=== PATIENT | male | born 1965 | race Caucasian/White ===

== ENCOUNTER 2025-06-01 14:31 | Inpatient (IN) | payer OTHER, SELFPAY ==
--- NOTE | ~2025-06-01 | FL_ITS ---
EXAMINATION: Modified Barium Swallow CLINICAL INFORMATION: Dysphagia COMPARISON: None TECHNIQUE: Modified barium swallow was performed under lateral fluoroscopy with patient in standing position. Barium mixed with solids and liquids of different consistencies was administered by the speech pathologist. Examination was recorded in the fluoroscopy suite. FINDINGS: Patient was given all consistencies. There was no laryngeal penetration or aspiration identified. FLUOROSCOPY TIME: 36 seconds Number of Spot Images: N/A DOSE AREA PRODUCT: 270.3 uGy-m2 (microgray-meter squared) FL/FL Modified Barium Swallow IMPRESSION: No evidence of laryngeal penetration or aspiration. Refer to the full speech therapy report to follow for further details. Electronically signed by: Gerry Tejeda MD 06/06/2025 03:25 PM EDT RP
--- NOTE | ~2025-06-01 | XR_ITS ---
EXAMINATION: XR CHEST CLINICAL INFORMATION: CHRONIC COUGH COMPARISON: None available. TECHNIQUE: Frontal view of the chest was obtained. FINDINGS: Pulmonary reticular pattern. No hyperinflation. No consolidation, pleural effusion or pneumothorax. Cardiomediastinal silhouette size is normal. Inadequate evaluation of the axial skeleton. XR/XR chest 1V IMPRESSION: Concerning chronic interstitial lung disease without overt acute airspace disease. Electronically signed by: Vik Mccauley MD 07/15/2025 02:08 PM EDT
[2025-06-01 15:02] VITALS: BP 120/80; PULSE 77; O2SAT 98
[2025-06-01 15:03] VITALS: BMI 20.5
[2025-06-01 15:22] VITALS: BP 113/70; PULSE 73; RESP 18; TEMP 36.9; O2SAT 96
--- NOTE | 2025-06-01 15:29 | PC.NURSE ---
Crisis changeover completed. Belongings placed in [facility] (ED).
--- NOTE | 2025-06-01 15:38 | ED.PSYCH ---
HPI - Psych General Chief Complaint: Psychiatric Symptoms Stated Complaint: AGITATION Time Seen by Provider: 06/01/25 15:30 Source: patient, EMS and other ([facility]) Mode of arrival: EMS Limitations: no limitations History of Present Illness ED Provider: Eugenia Callahan APRN HPI Narrative: 59-year-old male with a history of schizophrenia, seizure, COPD, DVT on Eliquis, dementia, bulimia, GT present here from [facility] after a verbal altercation with another resident. Patient reports that he was filing a complaint with the boiler operators supervisor and electrical engineering director in regards to dust he finds that were being used and the need for air conditioning at the facility. He reports over the last few days he has gotten into several different verbal altercation with another resident in regards to his concerns. Patient denies any SI or HI. No hallucinations. He is currently calm and cooperative. Nursing called and spoke to the nurse who was working with the patient today. They report the patient has had increasing manic episodes over the last few days and they tell us that the patient was sent in for a mental health evaluation. Related Data Home Medications ?Medication ?Instructions ?Recorded ?Confirmed acetaminophen 650 mg tablet 650 mg PO Q6H PRN Pain 06/01/25 06/01/25 apixaban 5 mg tablet (Eliquis) 5 mg feeding tube BID 06/01/25 06/01/25 bisacodyl 10 mg rectal suppository 10 mg [place] DAILY PRN Constipation 06/01/25 06/01/25 calcium carbonate 1,000 mg feeding tube Q8H PRN GERD 06/01/25 06/01/25 clotrimazole 1 % topical cream 1 appl topical TID 06/01/25 06/01/25 fluoxetine 10 mg capsule 10 mg PO DAILY 06/01/25 06/01/25 glucagon 1 mg/0.2 mL subcutaneous 1 mg subcut NEEDED PRN 06/01/25 06/01/25 auto-injector (Gvoke HypoPen Hypoglycemia 1-Pack) glycerin 2 drp ophthalmic (eye) Q4H PRN 06/01/25 06/01/25 dryness lacosamide 10 mg/mL oral solution 100 mg feeding tube BID 06/01/25 06/01/25 (Vimpat) lactose-reduced food with fiber 1 ea feeding tube BID 06/01/25 06/01/25 0.06 gram-1.5 kcal/mL oral liquid (Jevity 1.5 Alexis) lithium carbonate 150 mg capsule 150 mg feeding tube BID 06/01/25 06/01/25 magnesium hydroxide 400 mg/5 mL 30 ml feeding tube DAILY PRN 06/01/25 06/01/25 oral suspension (Milk of Magnesia) Constipation memantine 10 mg tablet 20 mg PO BEDTIME 06/01/25 06/01/25 midodrine 2.5 mg tablet 7.5 mg feeding tube TID 06/01/25 06/01/25 naloxone 0.4 mg/mL injection 0.4 mg subcut Q2M PRN opiate 06/01/25 06/01/25 solution overdose naloxone 4 mg/actuation nasal spray 4 mg intranasal Q2M PRN opiate 06/01/25 06/01/25 overdose pantoprazole 40 mg granules 40 mg G-tube DAILY 06/01/25 06/01/25 delayed-release for susp in packet polyethylene glycol 3350 17 17 g feeding tube DAILY PRN 06/01/25 06/01/25 gram/dose oral powder (Miralax) Constipation quetiapine 50 mg tablet 50 mg feeding tube BID 06/01/25 06/01/25 sennosides 8.8 mg/5 mL oral syrup 10 ml feeding tube DAILY PRN 06/01/25 06/01/25 (senna) Constipation sodium phosphates 19 gram-7 118 ml WV DAILY PRN Constipation 06/01/25 06/01/25 gram/118 mL enema (Fleet Enema) Allergies Allergy/AdvReac Type Severity Reaction Status Date / Time dog dander Allergy Unknown Verified 06/04/25 06:34 mite-Dermatophagoides Allergy Unknown Verified 06/04/25 06:32 farinae, abhilash (dust mite - [place]) Review of Systems Review of Systems: Yes all other systems are reviewed and are negative Constitutional: Constitutional: Reports no additional constitutional complaints, Denies body ache(s), Denies chills, Denies fever(s), Denies headache(s) and Denies weakness Eyes: Eyes: Reports no additional eye complaints and Denies change in vision ENT: Reports system reviewed and no additional complaints, except as documented, Denies dizziness, Denies headache(s), Denies nasal congestion, Denies nasal discharge and Denies neck pain Cardiovascular: Cardiovascular: Reports no additional cardiovascular complaints, Denies chest pain, Denies leg edema and Denies dyspnea Respiratory: Respiratory: Reports no additional respiratory complaints, Denies cough and Denies dyspnea Gastrointestinal: Gastrointestinal: Reports no additional gastrointestinal complaints, Denies abdominal pain, Denies diarrhea, Denies nausea and Denies vomiting Genitourinary: Genitourinary: Denies urinary incontinence Musculoskeletal: Musculoskeletal: Reports no additional musculoskeletal complaints, Denies back pain, Denies arthralgias, Denies joint swelling, Denies neck pain, Denies numbness and Denies tingling Integumentary/Breasts: Skin/Breast: Reports system reviewed and no additional complaints, except as docu and Denies rash Neurologic: Reports system reviewed and no additional complaints, except as documented, Denies Abnormal speech present, Denies dizziness, Denies headache(s), Denies numbness, Denies tingling and Denies weakness PMFSH Past Medical History Attestation statement: The following information was validated with the patient. Source: old records reviewed and nursing notes reviewed Medical History (Updated 06/04/25 @ 17:23 by Ed Adhikari MD) Gastrointestinal tube in situ Eating disorder with ongoing treatment Bulimia Schizoaffective disorder, bipolar type Social History Social History Household Members: Other Household Members Other:: Senior Living Housing: Senior Living Do you presently have visiting nurse or other home services: No Patient Tobacco Use Status: Refuse Tobacco use screen Smoked in Last 30 Days: No Use of substances other than those prescribed or required for medical reasons: No Currently Displaying Signs/Symptoms of Drug Intoxication Withdrawal: No Advance Directives: No Advance Directives Information Provided: No Do you have thoughts of harming others: None Do you have a plan to hurt others: No Plan Recently lost weight without trying: No How much weight loss: Not applicable Eating poorly because of decreased appetite: No Nutrition screen score: 0 Nutrition Risks: No Nutritional Risk Poor oral hygiene: No service: No Physical Exam Vital Signs: Vital Signs: Last Vital Signs Temp 97.4 F 06/06/25 08:00 Pulse 64 06/06/25 15:53 Resp 16 06/06/25 20:00 BP 102/62 06/06/25 15:53 Pulse Ox 96 06/06/25 08:00 O2 Del Method Room Air 06/06/25 08:00 BMI result Body Mass Index 20.5 Const: General: cooperative, healthy appearing, comfortable and no acute distress Orientation/consciousness: patient oriented x3 Limitations: no limitations HEENT: Head: Yes normal to inspection Ears: hearing grossly normal bilaterally General nose exam: Normal external nose present Face and sinus: Yes normal facial exam Mouth: Normal oral and palatal mucosa present Throat: Yes posterior oropharynx normal Eyes: General: appearance normal, both eyes and all related structures Pupils: Equal, round and reactive pupils present Neck: Neck: Yes normal visual inspection Chest: Chest palpation & inspection: normal inspection of the chest Resp: Effort & Inspection: normal respiratory effort Auscultation: clear to auscultation bilaterally Cardio: Rate: regular rate Rhythm: regular rhythm Peripheral pulses: Peripheral pulses 2+ throughout GI: Inspection: Yes normal to inspection Palpation (GI): Soft to palpation and nontender Auscultation: normal bowel sounds Back/Spine/Pelvis: Thoracic/Lumbar Spine: thoracic and lumbar spine normal to inspection Skin: General skin exam: no rashes or lesions noted Neuro: General: patient oriented x3, no focal motor deficits and normal sensation to monofilament Cranial nerves: Yes Equal, round and reactive pupils present Cognition (Neuro): normal cognition Speech: No Abnormal speech present Gait exam (Neuro): Normal gait present Motor exam (neuro): 5/5 motor strength present throughout Extrem: General: Yes normal to inspection Course Course Course Narrative: 1758-seen by care team. Requesting psych consultation for med review Reevaluation(s) Reevaluation #1: Time: 18:18 Date: 06/01/25 Provider: Eugenia Callahan NP Patient in physician observation for psychiatric evaluation.? Reevaluation #2: Time: 08:53 Date: 06/02/25 Provider: KANE Veloz Patient in physician observation for psychiatric evaluation.? No acute events reported overnight. Awaiting psychiatric consultation. Time: 12:38 Date: 06/02/25 Provider: KANE Veloz Patient in physician observation for psychiatric evaluation.? ? Patient is in bed search status. Will continue to monitor. Reevaluation #3: DR. Faust's progress note, 06/03/2025; 9;27; VSS, no events reported by nurse overnight. Continue physician observation, bed search is underway, care team input is appreciated. Time: 09:27 Consultations Consultation #1: Discontinue physician observation now, patient is admitted to . Time: 15:55 Medications Administered Generic Name Dose Route Start Last Admin Trade Name Freq PRN Reason Stop Dose Admin Apixaban 5 mg 06/05/25 21:00 06/06/25 20:32 Apixaban 5 Mg Tablet PO Not Given BID SERENITY Clotrimazole 1 appl 06/01/25 21:00 06/06/25 20:32 Clotrimazole 1 % Cream 15 Gm Tube TOPICAL Not Given TID [facility] Protocol Fluoxetine HCl 10 mg 06/02/25 09:00 06/06/25 08:17 Fluoxetine Hcl 10 Mg Capsule PO 10 mg DAILY SERENITY Administration Lacosamide 100 mg 06/05/25 21:00 06/06/25 20:32 Lacosamide Oral Solution 100 Mg/10 Ml Solution PO Not Given BID SERENITY [place] Carbonate 300 mg 06/05/25 21:00 06/06/25 20:32 [place] Carbonate 300 Mg Tablet PO Not Given BID SERENITY Memantine 20 mg 06/01/25 21:00 06/06/25 20:33 Memantine Hcl 10 Mg Tablet PO Not Given BEDTIME SERENITY Midodrine 7.5 mg 06/05/25 11:30 06/06/25 15:55 Midodrine Hcl 2.5 Mg Tablet PO 7.5 mg TIDAC SERENITY Administration Omeprazole 20 mg 06/06/25 06:30 06/07/25 06:41 Omeprazole/Na Bicarb Oral Susp 20 Mg/10 Ml Ud Cup PO Not Given DAILY@0630 [facility] Quetiapine Fumarate 50 mg 06/02/25 17:24 06/05/25 11:10 Quetiapine Fumarate 50 Mg Tablet PO 50 mg BID PRN Administration psychosis, agitation Quetiapine Fumarate 50 mg 06/05/25 21:00 06/06/25 20:33 Quetiapine Fumarate 50 Mg Tablet PO Not Given BID SERENITY Discontinued Medications Generic Name Dose Route Start Last Admin Trade Name Stefan PRN Reason Stop Dose Admin Apixaban 5 mg 06/01/25 21:00 06/06/25 07:31 Apixaban 5 Mg Tablet G-TUBE Not Given BID SERENITY Lacosamide 100 mg 06/01/25 21:00 06/06/25 07:31 Lacosamide Oral Solution 100 Mg/10 Ml Solution G-TUBE Not Given BID SERENITY [place] Carbonate 150 mg 06/01/25 21:00 06/02/25 08:24 [place] Carbonate 300 Mg Tablet G-TUBE 150 mg BID SERENITY Administration [place] Carbonate 300 mg 06/02/25 21:00 06/06/25 07:31 [place] Carbonate 300 Mg Tablet G-TUBE Not Given BID SERENITY Midodrine 7.5 mg 06/01/25 21:00 06/06/25 07:35 Midodrine Hcl 2.5 Mg Tablet G-TUBE Not Given TID SERENITY Midodrine 7.5 mg 06/04/25 07:30 06/06/25 07:31 Midodrine Hcl 2.5 Mg Tablet G-TUBE Not Given TIDAC SERENITY Omeprazole 20 mg 06/02/25 06:30 06/05/25 07:03 Omeprazole/Na Bicarb Oral Susp 20 Mg/10 Ml Ud Cup G-TUBE 20 mg DAILY@0630 [facility] Administration Quetiapine Fumarate 50 mg 06/01/25 18:12 06/01/25 21:12 Quetiapine Fumarate 50 Mg Tablet PO 06/01/25 18:13 Not Given ONCE ONE Quetiapine Fumarate 50 mg 06/01/25 21:00 06/06/25 07:31 Quetiapine Fumarate 50 Mg Tablet G-TUBE Not Given BID SERENITY Medical Decision Making Medical Decision Making MDM Narrative: 59-year-old male with a history of schizophrenia, seizure, COPD, DVT on Eliquis, dementia, bulimia, GT present here from [facility] after a verbal altercation with another resident. Patient reports that he was filing a complaint with the boiler operators supervisor and electrical engineering director in regards to dust he finds that were being used and the need for air conditioning at the facility. He reports over the last few days he has gotten into several different verbal altercation with another resident in regards to his concerns. Patient denies any SI or HI. No hallucinations. He is currently calm and cooperative. Nursing called and spoke to the nurse who was working with the patient today. They report the patient has had increasing manic episodes over the last few days and they tell us that the patient was sent in for a mental health evaluation. Will order labs including lithium level. Will order PATEL. Care team consult will be ordered. Patient placed on section 12 until seen by care team so that they may obtain more collateral information I called and spoke to the guardian at [phone] (Ayleen Flores) [phone]. Differential Diagnosis Differential Diagnoses: The differential diagnosis associated with the presentation includes dementia Admission/Observation Consideration of admission/observation: Escalation of care including admission/observation considered Consult Healthcare Provider Management of the patient was discussed with: Behavioral Health Provider see course of care Lab Data MDM Lab Attestation statement: I reviewed the patient's lab results. 06/01/25 15:55 06/04/25 07:25 Labs: Lab Results 06/01/25 06/01/25 06/01/25 Range/Units 15:54 15:55 16:47 WBC 9.7 (4.8-10.8) X10*3/uL RBC 4.19 L (4.60-5.80) X10*6/uL Hgb 12.8 L (14.0-18.0) g/dl Hct 37.9 L (42.0-52.0) % MCV 90.5 (80.0-98.0) fL MCH 30.5 (27.0-33.0) pg MCHC 33.8 (31.0-36.0) g/dl RDW 19.4 H (11.0-16.0) % Plt Count 452 H (160-400) X10*3/uL MPV 7.9 L (9.4-12.4) fL Immature Gran % (Auto) 0.2 (0.0-0.4) % Neut % (Auto) 67.3 (45-73) % Lymph % (Auto) 17.3 L (20-40) % [place] % (Auto) 13.4 H (2-11) % Eos % (Auto) 1.5 (0-4) % Baso % (Auto) 0.3 (0-2) % Lymph # (Auto) 1.7 (1.2-4.9) X10*3/uL [place] # (Auto) 1.3 H (0.1-1.2) X10*3/uL Eos # (Auto) 0.2 (0.0-0.4) X10*3/uL Baso # (Auto) 0.0 (0.0-0.2) X10*3/uL Abs Immat Gran (auto) 0.02 (0.00-0.03) X10*3/uL Absolute Neuts (auto) 6.5 (2.0-8.3) x10*3/uL Absolute Nucleated RBC 0.000 (0.0-0.012) X10*3/uL Nucleated RBC % (auto) 0.0 (0.0-0.2) /100WBC Sodium 139 (135-145) mmol/L Potassium 4.1 (3.3-5.1) mmol/L Chloride 106 (96-108) mmol/L Carbon Dioxide 23 (22-29) mmol/L Anion Gap 14 (12-20) BUN 27 H (9-16) mg/dL Creatinine 0.63 (0.5-1.4) mg/dL Estim Creat Clear Calc 119.0 Estimated GFR > 60 Random Glucose 95 (60-115) mg/dL Calcium 8.9 (8.4-10.2) mg/dL Total Bilirubin 0.2 (0.0-1.0) mg/dL Direct Bilirubin < 0.2 (0.0-0.5) mg/dL AST 22 (5-37) U/L ALT 24 (0-40) U/L Alkaline Phosphatase 96 (39-117) U/L Total Protein 7.5 (6.5-8.0) g/dL Albumin 3.9 (3.5-5.0) g/dL Hold Yellow Top See Note Urine Color Yellow Urine Appearance Clear Urine pH 8.0 (5.0-9.0) Ur Specific [place] 1.020 (1.005-1.025) Urine Protein 30 (1+) H (Neg-Trace) mg/dL Urine Glucose (UA) Negative (Negative) mg/dL Urine Ketones Negative (Negative) mg/dL Urine Blood Negative (Negative) Urine Nitrite Negative (Negative) Ur Leukocyte Esterase Negative (Negative) Urine RBC 0-2 (0-2) /HPF Urine WBC 0-5 (0-5) /HPF Ur Squamous Epith Cells 0-2 (0-2) /HPF Urine Bacteria None Seen (None Seen) Hyaline Casts 0-2 (0-2) /LPF Urine Opiates Screen Not Detected (Not Detect) Ur Buprenorphine Scrn Not Detected (Not Detect) ng/mL Ur Oxycodone Screen Not Detected (Not Detect) ng/mL Urine Methadone Screen Not Detected (Not Detect) ng/mL Urine Fentanyl Screen Not Detected (Not Detect) Ur Barbiturates Screen Not Detected (Not Detect) Ur Phencyclidine Scrn Not Detected (Not Detect) Ur Amphetamines Screen Not Detected (Not Detect) U Benzodiazepines Scrn Not Detected (Not Detect) [place] 0.11 L (0.60-1.20) mmol/L Urine Cocaine Screen Not Detected (Not Detect) U Marijuana (THC) Screen Not Detected (Not Detect) Independent Historian Clinical information obtained from an independent historian. History obtained from or confirmed by: EMS Discharge Plan Discharge Clinical Impression: Dementia Patient Disposition: Admitted As Inpatient Interventions: Admission Worksheet (ED) Last Done: 06/03/25 14:57 Discharge Date/Time: 06/03/25 14:59
--- NOTE | 2025-06-01 15:45 | PC.NURSE ---
Spoke with [facility] staff member Luz Elena ACEVES who reports that Grant has been having increasing manic episodes for days , controlling behavior, throwing belongings away, having multiple verbal altercations daily where he is threatening DON, staff, and other residents. Hx bulemia & eating/purging behaviors has resulted in the patient having a G-tube in place. Luz Elena ACEVES stated his behaviors have been escalating and I don't feel safe, so I called EMS to have him evaluated . MENDY Callahan aware. Plan for labs & CARE team evaluation. Call back # . Care ongoing by this RN.
[2025-06-01 15:59] LABS: MANUAL DIFF FLAG NO
[2025-06-01 16:08] LABS: Hematocrit 37.9 % (42.0-52.0); Hemoglobin 12.8 g/dl (14.0-18.0); Imm Gran Abs Auto 0.02 X10*3/uL (0.00-0.03); Imm Gran Pct Auto 0.2 % (0.0-0.4); Lymphocytes Absolute Auto 1.7 X10*3/uL (1.2-4.9); Mean Corpuscular HGB Conc 33.8 g/dl (31.0-36.0); Mean Corpuscular Hemoglobin 30.5 pg (27.0-33.0); Mean Corpuscular Volume 90.5 fL (80.0-98.0); NRBC Abs Auto 0.000 X10*3/uL (0.0-0.012); NRBC Pct Auto 0.0 /100WBC (0.0-0.2); Platelet Count 452 X10*3/uL (160-400); Red Blood Count 4.19 X10*6/uL (4.60-5.80); White Blood Count 9.7 X10*3/uL (4.8-10.8)
[2025-06-01 16:12] LABS: Lithium 0.11 mmol/L (0.60-1.20)
[2025-06-01 16:20] LABS: Alanine Aminotransferase 24 U/L (0-40); Albumin Level 3.9 g/dL (3.5-5.0); Alkaline Phosphatase 96 U/L (39-117); Anion Gap 14 (12-20); Aspartate Amino Transferase 22 U/L (5-37); Blood Urea Nitrogen 27 mg/dL (9-16); Calcium 8.9 mg/dL (8.4-10.2); Carbon Dioxide 23 mmol/L (22-29); Chloride 106 mmol/L (96-108); Creatinine Clr Calc Pharmacy 119.0; Estimated Glomerular Filt Rate > 60; Potassium 4.1 mmol/L (3.3-5.1); Sodium 139 mmol/L (135-145); Total Protein 7.5 g/dL (6.5-8.0)
[2025-06-01 16:57] LABS: Appearance Urine Clear; Glucose Urine UA Negative (Negative); PH 8.0 (5.0-9.0); Specific Gravity - Urine 1.020 (1.005-1.025); UMIC TRIGGER UACC YES
[2025-06-01 17:16] LABS: Cannabinoid Screen Urine Not Detected (Not Detect)
[2025-06-01 17:52] VITALS: BP 122/76; PULSE 76; RESP 18; TEMP 36.8; O2SAT 97
[2025-06-01 18:58] VITALS: BP 126/78; PULSE 80; RESP 20; TEMP 36.6; O2SAT 97
[2025-06-01] MEDS: Lacosamide Oral Solution 100 MG/10 ML SOLUTION G-TUBE (22:04)
[2025-06-01 22:05] VITALS: BP 104/65
[2025-06-01] MEDS: Clotrimazole 1 % Cream 15 GM TUBE 1 APPL TOPICAL (22:05)
[2025-06-01 22:07] VITALS: BP 104/65; PULSE 58; RESP 16; O2SAT 98
--- NOTE | 2025-06-01 22:26 | PHA.MEDREC ---
Pharmacy Consult ? Medication Reconciliation Pharmacy has reviewed the medication reconciliation done by nursing using med list from [facility].
--- NOTE | 2025-06-02 | ECG_ITS ---
Test Reason : R/O PROLONGED QT Blood Pressure : */* mmHG Vent. Rate : 78 BPM Atrial Rate : 78 BPM P-R Int : 162 ms QRS Dur : 90 ms QT Int : 372 ms P-R-T Axes : 77 42 61 degrees QTcB Int : 424 ms Normal sinus rhythm Normal ECG No previous ECGs available Referred By: Eugenia Callahan Electronically Signed By: MADY HOPSON MD
--- NOTE | 2025-06-02 06:01 | PC.NURSE ---
Pt remained calm cooperative throughout the night with intermittent sleep episodes noted. Pt able to make needs known in an appropriate manner. Ambulatory and independent with ADL's. Medicated as per MAR through g-tube that is patent flushing fine. Pt reports wanting to have tube removed. Pt encouraged to discuss this with provider. Monitoring is ongoing.
[2025-06-02] MEDS: Omeprazole/Na Bicarb Oral Susp 20 MG/10 ML UD Cup G-TUBE (06:55)
--- NOTE | 2025-06-02 07:40 | PC.NURSE ---
Assumed care of patient at 0645, patient appears to be in no apparent distress this am, calm and cooperative, offering no complaints to this RN. Pt did eat about 75% of his breakfast this am, was observed to keep food down, no self-induced vomiting afterwards. Pt does have G-tube in place for medication administration. G-tube flushed, patent at this time. Continue plan of care for psych consult follow up
[2025-06-02] MEDS: Lacosamide Oral Solution 100 MG/10 ML SOLUTION G-TUBE ×2 (08:25→22:05)
[2025-06-02] MEDS: Clotrimazole 1 % Cream 15 GM TUBE 1 APPL TOPICAL (08:25)
[2025-06-02 08:29] VITALS: BP 92/61; PULSE 71; RESP 14; TEMP 36.8; O2SAT 95
--- NOTE | 2025-06-02 09:06 | PC.NURSE ---
This RN administered am medications without issue. G-tube flushed with water, patent, all medications crushed and administered via g-tube with additional water and flushed again after. Pt tolerated well
--- NOTE | 2025-06-02 10:06 | PHA.MEDREC ---
Pharmacy Consult ? Medication Reconciliation Pharmacy has reviewed the medication reconciliation completed by nursing.
--- NOTE | 2025-06-02 12:33 | PM.PSYCN ---
History of Present Illness Date of Service: 06/02/2025 Chief Complaint: AGITATION Reason for Consult: Delusional Requesting physician: Eugenia Callahan Sources of Information: patient interviewed, chart reviewed and crisis/core team assessment reviewed HPI Narrative: 59 yo male, history of dementia, schizophrenia,bulimia, mood disorder, currently with GTube, hx of DVT taking Eliquis, COPD and seizure disorder. Recent admit to [facility] and placement with [facility]. Pt to ER from their facility post disagreement with team and peers regarding the quality of their air conditioning and cleaning of HVAC system. Pt became threatening, had verbal altercations with staff and peers. Met with pt today who affirms the above information, reports the air at [facility] is filth and unhealthy for me and for everyone else . Pt does not want to return to [facility] and requests transfer to a different SNF. He reports that he is told that GTube can be removed in eight weeks and he can go home after this. He reports plans after this surgery include work at [employer], marriage to his girlfriend who works at [employer] and to have children. 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 He also is concerned about his mother. He worries that as she is age 80, if she is in a rest home, if she is safe, and if she needs his help. Discussed intake as BUN was 27 on admit. Pt asks for double portions as he reports he is trying and wanting to eat more and gain weight. Review of [place] level and discussion of increase which he is in agreement with. Currently denies SI, HI, AH, VH. Asks that we hospitalize him at [facility] and keep him for eight weeks, until surgery. Discussed what goals would be if admitted-mood and medicine stabilization, then return to rehab to complete his treatment prior to surgery. He agrees with this plan and would like a brief admission. Agrees to increased in [place] and Quetiapine to begin treatment. Past Psychiatric History: Pt denies history, however, recent admit to [facility], hx of in pt admits OP: Has providers with [facility] Guardian: Ayleen Landaverde [phone] Medical Evaluation Reviewed: Yes Review of Systems Review of Systems Worry about loss of weight. Worry about reversal of tube in he reports ~8 weeks [facility] Medical History (Updated 06/02/25 @ 17:19 by Geetha Dawson APRN) Bulimia Schizoaffective disorder, bipolar type Family History: mother was anxious family history of alcoholism Social History: Born in [place], 3 brothers, one has High school graduate Mother has a restraining order currently active on pt Substance History: Denies and toxic screen negative Trauma History: Affirms Diagnostics Vital Signs (24Hr): Vital Signs - 24 hr 06/01/25 15:22 06/01/25 17:52 06/01/25 18:58 Temperature 98.5 F 98.2 F 98 F Pulse Rate 73 76 80 Respiratory Rate 18 18 20 Blood Pressure 113/70 122/76 126/78 Pulse Oximetry 96 97 97 Oxygen Delivery Method Room Air Room Air Room Air 06/01/25 22:05 06/01/25 22:07 06/02/25 08:29 Temperature 98.3 F Pulse Rate 58 71 Respiratory Rate 16 14 Blood Pressure 104/65 104/65 92/61 Pulse Oximetry 98 95 Oxygen Delivery Method Room Air Room Air BMI result Body Mass Index 20.5 Labs 06/01/25 15:55 06/01/25 15:55 Labs: Laboratory Results - last 48 hr 06/01/25 06/01/25 06/01/25 15:54 15:55 16:47 WBC 9.7 RBC 4.19 L Hgb 12.8 L Hct 37.9 L MCV 90.5 MCH 30.5 MCHC 33.8 RDW 19.4 H Plt Count 452 H MPV 7.9 L Immature Gran % (Auto) 0.2 Neut % (Auto) 67.3 Lymph % (Auto) 17.3 L Swain % (Auto) 13.4 H Eos % (Auto) 1.5 Baso % (Auto) 0.3 Lymph # (Auto) 1.7 Swain # (Auto) 1.3 H Eos # (Auto) 0.2 Baso # (Auto) 0.0 Abs Immat Gran (auto) 0.02 Absolute Neuts (auto) 6.5 Absolute Nucleated RBC 0.000 Nucleated RBC % (auto) 0.0 Sodium 139 Potassium 4.1 Chloride 106 Carbon Dioxide 23 Anion Gap 14 BUN 27 H Creatinine 0.63 Estim Creat Clear Calc 119.0 Estimated GFR > 60 Random Glucose 95 Calcium 8.9 Total Bilirubin 0.2 Direct Bilirubin < 0.2 AST 22 ALT 24 Alkaline Phosphatase 96 Total Protein 7.5 Albumin 3.9 Hold Yellow Top See Note Urine Color Yellow Urine Appearance Clear Urine pH 8.0 Ur Specific [employer] 1.020 Urine Protein 30 (1+) H Urine Glucose (UA) Negative Urine Ketones Negative Urine Blood Negative Urine Nitrite Negative Ur Leukocyte Esterase Negative Urine RBC 0-2 Urine WBC 0-5 Ur Squamous Epith Cells 0-2 Urine Bacteria None Seen Hyaline Casts 0-2 Urine Opiates Screen Not Detected Ur Buprenorphine Scrn Not Detected Ur Oxycodone Screen Not Detected Urine Methadone Screen Not Detected Urine Fentanyl Screen Not Detected Ur Barbiturates Screen Not Detected Ur Phencyclidine Scrn Not Detected Ur Amphetamines Screen Not Detected U Benzodiazepines Scrn Not Detected [place] 0.11 L Urine Cocaine Screen Not Detected U Marijuana (THC) Screen Not Detected Mental Status Exam Mental Status Exam Patient Appearance: Appropriate Patient Orientation: Person, Place and Situation Level of Consciousness: Alert Patient Behavior: Talkative and Good Eye Contact Mood Description: Euphoric, Happy, Cheerful, Labile and Expansive Affect Description: Labile Patient Cognition Impaired: No Ability to Follow Directions: Good Speech Pattern: Spontaneous Speech, Rambling, Excessive, Animated, Pressured and Excited Memory Description: Episodic Impaired Hallucinations: None (denies) Delusions: Grandiose and Present Perceptual Disturbances: Derealization Thought Process: Racing, Illogical and Distracted Thought Content: positive for Flight of Ideas, positive for Racing, positive for Tangential and positive for Suicidal Ideation (denies) Depressive Symptoms: Changes in Appetite and Increased Fatigue Judgement: Poor Medications Medications Current Medications Acetaminophen (Acetaminophen 325 Mg Tablet) 650 mg PO Q6H PRN PRN Reason: Pain Apixaban (Apixaban 5 Mg Tablet) 5 mg G-TUBE BID [facility] Last Admin: 06/02/25 08:25 Dose: 5 mg Bisacodyl (Bisacodyl 10 Mg Supp.Rect) 10 mg VA DAILY PRN PRN Reason: Constipation Calcium Carbonate (Calcium Carbonate 750 Mg Tab.Chew) 750 mg G-TUBE Q8H PRN PRN Reason: GERD Clotrimazole (Clotrimazole 1 % Cream 15 Gm Tube) 1 appl TOPICAL TID [facility]; Protocol Last Admin: 06/02/25 08:25 Dose: 1 appl Fluoxetine HCl (Fluoxetine Hcl 10 Mg Capsule) 10 mg PO DAILY [facility] Last Admin: 06/02/25 08:25 Dose: 10 mg Glucagon (Glucagon Hcl 1 Mg Vial) 1 mg IM ONCE PRN PRN Reason: HYPOGLYCEMIA Lacosamide (Lacosamide Oral Solution 100 Mg/10 Ml Solution) 100 mg G-TUBE BID [facility] Last Admin: 06/02/25 08:25 Dose: 100 mg [place] Carbonate ([place] Carbonate 300 Mg Tablet) 150 mg G-TUBE BID [facility] Last Admin: 06/02/25 08:24 Dose: 150 mg Magnesium Hydroxide (Milk Of Magnesia 30 Ml Oral.Susp) 30 ml G-TUBE DAILY PRN PRN Reason: Constipation Memantine (Memantine Hcl 10 Mg Tablet) 20 mg PO BEDTIME [facility] Last Admin: 06/01/25 22:04 Dose: 20 mg Midodrine (Midodrine Hcl 2.5 Mg Tablet) 7.5 mg G-TUBE TID [facility] Last Admin: 06/02/25 08:25 Dose: 7.5 mg Naloxone HCl (Naloxone Hcl 0.4 Mg/Ml Vial) 0.4 mg SUBCUT Q2M PRN PRN Reason: opiate overdose Naloxone HCl (Naloxone Hcl Nasal 4 Mg Mobile) 4 mg NOSTRILALT Q2M PRN PRN Reason: opiate overdose Omeprazole (Omeprazole/Na Bicarb Oral Susp 20 Mg/10 Ml Ud Cup) 20 mg G-TUBE DAILY@0630 [facility] Last Admin: 06/02/25 06:55 Dose: 20 mg Polyethylene Glycol (Polyethylene Glycol 3350 17 Gm Powd.Pack) 17 gm G-TUBE DAILY PRN PRN Reason: Constipation Quetiapine Fumarate (Quetiapine Fumarate 50 Mg Tablet) 50 mg G-TUBE BID [facility] Last Admin: 06/02/25 08:25 Dose: 50 mg Senna (Sennosides Oral Syrup 8.8 Mg/5 Ml) 17.6 mg G-TUBE DAILY PRN PRN Reason: Constipation Sodium Biphosphate/Sodium Phosphate (Sodium Phosphate,Swain-Dibasic 133 Ml Enema) 118 ml VA DAILY PRN PRN Reason: Constipation Allergies Allergies Allergy/AdvReac Type Severity Reaction Status Date / Time No Known Allergies Allergy Verified 06/01/25 15:27 Assessment & Plan Assessment & Plan (1) Schizoaffective disorder, bipolar type: Status: Acute Code(s): F25.0 - Schizoaffective disorder, bipolar type (2) Dementia: Status: Acute Code(s): F03.90 - Unspecified dementia, unspecified severity, without behavioral disturbance, psychotic disturbance, mood disturbance, and anxiety Plan 59 yo male, history of dementia, schizoaffective disorder, bipolar type, with seizure history, COPD hx, DVT hx and hx of bulimia. Currently with GTube he reports scheduled to be removed in 8 weeks. Pt exhibiting federica, aggression at [facility] prior to admission. It is reported that mother has an active restraining order on pt. Plan: Admit to stabilize Increase [place] to 300 mg bid. Current level 0.11 Add Seroquel 50 mg bid prn agitation, psychosis Total time managing care of this patient today ____ minutes.
--- NOTE | 2025-06-02 12:35 | PC.NURSE ---
Per request of Etienne, LOUVER M[employer]IS[employer] OPERATOR pt should receive a double portion of food for meals to increase food intake which will be complemented by an increase in fluid intake to account for an increase in lithium. This RN called kitchen who stated they can send double portions for meals
[2025-06-02 15:24] VITALS: BP 103/70; PULSE 80; RESP 15; O2SAT 96
[2025-06-02 15:38] VITALS: BP 103/70
--- NOTE | 2025-06-02 19:29 | PC.NURSE ---
assumed care for pt at this time, pt awake and alert watching tv in room. pt given turkey sandwich and orange juice per request. pt denies any pain or has no complaints at this time. plan of care ongoing
[2025-06-02 22:22] VITALS: BP 103/66; PULSE 83; RESP 17; TEMP 37.2; O2SAT 96
--- NOTE | 2025-06-03 07:05 | PC.NURSE ---
Assumed care of patient at 0645, patient appears to be in no apparent distress this am, sleeping, respirations even and unlabored. Continue plan of care for IPLOC
--- NOTE | 2025-06-03 07:51 | PC.NURSE ---
Awaiting 0630 medication from pharmacy, rafael texted at 0712
[2025-06-03 08:13] VITALS: BP 111/67; PULSE 67; RESP 16; TEMP 36.6; O2SAT 98
[2025-06-03] MEDS: Lacosamide Oral Solution 100 MG/10 ML SOLUTION G-TUBE ×2 (08:14→21:32)
--- NOTE | 2025-06-03 08:28 | PC.NURSE ---
Pt irritable this am, demanding he take certain medications by mouth and certain medications via G-tube. pt also demanding this RN to only use a certain amount of water to flush his g-tube. Pt also demanding that he receive three well done burgers for lunch and states if they aren't well done, I am sending them back
[2025-06-03 15:03] VITALS: BP 110/73; PULSE 86; RESP 16; TEMP 36.4; O2SAT 97
[2025-06-03 15:43] VITALS: BMI 21.0
--- NOTE | 2025-06-03 16:45 | PM.EVENT ---
Event Note Date of Service: 06/03/25 Event Note: pt evaluated able to sign cv with understanding Time Spent With Patient Time: Total time managing care of this patient today ____ minutes.
--- NOTE | 2025-06-03 17:44 | PC.ADMIT ---
Grant Yeung is a 59 year old Male that was admitted to S1 on 06/03/2025 at 1500 from the [facility] on a CV for tx of Schizophrenia. Utox negative. Pt has a medical hx of hypotension and bulimia. Per crisis assessment pt was admitted from [facility] for getting into a verbal altercation with another resident and was then threatened. He has reportedly become more verbally aggressive within the past several days. Crisis eval reports the pt has a legal guardian, Ayleen Landaverde, however the paperwork is as of January 21, 2025. Social work is aware of this and a copy of the updated guardianship paperwork and gan order are reportedly being faxed over. Per [facility] nurse, pt was admitted from [facility] d/t complaints of dustiness in his room, to which [facility] preventatively called 911 to prevent agitation. Upon arrival to pt displayed a full range affect. He presents with tangential speech and is difficult to disengage from. RN attempted to meet with pt several times to complete admission paperwork, however pt refused and kept asking RN to come back later. He has a G-tube placement that was flushed and patent and dressing was changed shortly after arrival to the unit. He receives some of his medications from the G-tube, but is requesting to take all of his medications orally now. He is also perseverating about having his G-tube removed. He stated ?[facility] doctors told me that once I hit 150 lbs I can get this thing taken out. I'm 150lbs now so that shouldn?t be an issue.? Pt is also perseverating about when he will be able to be discharged as ?I just want to go back to [facility] and get my own apartment.? Pt reported that his sleep and appetite have been good. Pt reports being 145lbs before admission, and on admission he was 150.4 lbs. Pt denies SI/HI/AH/VH and reports feeling safe on the unit. Skin change was unremarkable. Pt ambulates independently with a steady gait. Pt has no physical complaints at this time. Pt reports hx of seizures where he ?passes out for days.? Pt is on 5 minute safety checks per protocol.
[2025-06-03 20:00] VITALS: BP 112/63; PULSE 81; RESP 17; TEMP 36.9; O2SAT 95
[2025-06-03] MEDS: Clotrimazole 1 % Cream 15 GM TUBE 1 APPL TOPICAL (21:32)
[2025-06-04] MEDS: Omeprazole/Na Bicarb Oral Susp 20 MG/10 ML UD Cup G-TUBE (06:03)
[2025-06-04 07:46] LABS: Lithium 0.20 mmol/L (0.60-1.20)
[2025-06-04 08:00] VITALS: BP 104/65
[2025-06-04 08:01] LABS: Alanine Aminotransferase 16 U/L (0-40); Albumin Level 3.6 g/dL (3.5-5.0); Alkaline Phosphatase 89 U/L (39-117); Anion Gap 11 (12-20); Aspartate Amino Transferase 19 U/L (5-37); Blood Urea Nitrogen 24 mg/dL (9-16); Calcium 8.8 mg/dL (8.4-10.2); Carbon Dioxide 24 mmol/L (22-29); Chloride 108 mmol/L (96-108); Cholesterol 282 mg/dL (<200); Creatinine Clr Calc Pharmacy 114.4; Estimated Glomerular Filt Rate > 60; HDL Cholesterol 47 mg/dL (>40); Potassium 4.0 mmol/L (3.3-5.1); Sodium 139 mmol/L (135-145); Total Protein 7.0 g/dL (6.5-8.0); Triglycerides 141 mg/dL (<150)
[2025-06-04 08:17] LABS: Free T4 (Free Thyroxine) 0.83 ng/dL (0.71-1.85); Thyroid Stimulating Hormone 3.69 uIU/mL (0.32-4.0)
[2025-06-04 08:29] LABS: Hemoglobin A1C 96.0856 umol/L; Total Hemoglobin (HGBA1C) 3316.4019 umol/L
[2025-06-04 08:31] LABS: Folate 9.2 ng/mL (> or = 4.0); Vitamin B12 392 pg/mL (200-900)
--- NOTE | 2025-06-04 08:49 | HO.PSYADMNOT ---
HPI Date of Service: 06/04/25 Chief Complaint: psychosis federica Sources of Information: patient interviewed, chart reviewed and crisis/core team assessment reviewed Additional Sources of Information: Patient seen and fully evaluated 10:00 05/2025 records that are available were reviewed HPI Subjective Notes: Triplett Warning and Conditional Voluntary Guardianship: Yes Narrative: The patient is a 59-year-old male who was at [facility] over the past 6 months reportedly who appears to have a longstanding diagnosis of what most likely seems to be schizoaffective disorder bipolar type, history of eating disorder and had a G-tube placed that [facility] sometime over the past year in was placed at [facility] and has been getting supplements through the G-tube with reportedly a target weight of 150. The patient had been increasingly irritable agitated recently [facility] threatening quite intense and complaining about the air quality at [facility]. He did have an altercation with another client exact details not known. He also is somewhat grandiose and states that he has not needed to return to 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 Patient had been living with his mother up until fall she has a restraining order in relationships the patient. Patient has been on combination of lithium and Seroquel and does have a [employer] order. He is not totally clear to me exactly with the patient had been on at [facility]. Does carry a diagnosis of anorexia bulimia schizoaffective disorder with chronic grandiose and paranoid delusional thinking and history of multiple past psychiatric hospitalizations. There is a history of other inpatient psychiatric treatments patient is unable or unwilling to give a clear medication history. Patient reportedly has been on disability. There is a history of DVT he is taking Eliquis history of COPD questionable history of seizure disorder and history of anorexia bulimia. History of cognitive impairment reportedly. Patient was reportedly at [facility] on lithium 150 b.i.d. fluoxetine 10 mg daily Vimpat 100 mg feeding tube b.i.d. memantine 20 mg at bedtime midodrine 7.5 mg t.i.d. quetiapine 50 mg b.i.d. Eliquis 5 mg b.i.d. Past Psychiatric History: Pt denies history, however, recent admit to [facility], hx of in pt admits has malik order OP: Has providers with [facility] Guardian: Ayleen Roberson- Akhil [phone] Medical Evaluation Reviewed: Yes er note labs reviewed 10 am 06/04/25 [facility] Medical History (Updated 06/04/25 @ 17:23 by Ed Adhikari MD) Gastrointestinal tube in situ Eating disorder with ongoing treatment Bulimia Schizoaffective disorder, bipolar type Family History: mother was anxious family history of alcoholism Social History: Born in [place], 3 brothers, one has High school graduate Mother has a restraining order currently active on pt Substance History: Reportedly none recently patient use marijuana extensively when he was younger Trauma History: Affirms Diagnostics Vital Signs (24Hr): Vital Signs - 24 hr 06/03/25 15:03 06/03/25 20:00 Temperature 97.5 F 98.4 F Pulse Rate 86 81 Respiratory Rate 16 17 Blood Pressure 110/73 112/63 Pulse Oximetry 97 95 Oxygen Delivery Method Room Air Room Air BMI result Body Mass Index 21.0 Labs 06/01/25 15:55 06/04/25 07:25 Labs: Laboratory Results - last 48 hr 06/04/25 07:25 Sodium 139 Potassium 4.0 Chloride 108 Carbon Dioxide 24 Anion Gap 11 L BUN 24 H Creatinine 0.67 Estim Creat Clear Calc 114.4 Estimated GFR > 60 Random Glucose 95 Estimat Average Glucose 91 Hemoglobin A1c % 4.8 Calcium 8.8 Total Bilirubin 0.3 AST 19 ALT 16 Alkaline Phosphatase 89 Total Protein 7.0 Albumin 3.6 Triglycerides 141 Cholesterol 282 H LDL Cholesterol, Calc 207 H HDL Cholesterol 47 Vitamin B12 392 Folate 9.2 TSH 3.69 Free T4 0.83 Ethete 0.20 L Meds/Allergies Meds Home Medications ?Medication ?Instructions ?Recorded ?Confirmed ?Type acetaminophen 650 mg tablet 650 mg PO Q6H PRN Pain 06/01/25 06/01/25 History apixaban 5 mg tablet (Eliquis) 5 mg feeding tube BID 06/01/25 06/01/25 History bisacodyl 10 mg rectal suppository 10 mg MA DAILY PRN Constipation 06/01/25 06/01/25 History calcium carbonate 1,000 mg feeding tube Q8H PRN GERD 06/01/25 06/01/25 History clotrimazole 1 % topical cream 1 appl topical TID 06/01/25 06/01/25 History fluoxetine 10 mg capsule 10 mg PO DAILY 06/01/25 06/01/25 History glucagon 1 mg/0.2 mL subcutaneous 1 mg subcut NEEDED PRN 06/01/25 06/01/25 History auto-injector (Gvoke HypoPen Hypoglycemia 1-Pack) glycerin 2 drp ophthalmic (eye) Q4H PRN 06/01/25 06/01/25 History dryness lacosamide 10 mg/mL oral solution 100 mg feeding tube BID 06/01/25 06/01/25 History (Vimpat) lactose-reduced food with fiber 1 ea feeding tube BID 06/01/25 06/01/25 History 0.06 gram-1.5 kcal/mL oral liquid (Jevity 1.5 Alexis) lithium carbonate 150 mg capsule 150 mg feeding tube BID 06/01/25 06/01/25 History magnesium hydroxide 400 mg/5 mL 30 ml feeding tube DAILY PRN 06/01/25 06/01/25 History oral suspension (Milk of Magnesia) Constipation memantine 10 mg tablet 20 mg PO BEDTIME 06/01/25 06/01/25 History midodrine 2.5 mg tablet 7.5 mg feeding tube TID 06/01/25 06/01/25 History naloxone 0.4 mg/mL injection 0.4 mg subcut Q2M PRN opiate 06/01/25 06/01/25 History solution overdose naloxone 4 mg/actuation nasal spray 4 mg intranasal Q2M PRN opiate 06/01/25 06/01/25 History overdose pantoprazole 40 mg granules 40 mg G-tube DAILY 06/01/25 06/01/25 History delayed-release for susp in packet polyethylene glycol 3350 17 17 g feeding tube DAILY PRN 06/01/25 06/01/25 History gram/dose oral powder (Miralax) Constipation quetiapine 50 mg tablet 50 mg feeding tube BID 06/01/25 06/01/25 History sennosides 8.8 mg/5 mL oral syrup 10 ml feeding tube DAILY PRN 06/01/25 06/01/25 History (senna) Constipation sodium phosphates 19 gram-7 118 ml MA DAILY PRN Constipation 06/01/25 06/01/25 History gram/118 mL enema (Fleet Enema) Allergies Allergies Allergy/AdvReac Type Severity Reaction Status Date / Time dog dander Allergy Unknown Verified 06/04/25 06:34 mite-Dermatophagoides Allergy Unknown Verified 06/04/25 06:32 abhilash schuler (dust mite - [place]) Mental Status Exam Mental Status Exam Narrative: Patient is wearing hospital garb appropriately groomed he is without a shirt in repeatedly pointing to his G-tube stoma. He is oriented person place situation he understands that he is been admitted to a psychiatric unit and he did receive a Triplett warning. Patient is alert talkative with good eye contact. His mood is described as could but becomes more anxious and perseverative as he is repetitive regarding wanting the G-tube out in achieving his goal weight or almost that his goal weight. Patient's thought process perseverative poor historian difficulty unclear details regarding events in his life. He is somewhat pressured circumstantial repetitive at times. Becomes irritable agitated when unable to give if clear answer regarding his treatment plan without further knowledge. Has impaired memory. 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 Some paranoid concerns related to [facility]. Patient denies thoughts of self-harm focused on wanting the G-tube out and he can go work in [employer] and get patient grandiose with very limited insight poor judgment impulse control seems intact at this time Assessment & Plan Assessment & Plan (1) Schizoaffective disorder, bipolar type: Status: Acute Code(s): F25.0 - Schizoaffective disorder, bipolar type (2) Eating disorder with ongoing treatment: Status: Acute Code(s): F50.9 - Eating disorder, unspecified (3) Gastrointestinal tube in situ: Status: Acute Code(s): Z93.1 - Gastrostomy status Plan Patient admitted on a conditional voluntary again seen and evaluated 10:00. Patient appears to have schizoaffective disorder a marked eating disorder question delusional based leading to a G-tube but there is no clear history presently available regarding medication trials inpatient psychiatric history. He is on minimal doses of lithium and Seroquel and unclear why that is. Would benefit from medical history regarding G-tube what the treatment plan was regarding this and need medical and psychiatric records from [facility] and would also benefit records from [place]. Patient does have a guardian and Malik order will need to coordinate care check lithium level adjust to better therapeutic dose for irritability appears to be manic symptoms unclear why patient is not on antipsychotic dose of antipsychotic medication. Monitor response to treatment question discharge back to [facility]. Question dementia/cognitive impairment diagnosis check [place] review medical records Patient educated on: diagnosis and medication risk/benefits Informed Consent: further education needed Reason for continued inpatient stay Substantial Risk for: harm to others, inability to function, rapid decompensation and med/psych decompensation Statement Statement: I have reviewed the history and physical and performed a pertinent examination on my patient. No changes have occurred unless specified. If the History and Physical was not performed prior to admission, the Hospitalist's service will be consulted for completing the admission physical. This was reviewed and affirmed 10:00 05/2025 Time Spent With Patient Time: Total time managing care of this patient today ____ minutes.
[2025-06-04] MEDS: Lacosamide Oral Solution 100 MG/10 ML SOLUTION G-TUBE ×2 (08:58→20:26)
--- NOTE | 2025-06-04 13:26 | MHC.CLN ---
NUTRITION PATIENT WITH G TUBE THAT IS NOT CURRENTLY USED FOR NUTRITION. PER EMR, HX OF BULEMIA RESULTING IN GTUBE PLACEMENT. DIET=REGULAR. ENSURE TID PROVIDES 1050 KCALS, 60 G PROTEIN. MONITOR WEEKLY FOR PO INTAKE.
[2025-06-04 16:58] VITALS: BP 134/84
[2025-06-04 20:00] VITALS: BP 105/62; PULSE 83; RESP 16; TEMP 36.3; O2SAT 96
[2025-06-04] MEDS: Clotrimazole 1 % Cream 15 GM TUBE 1 APPL TOPICAL (20:25)
[2025-06-05] MEDS: Omeprazole/Na Bicarb Oral Susp 20 MG/10 ML UD Cup G-TUBE (07:03)
[2025-06-05 08:19] VITALS: BP 118/73; PULSE 84; RESP 15; TEMP 35.9; O2SAT 97
[2025-06-05 08:37] VITALS: BMI 21.1
[2025-06-05 08:45] VITALS: BP 125/82
--- NOTE | 2025-06-05 10:39 | PC.NURSE ---
Spoke with the supervisor paper coating at [facility], they reported that Grant's psych provider at their facility is Snow Stafford, who is on vacation at this time, will be back on Monday.
[2025-06-05] MEDS: Lacosamide Oral Solution 100 MG/10 ML SOLUTION PO ×2 (11:09→20:28)
[2025-06-05] MEDS: Clotrimazole 1 % Cream 15 GM TUBE 1 APPL TOPICAL ×2 (11:17→17:36)
[2025-06-05 11:36] VITALS: BP 132/77; PULSE 74
[2025-06-05 16:38] VITALS: BP 141/76; PULSE 78
[2025-06-05 20:00] VITALS: BP 110/75; PULSE 92; RESP 16; TEMP 36.9; O2SAT 96
--- NOTE | 2025-06-05 22:43 | P.PNPSI_ITS ---
Subjective Subjective Date of Service: 06/05/25 Reason For Visit: psychosis federica Subjective Notes: Conditional Voluntary Interim History: Patient has been eating and drinking and taking medication by mouth not through the G-tube. Patient mostly isolative on the unit has been more irritable and interaction Medication Compliance: Yes Mental Status Exam Mental Status Exam Narrative: Patient seen his room casually dressed wearing glasses. Patient somewhat intense focused on thoughts that he is going to be transferred back to [facility], yelling just do it now and then [facility]. Patient continues to be irritable agitated not verbally or physically threatening but yelling and not allowing this script writer initially speak. Patient was impulsive jumping to conclusions unable to give a clear history. Trying to explain to patient was trying to clarify his psychiatric diagnosis reason for current treatment at [facility] and history. Patient denied SI became quite grandiose talking about how he would be able to leave get an apartment that his family would help him, later becomes agitated talking about police in his town who had out for him and delusional belief regarding a calendar and that they were aggressive and had plotted against him because he would not publish this calendar and also related to being stalked to police officers in her stalking him. No active SI or HI very limited insight into his condition unable or unwilling to give a clear history. No evidence of abnormal movement on exam patient state stated he was able to eat and drink Diagnostics Vital Signs (24Hr): Vital Signs - 24 hr 06/05/25 08:19 06/05/25 08:45 06/05/25 11:36 Temperature 96.7 F L Pulse Rate 84 74 Respiratory Rate 15 Blood Pressure 118/73 125/82 132/77 Pulse Oximetry 97 Oxygen Delivery Method Room Air 06/05/25 16:38 06/05/25 20:00 Temperature 98.4 F Pulse Rate 78 92 Respiratory Rate 16 Blood Pressure 141/76 H 110/75 Pulse Oximetry 96 Oxygen Delivery Method Room Air BMI result Body Mass Index 21.1 Labs 06/01/25 15:55 06/04/25 07:25 Labs: Laboratory Results - last 48 hr 06/04/25 07:25 Sodium 139 Potassium 4.0 Chloride 108 Carbon Dioxide 24 Anion Gap 11 L BUN 24 H Creatinine 0.67 Estim Creat Clear Calc 114.4 Estimated GFR > 60 Random Glucose 95 Estimat Average Glucose 91 Hemoglobin A1c % 4.8 Calcium 8.8 Total Bilirubin 0.3 AST 19 ALT 16 Alkaline Phosphatase 89 Total Protein 7.0 Albumin 3.6 Triglycerides 141 Cholesterol 282 H LDL Cholesterol, Calc 207 H HDL Cholesterol 47 Vitamin B12 392 Folate 9.2 TSH 3.69 Free T4 0.83 [place] 0.20 L Medications Medications Current Medications Acetaminophen (Acetaminophen 325 Mg Tablet) 650 mg PO Q6H PRN PRN Reason: Pain Al Hydroxide/Mg Hydroxide (Magnesium Hydrox/Alum Hydrox 30 Ml Oral.Susp) 30 ml PO Q6H PRN PRN Reason: Heartburn/Nausea Apixaban (Apixaban 5 Mg Tablet) 5 mg PO BID [facility] Last Admin: 06/05/25 20:29 Dose: 5 mg Bisacodyl (Bisacodyl 10 Mg Supp.Rect) 10 mg [place] DAILY PRN PRN Reason: Constipation Calcium Carbonate (Calcium Carbonate 750 Mg Tab.Chew) 750 mg PO Q8H PRN PRN Reason: GERD Clotrimazole (Clotrimazole 1 % Cream 15 Gm Tube) 1 appl TOPICAL TID [facility]; Protocol Last Admin: 06/05/25 17:36 Dose: 1 appl Fluoxetine HCl (Fluoxetine Hcl 10 Mg Capsule) 10 mg PO DAILY [facility] Last Admin: 06/05/25 11:17 Dose: 10 mg Glucagon (Glucagon Hcl 1 Mg Vial) 1 mg IM ONCE PRN PRN Reason: HYPOGLYCEMIA Lacosamide (Lacosamide Oral Solution 100 Mg/10 Ml Solution) 100 mg PO BID [facility] Last Admin: 06/05/25 20:28 Dose: 100 mg [place] Carbonate ([place] Carbonate 300 Mg Tablet) 300 mg PO BID [facility] Last Admin: 06/05/25 20:29 Dose: 300 mg Magnesium Hydroxide (Milk Of Magnesia 30 Ml Oral.Susp) 30 ml PO DAILY PRN PRN Reason: Constipation Memantine (Memantine Hcl 10 Mg Tablet) 20 mg PO BEDTIME [facility] Last Admin: 06/05/25 20:29 Dose: 20 mg Midodrine (Midodrine Hcl 2.5 Mg Tablet) 7.5 mg PO TIDAC [facility] Last Admin: 06/05/25 16:39 Dose: Not Given Naloxone HCl (Naloxone Hcl 0.4 Mg/Ml Vial) 0.4 mg SUBCUT Q2M PRN PRN Reason: opiate overdose Naloxone HCl (Naloxone Hcl Nasal 4 Mg [place]) 4 mg NOSTRILALT Q2M PRN PRN Reason: opiate overdose Omeprazole (Omeprazole/Na Bicarb Oral Susp 20 Mg/10 Ml Ud Cup) 20 mg PO DAILY@0630 [facility] Polyethylene Glycol (Polyethylene Glycol 3350 17 Gm Powd.Pack) 17 gm PO DAILY PRN PRN Reason: Constipation Quetiapine Fumarate (Quetiapine Fumarate 50 Mg Tablet) 50 mg PO BID PRN PRN Reason: psychosis, agitation Last Admin: 06/05/25 11:10 Dose: 50 mg Quetiapine Fumarate (Quetiapine Fumarate 50 Mg Tablet) 50 mg PO BID [facility] Last Admin: 06/05/25 20:29 Dose: 50 mg Senna (Sennosides Oral Syrup 8.8 Mg/5 Ml) 17.6 mg PO DAILY PRN PRN Reason: Constipation Sodium Biphosphate/Sodium Phosphate (Sodium Phosphate,[place]-Dibasic 133 Ml Enema) 118 ml [place] DAILY PRN PRN Reason: Constipation Trazodone HCl (Trazodone Hcl 50 Mg Tablet) 50 mg PO BEDTIME MRX1 PRN PRN Reason: Insomnia Allergies Allergies Allergy/AdvReac Type Severity Reaction Status Date / Time dog dander Allergy Unknown Verified 06/04/25 06:34 mite-Dermatophagoides Allergy Unknown Verified 06/04/25 06:32 farinae, abhilash (dust mite - [place]) Assessment & Plan Assessment & Plan (1) Schizoaffective disorder, bipolar type: Status: Acute Code(s): F25.0 - Schizoaffective disorder, bipolar type (2) Eating disorder with ongoing treatment: Status: Acute Code(s): F50.9 - Eating disorder, unspecified (3) Gastrointestinal tube in situ: Status: Acute Code(s): Z93.1 - Gastrostomy status Plan Patient admitted on a conditional voluntary again seen and evaluated 10:00. Patient appears to have schizoaffective disorder a marked eating disorder question delusional based leading to a G-tube but there is no clear history presently available regarding medication trials inpatient psychiatric history. He is on minimal doses of lithium and Seroquel and unclear why that is. Would benefit from medical history regarding G-tube what the treatment plan was regarding this and need medical and psychiatric records from [facility] and would also benefit records from [place]. Patient does have a guardian and [facility] will need to coordinate care check lithium level adjust to better therapeutic dose for irritability appears to be manic symptoms unclear why patient is not on antipsychotic dose of antipsychotic medication. Monitor response to treatment question discharge back to [facility]. Question dementia/cognitive impairment diagnosis check [place] review medical records 06/05/2025 Patient more psychotically preoccupied difficulty processing information records reviewed. Patient carries multiple diagnoses including schizophrenia in have significant grandiose and paranoid delusional beliefs but unclear why he is only on very low-dose Seroquel and on clozapine previously. Has only been treated with low-dose lithium. Given patient's history of psychosis, psychotic/eating daughter disorder requiring G-tube placement unclear why patient has such minimum doses of psychiatric medication question past side effects presently no psychiatric provider to coordinate with. Patient is more irritable and agitated psychotically preoccupied tried to explain to him also that he does have a guardian and that issues such as this will need to be addressed with his guardian. Barium swallow ordered to try to clarify if there is any dysphagia elements no obvious side effects were why patient is not currently on adequate antipsychotic treatment. Question asked obstruction with clozapine but unable to clarify at this time patient unable to clarify this history. Patient does have significant difficulty with reflecting on issues and absorbing information but memory seems significantly impaired. Monitor response to patient swallowing is on medication monitor weight unclear history of noncompliance this should be clarified Patient educated on: diagnosis, medication risk/benefits and medical condition Informed Consent: further education needed Reason for continued inpatient stay Substantial Risk for: harm to others, inability to function, rapid decompensation and med/psych decompensation Time Spent With Patient Time: Total time managing care of this patient today ____ minutes.
[2025-06-06] MEDS: Omeprazole/Na Bicarb Oral Susp 20 MG/10 ML UD Cup PO (06:54)
[2025-06-06 08:00] VITALS: BP 134/82; PULSE 84; RESP 16; TEMP 36.3; O2SAT 96
[2025-06-06] MEDS: Lacosamide Oral Solution 100 MG/10 ML SOLUTION PO (08:16)
[2025-06-06 11:33] VITALS: BP 105/64; PULSE 77
[2025-06-06] MEDS: Clotrimazole 1 % Cream 15 GM TUBE 1 APPL TOPICAL (15:30)
[2025-06-06 15:53] VITALS: BP 102/62; PULSE 64
--- NOTE | 2025-06-06 17:26 | P.PNPSI_ITS ---
Subjective Subjective Date of Service: 06/06/25 Reason For Visit: psychosis federica Subjective Notes: Conditional Voluntary Interim History: Patient somewhat isolative to his room much of the time. Less labile has unrealistic expectations regarding his capacity however much detail is not known regarding his placement at [facility] . Patient has been eating and drinking and taking medication through his G-tube swallowing study was unremarkable. Patient not combative he states he has been working at trying to change his attitude. Does describe periods of hopelessness and despair over the past year Medication Compliance: Yes Mental Status Exam Mental Status Exam Narrative: Mental Status Exam Narrative: Appearance: Appropriately groomed Behavior: Cooperative psychomotor: Unremarkable Speech: Clear normal rate Thought proccess logical Thought content: Focused on how he can move forward some preoccupation with air contamination and stating [facility] they were too jealous of him. Stating he is trying to stay calm and hopeful Mood: Described as okay some anxiety Affect: Some lability SI:denies HI:denies VH/AH:none Delusions: Some paranoia and grandiosity not fully forthcoming Insight/judgment: Limited Memory/cog: Episodic memory impaired Diagnostics Vital Signs (24Hr): Vital Signs - 24 hr 06/05/25 20:00 06/06/25 08:00 06/06/25 11:33 Temperature 98.4 F 97.4 F Pulse Rate 92 84 77 Respiratory Rate 16 16 Blood Pressure 110/75 134/82 105/64 Pulse Oximetry 96 96 Oxygen Delivery Method Room Air Room Air 06/06/25 15:53 Temperature Pulse Rate 64 Respiratory Rate Blood Pressure 102/62 Pulse Oximetry Oxygen Delivery Method BMI result Body Mass Index 21.1 Labs 06/01/25 15:55 06/04/25 07:25 Imaging Radiology Impressions: ITS Impressions Modified Barium Swallow 06/06/25 14:30 IMPRESSION: No evidence of laryngeal penetration or aspiration. Refer to the full speech therapy report to follow for further details. Electronically signed by: Gerry Tejeda MD 06/06/2025 03:25 PM EDT Medications Medications Current Medications Acetaminophen (Acetaminophen 325 Mg Tablet) 650 mg PO Q6H PRN PRN Reason: Pain Al Hydroxide/Mg Hydroxide (Magnesium Hydrox/Alum Hydrox 30 Ml Oral.Susp) 30 ml PO Q6H PRN PRN Reason: Heartburn/Nausea Apixaban (Apixaban 5 Mg Tablet) 5 mg PO BID [facility] Last Admin: 06/06/25 08:16 Dose: 5 mg Bisacodyl (Bisacodyl 10 Mg Supp.Rect) 10 mg [place] DAILY PRN PRN Reason: Constipation Calcium Carbonate (Calcium Carbonate 750 Mg Tab.Chew) 750 mg PO Q8H PRN PRN Reason: GERD Clotrimazole (Clotrimazole 1 % Cream 15 Gm Tube) 1 appl TOPICAL TID [facility]; Protocol Last Admin: 06/06/25 15:30 Dose: 1 appl Fluoxetine HCl (Fluoxetine Hcl 10 Mg Capsule) 10 mg PO DAILY [facility] Last Admin: 06/06/25 08:17 Dose: 10 mg Glucagon (Glucagon Hcl 1 Mg Vial) 1 mg IM ONCE PRN PRN Reason: HYPOGLYCEMIA Lacosamide (Lacosamide Oral Solution 100 Mg/10 Ml Solution) 100 mg PO BID [facility] Last Admin: 06/06/25 08:16 Dose: 100 mg [place] Carbonate ([place] Carbonate 300 Mg Tablet) 300 mg PO BID [facility] Last Admin: 06/06/25 08:17 Dose: 300 mg Magnesium Hydroxide (Milk Of Magnesia 30 Ml Oral.Susp) 30 ml PO DAILY PRN PRN Reason: Constipation Memantine (Memantine Hcl 10 Mg Tablet) 20 mg PO BEDTIME [facility] Last Admin: 06/05/25 20:29 Dose: 20 mg Midodrine (Midodrine Hcl 2.5 Mg Tablet) 7.5 mg PO TIDAC [facility] Last Admin: 06/06/25 15:55 Dose: 7.5 mg Naloxone HCl (Naloxone Hcl 0.4 Mg/Ml Vial) 0.4 mg SUBCUT Q2M PRN PRN Reason: opiate overdose Naloxone HCl (Naloxone Hcl Nasal 4 Mg [place]) 4 mg NOSTRILALT Q2M PRN PRN Reason: opiate overdose Omeprazole (Omeprazole/Na Bicarb Oral Susp 20 Mg/10 Ml Ud Cup) 20 mg PO DAILY@0630 [facility] Last Admin: 06/06/25 06:54 Dose: 20 mg Polyethylene Glycol (Polyethylene Glycol 3350 17 Gm Powd.Pack) 17 gm PO DAILY PRN PRN Reason: Constipation Quetiapine Fumarate (Quetiapine Fumarate 50 Mg Tablet) 50 mg PO BID PRN PRN Reason: psychosis, agitation Last Admin: 06/05/25 11:10 Dose: 50 mg Quetiapine Fumarate (Quetiapine Fumarate 50 Mg Tablet) 50 mg PO BID [facility] Last Admin: 06/06/25 08:16 Dose: 50 mg Senna (Sennosides Oral Syrup 8.8 Mg/5 Ml) 17.6 mg PO DAILY PRN PRN Reason: Constipation Sodium Biphosphate/Sodium Phosphate (Sodium Phosphate,[place]-Dibasic 133 Ml Enema) 118 ml [place] DAILY PRN PRN Reason: Constipation Trazodone HCl (Trazodone Hcl 50 Mg Tablet) 50 mg PO BEDTIME MRX1 PRN PRN Reason: Insomnia Allergies Allergies Allergy/AdvReac Type Severity Reaction Status Date / Time dog dander Allergy Unknown Verified 06/04/25 06:34 mite-Dermatophagoides Allergy Unknown Verified 06/04/25 06:32 farabhilash lange (dust mite - [place]) Assessment & Plan Assessment & Plan (1) Schizoaffective disorder, bipolar type: Status: Acute Code(s): F25.0 - Schizoaffective disorder, bipolar type (2) Eating disorder with ongoing treatment: Status: Acute Code(s): F50.9 - Eating disorder, unspecified (3) Gastrointestinal tube in situ: Status: Acute Code(s): Z93.1 - Gastrostomy status Plan Patient admitted on a conditional voluntary again seen and evaluated 10:00. Patient appears to have schizoaffective disorder a marked eating disorder question delusional based leading to a G-tube but there is no clear history presently available regarding medication trials inpatient psychiatric history. He is on minimal doses of lithium and Seroquel and unclear why that is. Would benefit from medical history regarding G-tube what the treatment plan was regarding this and need medical and [facility] records [facility] and would also benefit records from [place]. Patient does have a guardian and [place] order will need to coordinate care check lithium level adjust to better therapeutic dose for irritability appears to be manic symptoms unclear why patient is not on antipsychotic dose of antipsychotic medication. Monitor response to treatment question discharge back to [facility]. Question dementia/cognitive impairment diagnosis check [place] review medical records 06/05/2025 Patient more psychotically preoccupied difficulty processing information records reviewed. Patient carries multiple diagnoses including schizophrenia in have significant grandiose and paranoid delusional beliefs but unclear why he is only on very low-dose Seroquel and on clozapine previously. Has only been treated with low-dose lithium. Given patient's history of psychosis, psychotic/eating daughter disorder requiring G-tube placement unclear why patient has such minimum doses of psychiatric medication question past side effects presently no psychiatric provider to coordinate with. Patient is more irritable and agitated psychotically preoccupied tried to explain to him also that he does have a guardian and that issues such as this will need to be addressed with his guardian. Barium swallow ordered to try to clarify if there is any dysphagia elements no obvious side effects were why patient is not currently on adequate antipsychotic treatment. Question asked obstruction with clozapine but unable to clarify at this time patient unable to clarify this history. Patient does have significant difficulty with reflecting on issues and absorbing information but memory seems significantly impaired. Monitor response to patient swallowing is on medication monitor weight unclear history of noncompliance this should be clarified 06/06/2025 Try and gather further data regarding patient's treatment history had been on Clozaril in the past unclear why discontinued Medical history not clear continue lower dose Seroquel and lithium at present Reason for continued inpatient stay Substantial Risk for: inability to function and rapid decompensation Time Spent With Patient Time: Total time managing care of this patient today ____ minutes.
--- NOTE | 2025-06-06 18:15 | MHC.SL.IMP ---
Date of Plan of Treatment: 06/06/25 Onset of Symptoms/Illness: 06/01/25 Date Treatment Started: 06/06/25 Admitting Diagnosis: (1) Schizoaffective disorder, bipolar type: Status: Acute Code(s): F25.0 - Schizoaffective disorder, bipolar type (2) Eating disorder with ongoing treatment: Status: Acute Code(s): F50.9 - Eating disorder, unspecified (3) Gastrointestinal tube in situ: Status: Acute Code(s): Z93.1 - Gastrostomy status Primary Speech & Language Diagnosis: R13.10 Dysphagia Reason for Today's Visit: 66101 Modified Barium Swallow Study Pre-evaluation Dietary Consistencies: Regular Pre-evaluation Liquid Consistency: Thin Pre-evaluation Medication Administration: Whole with Liquid Medical History: Modified Barium Swallow Study Fluoroscopic Evaluation of Swallowing Function CPT Code 78647 Evaluation Year: 2024 Reason for Study: Hx G-tube Referring Physician: Ed Adhikari MD Evaluating Clinician: Mckenna Peñaloza MA, CCC-WELDING TEACHER Study Number: 1 Patient Name: Grant Garcias Status: Inpatient Age: 59 Sex: Male Medical History Medical History (Updated 06/02/25 @ 17:19 by Geetha Dawson APRN) Bulimia Schizoaffective disorder, bipolar type Current (pre-evaluation) Intake/Diet: Route: PO Diet Grade: Regular Liquid Consistencies: Thin Pre-Study Functional Oral Intake Scale (FOIS): 7- Total oral intake with no restrictions (Has G-tube, but does not use it) Pain: None reported at time of study SUBJECTIVE: Patient is a 59-year-old male admitted to Inpatient Psychiatry from [facility] with behavioral disturbances/ irritability and agitation. Per MD, patient w/ history of psychosis, psychotic/eating disorder requiring G-tube placement. Barium swallow ordered to clarify if there is any dysphagia element. History also includes schizophrenia, seizure, COPD, DVT on Eliquis, dementia, and bulimia. Today patient himself reports he has had a PEG tube for the past 8 months, expressed he ?wishes someone had talked to [him] about it first.? The circumstances preceding the PEG placement were unclear per patient?s recounting of history, however, he says he thinks it was ?because he was having seizures,? but now he is able to eat, drink, and take his medications fine orally. He denies having any difficulty swallowing. Oral Motor Exam Facial Symmetry: Symmetrical Mouth Occlusion: Normal Oral-Facial Teeth Characteristics: Edentulous Oral-Facial Teeth Miscellaneous Observation: Patient denies having dentures. Oral-Facial Lip Pucker Description: Normal Oral-Facial Smile (Lips) Description: Normal Oral-Facial Puff Cheeks Description: Normal Tongue Size: Normal Tongue Excursion Description: Normal Tongue Range of Movement Description: Normal Tongue Speed of Movement Description: Normal Tongue Strength of Movement (against opposing pressure): Normal Tongue Movement Characteristics: Normal/Absent Food and Liquid Trials: Oral Impairment: Lip Closure: 0=No labial escape Oral Impairment: Tongue Control During Bolus Hold: 1=Escape to lateral buccal cavity/floor of mouth (FOM) Oral Impairment: Bolus Preparation/Mastication: 1=Slow prolonged chewing/mashing with complete re-collection Oral Impairment: Bolus Transport/Lingual Motion: 0=Brisk tongue motion Oral Impairment: Oral Residue: 1=Trace residue lining oral structures Oral Impairment:Initiation of Pharyngeal Swallow: 1=Bolus head in valleculae Pharyngeal Impairment: Soft Palate Elevation: 0=No bolus between soft palate (SP)/pharyngeal wall (PW) Pharyngeal Impairment: Laryngeal Elevation: 0=Complete superior movement of thyroid cartilage (see description) Pharyngeal Impairment: Anterior Hyoid Excursion: 0=Complete anterior movement Pharyngeal Impairment: Epiglottic Movement: 1=Partial inversion Pharyngeal Impairment: Laryngeal Vestibular Closure:: 0=Complete: no air/contrast in laryngeal vestibule Pharyngeal Impairment: Pharyngeal Stripping Wave: 0=Present: complete Pharyngeal Impairment: Pharyngeal Contraction: Did not test Pharyngeal Impairment: Pharyngoesophageal Segment Openin=Partial distention/partial duration: partial obstruction of flow Pharyngeal Impairment: Tongue Base (TB) Retraction: 1=Trace column of contrast/air between TB and posterior PW Pharyngeal Impairment: Pharyngeal Residue: 1=Trace residue within or on pharyngeal structures Pharyngeal Impairment: Esophageal Clearance Upright Position: Did not test Impressions and Recommendations OBJECTIVE: Time-out: performed at 14:45 Evaluation Start: 14:35; Stop: 14:40 Patient Positioning: Seated 70-90 degrees Viewing Planes: LATERAL ONLY Contrast: MBSImP? Standardized Protocol using commercially prepared, standardized Barium viscosities, including: Varibar? THIN LIQUID (40% w/v, <15 cps) , Varibar? PUDDING (40% w/v, <5699-4526 cps) , 1/2 Shortbread Cookie (1 x1 x.25 ) [facility] ID: [id number] [facility] Results: Lip closure for intraoral bolus containment resulted in no labial escape. Tongue control during bolus hold allowed bolus escape to the lateral buccal cavity/floor of mouth. Bolus preparation and mastication resulted in slow, prolonged chewing/mashing but with complete re-collection. Bolus transport/lingual motion was with brisk tongue motion. Oral residue was a trace, lining oral structures. Initiation of the pharyngeal swallow occurred when the bolus head was in the valleculae. Soft palate elevation resulted in no bolus between the soft palate and the pharyngeal wall. Laryngeal elevation demonstrated complete superior movement of the thyroid cartilage with complete approximation of the arytenoids to the epiglottic petiole. Anterior hyoid excursion demonstrated complete anterior movement. Epiglottic movement resulted in partial inversion. Laryngeal vestibular closure was complete, as indicated by no air or contrast within the laryngeal vestibule at the height of the swallow. Pharyngeal stripping wave was present and complete. Pharyngeal contraction could not be determined due to logistical reasons not related to physiologic impairment. Pharyngoesophageal segment opening demonstrated partial distension/partial duration, with partial obstruction of bolus flow. Tongue base retraction allowed a trace column of contrast or air between the retracted tongue base and the posterior pharyngeal wall. Pharyngeal residue was a trace within or on pharyngeal structures. Esophageal clearance in the upright position could not be assessed due to logistical reasons not related to physiologic impairment. Oral Impairment Score: 3 Pharyngeal Impairment Score: 2 (absence of score, component 13) Esophageal Impairment Score: --- (absence of score, component 17) Laryngeal Penetration and Aspiration: Neither penetration nor aspiration was observed in today's study with Cookie, Pudding-thick, Thin. ASSESSMENT: This exam was performed by the radiologist and the speech pathologist. Patient was seated upright at 90 degrees in a wheelchair. He was able to feed himself without difficulty and trialed the following consistencies: Thin liquid (via individual cup sips and sequential cup sips) Puree (mixture applesauce w/ pudding thick barium) Regular (Maria E Doone cookie coated w/ pudding thick barium) Adequate lip closure with no anterior loss of bolus. There was escape of trace bolus to the floor of mouth but no posterior spillage from the oral cavity. Mastication was mildly prolonged likely due to edentulous status, with piece meal deglutition pattern. Timely and brisk posterior lingual motion. Trace residue on the tongue and palate cleared with subsequent swallows. Pharyngeal swallow trigger initiated as the bolus head reached the valleculae. No evidence of nasopharyngeal reflux. Complete laryngeal elevation with partial epiglottic inversion and complete laryngeal vestibular closure. No evidence of aspiration or penetration. There was trace residue in the valleculae that cleared with subsequent swallows. Liquid Intake Recommendation: Thin Liquid Intake Strategies: Unrestricted Dietary Recommendations: Regular Medication Administration: Whole with Liquid Please contact the pharmacy regarding appropriate crushable or liquid drug formulations that are available whenever modified delivery is recommended. Compensatory Strategies Recommended: Sitting Upright (90 deg), Small Bites and Sips, Alternate Liquids/Solids, Rate of Ingestion Change Recommendation for Speech Therapy: NA:Typical Evaluation Text Comment: Intake Recommendations: Route: PO Diet Grade: Regular Liquid Consistencies: Thin Post-Study Functional Oral Intake Scale (FOIS): 6- Total oral intake with no special preparation, but must avoid specific foods or liquid items Mildly prolonged mastication d/t edentulous status, swallow is otherwise deemed WFL. Timely AP transport and good oral clearance. Adequate airway protection with no evidence of aspiration on this exam. Trace vallecular retention cleared on subsequent swallows. Therapy Recommendations: Diet modification and speech therapy are not warranted at this time. Recommend REGULAR texture solids and THIN liquids, pills WHOLE with LIQUID. Patient is advised to avoid foods which are difficult to bite into or to chew d/t patient?s lack of dentition. Patient to chew food well and alternate with sips of liquid for clearance. Further speech therapy is not warranted at this time, as patient?s swallow in the oral and pharyngeal phases is deemed functional. Note history of eating disorders and psychiatric conditions. Patient may benefit with consultation w/ Dietary and Surgical team to determine whether continuation of G-tube for nutrition/hydration is necessary at this point or if it can be potentially removed. Clinician - Supplemental, Miscellaneous Communication: It is important to note MBSS objective studies are snapshots in time and Patient function might vary with factors such as time of day or concomitant medical conditions. For this reason, the final treatment plan for this patient should rest with their medical care team. Additional recommendations should be considered with the totality of the Patient in mind. Thank for the opportunity to participate in the care of this patient. If you have any questions about the content of this report, please contact the [facility] at [facility]. Education: Education regarding findings from today's study and plans for therapy were provided to Patient only through Verbal Instruction. Understanding was expressed by the Patient only. [employer] Supervisor Clinician/Clinical Fellow: No Supervisory Statement: N/A Speech Language Pathologist: Mckenna Peñaloza M.A., CCC-WELDING TEACHER
[2025-06-06 20:00] VITALS: RESP 16
[2025-06-07 08:00] VITALS: BP 116/72; PULSE 80; RESP 16; O2SAT 97
--- NOTE | 2025-06-07 10:34 | P.PNPSI_ITS ---
Subjective Subjective Date of Service: 06/07/25 Reason For Visit: psychosis federica Subjective Notes: Conditional Voluntary Interim History: Pt seen, discussed with team. Pt recalls our meeting from 06.02 and expresses anger with being told he will return to [facility]. You are passing the mixon- you need to get it in gear and find me a good place to live I won't cooperate, I will make trouble if you send me back. Continues with delusional content similiar to our 06/02 meeting-believes [facility] put pressure on him to sell calendars of wildlife. When he said no he reports three women were killed and he was accused of using [facility] as a [employer]. Team reports no IM option on Sharif has been given- ordered Haldol 10 mg bid IM if pt refuses Seroquel. Also increased Seroquel to 75 mg bid as pt is still significantly delusional. Refusing most of meds, I am just taking the court ordered ones. I am not going to [facility] Medication Compliance: Intermittent Side effects from medications: No Attending Groups: Intermittent Review of Systems Acute medical concerns: No Review of Systems Review of Systems Denies Mental Status Exam Mental Status Exam Patient Appearance: Appropriate Patient Orientation: Person, Place, Time and Situation Level of Consciousness: Alert Patient Behavior: Talkative Mood Description: Labile and Angry Affect Description: Labile Patient Cognition Impaired: Yes Ability to Follow Directions: Good Speech Pattern: Spontaneous Speech Memory Description: Remote Impaired Hallucinations: None Delusions: Paranoid Ideation and Present Thought Process: Rumination Thought Content: positive for Circumstantial and positive for Perseveration Depressive Symptoms: Increased Irritability Abnormal Motor Activity Signs and Symptoms: Agitation Judgement: Poor Diagnostics Vital Signs (24Hr): Vital Signs - 24 hr 06/06/25 11:33 06/06/25 15:53 06/06/25 20:00 Pulse Rate 77 64 Respiratory Rate 16 Blood Pressure 105/64 102/62 Pulse Oximetry Oxygen Delivery Method 06/07/25 08:00 Pulse Rate 80 Respiratory Rate 16 Blood Pressure 116/72 Pulse Oximetry 97 Oxygen Delivery Method Room Air BMI result Body Mass Index 21.1 Labs 06/01/25 15:55 06/04/25 07:25 Imaging Radiology Impressions: ITS Impressions Modified Barium Swallow 06/06/25 14:30 IMPRESSION: No evidence of laryngeal penetration or aspiration. Refer to the full speech therapy report to follow for further details. Electronically signed by: Gerry Tejeda MD 06/06/2025 03:25 PM EDT RP Medications Medications Current Medications Acetaminophen (Acetaminophen 325 Mg Tablet) 650 mg PO Q6H PRN PRN Reason: Pain Al Hydroxide/Mg Hydroxide (Magnesium Hydrox/Alum Hydrox 30 Ml Oral.Susp) 30 ml PO Q6H PRN PRN Reason: Heartburn/Nausea Apixaban (Apixaban 5 Mg Tablet) 5 mg PO BID [facility] Last Admin: 06/07/25 10:08 Dose: Not Given Bisacodyl (Bisacodyl 10 Mg Supp.Rect) 10 mg NH DAILY PRN PRN Reason: Constipation Calcium Carbonate (Calcium Carbonate 750 Mg Tab.Chew) 750 mg PO Q8H PRN PRN Reason: GERD Clotrimazole (Clotrimazole 1 % Cream 15 Gm Tube) 1 appl TOPICAL TID [facility]; Protocol Last Admin: 06/07/25 10:08 Dose: Not Given Fluoxetine HCl (Fluoxetine Hcl 10 Mg Capsule) 10 mg PO DAILY [facility] Last Admin: 06/07/25 09:43 Dose: Not Given Glucagon (Glucagon Hcl 1 Mg Vial) 1 mg IM ONCE PRN PRN Reason: HYPOGLYCEMIA Haloperidol Lactate (Haloperidol Lactate 5 Mg/Ml Vial) 10 mg IM BID PRN PRN Reason: if pt refuses Seroquel, per Kole Lacosamide (Lacosamide Oral Solution 100 Mg/10 Ml Solution) 100 mg PO BID [facility] Last Admin: 06/07/25 10:09 Dose: Not Given [place] Carbonate ([place] Carbonate 300 Mg Tablet) 300 mg PO BID [facility] Last Admin: 06/07/25 10:09 Dose: Not Given Magnesium Hydroxide (Milk Of Magnesia 30 Ml Oral.Susp) 30 ml PO DAILY PRN PRN Reason: Constipation Memantine (Memantine Hcl 10 Mg Tablet) 20 mg PO BEDTIME [facility] Last Admin: 06/06/25 20:33 Dose: Not Given Midodrine (Midodrine Hcl 2.5 Mg Tablet) 7.5 mg PO TIDAC [facility] Last Admin: 06/07/25 10:07 Dose: Not Given Naloxone HCl (Naloxone Hcl 0.4 Mg/Ml Vial) 0.4 mg SUBCUT Q2M PRN PRN Reason: opiate overdose Naloxone HCl (Naloxone Hcl Nasal 4 Mg [place]) 4 mg NOSTRILALT Q2M PRN PRN Reason: opiate overdose Omeprazole (Omeprazole/Na Bicarb Oral Susp 20 Mg/10 Ml Ud Cup) 20 mg PO DAILY@0630 [facility] Last Admin: 06/07/25 06:41 Dose: Not Given Polyethylene Glycol (Polyethylene Glycol 3350 17 Gm Powd.Pack) 17 gm PO DAILY PRN PRN Reason: Constipation Quetiapine Fumarate (Quetiapine Fumarate 50 Mg Tablet) 50 mg PO BID PRN PRN Reason: psychosis, agitation Last Admin: 06/05/25 11:10 Dose: 50 mg Quetiapine Fumarate (Quetiapine Fumarate 25 Mg Tablet) 75 mg PO BID [facility] Senna (Sennosides Oral Syrup 8.8 Mg/5 Ml) 17.6 mg PO DAILY PRN PRN Reason: Constipation Sodium Biphosphate/Sodium Phosphate (Sodium Phosphate,[place]-Dibasic 133 Ml Enema) 118 ml NH DAILY PRN PRN Reason: Constipation Trazodone HCl (Trazodone Hcl 50 Mg Tablet) 50 mg PO BEDTIME MRX1 PRN PRN Reason: Insomnia Allergies Allergies Allergy/AdvReac Type Severity Reaction Status Date / Time dog dander Allergy Unknown Verified 06/04/25 06:34 mite-Dermatophagoides Allergy Unknown Verified 06/04/25 06:32 farinae, abhilash (dust mite - [place]) Assessment & Plan Assessment & Plan (1) Schizoaffective disorder, bipolar type: Status: Acute Code(s): F25.0 - Schizoaffective disorder, bipolar type (2) Eating disorder with ongoing treatment: Status: Acute Code(s): F50.9 - Eating disorder, unspecified (3) Gastrointestinal tube in situ: Status: Acute Code(s): Z93.1 - Gastrostomy status Plan Patient admitted on a conditional voluntary again seen and evaluated 10:00. Patient appears to have schizoaffective disorder a marked eating disorder question delusional based leading to a G-tube but there is no clear history presently available regarding medication trials inpatient psychiatric history. He is on minimal doses of lithium and Seroquel and unclear why that is. Would benefit from medical history regarding G-tube what the treatment plan was regarding this and need medical and psychiatric records from [facility] and would also benefit records from [facility]. Patient does have a guardian and [facility] will need to coordinate care check lithium level adjust to better therapeutic dose for irritability appears to be manic symptoms unclear why patient is not on antipsychotic dose of antipsychotic medication. Monitor response to treatment question discharge back to [facility]. Question dementia/cognitive impairment diagnosis check [facility] review medical records 06/05/2025 Patient more psychotically preoccupied difficulty processing information records reviewed. Patient carries multiple diagnoses including schizophrenia in have significant grandiose and paranoid delusional beliefs but unclear why he is only on very low-dose Seroquel and on clozapine previously. Has only been treated with low-dose lithium. Given patient's history of psychosis, psychotic/eating daughter disorder requiring G-tube placement unclear why patient has such minimum doses of psychiatric medication question past side effects presently no psychiatric provider to coordinate with. Patient is more irritable and agitated psychotically preoccupied tried to explain to him also that he does have a guardian and that issues such as this will need to be addressed with his guardian. Barium swallow ordered to try to clarify if there is any dysphagia elements no obvious side effects were why patient is not currently on adequate antipsychotic treatment. Question asked obstruction with clozapine but unable to clarify at this time patient unable to clarify this history. Patient does have significant difficulty with reflecting on issues and absorbing information but memory seems significantly impaired. Monitor response to patient swallowing is on medication monitor weight unclear history of noncompliance this should be clarified 06/06/2025 Try and gather further data regarding patient's treatment history had been on Clozaril in the past unclear why discontinued Medical history not clear continue lower dose Seroquel and lithium at present 06/07 Team needing back up dosing Seroquel refusal. Haldol 2.5 mg IM bid prn per [facility] parameters if pt refuses Seroquel Increase Seroquel to 75 mg bid Monitor for dysphagia Reason for continued inpatient stay Substantial Risk for: med/psych decompensation Time Spent With Patient Time: Total time managing care of this patient today ____ minutes.
[2025-06-07 12:18] VITALS: BP 130/80
[2025-06-07 20:00] VITALS: BP 113/77; PULSE 89; RESP 16; TEMP 36.3; O2SAT 97
[2025-06-08 08:00] VITALS: BP 122/64; PULSE 64; RESP 16; O2SAT 97
--- NOTE | 2025-06-08 13:21 | P.PNPSI_ITS ---
Subjective Subjective Date of Service: 06/08/25 Reason For Visit: psychosis federica Interim History: Pt seen, discussed with team. He asks for advocacy today to not return to [facility]- it is dirty and [place] and effects my health TDN filed. Wanting to go to court and remain at [facility] for 6 months. Refusing meds except for Sharif Order meds Team reports ?purging meds after meals. Will increase supervised time after meals to one hour. Confrontive to team, tw, primary providers about doing what he wants. Medication Compliance: Intermittent Side effects from medications: No Attending Groups: Intermittent Review of Systems Acute medical concerns: No Review of Systems Review of Systems Bulimia Mental Status Exam Mental Status Exam Patient Appearance: Appropriate Patient Orientation: Person, Place, Time and Situation Level of Consciousness: Alert Patient Behavior: Talkative Mood Description: Labile and Angry Affect Description: Labile Patient Cognition Impaired: Yes Ability to Follow Directions: Good Speech Pattern: Spontaneous Speech Memory Description: Remote Impaired Hallucinations: None Delusions: Paranoid Ideation and Present Thought Process: Rumination Thought Content: positive for Circumstantial and positive for Perseveration Depressive Symptoms: Increased Irritability Abnormal Motor Activity Signs and Symptoms: Agitation Judgement: Poor Diagnostics Vital Signs (24Hr): Vital Signs - 24 hr 06/07/25 20:00 06/08/25 08:00 Temperature 97.3 F Pulse Rate 89 64 Respiratory Rate 16 16 Blood Pressure 113/77 122/64 Pulse Oximetry 97 97 Oxygen Delivery Method Room Air Room Air BMI result Body Mass Index 21.1 Labs 06/01/25 15:55 06/04/25 07:25 Imaging Radiology Impressions: ITS Impressions Modified Barium Swallow 06/06/25 14:30 IMPRESSION: No evidence of laryngeal penetration or aspiration. Refer to the full speech therapy report to follow for further details. Electronically signed by: Gerry Tejeda MD 06/06/2025 03:25 PM EDT RP Medications Medications Current Medications Acetaminophen (Acetaminophen 325 Mg Tablet) 650 mg PO Q6H PRN PRN Reason: Pain Al Hydroxide/Mg Hydroxide (Magnesium Hydrox/Alum Hydrox 30 Ml Oral.Susp) 30 ml PO Q6H PRN PRN Reason: Heartburn/Nausea Apixaban (Apixaban 5 Mg Tablet) 5 mg PO BID [facility] Last Admin: 06/08/25 08:46 Dose: Not Given Bisacodyl (Bisacodyl 10 Mg Supp.Rect) 10 mg [place] DAILY PRN PRN Reason: Constipation Calcium Carbonate (Calcium Carbonate 750 Mg Tab.Chew) 750 mg PO Q8H PRN PRN Reason: GERD Clotrimazole (Clotrimazole 1 % Cream 15 Gm Tube) 1 appl TOPICAL TID [facility]; Protocol Last Admin: 06/08/25 08:47 Dose: Not Given Fluoxetine HCl (Fluoxetine Hcl 10 Mg Capsule) 10 mg PO DAILY [facility] Last Admin: 06/08/25 08:47 Dose: Not Given Glucagon (Glucagon Hcl 1 Mg Vial) 1 mg IM ONCE PRN PRN Reason: HYPOGLYCEMIA Haloperidol Lactate (Haloperidol Lactate 5 Mg/Ml Vial) 2.5 mg IM BID PRN PRN Reason: if pt refuses Seroquel, per Sharif Lacosamide (Lacosamide Oral Solution 100 Mg/10 Ml Solution) 100 mg PO BID [facility] Last Admin: 06/08/25 08:47 Dose: Not Given [place] Carbonate ([place] Carbonate 300 Mg Tablet) 300 mg PO BID [facility] Last Admin: 06/08/25 08:46 Dose: Not Given Magnesium Hydroxide (Milk Of Magnesia 30 Ml Oral.Susp) 30 ml PO DAILY PRN PRN Reason: Constipation Memantine (Memantine Hcl 10 Mg Tablet) 20 mg PO BEDTIME [facility] Last Admin: 06/07/25 20:40 Dose: Not Given Midodrine (Midodrine Hcl 2.5 Mg Tablet) 7.5 mg PO TIDAC [facility] Last Admin: 06/08/25 12:28 Dose: Not Given Naloxone HCl (Naloxone Hcl 0.4 Mg/Ml Vial) 0.4 mg SUBCUT Q2M PRN PRN Reason: opiate overdose Naloxone HCl (Naloxone Hcl Nasal 4 Mg [place]) 4 mg NOSTRILALT Q2M PRN PRN Reason: opiate overdose Omeprazole (Omeprazole/Na Bicarb Oral Susp 20 Mg/10 Ml Ud Cup) 20 mg PO DAILY@0630 [facility] Last Admin: 06/08/25 06:20 Dose: Not Given Polyethylene Glycol (Polyethylene Glycol 3350 17 Gm Powd.Pack) 17 gm PO DAILY PRN PRN Reason: Constipation Quetiapine Fumarate (Quetiapine Fumarate 50 Mg Tablet) 50 mg PO BID PRN PRN Reason: psychosis, agitation Last Admin: 06/05/25 11:10 Dose: 50 mg Quetiapine Fumarate (Quetiapine Fumarate 25 Mg Tablet) 75 mg PO BID [facility]EN[facility] Last Admin: 06/08/25 08:43 Dose: 75 mg Senna (Sennosides Oral Syrup 8.8 Mg/5 Ml) 17.6 mg PO DAILY PRN PRN Reason: Constipation Sodium Biphosphate/Sodium Phosphate (Sodium Phosphate,[place]-Dibasic 133 Ml Enema) 118 ml NH DAILY PRN PRN Reason: Constipation Trazodone HCl (Trazodone Hcl 50 Mg Tablet) 50 mg PO BEDTIME MRX1 PRN PRN Reason: Insomnia Allergies Allergies Allergy/AdvReac Type Severity Reaction Status Date / Time dog dander Allergy Unknown Verified 06/04/25 06:34 mite-Dermatophagoides Allergy Unknown Verified 06/04/25 06:32 abhilash schuler (dust mite - [place]) Assessment & Plan Assessment & Plan (1) Schizoaffective disorder, bipolar type: Status: Acute Code(s): F25.0 - Schizoaffective disorder, bipolar type (2) Eating disorder with ongoing treatment: Status: Acute Code(s): F50.9 - Eating disorder, unspecified (3) Gastrointestinal tube in situ: Status: Acute Code(s): Z93.1 - Gastrostomy status Plan Patient admitted on a conditional voluntary again seen and evaluated 10:00. Patient appears to have schizoaffective disorder a marked eating disorder question delusional based leading to a G-tube but there is no clear history presently available regarding medication trials inpatient psychiatric history. He is on minimal doses of lithium and Seroquel and unclear why that is. Would benefit from medical history regarding G-tube what the treatment plan was regarding this and [facility] and would also benefit records from [place]. Patient does have a guardian and [place] order will need to coordinate care check lithium level adjust to better therapeutic dose for irritability appears to be manic symptoms unclear why patient is not on antipsychotic dose of antipsychotic medication. Monitor response to treatment question discharge back to [facility]. Question dementia/cognitive impairment diagnosis check [place] review medical records 06/05/2025 Patient more psychotically preoccupied difficulty processing information records reviewed. Patient carries multiple diagnoses including schizophrenia in have significant grandiose and paranoid delusional beliefs but unclear why he is only on very low-dose Seroquel and on clozapine previously. Has only been treated with low-dose lithium. Given patient's history of psychosis, psychotic/eating daughter disorder requiring G-tube placement unclear why patient has such minimum doses of psychiatric medication question past side effects presently no psychiatric provider to coordinate with. Patient is more irritable and agitated psychotically preoccupied tried to explain to him also that he does have a guardian and that issues such as this will need to be addressed with his guardian. Barium swallow ordered to try to clarify if there is any dysphagia elements no obvious side effects were why patient is not currently on adequate antipsychotic treatment. Question asked obstruction with clozapine but unable to clarify at this time patient unable to clarify this history. Patient does have significant difficulty with reflecting on issues and absorbing information but memory seems significantly impaired. Monitor response to patient swallowing is on medication monitor weight unclear history of noncompliance this should be clarified 06/06/2025 Try and gather further data regarding patient's treatment history had been on Clozaril in the past unclear why discontinued Medical history not clear continue lower dose Seroquel and lithium at present 06/07 Team needing back up dosing Seroquel refusal. Haldol 2.5 mg IM bid prn per Sharif parameters if pt refuses Seroquel Increase Seroquel to 75 mg bid Monitor for dysphagia 06/08 Continue tx Reason for continued inpatient stay Substantial Risk for: rapid decompensation and med/psych decompensation Time Spent With Patient Time: Total time managing care of this patient today ____ minutes.
[2025-06-08 20:00] VITALS: BP 108/62; PULSE 79; RESP 16; TEMP 36.9; O2SAT 96
[2025-06-09 07:44] VITALS: BP 124/70; PULSE 86; RESP 16; TEMP 35.9; O2SAT 95
[2025-06-09 11:21] VITALS: BP 103/57; PULSE 70
--- NOTE | 2025-06-09 14:23 | HO.PSYCHPN ---
Subjective Subjective Date of Service: 06/09/25 Reason For Visit: psychosis federica Subjective Notes: Conditional Voluntary and 3 Day Guardianship: Yes Interim History: The patient history is clear. Long history of psychosis irrational grandiose beliefs difficulty processing information. The patient Has been taking Seroquel now at 75 b.i.d. there is a history of severe neutropenia with clozapine. Patient did retract 3 day notice Medication Compliance: Intermittent Mental Status Exam Mental Status Exam Patient Appearance: Appropriate Patient Orientation: Person, Place, Time and Situation Level of Consciousness: Alert Patient Behavior: Appropriate and Talkative Mood Description: Labile and Angry Affect Description: Labile Patient Cognition Impaired: Yes Ability to Follow Directions: Good Speech Pattern: Spontaneous Speech Memory Description: Remote Impaired Hallucinations: None Delusions: Paranoid Ideation and Present Thought Process: Rumination Thought Content: positive for Circumstantial and positive for Perseveration Depressive Symptoms: Increased Irritability Abnormal Motor Activity Signs and Symptoms: Agitation Judgement: Poor Diagnostics Vital Signs (24Hr): Vital Signs - 24 hr 06/08/25 20:00 06/09/25 07:44 06/09/25 11:21 Temperature 98.5 F 96.6 F L Pulse Rate 79 86 70 Respiratory Rate 16 16 Blood Pressure 108/62 124/70 103/57 L Pulse Oximetry 96 95 Oxygen Delivery Method Room Air Room Air BMI result Body Mass Index 21.1 Labs 06/01/25 15:55 06/04/25 07:25 Imaging Radiology Impressions: ITS Impressions Modified Barium Swallow 06/06/25 14:30 IMPRESSION: No evidence of laryngeal penetration or aspiration. Refer to the full speech therapy report to follow for further details. Electronically signed by: Gerry Tejeda MD 06/06/2025 03:25 PM EDT RP Medications Medications Current Medications Acetaminophen (Acetaminophen 325 Mg Tablet) 650 mg PO Q6H PRN PRN Reason: Pain Al Hydroxide/Mg Hydroxide (Magnesium Hydrox/Alum Hydrox 30 Ml Oral.Susp) 30 ml PO Q6H PRN PRN Reason: Heartburn/Nausea Apixaban (Apixaban 5 Mg Tablet) 5 mg PO BID [facility] Last Admin: 06/09/25 10:03 Dose: Not Given Bisacodyl (Bisacodyl 10 Mg Supp.Rect) 10 mg [place] DAILY PRN PRN Reason: Constipation Calcium Carbonate (Calcium Carbonate 750 Mg Tab.Chew) 750 mg PO Q8H PRN PRN Reason: GERD Clotrimazole (Clotrimazole 1 % Cream 15 Gm Tube) 1 appl TOPICAL [facility]ID [facility]; Protocol Last Admin: 06/09/25 10:06 Dose: Not Given Fluoxetine HCl (Fluoxetine Hcl 10 Mg Capsule) 10 mg PO DAILY [facility] Last Admin: 06/09/25 10:06 Dose: Not Given Glucagon (Glucagon Hcl 1 Mg Vial) 1 mg IM ONCE PRN PRN Reason: HYPOGLYCEMIA Haloperidol Lactate (Haloperidol Lactate 5 Mg/Ml Vial) 2.5 mg IM BID PRN PRN Reason: if pt refuses Seroquel, per Sharif Lacosamide (Lacosamide Oral Solution 100 Mg/10 Ml Solution) 100 mg PO BID [facility] Last Admin: 06/09/25 10:07 Dose: Not Given [place] Carbonate ([place] Carbonate 300 Mg Tablet) 300 mg PO BID [facility] Last Admin: 06/09/25 10:07 Dose: Not Given Magnesium Hydroxide (Milk Of Magnesia 30 Ml Oral.Susp) 30 ml PO DAILY PRN PRN Reason: Constipation Memantine (Memantine Hcl 10 Mg Tablet) 20 mg PO BEDTIME [facility] Last Admin: 06/08/25 19:57 Dose: Not Given Midodrine (Midodrine Hcl 2.5 Mg Tablet) 7.5 mg PO TIDAC [facility] Last Admin: 06/09/25 11:24 Dose: 7.5 mg Naloxone HCl (Naloxone Hcl 0.4 Mg/Ml Vial) 0.4 mg SUBCUT Q2M PRN PRN Reason: opiate overdose Naloxone HCl (Naloxone Hcl Nasal 4 Mg [place]) 4 mg NOSTRILALT Q2M PRN PRN Reason: opiate overdose Omeprazole (Omeprazole/Na Bicarb Oral Susp 20 Mg/10 Ml Ud Cup) 20 mg PO DAILY@0630 [facility] Last Admin: 06/09/25 05:41 Dose: Not Given Polyethylene Glycol (Polyethylene Glycol 3350 17 Gm Powd.Pack) 17 gm PO DAILY PRN PRN Reason: Constipation Quetiapine Fumarate (Quetiapine Fumarate 50 Mg Tablet) 50 mg PO BID PRN PRN Reason: psychosis, agitation Last Admin: 06/05/25 11:10 Dose: 50 mg Quetiapine Fumarate (Quetiapine Fumarate 25 Mg Tablet) 75 mg PO BID [facility] Last Admin: 06/09/25 10:03 Dose: 75 mg Senna (Sennosides Oral Syrup 8.8 Mg/5 Ml) 17.6 mg PO DAILY PRN PRN Reason: Constipation Sodium Biphosphate/Sodium Phosphate (Sodium Phosphate,[place]-Dibasic 133 Ml Enema) 118 ml [place] DAILY PRN PRN Reason: Constipation Trazodone HCl (Trazodone Hcl 50 Mg Tablet) 50 mg PO BEDTIME MRX1 PRN PRN Reason: Insomnia Allergies Allergies Allergy/AdvReac Type Severity Reaction Status Date / Time dog dander Allergy Unknown Verified 06/04/25 06:34 mite-Dermatophagoides Allergy Unknown Verified 06/04/25 06:32 farinae, abhilash (dust mite - [place]) Assessment & Plan Assessment & Plan (1) Schizoaffective disorder, bipolar type: Status: Acute Code(s): F25.0 - Schizoaffective disorder, bipolar type (2) Eating disorder with ongoing treatment: Status: Acute Code(s): F50.9 - Eating disorder, unspecified (3) Gastrointestinal tube in situ: Status: Acute Code(s): Z93.1 - Gastrostomy status Plan Patient admitted on a conditional voluntary again seen and evaluated 10:00. Patient appears to have schizoaffective disorder a marked eating disorder question delusional based leading to a G-tube but there is no clear history presently available regarding medication trials inpatient psychiatric history. He is on minimal doses of lithium and Seroquel and unclear why that is. Would benefit from medical history regarding G-tube what the treatment plan was regarding this and need [facility] and would also benefit records from [place]. Patient does have a guardian and [facility] will need to coordinate care check lithium level adjust to better therapeutic dose for irritability appears to be manic symptoms unclear why patient is not on antipsychotic dose of antipsychotic medication. Monitor response to treatment question discharge back to [facility]. Question dementia/cognitive impairment diagnosis check [place] review medical records 06/05/2025 Patient more psychotically preoccupied difficulty processing information records reviewed. Patient carries multiple diagnoses including schizophrenia in have significant grandiose and paranoid delusional beliefs but unclear why he is only on very low-dose Seroquel and on clozapine previously. Has only been treated with low-dose lithium. Given patient's history of psychosis, psychotic/eating daughter disorder requiring G-tube placement unclear why patient has such minimum doses of psychiatric medication question past side effects presently no psychiatric provider to coordinate with. Patient is more irritable and agitated psychotically preoccupied tried to explain to him also that he does have a guardian and that issues such as this will need to be addressed with his guardian. Barium swallow ordered to try to clarify if there is any dysphagia elements no obvious side effects were why patient is not currently on adequate antipsychotic treatment. Question asked obstruction with clozapine but unable to clarify at this time patient unable to clarify this history. Patient does have significant difficulty with reflecting on issues and absorbing information but memory seems significantly impaired. Monitor response to patient swallowing is on medication monitor weight unclear history of noncompliance this should be clarified 06/06/2025 Try and gather further data regarding patient's treatment history had been on Clozaril in the past unclear why discontinued Medical history not clear continue lower dose Seroquel and lithium at present 06/07 Team needing back up dosing Seroquel refusal. Haldol 2.5 mg IM bid prn per [facility] parameters if pt refuses Seroquel Increase Seroquel to 75 mg bid Monitor for dysphagia 06/08 Continue tx 06/09/2025 Trying to clarify history the past year for this patient. Call placed to nurse practitioner at [facility]. Patient was quite psychotic irritable agitated Patient educated on: medication risk/benefits and medical condition Reason for continued inpatient stay Substantial Risk for: harm to self and rapid decompensation Time Spent With Patient Time: Total time managing care of this patient today ____ minutes.
[2025-06-09] MEDS: Clotrimazole 1 % Cream 15 GM TUBE 1 APPL TOPICAL (15:08)
[2025-06-09 16:11] VITALS: BP 113/66; PULSE 75
[2025-06-09 20:00] VITALS: BP 108/64; PULSE 74; RESP 16; TEMP 36.8; O2SAT 95
[2025-06-09] MEDS: Lacosamide Oral Solution 100 MG/10 ML SOLUTION PO (20:20)
[2025-06-10] MEDS: Omeprazole/Na Bicarb Oral Susp 20 MG/10 ML UD Cup PO (06:47)
[2025-06-10 07:31] LABS: MANUAL DIFF FLAG NO
[2025-06-10 07:35] LABS: Hematocrit 38.2 % (42.0-52.0); Hemoglobin 12.8 g/dl (14.0-18.0); Imm Gran Abs Auto 0.03 X10*3/uL (0.00-0.03); Imm Gran Pct Auto 0.4 % (0.0-0.4); Lymphocytes Absolute Auto 2.1 X10*3/uL (1.2-4.9); Mean Corpuscular HGB Conc 33.5 g/dl (31.0-36.0); Mean Corpuscular Hemoglobin 30.3 pg (27.0-33.0); Mean Corpuscular Volume 90.5 fL (80.0-98.0); NRBC Abs Auto 0.000 X10*3/uL (0.0-0.012); NRBC Pct Auto 0.0 /100WBC (0.0-0.2); Platelet Count 330 X10*3/uL (160-400); Red Blood Count 4.22 X10*6/uL (4.60-5.80); White Blood Count 7.4 X10*3/uL (4.8-10.8)
[2025-06-10 07:44] LABS: Lithium < 0.10 mmol/L (0.60-1.20)
[2025-06-10 07:55] VITALS: BP 103/71; PULSE 79; RESP 18; TEMP 36.8; O2SAT 95
[2025-06-10] MEDS: Lacosamide Oral Solution 100 MG/10 ML SOLUTION PO ×2 (08:22→20:40)
[2025-06-10] MEDS: Clotrimazole 1 % Cream 15 GM TUBE 1 APPL TOPICAL ×2 (08:23→15:04)
[2025-06-10 11:50] VITALS: BP 110/70
--- NOTE | 2025-06-10 12:33 | P.PNPSI_ITS ---
Subjective Subjective Date of Service: 06/10/25 Reason For Visit: psychosis federica Subjective Notes: Conditional Voluntary Interim History: Patient seen psychiatric follow-up. Patient generally remains isolative but has been taking all of his medication. Talking more positively about his ability to gain weight and keep food down. Has not been overly aggressive denies any vomiting or nausea or swallowing difficulties Medication Compliance: Intermittent Mental Status Exam Mental Status Exam Narrative: Patient appropriately groomed wearing glasses remains somewhat isolative sits alone when in milieu often in his room expansive and manner feels almost giddy regarding his weight gain and feeling better about how he is feeling and looking somewhat grandiose at times improved insight he did retract his 3 day and states he has started taking his medication not just those on his Sharif order denies SI or HI. He is focused on unrealistic goals regarding his future no gross hallucinations no delusion elicited during this conversation Diagnostics Vital Signs (24Hr): Vital Signs - 24 hr 06/09/25 16:11 06/09/25 20:00 06/10/25 07:55 Temperature 98.2 F 98.2 F Pulse Rate 75 74 79 Respiratory Rate 16 18 Blood Pressure 113/66 108/64 103/71 Pulse Oximetry 95 95 Oxygen Delivery Method Room Air Room Air 06/10/25 11:50 Temperature Pulse Rate Respiratory Rate Blood Pressure 110/70 Pulse Oximetry Oxygen Delivery Method BMI result Body Mass Index 21.1 Labs 06/10/25 07:27 06/04/25 07:25 Labs: Laboratory Results - last 48 hr 06/10/25 07:27 WBC 7.4 RBC 4.22 L Hgb 12.8 L Hct 38.2 L MCV 90.5 MCH 30.3 MCHC 33.5 RDW 17.8 H Plt Count 330 D MPV 7.8 L Immature Gran % (Auto) 0.4 Neut % (Auto) 52.9 Lymph % (Auto) 27.9 [place] % (Auto) 14.7 H Eos % (Auto) 3.4 Baso % (Auto) 0.7 Lymph # (Auto) 2.1 [place] # (Auto) 1.1 Eos # (Auto) 0.3 Baso # (Auto) 0.1 Abs Immat Gran (auto) 0.03 Absolute Neuts (auto) 3.9 Absolute Nucleated RBC 0.000 Nucleated RBC % (auto) 0.0 [place] < 0.10 L Imaging Radiology Impressions: ITS Impressions Modified Barium Swallow 06/06/25 14:30 IMPRESSION: No evidence of laryngeal penetration or aspiration. Refer to the full speech therapy report to follow for further details. Electronically signed by: Gerry Tejeda MD 06/06/2025 03:25 PM EDT RP Medications Medications Current Medications Acetaminophen (Acetaminophen 325 Mg Tablet) 650 mg PO Q6H PRN PRN Reason: Pain Al Hydroxide/Mg Hydroxide (Magnesium Hydrox/Alum Hydrox 30 Ml Oral.Susp) 30 ml PO Q6H PRN PRN Reason: Heartburn/Nausea Apixaban (Apixaban 5 Mg Tablet) 5 mg PO BID [facility] Last Admin: 06/10/25 08:23 Dose: 5 mg Bisacodyl (Bisacodyl 10 Mg Supp.Rect) 10 mg [place] DAILY PRN PRN Reason: Constipation Calcium Carbonate (Calcium Carbonate 750 Mg Tab.Chew) 750 mg PO Q8H PRN PRN Reason: GERD Clotrimazole (Clotrimazole 1 % Cream 15 Gm Tube) 1 appl TOPICAL TID [facility]; Protocol Last Admin: 06/10/25 08:23 Dose: 1 appl Fluoxetine HCl (Fluoxetine Hcl 10 Mg Capsule) 10 mg PO DAILY [facility] Last Admin: 06/10/25 08:23 Dose: 10 mg Glucagon (Glucagon Hcl 1 Mg Vial) 1 mg IM ONCE PRN PRN Reason: HYPOGLYCEMIA Haloperidol Lactate (Haloperidol Lactate 5 Mg/Ml Vial) 2.5 mg IM BID PRN PRN Reason: if pt refuses Seroquel, ilda Sharif Lacosamide (Lacosamide Oral Solution 100 Mg/10 Ml Solution) 100 mg PO BID [facility] Last Admin: 06/10/25 08:22 Dose: 100 mg [place] Carbonate ([place] Carbonate 300 Mg Tablet) 300 mg PO BID [facility] Last Admin: 06/10/25 08:22 Dose: 300 mg Magnesium Hydroxide (Milk Of Magnesia 30 Ml Oral.Susp) 30 ml PO DAILY PRN PRN Reason: Constipation Memantine (Memantine Hcl 10 Mg Tablet) 20 mg PO BEDTIME [facility] Last Admin: 06/09/25 20:21 Dose: 20 mg Midodrine (Midodrine Hcl 2.5 Mg Tablet) 7.5 mg PO TIDAC [facility] Last Admin: 06/10/25 11:50 Dose: 7.5 mg Naloxone HCl (Naloxone Hcl 0.4 Mg/Ml Vial) 0.4 mg SUBCUT Q2M PRN PRN Reason: opiate overdose Naloxone HCl (Naloxone Hcl Nasal 4 Mg [place]) 4 mg NOSTRILALT Q2M PRN PRN Reason: opiate overdose Omeprazole (Omeprazole/Na Bicarb Oral Susp 20 Mg/10 Ml Ud Cup) 20 mg PO DAILY@0630 [facility] Last Admin: 06/10/25 06:47 Dose: 20 mg Polyethylene Glycol (Polyethylene Glycol 3350 17 Gm Powd.Pack) 17 gm PO DAILY PRN PRN Reason: Constipation Quetiapine Fumarate (Quetiapine Fumarate 50 Mg Tablet) 50 mg PO BID PRN PRN Reason: psychosis, agitation Last Admin: 06/05/25 11:10 Dose: 50 mg Quetiapine Fumarate (Quetiapine Fumarate 25 Mg Tablet) 75 mg PO BID [facility] Last Admin: 06/10/25 08:23 Dose: 75 mg Senna (Sennosides Oral Syrup 8.8 Mg/5 Ml) 17.6 mg PO DAILY PRN PRN Reason: Constipation Sodium Biphosphate/Sodium Phosphate (Sodium Phosphate,[place]-Dibasic 133 Ml Enema) 118 ml MD DAILY PRN PRN Reason: Constipation Trazodone HCl (Trazodone Hcl 50 Mg Tablet) 50 mg PO BEDTIME MRX1 PRN PRN Reason: Insomnia Allergies Allergies Allergy/AdvReac Type Severity Reaction Status Date / Time dog dander Allergy Unknown Verified 06/04/25 06:34 mite-Dermatophagoides Allergy Unknown Verified 06/04/25 06:32 farinae, abhilash (dust mite - [place]) Assessment & Plan Assessment & Plan (1) Schizoaffective disorder, bipolar type: Status: Acute Code(s): F25.0 - Schizoaffective disorder, bipolar type (2) Eating disorder with ongoing treatment: Status: Acute Code(s): F50.9 - Eating disorder, unspecified (3) Gastrointestinal tube in situ: Status: Acute Code(s): Z93.1 - Gastrostomy status Plan Patient admitted on a conditional voluntary again seen and evaluated 10:00. Patient appears to have schizoaffective disorder a marked eating disorder question delusional based leading to a G-tube but there is no clear history presently available regarding medication trials inpatient psychiatric history. He is on minimal doses of lithium and Seroquel and unclear why that is. Would benefit from medical history regarding G-tube what the treatment plan was regarding this and need medical [facility] and would also benefit records from [place]. Patient does have a guardian and Sharif order will need to coordinate care check lithium level adjust to better therapeutic dose for irritability appears to be manic symptoms unclear why patient is not on antipsychotic dose of antipsychotic medication. Monitor response to treatment question discharge back to [facility]. Question dementia/cognitive impairment diagnosis check [place] review medical records 06/05/2025 Patient more psychotically preoccupied difficulty processing information records reviewed. Patient carries multiple diagnoses including schizophrenia in have significant grandiose and paranoid delusional beliefs but unclear why he is only on very low-dose Seroquel and on clozapine previously. Has only been treated with low-dose lithium. Given patient's history of psychosis, psychotic/eating daughter disorder requiring G-tube placement unclear why patient has such minimum doses of psychiatric medication question past side effects presently no psychiatric provider to coordinate with. Patient is more irritable and agitated psychotically preoccupied tried to explain to him also that he does have a guardian and that issues such as this will need to be addressed with his guardian. Barium swallow ordered to try to clarify if there is any dysphagia elements no obvious side effects were why patient is not currently on adequate antipsychotic treatment. Question asked obstruction with clozapine but unable to clarify at this time patient unable to clarify this history. Patient does have significant difficulty with reflecting on issues and absorbing information but memory seems significantly impaired. Monitor response to patient swallowing is on medication monitor weight unclear history of noncompliance this should be clarified 06/06/2025 Try and gather further data regarding patient's treatment history had been on Clozaril in the past unclear why discontinued Medical history not clear continue lower dose Seroquel and lithium at present 06/07 Team needing back up dosing Seroquel refusal. Haldol 2.5 mg IM bid prn per Sharif parameters if pt refuses Seroquel Increase Seroquel to 75 mg bid Monitor for dysphagia 06/08 Continue tx 06/09/2025 Trying to clarify history the past year for this patient. Call placed to nurse practitioner at [facility]. Patient was quite psychotic irritable agitated 06/10/2025 Continue plan of care patient is still not able to elaborate history but no current adverse effects from current regimen noted. He is aware that he will most likely return to [facility] encourage compliance with lithium try to obtain therapeutic level Reason for continued inpatient stay Substantial Risk for: harm to others, inability to function, rapid decompensation and med/psych decompensation Time Spent With Patient Time: Total time managing care of this patient today ____ minutes.
[2025-06-10 16:03] VITALS: BP 115/54
[2025-06-10 20:00] VITALS: BP 110/72; PULSE 70; RESP 16; TEMP 36.6; O2SAT 96
[2025-06-11] MEDS: Omeprazole/Na Bicarb Oral Susp 20 MG/10 ML UD Cup PO (06:42)
[2025-06-11 07:55] VITALS: BP 112/68; PULSE 72; RESP 18; TEMP 36.6; O2SAT 95
[2025-06-11] MEDS: Lacosamide Oral Solution 100 MG/10 ML SOLUTION PO ×2 (08:10→19:56)
[2025-06-11] MEDS: Clotrimazole 1 % Cream 15 GM TUBE 1 APPL TOPICAL (08:14)
[2025-06-11 11:10] VITALS: BP 104/61
--- NOTE | 2025-06-11 15:09 | HO.PSYEVENT2 ---
Event Note Date of Service: 06/11/25 Time Spent With Patient Time: Total time managing care of this patient today ____ minutes.
--- NOTE | 2025-06-11 15:49 | HO.PSYCHPN ---
Subjective Subjective Date of Service: 06/11/25 Reason For Visit: psychosis federica Subjective Notes: Conditional Voluntary Guardianship: Yes Interim History: Pt has been superficially cooperative was able to hear need to monitor him for 1 hr sec to binge purging behavior spends most of his time in his room Pt has purge episodes had med refusals of lithium discussed with pt re malik and guardianship Medication Compliance: Intermittent Mental Status Exam Mental Status Exam Narrative: Pt more irritable agiatted reactive unrealistic thoughts re weight need to get g tube taken out educated not a current issue mood anxious irritable later becomes apologetic no magana overvalued ideas bizarre thoughts no si hi mood labile Diagnostics Vital Signs (24Hr): Vital Signs - 24 hr 06/10/25 16:03 06/10/25 20:00 06/11/25 07:55 Temperature 98 F 97.9 F Pulse Rate 70 72 Respiratory Rate 16 18 Blood Pressure 115/54 L 110/72 112/68 Pulse Oximetry 96 95 Oxygen Delivery Method Room Air Room Air 06/11/25 11:10 Temperature Pulse Rate Respiratory Rate Blood Pressure 104/61 Pulse Oximetry Oxygen Delivery Method BMI result Body Mass Index 21.1 Labs 06/10/25 07:27 06/12/25 13:28 Labs: Laboratory Results - last 48 hr 06/10/25 07:27 WBC 7.4 RBC 4.22 L Hgb 12.8 L Hct 38.2 L MCV 90.5 MCH 30.3 MCHC 33.5 RDW 17.8 H Plt Count 330 D MPV 7.8 L Immature Gran % (Auto) 0.4 Neut % (Auto) 52.9 Lymph % (Auto) 27.9 [place] % (Auto) 14.7 H Eos % (Auto) 3.4 Baso % (Auto) 0.7 Lymph # (Auto) 2.1 [place] # (Auto) 1.1 Eos # (Auto) 0.3 Baso # (Auto) 0.1 Abs Immat Gran (auto) 0.03 Absolute Neuts (auto) 3.9 Absolute Nucleated RBC 0.000 Nucleated RBC % (auto) 0.0 [place] < 0.10 L Imaging Radiology Impressions: ITS Impressions Modified Barium Swallow 06/06/25 14:30 IMPRESSION: No evidence of laryngeal penetration or aspiration. Refer to the full speech therapy report to follow for further details. Electronically signed by: Gerry Tejeda MD 06/06/2025 03:25 PM EDT Medications Medications Current Medications Acetaminophen (Acetaminophen 325 Mg Tablet) 650 mg PO Q6H PRN PRN Reason: Pain Al Hydroxide/Mg Hydroxide (Magnesium Hydrox/Alum Hydrox 30 Ml Oral.Susp) 30 ml PO Q6H PRN PRN Reason: Heartburn/Nausea Apixaban (Apixaban 5 Mg Tablet) 5 mg PO BID [facility] Last Admin: 06/11/25 08:09 Dose: 5 mg Bisacodyl (Bisacodyl 10 Mg Supp.Rect) 10 mg [place] DAILY PRN PRN Reason: Constipation Calcium Carbonate (Calcium Carbonate 750 Mg Tab.Chew) 750 mg PO Q8H PRN PRN Reason: GERD Clotrimazole (Clotrimazole 1 % Cream 15 Gm Tube) 1 appl TOPICAL TID [facility]; Protocol Last Admin: 06/11/25 14:12 Dose: Not Given Fluoxetine HCl (Fluoxetine Hcl 10 Mg Capsule) 10 mg PO DAILY [facility] Last Admin: 06/11/25 08:09 Dose: 10 mg Glucagon (Glucagon Hcl 1 Mg Vial) 1 mg IM ONCE PRN PRN Reason: HYPOGLYCEMIA Haloperidol Lactate (Haloperidol Lactate 5 Mg/Ml Vial) 2.5 mg IM BID PRN PRN Reason: if pt refuses Seroquel, per Malik Lacosamide (Lacosamide Oral Solution 100 Mg/10 Ml Solution) 100 mg PO BID [facility] Last Admin: 06/11/25 08:10 Dose: 100 mg [place] Carbonate ([place] Carbonate 300 Mg Tablet) 300 mg PO BID [facility] Last Admin: 06/11/25 08:09 Dose: 300 mg Magnesium Hydroxide (Milk Of Magnesia 30 Ml Oral.Susp) 30 ml PO DAILY PRN PRN Reason: Constipation Memantine (Memantine Hcl 10 Mg Tablet) 20 mg PO BEDTIME [facility] Last Admin: 06/10/25 20:41 Dose: 20 mg Midodrine (Midodrine Hcl 2.5 Mg Tablet) 7.5 mg PO TIDAC [facility] Last Admin: 06/11/25 11:10 Dose: 7.5 mg Naloxone HCl (Naloxone Hcl Nasal 4 Mg [place]) 4 mg NOSTRILALT Q2M PRN PRN Reason: opiate overdose Omeprazole (Omeprazole/Na Bicarb Oral Susp 20 Mg/10 Ml Ud Cup) 20 mg PO DAILY@0630 [facility] Last Admin: 06/11/25 06:42 Dose: 20 mg Polyethylene Glycol (Polyethylene Glycol 3350 17 Gm Powd.Pack) 17 gm PO DAILY PRN PRN Reason: Constipation Quetiapine Fumarate (Quetiapine Fumarate 50 Mg Tablet) 50 mg PO BID PRN PRN Reason: psychosis, agitation Last Admin: 06/05/25 11:10 Dose: 50 mg Quetiapine Fumarate (Quetiapine Fumarate 25 Mg Tablet) 75 mg PO BID [facility] Last Admin: 06/11/25 08:09 Dose: 75 mg Senna (Sennosides Oral Syrup 8.8 Mg/5 Ml) 17.6 mg PO DAILY PRN PRN Reason: Constipation Sodium Biphosphate/Sodium Phosphate (Sodium Phosphate,[place]-Dibasic 133 Ml Enema) 118 ml [place] DAILY PRN PRN Reason: Constipation Trazodone HCl (Trazodone Hcl 50 Mg Tablet) 50 mg PO BEDTIME MRX1 PRN PRN Reason: Insomnia Allergies Allergies Allergy/AdvReac Type Severity Reaction Status Date / Time dog dander Allergy Unknown Verified 06/04/25 06:34 mite-Dermatophagoides Allergy Unknown Verified 06/04/25 06:32 farinae, abhilash (dust mite - [place]) Assessment & Plan Assessment & Plan (1) Schizoaffective disorder, bipolar type: Status: Acute Code(s): F25.0 - Schizoaffective disorder, bipolar type (2) Eating disorder with ongoing treatment: Status: Acute Code(s): F50.9 - Eating disorder, unspecified (3) Gastrointestinal tube in situ: Status: Acute Code(s): Z93.1 - Gastrostomy status Plan Patient admitted on a conditional voluntary again seen and evaluated 10:00. Patient appears to have schizoaffective disorder a marked eating disorder question delusional based leading to a G-tube but there is no clear history presently available regarding medication trials inpatient psychiatric history. He is on minimal doses of lithium and Seroquel and unclear why that is. Would benefit from medical history regarding G-tube what the treatment plan was regarding this and need medical and [facility] records [facility] and would also benefit records from [place]. Patient does have a guardian and [facility] will need to coordinate care check lithium level adjust to better therapeutic dose for irritability appears to be manic symptoms unclear why patient is not on antipsychotic dose of antipsychotic medication. Monitor response to treatment question discharge back to [facility]. Question dementia/cognitive impairment diagnosis check [place] review medical records 06/05/2025 Patient more psychotically preoccupied difficulty processing information records reviewed. Patient carries multiple diagnoses including schizophrenia in have significant grandiose and paranoid delusional beliefs but unclear why he is only on very low-dose Seroquel and on clozapine previously. Has only been treated with low-dose lithium. Given patient's history of psychosis, psychotic/eating daughter disorder requiring G-tube placement unclear why patient has such minimum doses of psychiatric medication question past side effects presently no psychiatric provider to coordinate with. Patient is more irritable and agitated psychotically preoccupied tried to explain to him also that he does have a guardian and that issues such as this will need to be addressed with his guardian. Barium swallow ordered to try to clarify if there is any dysphagia elements no obvious side effects were why patient is not currently on adequate antipsychotic treatment. Question asked obstruction with clozapine but unable to clarify at this time patient unable to clarify this history. Patient does have significant difficulty with reflecting on issues and absorbing information but memory seems significantly impaired. Monitor response to patient swallowing is on medication monitor weight unclear history of noncompliance this should be clarified 06/06/2025 Try and gather further data regarding patient's treatment history had been on Clozaril in the past unclear why discontinued Medical history not clear continue lower dose Seroquel and lithium at present 06/07 Team needing back up dosing Seroquel refusal. Haldol 2.5 mg IM bid prn per Sharif parameters if pt refuses Seroquel Increase Seroquel to 75 mg bid Monitor for dysphagia 06/08 Continue tx 06/09/2025 Trying to clarify history the past year for this patient. Call placed to nurse practitioner at [facility]. Patient was quite psychotic irritable agitated 06/10/2025 Continue plan of care patient is still not able to elaborate history but no current adverse effects from current regimen noted. He is aware that he will most likely return to [facility] encourage compliance with lithium try to obtain therapeutic level 06/11/2025 encourage med compliance get med records from [facility] picture Reason for continued inpatient stay Substantial Risk for: harm to others, rapid decompensation and med/psych decompensation Time Spent With Patient Time: Total time managing care of this patient today ____ minutes.
[2025-06-11 16:17] VITALS: BP 110/68
[2025-06-11 19:53] VITALS: BP 116/68; PULSE 80; RESP 18; TEMP 36.7; O2SAT 96
[2025-06-12] MEDS: Omeprazole/Na Bicarb Oral Susp 20 MG/10 ML UD Cup PO (06:33)
[2025-06-12 07:00] VITALS: BMI 22.2
[2025-06-12 08:00] VITALS: BP 113/71; PULSE 76; RESP 16; TEMP 36.9; O2SAT 97
[2025-06-12] MEDS: Lacosamide Oral Solution 100 MG/10 ML SOLUTION PO ×2 (08:40→20:37)
[2025-06-12 08:41] VITALS: BP 113/71
--- NOTE | 2025-06-12 11:38 | P.PNPSI_ITS ---
Subjective Subjective Date of Service: 06/12/25 Reason For Visit: psychosis federica Subjective Notes: Conditional Voluntary Interim History: Patient reports he has not been purging. He has been anxious irritable Asking about not returning to [facility]. Gets upset when talking about Concern about returning has been increasing his anxiety. Fixated at not returning to where he came from. Paranoid ideation. Intermittently refusing non Sharif medication Denies SI. Mental Status Exam Mental Status Exam Narrative: Patient Appearance: Appropriate Patient Orientation: Person, Place, Time and Situation Level of Consciousness: Alert Patient Behavior: Appropriate and Talkative Mood Description: Labile and Angry Affect Description: Labile Patient Cognition Impaired: Yes Ability to Follow Directions: Good Speech Pattern: Spontaneous Speech Memory Description: Remote Impaired Judgement: Fair Judgement and Insight: limited understanding of his condtion periods of poor cooperation. states he is trying to improve his attitude cooperativity poor insight impulse control generally intact Diagnostics Vital Signs (24Hr): Vital Signs - 24 hr 06/11/25 16:17 06/11/25 19:53 06/12/25 08:00 Temperature 98.1 F 98.4 F Pulse Rate 80 76 Respiratory Rate 18 16 Blood Pressure 110/68 116/68 113/71 Pulse Oximetry 96 97 Oxygen Delivery Method Room Air Room Air 06/12/25 08:41 Temperature Pulse Rate Respiratory Rate Blood Pressure 113/71 Pulse Oximetry Oxygen Delivery Method BMI result Body Mass Index 21.1 Labs 06/10/25 07:27 06/12/25 13:28 Imaging Radiology Impressions: ITS Impressions Modified Barium Swallow 06/06/25 14:30 IMPRESSION: No evidence of laryngeal penetration or aspiration. Refer to the full speech therapy report to follow for further details. Electronically signed by: Gerry Tejeda MD 06/06/2025 03:25 PM EDT Medications Medications Current Medications Acetaminophen (Acetaminophen 325 Mg Tablet) 650 mg PO Q6H PRN PRN Reason: Pain Al Hydroxide/Mg Hydroxide (Magnesium Hydrox/Alum Hydrox 30 Ml Oral.Susp) 30 ml PO Q6H PRN PRN Reason: Heartburn/Nausea Apixaban (Apixaban 5 Mg Tablet) 5 mg PO BID [facility] Last Admin: 06/12/25 08:41 Dose: 5 mg Bisacodyl (Bisacodyl 10 Mg Supp.Rect) 10 mg CA DAILY PRN PRN Reason: Constipation Calcium Carbonate (Calcium Carbonate 750 Mg Tab.Chew) 750 mg PO Q8H PRN PRN Reason: GERD Clotrimazole (Clotrimazole 1 % Cream 15 Gm Tube) 1 appl TOPICAL TID [facility]; Protocol Last Admin: 06/11/25 20:11 Dose: Not Given Fluoxetine HCl (Fluoxetine Hcl 10 Mg Capsule) 10 mg PO DAILY [facility] Last Admin: 06/12/25 08:40 Dose: 10 mg Glucagon (Glucagon Hcl 1 Mg Vial) 1 mg IM ONCE PRN PRN Reason: HYPOGLYCEMIA Haloperidol Lactate (Haloperidol Lactate 5 Mg/Ml Vial) 2.5 mg IM BID PRN PRN Reason: if pt refuses Seroquel, per Sharif Lacosamide (Lacosamide Oral Solution 100 Mg/10 Ml Solution) 100 mg PO BID [facility] Last Admin: 06/12/25 08:40 Dose: 100 mg [place] Carbonate ([place] Carbonate 300 Mg Tablet) 300 mg PO BID [facility] Last Admin: 06/12/25 08:40 Dose: 300 mg Magnesium Hydroxide (Milk Of Magnesia 30 Ml Oral.Susp) 30 ml PO DAILY PRN PRN Reason: Constipation Memantine (Memantine Hcl 10 Mg Tablet) 20 mg PO BEDTIME [facility] Last Admin: 06/11/25 19:55 Dose: 20 mg Midodrine (Midodrine Hcl 2.5 Mg Tablet) 7.5 mg PO TIDAC [facility] Last Admin: 06/12/25 08:41 Dose: 7.5 mg Naloxone HCl (Naloxone Hcl Nasal 4 Mg [place]) 4 mg NOSTRILALT Q2M PRN PRN Reason: opiate overdose Omeprazole (Omeprazole/Na Bicarb Oral Susp 20 Mg/10 Ml Ud Cup) 20 mg PO DAILY@0630 [facility] Last Admin: 06/12/25 06:33 Dose: 20 mg Polyethylene Glycol (Polyethylene Glycol 3350 17 Gm Powd.Pack) 17 gm PO DAILY PRN PRN Reason: Constipation Quetiapine Fumarate (Quetiapine Fumarate 50 Mg Tablet) 50 mg PO BID PRN PRN Reason: psychosis, agitation Last Admin: 06/05/25 11:10 Dose: 50 mg Quetiapine Fumarate (Quetiapine Fumarate 25 Mg Tablet) 75 mg PO BID [facility] Last Admin: 06/12/25 08:41 Dose: 75 mg Senna (Sennosides Oral Syrup 8.8 Mg/5 Ml) 17.6 mg PO DAILY PRN PRN Reason: Constipation Sodium Biphosphate/Sodium Phosphate (Sodium Phosphate,[place]-Dibasic 133 Ml Enema) 118 ml CA DAILY PRN PRN Reason: Constipation Trazodone HCl (Trazodone Hcl 50 Mg Tablet) 50 mg PO BEDTIME MRX1 PRN PRN Reason: Insomnia Last Admin: 06/11/25 19:55 Dose: 50 mg Allergies Allergies Allergy/AdvReac Type Severity Reaction Status Date / Time dog dander Allergy Unknown Verified 06/04/25 06:34 mite-Dermatophagoides Allergy Unknown Verified 06/04/25 06:32 farinae, abhilash (dust mite - [place]) Assessment & Plan Assessment & Plan (1) Schizoaffective disorder, bipolar type: Status: Acute Code(s): F25.0 - Schizoaffective disorder, bipolar type (2) Eating disorder with ongoing treatment: Status: Acute Code(s): F50.9 - Eating disorder, unspecified (3) Gastrointestinal tube in situ: Status: Acute Code(s): Z93.1 - Gastrostomy status Plan Patient admitted on a conditional voluntary again seen and evaluated 10:00. Patient appears to have schizoaffective disorder a marked eating disorder question delusional based leading to a G-tube but there is no clear history presently available regarding medication trials inpatient psychiatric history. He is on minimal doses of lithium and Seroquel and unclear why that is. Would benefit from medical history regarding G-tube what the treatment plan was regarding this and need [facility] and would also benefit records from [place]. Patient does have a guardian and [facility] will need to coordinate care check lithium level adjust to better therapeutic dose for irritability appears to be manic symptoms unclear why patient is not on antipsychotic dose of antipsychotic medication. Monitor response to treatment question discharge back to [facility]. Question dementia/cognitive impairment diagnosis check [place] review medical records 06/05/2025 Patient more psychotically preoccupied difficulty processing information records reviewed. Patient carries multiple diagnoses including schizophrenia in have significant grandiose and paranoid delusional beliefs but unclear why he is only on very low-dose Seroquel and on clozapine previously. Has only been treated with low-dose lithium. Given patient's history of psychosis, psychotic/eating daughter disorder requiring G-tube placement unclear why patient has such minimum doses of psychiatric medication question past side effects presently no psychiatric provider to coordinate with. Patient is more irritable and agitated psychotically preoccupied tried to explain to him also that he does have a guardian and that issues such as this will need to be addressed with his guardian. Barium swallow ordered to try to clarify if there is any dysphagia elements no obvious side effects were why patient is not currently on adequate antipsychotic treatment. Question asked obstruction with clozapine but unable to clarify at this time patient unable to clarify this history. Patient does have significant difficulty with reflecting on issues and absorbing information but memory seems significantly impaired. Monitor response to patient swallowing is on medication monitor weight unclear history of noncompliance this should be clarified 06/06/2025 Try and gather further data regarding patient's treatment history had been on Clozaril in the past unclear why discontinued Medical history not clear continue lower dose Seroquel and lithium at present 06/07 Team needing back up dosing Seroquel refusal. Haldol 2.5 mg IM bid prn per Sharif parameters if pt refuses Seroquel Increase Seroquel to 75 mg bid Monitor for dysphagia 06/08 Continue tx 06/09/2025 Trying to clarify history the past year for this patient. Call placed to nurse practitioner at [facility]. Patient was quite psychotic irritable agitated 06/10/2025 Continue plan of care patient is still not able to elaborate history but no current adverse effects from current regimen noted. He is aware that he will most likely return to [facility] encourage compliance with lithium try to obtain therapeutic level 06/12/2025 Encourage compliance with lithium and Seroquel. Patient had been on clozapine and past was only on 25 mg Seroquel at [facility] unclear why he was not more robust only treated increase Seroquel as tolerated try and do mouth checks check for purging Patient educated on: diagnosis and medication risk/benefits Informed Consent: further education needed Reason for continued inpatient stay Substantial Risk for: harm to others, inability to function and rapid decompensation Time Spent With Patient Time: Total time managing care of this patient today ____ minutes.
[2025-06-12 11:43] VITALS: BP 117/70
[2025-06-12 14:02] LABS: Anion Gap 12 (12-20); Blood Urea Nitrogen 22 mg/dL (9-16); Calcium 8.8 mg/dL (8.4-10.2); Carbon Dioxide 25 mmol/L (22-29); Chloride 104 mmol/L (96-108); Creatinine Clr Calc Pharmacy 93.0; Estimated Glomerular Filt Rate > 60; Potassium 3.9 mmol/L (3.3-5.1); Sodium 137 mmol/L (135-145)
[2025-06-12 16:58] VITALS: BP 139/80
[2025-06-12 20:27] VITALS: BP 119/81; PULSE 89; RESP 18; TEMP 36.1; O2SAT 97
[2025-06-13] MEDS: Omeprazole/Na Bicarb Oral Susp 20 MG/10 ML UD Cup PO (05:57)
[2025-06-13 08:00] VITALS: BP 109/70; PULSE 82; RESP 16; TEMP 36.4; O2SAT 97
[2025-06-13] MEDS: Lacosamide Oral Solution 100 MG/10 ML SOLUTION PO ×2 (09:17→21:17)
[2025-06-13] MEDS: Clotrimazole 1 % Cream 15 GM TUBE 1 APPL TOPICAL ×2 (09:17→21:18)
[2025-06-13 11:36] VITALS: BP 116/67; PULSE 84
--- NOTE | 2025-06-13 11:42 | P.PNPSI_ITS ---
Subjective Subjective Date of Service: 06/13/25 Reason For Visit: psychosis federica Subjective Notes: Conditional Voluntary Guardianship: Yes Interim History: Pt has been cooperative with 1 hr observation post meals, and his hx from [facility] has been obtained and reviewed with pt. Has been cooperative with taking medication. Hx of clozaril neutropemia reviewed with the pt Medication Compliance: Intermittent Mental Status Exam Mental Status Exam Narrative: Patient Appearance: Appropriate Patient Orientation: Person, Place, Time and Situation Level of Consciousness: Alert Patient Behavior: Appropriate and Talkative Mood Description: Labile and Angry Affect Description: Labile Patient Cognition Impaired: Yes Ability to Follow Directions: Good Speech Pattern: Spontaneous Speech Memory Description: Remote Impaired Judgement: Fair Judgement and Insight: limited understanding of his condtion periods of poor cooperation. states he is trying to improve his attitude cooperativity poor insight impulse control generally intact Diagnostics Vital Signs (24Hr): Vital Signs - 24 hr 06/12/25 11:43 06/12/25 16:58 06/12/25 20:27 Temperature 96.9 F Pulse Rate 89 Respiratory Rate 18 Blood Pressure 117/70 139/80 119/81 Pulse Oximetry 97 Oxygen Delivery Method Room Air 06/13/25 08:00 06/13/25 11:36 Temperature 97.5 F Pulse Rate 82 84 Respiratory Rate 16 Blood Pressure 109/70 116/67 Pulse Oximetry 97 Oxygen Delivery Method Room Air BMI result Body Mass Index 22.2 Labs 06/10/25 07:27 06/12/25 13:28 Labs: Laboratory Results - last 48 hr 06/12/25 13:28 Sodium 137 Potassium 3.9 Chloride 104 Carbon Dioxide 25 Anion Gap 12 BUN 22 H Creatinine 0.83 Estim Creat Clear Calc 93.0 Estimated GFR > 60 Random Glucose 120 H Calcium 8.8 Imaging Radiology Impressions: ITS Impressions Modified Barium Swallow 06/06/25 14:30 IMPRESSION: No evidence of laryngeal penetration or aspiration. Refer to the full speech therapy report to follow for further details. Electronically signed by: Gerry Tejeda MD 06/06/2025 03:25 PM EDT Medications Medications Current Medications Acetaminophen (Acetaminophen 325 Mg Tablet) 650 mg PO Q6H PRN PRN Reason: Pain Al Hydroxide/Mg Hydroxide (Magnesium Hydrox/Alum Hydrox 30 Ml Oral.Susp) 30 ml PO Q6H PRN PRN Reason: Heartburn/Nausea Apixaban (Apixaban 5 Mg Tablet) 5 mg PO BID [facility] Last Admin: 06/13/25 09:18 Dose: 5 mg Bisacodyl (Bisacodyl 10 Mg Supp.Rect) 10 mg [place] DAILY PRN PRN Reason: Constipation Calcium Carbonate (Calcium Carbonate 750 Mg Tab.Chew) 750 mg PO Q8H PRN PRN Reason: GERD Clotrimazole (Clotrimazole 1 % Cream 15 Gm Tube) 1 appl TOPICAL TID [facility]; Protocol Last Admin: 06/13/25 09:17 Dose: 1 appl Fluoxetine HCl (Fluoxetine Hcl 10 Mg Capsule) 10 mg PO DAILY [facility] Last Admin: 06/13/25 09:18 Dose: 10 mg Glucagon (Glucagon Hcl 1 Mg Vial) 1 mg IM ONCE PRN PRN Reason: HYPOGLYCEMIA Haloperidol Lactate (Haloperidol Lactate 5 Mg/Ml Vial) 2.5 mg IM BID PRN PRN Reason: if pt refuses Seroquel, per [place] Lacosamide (Lacosamide Oral Solution 100 Mg/10 Ml Solution) 100 mg PO BID [facility] Last Admin: 06/13/25 09:17 Dose: 100 mg [place] Carbonate ([place] Carbonate 300 Mg Tablet) 300 mg PO BID [facility] Last Admin: 06/13/25 09:19 Dose: 300 mg Magnesium Hydroxide (Milk Of Magnesia 30 Ml Oral.Susp) 30 ml PO DAILY PRN PRN Reason: Constipation Memantine (Memantine Hcl 10 Mg Tablet) 20 mg PO BEDTIME [facility] Last Admin: 06/12/25 20:35 Dose: 20 mg Midodrine (Midodrine Hcl 2.5 Mg Tablet) 7.5 mg PO TIDAC [facility] Last Admin: 06/13/25 11:37 Dose: 7.5 mg Naloxone HCl (Naloxone Hcl Nasal 4 Mg [place]) 4 mg NOSTRILALT Q2M PRN PRN Reason: opiate overdose Omeprazole (Omeprazole/Na Bicarb Oral Susp 20 Mg/10 Ml Ud Cup) 20 mg PO DAILY@0630 [facility] Last Admin: 06/13/25 05:57 Dose: 20 mg Polyethylene Glycol (Polyethylene Glycol 3350 17 Gm Powd.Pack) 17 gm PO DAILY PRN PRN Reason: Constipation Quetiapine Fumarate (Quetiapine Fumarate 50 Mg Tablet) 50 mg PO BID PRN PRN Reason: psychosis, agitation Last Admin: 06/05/25 11:10 Dose: 50 mg Quetiapine Fumarate (Quetiapine Fumarate 25 Mg Tablet) 75 mg PO BID [facility] Last Admin: 06/13/25 09:18 Dose: 75 mg Senna (Sennosides Oral Syrup 8.8 Mg/5 Ml) 17.6 mg PO DAILY PRN PRN Reason: Constipation Sodium Biphosphate/Sodium Phosphate (Sodium Phosphate,[place]-Dibasic 133 Ml Enema) 118 ml [place] DAILY PRN PRN Reason: Constipation Trazodone HCl (Trazodone Hcl 50 Mg Tablet) 50 mg PO BEDTIME MRX1 PRN PRN Reason: Insomnia Last Admin: 06/11/25 19:55 Dose: 50 mg Allergies Allergies Allergy/AdvReac Type Severity Reaction Status Date / Time dog dander Allergy Unknown Verified 06/04/25 06:34 mite-Dermatophagoides Allergy Unknown Verified 06/04/25 06:32 abhilash schuler (dust mite - [place]) Assessment & Plan Assessment & Plan (1) Schizoaffective disorder, bipolar type: Status: Acute Code(s): F25.0 - Schizoaffective disorder, bipolar type (2) Eating disorder with ongoing treatment: Status: Acute Code(s): F50.9 - Eating disorder, unspecified (3) Gastrointestinal tube in situ: Status: Acute Code(s): Z93.1 - Gastrostomy status Plan Patient admitted on a conditional voluntary again seen and evaluated 10:00. Patient appears to have schizoaffective disorder a marked eating disorder question delusional based leading to a G-tube but there is no clear history presently available regarding medication trials inpatient psychiatric history. He is on minimal doses of lithium and Seroquel and unclear why that is. Would benefit from medical history regarding G-tube what the treatment plan was regarding this and need medical and psychiatric records [facility] and would also benefit records from [place]. Patient does have a guardian and [facility] will need to coordinate care check lithium level adjust to better therapeutic dose for irritability appears to be manic symptoms unclear why patient is not on antipsychotic dose of antipsychotic medication. Monitor response to treatment question discharge back to [facility]. Question dementia/cognitive impairment diagnosis check [place] review medical records 06/05/2025 Patient more psychotically preoccupied difficulty processing information records reviewed. Patient carries multiple diagnoses including schizophrenia in have significant grandiose and paranoid delusional beliefs but unclear why he is only on very low-dose Seroquel and on clozapine previously. Has only been treated with low-dose lithium. Given patient's history of psychosis, psychotic/eating daughter disorder requiring G-tube placement unclear why patient has such minimum doses of psychiatric medication question past side effects presently no psychiatric provider to coordinate with. Patient is more irritable and agitated psychotically preoccupied tried to explain to him also that he does have a guardian and that issues such as this will need to be addressed with his guardian. Barium swallow ordered to try to clarify if there is any dysphagia elements no obvious side effects were why patient is not currently on adequate antipsychotic treatment. Question asked obstruction with clozapine but unable to clarify at this time patient unable to clarify this history. Patient does have significant difficulty with reflecting on issues and absorbing information but memory seems significantly impaired. Monitor response to patient swallowing is on medication monitor weight unclear history of noncompliance this should be clarified 06/06/2025 Try and gather further data regarding patient's treatment history had been on Clozaril in the past unclear why discontinued Medical history not clear continue lower dose Seroquel and lithium at present 06/07 Team needing back up dosing Seroquel refusal. Haldol 2.5 mg IM bid prn per Sharif parameters if pt refuses Seroquel Increase Seroquel to 75 mg bid Monitor for dysphagia 06/08 Continue tx 06/09/2025 Trying to clarify history the past year for this patient. Call placed to nurse practitioner at [facility]. Patient was quite psychotic irritable agitated 06/10/2025 Continue plan of care patient is still not able to elaborate history but no current adverse effects from current regimen noted. He is aware that he will most likely return to [facility] encourage compliance with lithium try to obtain therapeutic level 06/11/2025 encourage med compliance get med records from [facility] complex picture 06/13/2025 has been gonzáles cooperative with medication ck lith level on low dose seroquel hx of neutropenia and sepsis with clozapine on low dose seroquel Reason for continued inpatient stay Substantial Risk for: inability to function, rapid decompensation and med/psych decompensation Time Spent With Patient Time: Total time managing care of this patient today ____ minutes.
--- NOTE | 2025-06-13 15:07 | MHC.CLN ---
CONSULT CONSULT FOR FOOD/FLUID RECOMMENDATIONS. PATIENT WITH G TUBE THAT IS NOT CURRENTLY USED FOR NUTRITION. FREE WATER FLUSHES 60 ML Q 8 HOURS. HX OF BULEMIA RESULTING IN GTUBE PLACEMENT. DIET=REGULAR. ENSURE TID PROVIDES 1050 KCALS, 60 G PROTEIN. PO INTAKE USUALLY 100%. CONTINUE CURRENT DIET AND SUPPLEMENT. MONITOR WEEKLY FOR PO INTAKE.
[2025-06-13 16:34] VITALS: BP 111/65; PULSE 79
[2025-06-13 20:00] VITALS: BP 124/64; PULSE 83; RESP 18; TEMP 36.1; O2SAT 95
[2025-06-14] MEDS: Omeprazole/Na Bicarb Oral Susp 20 MG/10 ML UD Cup PO (06:14)
[2025-06-14 09:06] VITALS: BP 114/59; PULSE 72; RESP 18; TEMP 37; O2SAT 97
[2025-06-14] MEDS: Lacosamide Oral Solution 100 MG/10 ML SOLUTION PO ×2 (09:11→21:11)
[2025-06-14] MEDS: Clotrimazole 1 % Cream 15 GM TUBE 1 APPL TOPICAL ×2 (09:14→14:48)
--- NOTE | 2025-06-14 09:14 | HO.PSYCHPN ---
Subjective Subjective Date of Service: 06/14/25 Reason For Visit: psychosis federica Interim History: Patient reports he has not been purging. Asking for extra food which was discussed with RN and because of risks of purging and vomiting decided to limit patient's request. Denies SI. Review of Systems Review of Systems Bulimia Yes all other systems are reviewed and are negative Constitutional: Reports no additional constitutional complaints, Denies body ache(s), Denies chills, Denies fever(s), Denies headache(s) and Denies weakness Eyes: Reports no additional eye complaints and Denies change in vision Reports system reviewed and no additional complaints, except as documented, Denies dizziness, Denies headache(s), Denies nasal congestion, Denies nasal discharge and Denies neck pain Cardiovascular: Reports no additional cardiovascular complaints, Denies chest pain, Denies leg edema and Denies dyspnea Respiratory: Reports no additional respiratory complaints, Denies cough and Denies dyspnea Gastrointestinal: Reports no additional gastrointestinal complaints, Denies abdominal pain, Denies diarrhea, Denies nausea and Denies vomiting Genitourinary: Denies urinary incontinence Musculoskeletal: Reports no additional musculoskeletal complaints, Denies back pain, Denies arthralgias, Denies joint swelling, Denies neck pain, Denies numbness and Denies tingling Skin/Breast: Reports system reviewed and no additional complaints, except as docu and Denies rash Reports system reviewed and no additional complaints, except as documented, Denies Abnormal speech present, Denies dizziness, Denies headache(s), Denies numbness, Denies tingling and Denies weakness Mental Status Exam Mental Status Exam Narrative: Pt more irritable agiatted reactive unrealistic thoughts re weight need to get g tube taken out educated not a current issue mood anxious irritable later becomes apologetic no magana overvalued ideas bizarre thoughts no si hi mood labile Patient Appearance: Appropriate Patient Orientation: Person, Place, Time and Situation Level of Consciousness: Alert Patient Behavior: Appropriate and Talkative Mood Description: Labile and Angry Affect Description: Labile Patient Cognition Impaired: Yes Ability to Follow Directions: Good Speech Pattern: Spontaneous Speech Memory Description: Remote Impaired Diagnostics Vital Signs (24Hr): Vital Signs - 24 hr 06/13/25 11:36 06/13/25 16:34 06/13/25 20:00 Temperature 97 F Pulse Rate 84 79 83 Respiratory Rate 18 Blood Pressure 116/67 111/65 124/64 Pulse Oximetry 95 Oxygen Delivery Method 06/14/25 09:06 Temperature 98.6 F Pulse Rate 72 Respiratory Rate 18 Blood Pressure 114/59 L Pulse Oximetry 97 Oxygen Delivery Method Room Air BMI result Body Mass Index 22.2 Labs 06/10/25 07:27 06/12/25 13:28 Labs: Laboratory Results - last 48 hr 06/12/25 13:28 Sodium 137 Potassium 3.9 Chloride 104 Carbon Dioxide 25 Anion Gap 12 BUN 22 H Creatinine 0.83 Estim Creat Clear Calc 93.0 Estimated GFR > 60 Random Glucose 120 H Calcium 8.8 Imaging Radiology Impressions: ITS Impressions Modified Barium Swallow 06/06/25 14:30 IMPRESSION: No evidence of laryngeal penetration or aspiration. Refer to the full speech therapy report to follow for further details. Electronically signed by: Gerry Tejeda MD 06/06/2025 03:25 PM EDT RP Medications Medications Current Medications Acetaminophen (Acetaminophen 325 Mg Tablet) 650 mg PO Q6H PRN PRN Reason: Pain Al Hydroxide/Mg Hydroxide (Magnesium Hydrox/Alum Hydrox 30 Ml Oral.Susp) 30 ml PO Q6H PRN PRN Reason: Heartburn/Nausea Apixaban (Apixaban 5 Mg Tablet) 5 mg PO BID [facility] Last Admin: 06/13/25 21:18 Dose: 5 mg Bisacodyl (Bisacodyl 10 Mg Supp.Rect) 10 mg [place] DAILY PRN PRN Reason: Constipation Calcium Carbonate (Calcium Carbonate 750 Mg Tab.Chew) 750 mg PO Q8H PRN PRN Reason: GERD Clotrimazole (Clotrimazole 1 % Cream 15 Gm Tube) 1 appl TOPICAL TID [facility]; Protocol Last Admin: 06/13/25 21:18 Dose: 1 appl Fluoxetine HCl (Fluoxetine Hcl 10 Mg Capsule) 10 mg PO DAILY [facility] Last Admin: 06/13/25 09:18 Dose: 10 mg Glucagon (Glucagon Hcl 1 Mg Vial) 1 mg IM ONCE PRN PRN Reason: HYPOGLYCEMIA Haloperidol Lactate (Haloperidol Lactate 5 Mg/Ml Vial) 2.5 mg IM BID PRN PRN Reason: if pt refuses Seroquel, ilda Sharif Lacosamide (Lacosamide Oral Solution 100 Mg/10 Ml Solution) 100 mg PO BID [facility] Last Admin: 06/13/25 21:17 Dose: 100 mg [place] Carbonate ([place] Carbonate 300 Mg Tablet) 300 mg PO BID [facility] Last Admin: 06/13/25 21:18 Dose: 300 mg Magnesium Hydroxide (Milk Of Magnesia 30 Ml Oral.Susp) 30 ml PO DAILY PRN PRN Reason: Constipation Memantine (Memantine Hcl 10 Mg Tablet) 20 mg PO BEDTIME [facility] Last Admin: 06/13/25 21:18 Dose: 20 mg Midodrine (Midodrine Hcl 2.5 Mg Tablet) 7.5 mg PO TIDAC [facility] Last Admin: 06/13/25 16:36 Dose: 7.5 mg Naloxone HCl (Naloxone Hcl Nasal 4 Mg [place]) 4 mg NOSTRILALT Q2M PRN PRN Reason: opiate overdose Omeprazole (Omeprazole/Na Bicarb Oral Susp 20 Mg/10 Ml Ud Cup) 20 mg PO DAILY@0630 [facility] Last Admin: 06/14/25 06:14 Dose: 20 mg Polyethylene Glycol (Polyethylene Glycol 3350 17 Gm Powd.Pack) 17 gm PO DAILY PRN PRN Reason: Constipation Quetiapine Fumarate (Quetiapine Fumarate 50 Mg Tablet) 50 mg PO BID PRN PRN Reason: psychosis, agitation Last Admin: 06/05/25 11:10 Dose: 50 mg Quetiapine Fumarate (Quetiapine Fumarate 25 Mg Tablet) 75 mg PO BID [facility] Last Admin: 06/13/25 21:18 Dose: 75 mg Senna (Sennosides Oral Syrup 8.8 Mg/5 Ml) 17.6 mg PO DAILY PRN PRN Reason: Constipation Sodium Biphosphate/Sodium Phosphate (Sodium Phosphate,[place]-Dibasic 133 Ml Enema) 118 ml [place] DAILY PRN PRN Reason: Constipation Trazodone HCl (Trazodone Hcl 50 Mg Tablet) 50 mg PO BEDTIME MRX1 PRN PRN Reason: Insomnia Last Admin: 06/11/25 19:55 Dose: 50 mg Allergies Allergies Allergy/AdvReac Type Severity Reaction Status Date / Time dog dander Allergy Unknown Verified 06/04/25 06:34 mite-Dermatophagoides Allergy Unknown Verified 06/04/25 06:32 farinae, abhilash (dust mite - [place]) Assessment & Plan Assessment & Plan (1) Schizoaffective disorder, bipolar type: Status: Acute Code(s): F25.0 - Schizoaffective disorder, bipolar type (2) Eating disorder with ongoing treatment: Status: Acute Code(s): F50.9 - Eating disorder, unspecified (3) Gastrointestinal tube in situ: Status: Acute Code(s): Z93.1 - Gastrostomy status Plan Patient admitted on a conditional voluntary again seen and evaluated 10:00. Patient appears to have schizoaffective disorder a marked eating disorder question delusional based leading to a G-tube but there is no clear history presently available regarding medication trials inpatient psychiatric history. He is on minimal doses of lithium and Seroquel and unclear why that is. Would benefit from medical history regarding G-tube what the treatment plan was regarding this and need [facility] and would also benefit records from [place]. Patient does have a guardian and [facility] will need to coordinate care check lithium level adjust to better therapeutic dose for irritability appears to be manic symptoms unclear why patient is not on antipsychotic dose of antipsychotic medication. Monitor response to treatment question discharge back to [facility]. Question dementia/cognitive impairment diagnosis check [place] review medical records 06/05/2025 Patient more psychotically preoccupied difficulty processing information records reviewed. Patient carries multiple diagnoses including schizophrenia in have significant grandiose and paranoid delusional beliefs but unclear why he is only on very low-dose Seroquel and on clozapine previously. Has only been treated with low-dose lithium. Given patient's history of psychosis, psychotic/eating daughter disorder requiring G-tube placement unclear why patient has such minimum doses of psychiatric medication question past side effects presently no psychiatric provider to coordinate with. Patient is more irritable and agitated psychotically preoccupied tried to explain to him also that he does have a guardian and that issues such as this will need to be addressed with his guardian. Barium swallow ordered to try to clarify if there is any dysphagia elements no obvious side effects were why patient is not currently on adequate antipsychotic treatment. Question asked obstruction with clozapine but unable to clarify at this time patient unable to clarify this history. Patient does have significant difficulty with reflecting on issues and absorbing information but memory seems significantly impaired. Monitor response to patient swallowing is on medication monitor weight unclear history of noncompliance this should be clarified 06/06/2025 Try and gather further data regarding patient's treatment history had been on Clozaril in the past unclear why discontinued Medical history not clear continue lower dose Seroquel and lithium at present 06/07 Team needing back up dosing Seroquel refusal. Haldol 2.5 mg IM bid prn per [facility] parameters if pt refuses Seroquel Increase Seroquel to 75 mg bid Monitor for dysphagia 06/08 Continue tx 06/09/2025 Trying to clarify history the past year for this patient. Call placed to nurse practitioner at [facility]. Patient was quite psychotic irritable agitated 06/10/2025 Continue plan of care patient is still not able to elaborate history but no current adverse effects from current regimen noted. He is aware that he will most likely return to [facility] encourage compliance with lithium try to obtain therapeutic level 06/11/2025 encourage med compliance get med records from [facility] picture 06/14: continue current management and treatment plan. Reason for continued inpatient stay Substantial Risk for: inability to function, rapid decompensation and med/psych decompensation Time Spent With Patient Time: Total time managing care of this patient today ____ minutes.
[2025-06-14 11:10] VITALS: BP 121/58; PULSE 75
[2025-06-14 16:15] VITALS: BP 109/68
[2025-06-14 20:00] VITALS: BP 128/75; PULSE 78; TEMP 36.2; O2SAT 96
[2025-06-15] MEDS: Omeprazole/Na Bicarb Oral Susp 20 MG/10 ML UD Cup PO (06:42)
[2025-06-15 07:38] VITALS: BP 118/63; PULSE 85; RESP 16; TEMP 36.8; O2SAT 96
--- NOTE | 2025-06-15 08:47 | P.PNPSI_ITS ---
Subjective Subjective Date of Service: 06/15/25 Reason For Visit: psychosis federica Interim History: Patient reports he has not been purging. He is anxious. Asking about not returning to [facility]. Concern about returning has been increasing his anxiety. Fixated at not returning to where he came from. Believes his mom was being harassed by neighbors. Paranoid ideation. Denies SI. Review of Systems Review of Systems Bulimia Yes all other systems are reviewed and are negative Constitutional: Reports no additional constitutional complaints, Denies body ache(s), Denies chills, Denies fever(s), Denies headache(s) and Denies weakness Eyes: Reports no additional eye complaints and Denies change in vision Reports system reviewed and no additional complaints, except as documented, Denies dizziness, Denies headache(s), Denies nasal congestion, Denies nasal discharge and Denies neck pain Cardiovascular: Reports no additional cardiovascular complaints, Denies chest pain, Denies leg edema and Denies dyspnea Respiratory: Reports no additional respiratory complaints, Denies cough and Denies dyspnea Gastrointestinal: Reports no additional gastrointestinal complaints, Denies abdominal pain, Denies diarrhea, Denies nausea and Denies vomiting Genitourinary: Denies urinary incontinence Musculoskeletal: Reports no additional musculoskeletal complaints, Denies back pain, Denies arthralgias, Denies joint swelling, Denies neck pain, Denies numbness and Denies tingling Skin/Breast: Reports system reviewed and no additional complaints, except as docu and Denies rash Reports system reviewed and no additional complaints, except as documented, Denies Abnormal speech present, Denies dizziness, Denies headache(s), Denies numbness, Denies tingling and Denies weakness Mental Status Exam Mental Status Exam Narrative: Pt more irritable agiatted reactive unrealistic thoughts re weight need to get g tube taken out educated not a current issue mood anxious irritable later becomes apologetic no magana overvalued ideas bizarre thoughts no si hi mood labile Patient Appearance: Appropriate Patient Orientation: Person, Place, Time and Situation Level of Consciousness: Alert Patient Behavior: Appropriate and Talkative Mood Description: Labile and Angry Affect Description: Labile Patient Cognition Impaired: Yes Ability to Follow Directions: Good Speech Pattern: Spontaneous Speech Memory Description: Remote Impaired Diagnostics Vital Signs (24Hr): Vital Signs - 24 hr 06/14/25 09:06 06/14/25 11:10 06/14/25 16:15 Temperature 98.6 F Pulse Rate 72 75 Respiratory Rate 18 Blood Pressure 114/59 L 121/58 L 109/68 Pulse Oximetry 97 Oxygen Delivery Method Room Air 06/14/25 20:00 06/15/25 07:38 Temperature 97.2 F 98.2 F Pulse Rate 78 85 Respiratory Rate 16 Blood Pressure 128/75 118/63 Pulse Oximetry 96 96 Oxygen Delivery Method Room Air Room Air BMI result Body Mass Index 22.2 Labs 06/10/25 07:27 06/12/25 13:28 Imaging Radiology Impressions: ITS Impressions Modified Barium Swallow 06/06/25 14:30 IMPRESSION: No evidence of laryngeal penetration or aspiration. Refer to the full speech therapy report to follow for further details. Electronically signed by: Gerry Tejeda MD 06/06/2025 03:25 PM EDT RP Medications Medications Current Medications Acetaminophen (Acetaminophen 325 Mg Tablet) 650 mg PO Q6H PRN PRN Reason: Pain Al Hydroxide/Mg Hydroxide (Magnesium Hydrox/Alum Hydrox 30 Ml Oral.Susp) 30 ml PO Q6H PRN PRN Reason: Heartburn/Nausea Apixaban (Apixaban 5 Mg Tablet) 5 mg PO BID [facility] Last Admin: 06/14/25 21:12 Dose: 5 mg Bisacodyl (Bisacodyl 10 Mg Supp.Rect) 10 mg [place] DAILY PRN PRN Reason: Constipation Calcium Carbonate (Calcium Carbonate 750 Mg Tab.Chew) 750 mg PO Q8H PRN PRN Reason: GERD Clotrimazole (Clotrimazole 1 % Cream 15 Gm Tube) 1 appl TOPICAL TID [facility]; Protocol Last Admin: 06/14/25 21:18 Dose: Not Given Fluoxetine HCl (Fluoxetine Hcl 10 Mg Capsule) 10 mg PO DAILY [facility] Last Admin: 06/14/25 09:12 Dose: 10 mg Glucagon (Glucagon Hcl 1 Mg Vial) 1 mg IM ONCE PRN PRN Reason: HYPOGLYCEMIA Haloperidol Lactate (Haloperidol Lactate 5 Mg/Ml Vial) 2.5 mg IM BID PRN PRN Reason: if pt refuses Seroquel, ilda Sharif Lacosamide (Lacosamide Oral Solution 100 Mg/10 Ml Solution) 100 mg PO BID [facility] Last Admin: 06/14/25 21:11 Dose: 100 mg [place] Carbonate ([place] Carbonate 300 Mg Tablet) 300 mg PO BID [facility] Last Admin: 06/14/25 21:12 Dose: 300 mg Magnesium Hydroxide (Milk Of Magnesia 30 Ml Oral.Susp) 30 ml PO DAILY PRN PRN Reason: Constipation Memantine (Memantine Hcl 10 Mg Tablet) 20 mg PO BEDTIME [facility] Last Admin: 06/14/25 21:11 Dose: 20 mg Midodrine (Midodrine Hcl 2.5 Mg Tablet) 7.5 mg PO TIDAC [facility] Last Admin: 06/15/25 07:45 Dose: 7.5 mg Naloxone HCl (Naloxone Hcl Nasal 4 Mg [place]) 4 mg NOSTRILALT Q2M PRN PRN Reason: opiate overdose Omeprazole (Omeprazole/Na Bicarb Oral Susp 20 Mg/10 Ml Ud Cup) 20 mg PO DAILY@0630 [facility] Last Admin: 06/15/25 06:42 Dose: 20 mg Polyethylene Glycol (Polyethylene Glycol 3350 17 Gm Powd.Pack) 17 gm PO DAILY PRN PRN Reason: Constipation Quetiapine Fumarate (Quetiapine Fumarate 50 Mg Tablet) 50 mg PO BID PRN PRN Reason: psychosis, agitation Last Admin: 06/05/25 11:10 Dose: 50 mg Quetiapine Fumarate (Quetiapine Fumarate 25 Mg Tablet) 75 mg PO BID [facility] Last Admin: 06/14/25 21:12 Dose: 75 mg Senna (Sennosides Oral Syrup 8.8 Mg/5 Ml) 17.6 mg PO DAILY PRN PRN Reason: Constipation Sodium Biphosphate/Sodium Phosphate (Sodium Phosphate,[place]-Dibasic 133 Ml Enema) 118 ml [place] DAILY PRN PRN Reason: Constipation Trazodone HCl (Trazodone Hcl 50 Mg Tablet) 50 mg PO BEDTIME MRX1 PRN PRN Reason: Insomnia Last Admin: 06/11/25 19:55 Dose: 50 mg Allergies Allergies Allergy/AdvReac Type Severity Reaction Status Date / Time dog dander Allergy Unknown Verified 06/04/25 06:34 mite-Dermatophagoides Allergy Unknown Verified 06/04/25 06:32 farabhilash lange (dust mite - [place]) Assessment & Plan Assessment & Plan (1) Schizoaffective disorder, bipolar type: Status: Acute Code(s): F25.0 - Schizoaffective disorder, bipolar type (2) Eating disorder with ongoing treatment: Status: Acute Code(s): F50.9 - Eating disorder, unspecified (3) Gastrointestinal tube in situ: Status: Acute Code(s): Z93.1 - Gastrostomy status Plan Patient admitted on a conditional voluntary again seen and evaluated 10:00. Patient appears to have schizoaffective disorder a marked eating disorder question delusional based leading to a G-tube but there is no clear history presently available regarding medication trials inpatient psychiatric history. He is on minimal doses of lithium and Seroquel and unclear why that is. Would benefit from medical history regarding G-tube what the treatment plan was regarding this and need medical [facility] and would also benefit records from [place]. Patient does have a guardian and [facility] will need to coordinate care check lithium level adjust to better therapeutic dose for irritability appears to be manic symptoms unclear why patient is not on antipsychotic dose of antipsychotic medication. Monitor response to treatment question discharge back to [facility]. Question dementia/cognitive impairment diagnosis check [place] review medical records 06/05/2025 Patient more psychotically preoccupied difficulty processing information records reviewed. Patient carries multiple diagnoses including schizophrenia in have significant grandiose and paranoid delusional beliefs but unclear why he is only on very low-dose Seroquel and on clozapine previously. Has only been treated with low-dose lithium. Given patient's history of psychosis, psychotic/eating daughter disorder requiring G-tube placement unclear why patient has such minimum doses of psychiatric medication question past side effects presently no psychiatric provider to coordinate with. Patient is more irritable and agitated psychotically preoccupied tried to explain to him also that he does have a guardian and that issues such as this will need to be addressed with his guardian. Barium swallow ordered to try to clarify if there is any dysphagia elements no obvious side effects were why patient is not currently on adequate antipsychotic treatment. Question asked obstruction with clozapine but unable to clarify at this time patient unable to clarify this history. Patient does have significant difficulty with reflecting on issues and absorbing information but memory seems significantly impaired. Monitor response to patient swallowing is on medication monitor weight unclear history of noncompliance this should be clarified 06/06/2025 Try and gather further data regarding patient's treatment history had been on Clozaril in the past unclear why discontinued Medical history not clear continue lower dose Seroquel and lithium at present 06/07 Team needing back up dosing Seroquel refusal. Haldol 2.5 mg IM bid prn per [facility] parameters if pt refuses Seroquel Increase Seroquel to 75 mg bid Monitor for dysphagia 06/08 Continue tx 06/09/2025 Trying to clarify history the past year for this patient. Call placed to nurse practitioner at [facility]. Patient was quite psychotic irritable agitated 06/10/2025 Continue plan of care patient is still not able to elaborate history but no current adverse effects from current regimen noted. He is aware that he will most likely return to [facility] encourage compliance with lithium try to obtain therapeutic level 06/11/2025 encourage med compliance get med records from [facility] picture 06/14: continue current management and treatment plan. 06/15: continue current management and treatment plan. Reason for continued inpatient stay Substantial Risk for: harm to self, rapid decompensation and med/psych decompensation Time Spent With Patient Time: Total time managing care of this patient today ____ minutes.
[2025-06-15] MEDS: Lacosamide Oral Solution 100 MG/10 ML SOLUTION PO ×2 (09:04→20:27)
[2025-06-15] MEDS: Clotrimazole 1 % Cream 15 GM TUBE 1 APPL TOPICAL (09:06)
[2025-06-15 11:11] VITALS: BP 105/64; PULSE 82
[2025-06-15 16:16] VITALS: BP 107/69; PULSE 81
[2025-06-15 20:00] VITALS: BP 106/65; PULSE 75; RESP 18; TEMP 36.7; O2SAT 96
[2025-06-16] MEDS: Omeprazole/Na Bicarb Oral Susp 20 MG/10 ML UD Cup PO (06:05)
[2025-06-16 08:00] VITALS: BP 123/70; PULSE 94; RESP 16; TEMP 36.3; O2SAT 97
[2025-06-16 08:19] VITALS: BP 123/70
[2025-06-16] MEDS: Lacosamide Oral Solution 100 MG/10 ML SOLUTION PO ×2 (08:19→19:57)
[2025-06-16 11:50] VITALS: BP 107/63
[2025-06-16] MEDS: Clotrimazole 1 % Cream 15 GM TUBE 1 APPL TOPICAL ×2 (11:55→17:19)
--- NOTE | 2025-06-16 12:09 | P.PNPSI_ITS ---
Subjective Subjective Date of Service: 06/16/25 Reason For Visit: psychosis federica Interim History: Patient says he wants a room change with another patient because he is normal and his roommate snores and he passed gas. and I can't have a fan there. He is adherent to medications. He slept well. Says his mood is good. Denies SI/HI/AVH. Review of Systems Review of Systems Bulimia Yes all other systems are reviewed and are negative Constitutional: Reports no additional constitutional complaints, Denies body ache(s), Denies chills, Denies fever(s), Denies headache(s) and Denies weakness Eyes: Reports no additional eye complaints and Denies change in vision Reports system reviewed and no additional complaints, except as documented, Denies dizziness, Denies headache(s), Denies nasal congestion, Denies nasal discharge and Denies neck pain Cardiovascular: Reports no additional cardiovascular complaints, Denies chest pain, Denies leg edema and Denies dyspnea Respiratory: Reports no additional respiratory complaints, Denies cough and Denies dyspnea Gastrointestinal: Reports no additional gastrointestinal complaints, Denies abdominal pain, Denies diarrhea, Denies nausea and Denies vomiting Genitourinary: Denies urinary incontinence Musculoskeletal: Reports no additional musculoskeletal complaints, Denies back pain, Denies arthralgias, Denies joint swelling, Denies neck pain, Denies numbness and Denies tingling Skin/Breast: Reports system reviewed and no additional complaints, except as docu and Denies rash Reports system reviewed and no additional complaints, except as documented, Denies Abnormal speech present, Denies dizziness, Denies headache(s), Denies numbness, Denies tingling and Denies weakness Mental Status Exam Mental Status Exam Narrative: Patient Appearance: Appropriate Patient Orientation: Person, Place, Time and Situation Level of Consciousness: Alert Patient Behavior: Appropriate and Talkative Mood Description: Labile and Angry Affect Description: Labile Patient Cognition Impaired: Yes Ability to Follow Directions: Good Speech Pattern: Spontaneous Speech Memory Description: Remote Impaired Diagnostics Vital Signs (24Hr): Vital Signs - 24 hr 06/15/25 16:16 06/15/25 20:00 06/16/25 08:19 Temperature 98.1 F Pulse Rate 81 75 Respiratory Rate 18 Blood Pressure 107/69 106/65 123/70 Pulse Oximetry 96 Oxygen Delivery Method Room Air 06/16/25 11:50 Temperature Pulse Rate Respiratory Rate Blood Pressure 107/63 Pulse Oximetry Oxygen Delivery Method BMI result Body Mass Index 22.2 Labs 06/10/25 07:27 06/12/25 13:28 Imaging Radiology Impressions: ITS Impressions Modified Barium Swallow 06/06/25 14:30 IMPRESSION: No evidence of laryngeal penetration or aspiration. Refer to the full speech therapy report to follow for further details. Electronically signed by: Gerry Tejeda MD 06/06/2025 03:25 PM EDT RP Medications Medications Current Medications Acetaminophen (Acetaminophen 325 Mg Tablet) 650 mg PO Q6H PRN PRN Reason: Pain Al Hydroxide/Mg Hydroxide (Magnesium Hydrox/Alum Hydrox 30 Ml Oral.Susp) 30 ml PO Q6H PRN PRN Reason: Heartburn/Nausea Apixaban (Apixaban 5 Mg Tablet) 5 mg PO BID [facility] Last Admin: 06/16/25 08:20 Dose: 5 mg Bisacodyl (Bisacodyl 10 Mg Supp.Rect) 10 mg [place] DAILY PRN PRN Reason: Constipation Calcium Carbonate (Calcium Carbonate 750 Mg Tab.Chew) 750 mg PO Q8H PRN PRN Reason: GERD Clotrimazole (Clotrimazole 1 % Cream 15 Gm Tube) 1 appl TOPICAL TID [facility]; Protocol Last Admin: 06/16/25 11:55 Dose: 1 appl Fluoxetine HCl (Fluoxetine Hcl 10 Mg Capsule) 10 mg PO DAILY [facility] Last Admin: 06/16/25 08:20 Dose: 10 mg Glucagon (Glucagon Hcl 1 Mg Vial) 1 mg IM ONCE PRN PRN Reason: HYPOGLYCEMIA Haloperidol Lactate (Haloperidol Lactate 5 Mg/Ml Vial) 2.5 mg IM BID PRN PRN Reason: if pt refuses Seroquel, ilda Sharif Lacosamide (Lacosamide Oral Solution 100 Mg/10 Ml Solution) 100 mg PO BID [facility] Last Admin: 06/16/25 08:19 Dose: 100 mg [place] Carbonate ([place] Carbonate 300 Mg Tablet) 300 mg PO BID [facility] Last Admin: 06/16/25 08:19 Dose: 300 mg Magnesium Hydroxide (Milk Of Magnesia 30 Ml Oral.Susp) 30 ml PO DAILY PRN PRN Reason: Constipation Memantine (Memantine Hcl 10 Mg Tablet) 20 mg PO BEDTIME [facility] Last Admin: 06/15/25 20:26 Dose: 20 mg Midodrine (Midodrine Hcl 2.5 Mg Tablet) 7.5 mg PO TIDAC [facility] Last Admin: 06/16/25 11:50 Dose: 7.5 mg Naloxone HCl (Naloxone Hcl Nasal 4 Mg [place]) 4 mg NOSTRILALT Q2M PRN PRN Reason: opiate overdose Omeprazole (Omeprazole/Na Bicarb Oral Susp 20 Mg/10 Ml Ud Cup) 20 mg PO DAILY@0630 [facility] Last Admin: 06/16/25 06:05 Dose: 20 mg Polyethylene Glycol (Polyethylene Glycol 3350 17 Gm Powd.Pack) 17 gm PO DAILY PRN PRN Reason: Constipation Quetiapine Fumarate (Quetiapine Fumarate 50 Mg Tablet) 50 mg PO BID PRN PRN Reason: psychosis, agitation Last Admin: 06/05/25 11:10 Dose: 50 mg Quetiapine Fumarate (Quetiapine Fumarate 25 Mg Tablet) 75 mg PO BID [facility] Last Admin: 06/16/25 08:20 Dose: 75 mg Senna (Sennosides Oral Syrup 8.8 Mg/5 Ml) 17.6 mg PO DAILY PRN PRN Reason: Constipation Sodium Biphosphate/Sodium Phosphate (Sodium Phosphate,[place]-Dibasic 133 Ml Enema) 118 ml [place] DAILY PRN PRN Reason: Constipation Trazodone HCl (Trazodone Hcl 50 Mg Tablet) 50 mg PO BEDTIME MRX1 PRN PRN Reason: Insomnia Last Admin: 06/15/25 20:27 Dose: 50 mg Allergies Allergies Allergy/AdvReac Type Severity Reaction Status Date / Time dog dander Allergy Unknown Verified 06/04/25 06:34 mite-Dermatophagoides Allergy Unknown Verified 06/04/25 06:32 farinae, abhilash (dust mite - [place]) Assessment & Plan Assessment & Plan (1) Schizoaffective disorder, bipolar type: Status: Acute Code(s): F25.0 - Schizoaffective disorder, bipolar type (2) Eating disorder with ongoing treatment: Status: Acute Code(s): F50.9 - Eating disorder, unspecified (3) Gastrointestinal tube in situ: Status: Acute Code(s): Z93.1 - Gastrostomy status Plan Patient admitted on a conditional voluntary again seen and evaluated 10:00. Patient appears to have schizoaffective disorder a marked eating disorder question delusional based leading to a G-tube but there is no clear history presently available regarding medication trials inpatient psychiatric history. He is on minimal doses of lithium and Seroquel and unclear why that is. Would benefit from medical history regarding G-tube what the treatment plan was regarding this and need medical and psychiatric records from [facility] and would also benefit records from [place]. Patient does have a guardian and [place] order will need to coordinate care check lithium level adjust to better therapeutic dose for irritability appears to be manic symptoms unclear why patient is not on antipsychotic dose of antipsychotic medication. Monitor response to treatment question discharge back to [facility]. Question dementia/cognitive impairment diagnosis check [place] review medical records 06/05/2025 Patient more psychotically preoccupied difficulty processing information records reviewed. Patient carries multiple diagnoses including schizophrenia in have significant grandiose and paranoid delusional beliefs but unclear why he is only on very low-dose Seroquel and on clozapine previously. Has only been treated with low-dose lithium. Given patient's history of psychosis, psychotic/eating daughter disorder requiring G-tube placement unclear why patient has such minimum doses of psychiatric medication question past side effects presently no psychiatric provider to coordinate with. Patient is more irritable and agitated psychotically preoccupied tried to explain to him also that he does have a guardian and that issues such as this will need to be addressed with his guardian. Barium swallow ordered to try to clarify if there is any dysphagia elements no obvious side effects were why patient is not currently on adequate antipsychotic treatment. Question asked obstruction with clozapine but unable to clarify at this time patient unable to clarify this history. Patient does have significant difficulty with reflecting on issues and absorbing information but memory seems significantly impaired. Monitor response to patient swallowing is on medication monitor weight unclear history of noncompliance this should be clarified 06/06/2025 Try and gather further data regarding patient's treatment history had been on Clozaril in the past unclear why discontinued Medical history not clear continue lower dose Seroquel and lithium at present 06/07 Team needing back up dosing Seroquel refusal. Haldol 2.5 mg IM bid prn per Sharif parameters if pt refuses Seroquel Increase Seroquel to 75 mg bid Monitor for dysphagia 06/08 Continue tx 06/09/2025 Trying to clarify history the past year for this patient. Call placed to nurse practitioner at [facility] [place]. Patient was quite psychotic irritable agitated 06/10/2025 Continue plan of care patient is still not able to elaborate history but no current adverse effects from current regimen noted. He is aware that he will most likely return to [facility] encourage compliance with lithium try to obtain therapeutic level 06/11/2025 encourage med compliance get med records from [facility] picture 06/13/2025 has been nivia cooperative with medication ck lith level on low dose seroquel hx of neutropenia and sepsis with clozapine on low dose seroquel 06/16: Continue current management and treatment plan. Reason for continued inpatient stay Substantial Risk for: harm to self, inability to function, rapid decompensation and med/psych decompensation Time Spent With Patient Time: Total time managing care of this patient today ____ minutes.
[2025-06-16 16:02] VITALS: BP 105/67
[2025-06-16 19:55] VITALS: BP 105/60; PULSE 76; RESP 17; TEMP 37; O2SAT 95
[2025-06-17] MEDS: Omeprazole/Na Bicarb Oral Susp 20 MG/10 ML UD Cup PO (05:36)
[2025-06-17 07:44] VITALS: BP 110/72; PULSE 71; RESP 16; TEMP 36.4; O2SAT 97
[2025-06-17] MEDS: Lacosamide Oral Solution 100 MG/10 ML SOLUTION PO ×2 (09:55→20:15)
[2025-06-17 11:21] VITALS: BP 105/58; PULSE 67
[2025-06-17] MEDS: Clotrimazole 1 % Cream 15 GM TUBE 1 APPL TOPICAL (15:35)
--- NOTE | 2025-06-17 15:46 | HO.PSYCHPN ---
Subjective Subjective Date of Service: 06/17/25 Reason For Visit: psychosis federica Interim History: resting in bed, awake. energetic, pleasant. asking about lyft home [place] discharge, redirected to speak with SW. no other complaints or requests. Mental Status Exam Mental Status Exam Narrative: Patient Appearance: Appropriate Patient Orientation: Person, Place, Time and Situation Level of Consciousness: Alert Patient Behavior: Appropriate and Talkative Mood Description: Labile and Angry Affect Description: Labile Patient Cognition Impaired: Yes Ability to Follow Directions: Good Speech Pattern: Spontaneous Speech Memory Description: Remote Impaired Diagnostics Vital Signs (24Hr): Vital Signs - 24 hr 06/16/25 16:02 06/16/25 19:55 06/17/25 07:44 Temperature 98.6 F 97.5 F Pulse Rate 76 71 Respiratory Rate 17 16 Blood Pressure 105/67 105/60 110/72 Pulse Oximetry 95 97 Oxygen Delivery Method Room Air Room Air 06/17/25 11:21 Temperature Pulse Rate 67 Respiratory Rate Blood Pressure 105/58 L Pulse Oximetry Oxygen Delivery Method BMI result Body Mass Index 22.2 Labs 06/10/25 07:27 06/12/25 13:28 Imaging Radiology Impressions: ITS Impressions Modified Barium Swallow 06/06/25 14:30 IMPRESSION: No evidence of laryngeal penetration or aspiration. Refer to the full speech therapy report to follow for further details. Electronically signed by: Gerry Tejeda MD 06/06/2025 03:25 PM EDT RP Medications Medications Current Medications Acetaminophen (Acetaminophen 325 Mg Tablet) 650 mg PO Q6H PRN PRN Reason: Pain Al Hydroxide/Mg Hydroxide (Magnesium Hydrox/Alum Hydrox 30 Ml Oral.Susp) 30 ml PO Q6H PRN PRN Reason: Heartburn/Nausea Apixaban (Apixaban 5 Mg Tablet) 5 mg PO BID [facility] Last Admin: 06/17/25 09:56 Dose: 5 mg Bisacodyl (Bisacodyl 10 Mg Supp.Rect) 10 mg [place] DAILY PRN PRN Reason: Constipation Calcium Carbonate (Calcium Carbonate 750 Mg Tab.Chew) 750 mg PO Q8H PRN PRN Reason: GERD Clotrimazole (Clotrimazole 1 % Cream 15 Gm Tube) 1 appl TOPICAL TID [facility]; Protocol Last Admin: 06/17/25 15:35 Dose: 1 appl Fluoxetine HCl (Fluoxetine Hcl 10 Mg Capsule) 10 mg PO DAILY [facility] Last Admin: 06/17/25 09:55 Dose: 10 mg Glucagon (Glucagon Hcl 1 Mg Vial) 1 mg IM ONCE PRN PRN Reason: HYPOGLYCEMIA Haloperidol Lactate (Haloperidol Lactate 5 Mg/Ml Vial) 2.5 mg IM BID PRN PRN Reason: if pt refuses Seroquel, per Sharif Lacosamide (Lacosamide Oral Solution 100 Mg/10 Ml Solution) 100 mg PO BID [facility] Last Admin: 06/17/25 09:55 Dose: 100 mg [place] Carbonate ([place] Carbonate 300 Mg Tablet) 300 mg PO BID [facility] Last Admin: 06/17/25 09:56 Dose: 300 mg Magnesium Hydroxide (Milk Of Magnesia 30 Ml Oral.Susp) 30 ml PO DAILY PRN PRN Reason: Constipation Memantine (Memantine Hcl 10 Mg Tablet) 20 mg PO BEDTIME [facility] Last Admin: 06/16/25 19:57 Dose: 20 mg Midodrine (Midodrine Hcl 2.5 Mg Tablet) 7.5 mg PO TIDAC [facility] Last Admin: 06/17/25 11:24 Dose: 7.5 mg Naloxone HCl (Naloxone Hcl Nasal 4 Mg [place]) 4 mg NOSTRILALT Q2M PRN PRN Reason: opiate overdose Omeprazole (Omeprazole/Na Bicarb Oral Susp 20 Mg/10 Ml Ud Cup) 20 mg PO DAILY@0630 [facility] Last Admin: 06/17/25 05:36 Dose: 20 mg Polyethylene Glycol (Polyethylene Glycol 3350 17 Gm Powd.Pack) 17 gm PO DAILY PRN PRN Reason: Constipation Quetiapine Fumarate (Quetiapine Fumarate 50 Mg Tablet) 50 mg PO BID PRN PRN Reason: psychosis, agitation Last Admin: 06/05/25 11:10 Dose: 50 mg Quetiapine Fumarate (Quetiapine Fumarate 25 Mg Tablet) 75 mg PO BID [facility] Last Admin: 06/17/25 09:56 Dose: 75 mg Senna (Sennosides Oral Syrup 8.8 Mg/5 Ml) 17.6 mg PO DAILY PRN PRN Reason: Constipation Sodium Biphosphate/Sodium Phosphate (Sodium Phosphate,[place]-Dibasic 133 Ml Enema) 118 ml [place] DAILY PRN PRN Reason: Constipation Trazodone HCl (Trazodone Hcl 50 Mg Tablet) 50 mg PO BEDTIME MRX1 PRN PRN Reason: Insomnia Last Admin: 06/15/25 20:27 Dose: 50 mg Allergies Allergies Allergy/AdvReac Type Severity Reaction Status Date / Time dog dander Allergy Unknown Verified 06/04/25 06:34 mite-Dermatophagoides Allergy Unknown Verified 06/04/25 06:32 abhilash schuler (dust mite - [place]) Assessment & Plan Assessment & Plan (1) Schizoaffective disorder, bipolar type: Status: Acute Code(s): F25.0 - Schizoaffective disorder, bipolar type (2) Eating disorder with ongoing treatment: Status: Acute Code(s): F50.9 - Eating disorder, unspecified (3) Gastrointestinal tube in situ: Status: Acute Code(s): Z93.1 - Gastrostomy status Plan Patient admitted on a conditional voluntary again seen and evaluated 10:00. Patient appears to have schizoaffective disorder a marked eating disorder question delusional based leading to a G-tube but there is no clear history presently available regarding medication trials inpatient psychiatric history. He is on minimal doses of lithium and Seroquel and unclear why that is. Would benefit from medical history regarding G-tube what the treatment plan was regarding this and need medical and psychiatric records from [facility] and would also benefit records from [place]. Patient does have a guardian and [place] order will need to coordinate care check lithium level adjust to better therapeutic dose for irritability appears to be manic symptoms unclear why patient is not on antipsychotic dose of antipsychotic medication. Monitor response to treatment question discharge back to [facility]. Question dementia/cognitive impairment diagnosis check [place] review medical records 06/05/2025 Patient more psychotically preoccupied difficulty processing information records reviewed. Patient carries multiple diagnoses including schizophrenia in have significant grandiose and paranoid delusional beliefs but unclear why he is only on very low-dose Seroquel and on clozapine previously. Has only been treated with low-dose lithium. Given patient's history of psychosis, psychotic/eating daughter disorder requiring G-tube placement unclear why patient has such minimum doses of psychiatric medication question past side effects presently no psychiatric provider to coordinate with. Patient is more irritable and agitated psychotically preoccupied tried to explain to him also that he does have a guardian and that issues such as this will need to be addressed with his guardian. Barium swallow ordered to try to clarify if there is any dysphagia elements no obvious side effects were why patient is not currently on adequate antipsychotic treatment. Question asked obstruction with clozapine but unable to clarify at this time patient unable to clarify this history. Patient does have significant difficulty with reflecting on issues and absorbing information but memory seems significantly impaired. Monitor response to patient swallowing is on medication monitor weight unclear history of noncompliance this should be clarified 06/06/2025 Try and gather further data regarding patient's treatment history had been on Clozaril in the past unclear why discontinued Medical history not clear continue lower dose Seroquel and lithium at present 06/07 Team needing back up dosing Seroquel refusal. Haldol 2.5 mg IM bid prn per Sharif parameters if pt refuses Seroquel Increase Seroquel to 75 mg bid Monitor for dysphagia 06/08 Continue tx 06/09/2025 Trying to clarify history the past year for this patient. Call placed to nurse practitioner at [facility]. Patient was quite psychotic irritable agitated 06/10/2025 Continue plan of care patient is still not able to elaborate history but no current adverse effects from current regimen noted. He is aware that he will most likely return to [facility] encourage compliance with lithium try to obtain therapeutic level 06/11/2025 encourage med compliance get med records from [facility] picture 06/13/2025 has been gonzá[place] cooperative with medication ck lith level on low dose seroquel hx of neutropenia and sepsis with clozapine on low dose seroquel 06/16: Continue current management and treatment plan. 06/17: lithium level undetectable 06/10. Hx unclear. continue current mgmt pending return of attending MD. Reason for continued inpatient stay Substantial Risk for: inability to function Time Spent With Patient Time: Total time managing care of this patient today ____ minutes.
[2025-06-17 16:33] VITALS: BP 106/73; PULSE 81
[2025-06-17 20:00] VITALS: BP 145/88; PULSE 92; RESP 16; TEMP 36.4; O2SAT 97
[2025-06-18] MEDS: Omeprazole/Na Bicarb Oral Susp 20 MG/10 ML UD Cup PO (05:59)
[2025-06-18 07:41] VITALS: BP 118/80; PULSE 89; RESP 16; TEMP 36.5; O2SAT 96
[2025-06-18] MEDS: Lacosamide Oral Solution 100 MG/10 ML SOLUTION PO (09:00)
--- NOTE | 2025-06-18 10:54 | MHC.CLN ---
F/U CONTINUES WITH USUALLY EXCELLENT PO INTAKE. CONTINUE CURRENT DIET REGULAR WITH ENSURE TID. SUPPLEMENT DUE TO PRIOR HX POOR PO. HAS G-TUBE WITH ORDER FOR FLUSH ONLY.
--- NOTE | 2025-06-18 20:33 | P.PNPSI_ITS ---
Subjective Subjective Date of Service: 06/18/25 Reason For Visit: psychosis federica Subjective Notes: Conditional Voluntary Guardianship: Yes Interim History: Patient not cooperative with treatment refusing vital sign has been placed witnessed for 1 hour or 45 minutes to an hour after meals try to coordinate medication with meals. Patient with periods of irritability anger over the thought of going back to [facility] at other times stating he is fine and will be discharged shortly. Patient remains mostly isolative Medication Compliance: Intermittent Mental Status Exam Mental Status Exam Narrative: Patient Appearance: Unkempt Patient Orientation: Person, Place and Time Level of Consciousness: Alert Patient Behavior: Talkative and Suspicious Mood Description: Labile and Angry Affect Description: Labile Patient Cognition Impaired: Yes Ability to Follow Directions: Good Speech Pattern: Spontaneous Speech Memory Description: Remote Impaired Diagnostics Vital Signs (24Hr): Vital Signs - 24 hr 06/18/25 07:41 Temperature 97.7 F Pulse Rate 89 Respiratory Rate 16 Blood Pressure 118/80 Pulse Oximetry 96 Oxygen Delivery Method Room Air BMI result Body Mass Index 22.2 Labs 06/10/25 07:27 06/12/25 13:28 Imaging Radiology Impressions: ITS Impressions Modified Barium Swallow 06/06/25 14:30 IMPRESSION: No evidence of laryngeal penetration or aspiration. Refer to the full speech therapy report to follow for further details. Electronically signed by: Gerry Tejeda MD 06/06/2025 03:25 PM EDT RP Medications Medications Current Medications Acetaminophen (Acetaminophen 325 Mg Tablet) 650 mg PO Q6H PRN PRN Reason: Pain Al Hydroxide/Mg Hydroxide (Magnesium Hydrox/Alum Hydrox 30 Ml Oral.Susp) 30 ml PO Q6H PRN PRN Reason: Heartburn/Nausea Apixaban (Apixaban 5 Mg Tablet) 5 mg PO BID [facility] Last Admin: 06/18/25 20:17 Dose: Not Given Bisacodyl (Bisacodyl 10 Mg Supp.Rect) 10 mg [place] DAILY PRN PRN Reason: Constipation Calcium Carbonate (Calcium Carbonate 750 Mg Tab.Chew) 750 mg PO Q8H PRN PRN Reason: GERD Clotrimazole (Clotrimazole 1 % Cream 15 Gm Tube) 1 appl TOPICAL TID [facility]; Protocol Last Admin: 06/18/25 20:17 Dose: Not Given Fluoxetine HCl (Fluoxetine Hcl 10 Mg Capsule) 10 mg PO DAILY [facility] Last Admin: 06/18/25 09:01 Dose: 10 mg Glucagon (Glucagon Hcl 1 Mg Vial) 1 mg IM ONCE PRN PRN Reason: HYPOGLYCEMIA Haloperidol Lactate (Haloperidol Lactate 5 Mg/Ml Vial) 2.5 mg IM BID PRN PRN Reason: if pt refuses Seroquel, per Sharif Lacosamide (Lacosamide Oral Solution 100 Mg/10 Ml Solution) 100 mg PO BID [facility] Last Admin: 06/18/25 20:17 Dose: Not Given [place] Carbonate ([place] Carbonate 300 Mg Tablet) 300 mg PO BID [facility] Last Admin: 06/18/25 20:17 Dose: Not Given Magnesium Hydroxide (Milk Of Magnesia 30 Ml Oral.Susp) 30 ml PO DAILY PRN PRN Reason: Constipation Memantine (Memantine Hcl 10 Mg Tablet) 20 mg PO BEDTIME [facility] Last Admin: 06/18/25 20:17 Dose: Not Given Midodrine (Midodrine Hcl 2.5 Mg Tablet) 7.5 mg PO TIDAC [facility] Last Admin: 06/18/25 16:24 Dose: Not Given Naloxone HCl (Naloxone Hcl Nasal 4 Mg [place]) 4 mg NOSTRILALT Q2M PRN PRN Reason: opiate overdose Omeprazole (Omeprazole/Na Bicarb Oral Susp 20 Mg/10 Ml Ud Cup) 20 mg PO DAILY@0630 [facility] Last Admin: 06/18/25 05:59 Dose: 20 mg Polyethylene Glycol (Polyethylene Glycol 3350 17 Gm Powd.Pack) 17 gm PO DAILY PRN PRN Reason: Constipation Quetiapine Fumarate (Quetiapine Fumarate 50 Mg Tablet) 50 mg PO BID PRN PRN Reason: psychosis, agitation Last Admin: 06/05/25 11:10 Dose: 50 mg Quetiapine Fumarate (Quetiapine Fumarate 100 Mg Tablet) 100 mg PO BID [facility] Last Admin: 06/18/25 20:00 Dose: 100 mg Senna (Sennosides Oral Syrup 8.8 Mg/5 Ml) 17.6 mg PO DAILY PRN PRN Reason: Constipation Sodium Biphosphate/Sodium Phosphate (Sodium Phosphate,[place]-Dibasic 133 Ml Enema) 118 ml [place] DAILY PRN PRN Reason: Constipation Trazodone HCl (Trazodone Hcl 50 Mg Tablet) 50 mg PO BEDTIME MRX1 PRN PRN Reason: Insomnia Last Admin: 06/17/25 20:15 Dose: 50 mg Allergies Allergies Allergy/AdvReac Type Severity Reaction Status Date / Time dog dander Allergy Unknown Verified 06/04/25 06:34 mite-Dermatophagoides Allergy Unknown Verified 06/04/25 06:32 abhilash schuler (dust mite - [place]) Assessment & Plan Assessment & Plan (1) Schizoaffective disorder, bipolar type: Status: Acute Code(s): F25.0 - Schizoaffective disorder, bipolar type (2) Eating disorder with ongoing treatment: Status: Acute Code(s): F50.9 - Eating disorder, unspecified (3) Gastrointestinal tube in situ: Status: Acute Code(s): Z93.1 - Gastrostomy status Plan Patient admitted on a conditional voluntary again seen and evaluated 10:00. Patient appears to have schizoaffective disorder a marked eating disorder question delusional based leading to a G-tube but there is no clear history presently available regarding medication trials inpatient psychiatric history. He is on minimal doses of lithium and Seroquel and unclear why that is. Would benefit from medical history regarding G-tube what the treatment plan was regarding this and need medical and psychiatric records from [facility] and would also benefit records from [place]. Patient does have a guardian and [place] order will need to coordinate care check lithium level adjust to better therapeutic dose for irritability appears to be manic symptoms unclear why patient is not on antipsychotic dose of antipsychotic medication. Monitor response to treatment question discharge back to [facility]. Question dementia/cognitive impairment diagnosis check [place] review medical records 06/05/2025 Patient more psychotically preoccupied difficulty processing information records reviewed. Patient carries multiple diagnoses including schizophrenia in have significant grandiose and paranoid delusional beliefs but unclear why he is only on very low-dose Seroquel and on clozapine previously. Has only been treated with low-dose lithium. Given patient's history of psychosis, psychotic/eating daughter disorder requiring G-tube placement unclear why patient has such minimum doses of psychiatric medication question past side effects presently no psychiatric provider to coordinate with. Patient is more irritable and agitated psychotically preoccupied tried to explain to him also that he does have a guardian and that issues such as this will need to be addressed with his guardian. Barium swallow ordered to try to clarify if there is any dysphagia elements no obvious side effects were why patient is not currently on adequate antipsychotic treatment. Question asked obstruction with clozapine but unable to clarify at this time patient unable to clarify this history. Patient does have significant difficulty with reflecting on issues and absorbing information but memory seems significantly impaired. Monitor response to patient swallowing is on medication monitor weight unclear history of noncompliance this should be clarified 06/06/2025 Try and gather further data regarding patient's treatment history had been on Clozaril in the past unclear why discontinued Medical history not clear continue lower dose Seroquel and lithium at present 06/07 Team needing back up dosing Seroquel refusal. Haldol 2.5 mg IM bid prn per Sharif parameters if pt refuses Seroquel Increase Seroquel to 75 mg bid Monitor for dysphagia 06/08 Continue tx 06/09/2025 Trying to clarify history the past year for this patient. Call placed to nurse practitioner at [facility]. Patient was quite psychotic irritable agitated 06/10/2025 Continue plan of care patient is still not able to elaborate history but no current adverse effects from current regimen noted. He is aware that he will most likely return to [facility] encourage compliance with lithium try to obtain therapeutic level 06/11/2025 encourage med compliance get med records from [facility] picture 06/13/2025 has been gonzáles cooperative with medication ck lith level on low dose seroquel hx of neutropenia and sepsis with clozapine on low dose seroquel 06/16: Continue current management and treatment plan. 06/17: lithium level undetectable 06/10. Hx unclear. continue current mgmt pending return of attending MD. 06/18/2025 Patient with marked lack of insight has been taking medication through his mouth but has been more irritable labile marked lack of insight talking about needing to weigh 210 lb difficulty cooperating with basic care patient marked lack of insight Refusing intermittent care check lithium level increase Seroquel as tolerated Stop fluoxetine may be causing irritability and aggression Informed Consent: does not understand Reason for continued inpatient stay Substantial Risk for: inability to function, rapid decompensation and med/psych decompensation Time Spent With Patient Time: Total time managing care of this patient today ____ minutes.
[2025-06-19 10:01] VITALS: BMI 23.0
--- NOTE | 2025-06-19 15:42 | HO.PSYCHPN ---
Subjective Subjective Date of Service: 06/19/25 Reason For Visit: psychosis federica Subjective Notes: Conditional Voluntary Interim History: Patient seen psychiatric follow-up case reviewed treatment team and also discussed with guardian. Patient has been adamant about not wanting to go back to [facility]. Has refused vital signs intermittently and non Sharif medication. He continues he would and drink adequately. He was threatening the other day stating he needs to harm someone he will has not made statements like that today. Has been refusing midodrine lithium Eliquis Medication Compliance: No Side effects from medications: No Mental Status Exam Mental Status Exam Narrative: Patient Appearance: Unkempt Patient Orientation: Person, Place and Time Level of Consciousness: Alert Patient Behavior: Talkative, Suspicious and Belligerent Mood Description: Labile and Angry Affect Description: Labile Patient Cognition Impaired: Yes Ability to Follow Directions: Good Speech Pattern: Spontaneous Speech Memory Description: Remote Impaired Judgement and Insight: Patient thinking guardian's not really his guardian dressage judge not really Sharif order some psychotic process related to the dressage judge patient seems more irritable angry delusional preoccupied can not explain why he is refusing multiple medical medications Diagnostics Vital Signs (24Hr): BMI result Body Mass Index 23.0 Labs 06/10/25 07:27 06/12/25 13:28 Imaging Radiology Impressions: ITS Impressions Modified Barium Swallow 06/06/25 14:30 IMPRESSION: No evidence of laryngeal penetration or aspiration. Refer to the full speech therapy report to follow for further details. Electronically signed by: Gerry Tejeda MD 06/06/2025 03:25 PM EDT RP Medications Medications Current Medications Acetaminophen (Acetaminophen 325 Mg Tablet) 650 mg PO Q6H PRN PRN Reason: Pain Al Hydroxide/Mg Hydroxide (Magnesium Hydrox/Alum Hydrox 30 Ml Oral.Susp) 30 ml PO Q6H PRN PRN Reason: Heartburn/Nausea Apixaban (Apixaban 5 Mg Tablet) 5 mg PO BID [facility] Last Admin: 06/19/25 08:34 Dose: Not Given Bisacodyl (Bisacodyl 10 Mg Supp.Rect) 10 mg [place] DAILY PRN PRN Reason: Constipation Calcium Carbonate (Calcium Carbonate 750 Mg Tab.Chew) 750 mg PO Q8H PRN PRN Reason: GERD Clotrimazole (Clotrimazole 1 % Cream 15 Gm Tube) 1 appl TOPICAL TID [facility]; Protocol Last Admin: 06/19/25 14:46 Dose: Not Given Glucagon (Glucagon Hcl 1 Mg Vial) 1 mg IM ONCE PRN PRN Reason: HYPOGLYCEMIA Haloperidol Lactate (Haloperidol Lactate 5 Mg/Ml Vial) 2.5 mg IM BID PRN PRN Reason: if pt refuses Seroquel, per Sharif Lacosamide (Lacosamide Oral Solution 100 Mg/10 Ml Solution) 100 mg PO BID [facility] Last Admin: 06/19/25 08:34 Dose: Not Given [place] Carbonate ([place] Carbonate 300 Mg Tablet) 300 mg PO BID [facility] Last Admin: 06/19/25 08:34 Dose: Not Given Magnesium Hydroxide (Milk Of Magnesia 30 Ml Oral.Susp) 30 ml PO DAILY PRN PRN Reason: Constipation Memantine (Memantine Hcl 10 Mg Tablet) 20 mg PO BEDTIME [facility] Last Admin: 06/18/25 20:17 Dose: Not Given Midodrine (Midodrine Hcl 2.5 Mg Tablet) 7.5 mg PO TIDAC [facility] Last Admin: 06/19/25 11:21 Dose: Not Given Naloxone HCl (Naloxone Hcl Nasal 4 Mg [place]) 4 mg NOSTRILALT Q2M PRN PRN Reason: opiate overdose Omeprazole (Omeprazole/Na Bicarb Oral Susp 20 Mg/10 Ml Ud Cup) 20 mg PO DAILY@0630 [facility] Last Admin: 06/19/25 06:44 Dose: Not Given Polyethylene Glycol (Polyethylene Glycol 3350 17 Gm Powd.Pack) 17 gm PO DAILY PRN PRN Reason: Constipation Quetiapine Fumarate (Quetiapine Fumarate 50 Mg Tablet) 50 mg PO BID PRN PRN Reason: psychosis, agitation Last Admin: 06/05/25 11:10 Dose: 50 mg Quetiapine Fumarate (Quetiapine Fumarate 100 Mg Tablet) 100 mg PO BID [facility] Last Admin: 06/19/25 09:56 Dose: 100 mg Senna (Sennosides Oral Syrup 8.8 Mg/5 Ml) 17.6 mg PO DAILY PRN PRN Reason: Constipation Sodium Biphosphate/Sodium Phosphate (Sodium Phosphate,[place]-Dibasic 133 Ml Enema) 118 ml [place] DAILY PRN PRN Reason: Constipation Trazodone HCl (Trazodone Hcl 50 Mg Tablet) 50 mg PO BEDTIME MRX1 PRN PRN Reason: Insomnia Last Admin: 06/17/25 20:15 Dose: 50 mg Allergies Allergies Allergy/AdvReac Type Severity Reaction Status Date / Time dog dander Allergy Unknown Verified 06/04/25 06:34 mite-Dermatophagoides Allergy Unknown Verified 06/04/25 06:32 abhilash schuler (dust mite - [place]) Assessment & Plan Assessment & Plan (1) Schizoaffective disorder, bipolar type: Status: Acute Code(s): F25.0 - Schizoaffective disorder, bipolar type (2) Eating disorder with ongoing treatment: Status: Acute Code(s): F50.9 - Eating disorder, unspecified (3) Gastrointestinal tube in situ: Status: Acute Code(s): Z93.1 - Gastrostomy status Plan Patient admitted on a conditional voluntary again seen and evaluated 10:00. Patient appears to have schizoaffective disorder a marked eating disorder question delusional based leading to a G-tube but there is no clear history presently available regarding medication trials inpatient psychiatric history. He is on minimal doses of lithium and Seroquel and unclear why that is. Would benefit from medical history regarding G-tube what the treatment plan was regarding this and need medical and psychiatric records from [facility] and would also benefit records from [place]. Patient does have a guardian and Sharif order will need to coordinate care check lithium level adjust to better therapeutic dose for irritability appears to be manic symptoms unclear why patient is not on antipsychotic dose of antipsychotic medication. Monitor response to treatment question discharge back to [facility]. Question dementia/cognitive impairment diagnosis check [place] review medical records 06/05/2025 Patient more psychotically preoccupied difficulty processing information records reviewed. Patient carries multiple diagnoses including schizophrenia in have significant grandiose and paranoid delusional beliefs but unclear why he is only on very low-dose Seroquel and on clozapine previously. Has only been treated with low-dose lithium. Given patient's history of psychosis, psychotic/eating daughter disorder requiring G-tube placement unclear why patient has such minimum doses of psychiatric medication question past side effects presently no psychiatric provider to coordinate with. Patient is more irritable and agitated psychotically preoccupied tried to explain to him also that he does have a guardian and that issues such as this will need to be addressed with his guardian. Barium swallow ordered to try to clarify if there is any dysphagia elements no obvious side effects were why patient is not currently on adequate antipsychotic treatment. Question asked obstruction with clozapine but unable to clarify at this time patient unable to clarify this history. Patient does have significant difficulty with reflecting on issues and absorbing information but memory seems significantly impaired. Monitor response to patient swallowing is on medication monitor weight unclear history of noncompliance this should be clarified 06/06/2025 Try and gather further data regarding patient's treatment history had been on Clozaril in the past unclear why discontinued Medical history not clear continue lower dose Seroquel and lithium at present 06/07 Team needing back up dosing Seroquel refusal. Haldol 2.5 mg IM bid prn per Sharif parameters if pt refuses Seroquel Increase Seroquel to 75 mg bid Monitor for dysphagia 06/08 Continue tx 06/09/2025 Trying to clarify history the past year for this patient. Call placed to nurse practitioner at [facility]. Patient was quite psychotic irritable agitated 06/10/2025 Continue plan of care patient is still not able to elaborate history but no current adverse effects from current regimen noted. He is aware that he will most likely return to [facility] encourage compliance with lithium try to obtain therapeutic level 06/11/2025 encourage med compliance get med records from [facility] picture 06/13/2025 has been gonzáles cooperative with medication ck lith level on low dose seroquel hx of neutropenia and sepsis with clozapine on low dose seroquel 06/16: Continue current management and treatment plan. 06/17: lithium level undetectable 06/10. Hx unclear. continue current mgmt pending return of attending MD. 06/18/2025 Patient with marked lack of insight has been taking medication through his mouth but has been more irritable labile marked lack of insight talking about needing to weigh 210 lb difficulty cooperating with basic care patient marked lack of insight Refusing intermittent care check lithium level increase Seroquel as tolerated Stop fluoxetine may be causing irritability and aggression 06/19/2025 Check CBC monitor white count in response to increase Seroquel. Monitor response to increase Seroquel encourage therapeutic acceptance of medication such as Eliquis lithium. Patient submitted and retracted 3 day notice. May need to file for civil commitment and treatment plan. Coordinate with [facility] Patient educated on: diagnosis and medication risk/benefits Informed Consent: does not understand Reason for continued inpatient stay Substantial Risk for: harm to others and med/psych decompensation Time Spent With Patient Time: Total time managing care of this patient today ____ minutes.
[2025-06-20 08:00] VITALS: RESP 16
[2025-06-20] MEDS: Clotrimazole 1 % Cream 15 GM TUBE 1 APPL TOPICAL (09:52)
[2025-06-20] MEDS: Omeprazole/Na Bicarb Oral Susp 20 MG/10 ML UD Cup PO (09:53)
[2025-06-20] MEDS: Lacosamide Oral Solution 100 MG/10 ML SOLUTION PO ×2 (09:53→20:53)
--- NOTE | 2025-06-20 17:16 | HO.PSYCHPN ---
Subjective Subjective Date of Service: 06/20/25 Reason For Visit: psychosis federica Subjective Notes: Conditional Voluntary Healthcare Proxy: No Guardianship: Yes Interim History: Pt has been less labile and aggressive agreeable to taking medication including non gan medication pt cooperative at times has been reactive to housekeeping vaguely threatening has contamination fears Mental Status Exam Mental Status Exam Narrative: Patient Appearance: Unkempt Patient Orientation: Person, Place and Time Level of Consciousness: Alert Patient Behavior: Talkative and Suspicious Mood Description: Angry and Apprehensive Affect Description: Labile Patient Cognition Impaired: Yes Ability to Follow Directions: Good Speech Pattern: Spontaneous Speech Memory Description: Remote Impaired Judgement and Insight: Pt more insighful re taking medication including for dvt and sz disorder at other times paranoid agitated was not assualtive or threatening when seen Diagnostics Vital Signs (24Hr): Vital Signs - 24 hr 06/20/25 08:00 Respiratory Rate 16 BMI result Body Mass Index 23.0 Labs 06/10/25 07:27 06/12/25 13:28 Imaging Radiology Impressions: ITS Impressions Modified Barium Swallow 06/06/25 14:30 IMPRESSION: No evidence of laryngeal penetration or aspiration. Refer to the full speech therapy report to follow for further details. Electronically signed by: Gerry Tejeda MD 06/06/2025 03:25 PM EDT RP Medications Medications Current Medications Acetaminophen (Acetaminophen 325 Mg Tablet) 650 mg PO Q6H PRN PRN Reason: Pain Al Hydroxide/Mg Hydroxide (Magnesium Hydrox/Alum Hydrox 30 Ml Oral.Susp) 30 ml PO Q6H PRN PRN Reason: Heartburn/Nausea Apixaban (Apixaban 5 Mg Tablet) 5 mg PO BID [facility] Last Admin: 06/20/25 09:53 Dose: 5 mg Bisacodyl (Bisacodyl 10 Mg Supp.Rect) 10 mg [place] DAILY PRN PRN Reason: Constipation Calcium Carbonate (Calcium Carbonate 750 Mg Tab.Chew) 750 mg PO Q8H PRN PRN Reason: GERD Clotrimazole (Clotrimazole 1 % Cream 15 Gm Tube) 1 appl TOPICAL TID [facility]; Protocol Last Admin: 06/20/25 14:40 Dose: Not Given Glucagon (Glucagon Hcl 1 Mg Vial) 1 mg IM ONCE PRN PRN Reason: HYPOGLYCEMIA Haloperidol Lactate (Haloperidol Lactate 5 Mg/Ml Vial) 2.5 mg IM BID PRN PRN Reason: if pt refuses Seroquel, ilda Gan Lacosamide (Lacosamide Oral Solution 100 Mg/10 Ml Solution) 100 mg PO BID [facility] Last Admin: 06/20/25 09:53 Dose: 100 mg [place] Carbonate ([place] Carbonate 300 Mg Tablet) 300 mg PO BID [facility] Last Admin: 06/20/25 09:53 Dose: 300 mg Magnesium Hydroxide (Milk Of Magnesia 30 Ml Oral.Susp) 30 ml PO DAILY PRN PRN Reason: Constipation Memantine (Memantine Hcl 10 Mg Tablet) 20 mg PO BEDTIME [facility] Last Admin: 06/19/25 21:31 Dose: Not Given Midodrine (Midodrine Hcl 2.5 Mg Tablet) 7.5 mg PO TIDAC [facility] Last Admin: 06/20/25 16:05 Dose: Not Given Naloxone HCl (Naloxone Hcl Nasal 4 Mg [place]) 4 mg NOSTRILALT Q2M PRN PRN Reason: opiate overdose Omeprazole (Omeprazole/Na Bicarb Oral Susp 20 Mg/10 Ml Ud Cup) 20 mg PO DAILY@0630 [facility] Last Admin: 06/20/25 09:53 Dose: 20 mg Polyethylene Glycol (Polyethylene Glycol 3350 17 Gm Powd.Pack) 17 gm PO DAILY PRN PRN Reason: Constipation Quetiapine Fumarate (Quetiapine Fumarate 50 Mg Tablet) 50 mg PO BID PRN PRN Reason: psychosis, agitation Last Admin: 06/05/25 11:10 Dose: 50 mg Quetiapine Fumarate (Quetiapine Fumarate 100 Mg Tablet) 100 mg PO BID [facility] Last Admin: 06/20/25 09:53 Dose: 100 mg Senna (Sennosides Oral Syrup 8.8 Mg/5 Ml) 17.6 mg PO DAILY PRN PRN Reason: Constipation Sodium Biphosphate/Sodium Phosphate (Sodium Phosphate,[place]-Dibasic 133 Ml Enema) 118 ml TN DAILY PRN PRN Reason: Constipation Trazodone HCl (Trazodone Hcl 50 Mg Tablet) 50 mg PO BEDTIME MRX1 PRN PRN Reason: Insomnia Last Admin: 06/17/25 20:15 Dose: 50 mg Allergies Allergies Allergy/AdvReac Type Severity Reaction Status Date / Time dog dander Allergy Unknown Verified 06/04/25 06:34 mite-Dermatophagoides Allergy Unknown Verified 06/04/25 06:32 farinae, abhilash (dust mite - [place]) Assessment & Plan Assessment & Plan (1) Schizoaffective disorder, bipolar type: Status: Acute Code(s): F25.0 - Schizoaffective disorder, bipolar type (2) Eating disorder with ongoing treatment: Status: Acute Code(s): F50.9 - Eating disorder, unspecified (3) Gastrointestinal tube in situ: Status: Acute Code(s): Z93.1 - Gastrostomy status Plan Patient admitted on a conditional voluntary again seen and evaluated 10:00. Patient appears to have schizoaffective disorder a marked eating disorder question delusional based leading to a G-tube but there is no clear history presently available regarding medication trials inpatient psychiatric history. He is on minimal doses of lithium and Seroquel and unclear why that is. Would benefit from medical history regarding G-tube what the treatment plan was regarding this and need medical [facility] and would also benefit records from [place]. Patient does have a guardian and [place] order will need to coordinate care check lithium level adjust to better therapeutic dose for irritability appears to be manic symptoms unclear why patient is not on antipsychotic dose of antipsychotic medication. Monitor response to treatment question discharge back to [facility]. Question dementia/cognitive impairment diagnosis check [place] review medical records 06/05/2025 Patient more psychotically preoccupied difficulty processing information records reviewed. Patient carries multiple diagnoses including schizophrenia in have significant grandiose and paranoid delusional beliefs but unclear why he is only on very low-dose Seroquel and on clozapine previously. Has only been treated with low-dose lithium. Given patient's history of psychosis, psychotic/eating daughter disorder requiring G-tube placement unclear why patient has such minimum doses of psychiatric medication question past side effects presently no psychiatric provider to coordinate with. Patient is more irritable and agitated psychotically preoccupied tried to explain to him also that he does have a guardian and that issues such as this will need to be addressed with his guardian. Barium swallow ordered to try to clarify if there is any dysphagia elements no obvious side effects were why patient is not currently on adequate antipsychotic treatment. Question asked obstruction with clozapine but unable to clarify at this time patient unable to clarify this history. Patient does have significant difficulty with reflecting on issues and absorbing information but memory seems significantly impaired. Monitor response to patient swallowing is on medication monitor weight unclear history of noncompliance this should be clarified 06/06/2025 Try and gather further data regarding patient's treatment history had been on Clozaril in the past unclear why discontinued Medical history not clear continue lower dose Seroquel and lithium at present 06/07 Team needing back up dosing Seroquel refusal. Haldol 2.5 mg IM bid prn per Gan parameters if pt refuses Seroquel Increase Seroquel to 75 mg bid Monitor for dysphagia 06/08 Continue tx 06/09/2025 Trying to clarify history the past year for this patient. Call placed to nurse practitioner at [facility]. Patient was quite psychotic irritable agitated 06/10/2025 Continue plan of care patient is still not able to elaborate history but no current adverse effects from current regimen noted. He is aware that he will most likely return to [facility] encourage compliance with lithium try to obtain therapeutic level 06/12/2025 Encourage compliance with lithium and Seroquel. Patient had been on clozapine and past was only on 25 mg Seroquel at [facility] unclear why he was not more robust only treated increase Seroquel as tolerated try and do mouth checks check for purging 06/20/25 Pt aware of transfer back to [facility] has been eating not purging taking seroquel Patient educated on: diagnosis and medication risk/benefits Informed Consent: does not understand Reason for continued inpatient stay Substantial Risk for: harm to others and med/psych decompensation Time Spent With Patient Time: Total time managing care of this patient today ____ minutes.
[2025-06-20 20:00] VITALS: BP 117/62; PULSE 87; RESP 18; TEMP 36.7; O2SAT 97
[2025-06-21] MEDS: Omeprazole/Na Bicarb Oral Susp 20 MG/10 ML UD Cup PO (05:35)
[2025-06-21 07:33] LABS: MANUAL DIFF FLAG NO
[2025-06-21 07:40] LABS: Hematocrit 38.6 % (42.0-52.0); Hemoglobin 12.9 g/dl (14.0-18.0); Imm Gran Abs Auto 0.03 X10*3/uL (0.00-0.03); Imm Gran Pct Auto 0.4 % (0.0-0.4); Lymphocytes Absolute Auto 2.0 X10*3/uL (1.2-4.9); Mean Corpuscular HGB Conc 33.4 g/dl (31.0-36.0); Mean Corpuscular Hemoglobin 31.0 pg (27.0-33.0); Mean Corpuscular Volume 92.8 fL (80.0-98.0); NRBC Abs Auto 0.000 X10*3/uL (0.0-0.012); NRBC Pct Auto 0.0 /100WBC (0.0-0.2); Platelet Count 409 X10*3/uL (160-400); Red Blood Count 4.16 X10*6/uL (4.60-5.80); White Blood Count 7.8 X10*3/uL (4.8-10.8)
[2025-06-21 07:52] LABS: Alanine Aminotransferase 19 U/L (0-40); Albumin Level 3.6 g/dL (3.5-5.0); Alkaline Phosphatase 85 U/L (39-117); Anion Gap 11 (12-20); Aspartate Amino Transferase 21 U/L (5-37); Blood Urea Nitrogen 24 mg/dL (9-16); Calcium 8.9 mg/dL (8.4-10.2); Carbon Dioxide 25 mmol/L (22-29); Chloride 107 mmol/L (96-108); Creatinine Clr Calc Pharmacy 125.5; Estimated Glomerular Filt Rate > 60; Potassium 4.0 mmol/L (3.3-5.1); Sodium 139 mmol/L (135-145); Total Protein 6.8 g/dL (6.5-8.0)
[2025-06-21 07:59] VITALS: BP 124/76
[2025-06-21] MEDS: Lacosamide Oral Solution 100 MG/10 ML SOLUTION PO ×2 (07:59→20:34)
[2025-06-21 08:00] VITALS: BP 124/76; PULSE 96; RESP 16; TEMP 36.4; O2SAT 97
[2025-06-21 08:07] LABS: Lithium 0.20 mmol/L (0.60-1.20)
[2025-06-21 11:32] VITALS: BP 126/79
[2025-06-21 16:48] VITALS: BP 127/76
--- NOTE | 2025-06-21 17:43 | P.PNPSI_ITS ---
Subjective Subjective Date of Service: 06/21/25 Reason For Visit: psychosis federica Interim History: Met with patient; discussed with team; reviewed chart Patient says his mood is getting better... Denies any SI Patient says that he has a hard time resisting the urge to purge. He says that after he eats a meal he feels full. But he says he does not like that he does this and wants to stop purging more than Dr. Adhikari wants him to stop. He says he is working on it. Discussed lithium level which has not moved much and patient agrees to make dose long-acting and at bedtime to avoid accidentally purging medications Mental Status Exam Mental Status Exam Narrative: Pt is alert and oriented; behavior is cooperative, friendly and calm; patient is not in distress; dressed in casual attire, unkempt, tape on his glasses; but adequate hygiene; mood is described as getting and affect congruent; eye contact appropriate; Speech is normal rate, volume and prosody and not pressured; no psychomotor agitation/retardation present; thought process is organized and goal directed; Thought content is on tx; otherwise pertinent to relevant topics and without any delusional content, paranoid ideations or grandiosity; denies any SI/HI. Denies AVH and there is no evidence of perceptual disturbance. Patients insight and judgment impaired. Diagnostics Vital Signs (24Hr): Vital Signs - 24 hr 06/20/25 20:00 06/21/25 07:59 06/21/25 08:00 Temperature 98.0 F 97.5 F Pulse Rate 87 96 Respiratory Rate 18 16 Blood Pressure 117/62 124/76 124/76 Pulse Oximetry 97 97 Oxygen Delivery Method Room Air Room Air 06/21/25 11:32 06/21/25 16:48 Temperature Pulse Rate Respiratory Rate Blood Pressure 126/79 127/76 Pulse Oximetry Oxygen Delivery Method BMI result Body Mass Index 23.0 Labs 06/21/25 07:22 06/21/25 07:22 Labs: Laboratory Results - last 48 hr 06/21/25 07:22 WBC 7.8 RBC 4.16 L Hgb 12.9 L Hct 38.6 L MCV 92.8 MCH 31.0 MCHC 33.4 RDW 17.0 H Plt Count 409 H MPV 8.2 L Immature Gran % (Auto) 0.4 Neut % (Auto) 54.2 Lymph % (Auto) 25.3 [place] % (Auto) 15.2 H Eos % (Auto) 4.1 H Baso % (Auto) 0.8 Lymph # (Auto) 2.0 [place] # (Auto) 1.2 Eos # (Auto) 0.3 Baso # (Auto) 0.1 Abs Immat Gran (auto) 0.03 Absolute Neuts (auto) 4.2 Absolute Nucleated RBC 0.000 Nucleated RBC % (auto) 0.0 Sodium 139 Potassium 4.0 Chloride 107 Carbon Dioxide 25 Anion Gap 11 L BUN 24 H Creatinine 0.67 Estim Creat Clear Calc 125.5 Estimated GFR > 60 Fasting Glucose 97 Calcium 8.9 Total Bilirubin 0.2 AST 21 ALT 19 Alkaline Phosphatase 85 Total Protein 6.8 Albumin 3.6 [place] 0.20 L Imaging Radiology Impressions: ITS Impressions Modified Barium Swallow 06/06/25 14:30 IMPRESSION: No evidence of laryngeal penetration or aspiration. Refer to the full speech therapy report to follow for further details. Electronically signed by: Gerry Tejeda MD 06/06/2025 03:25 PM EDT RP Medications Medications Current Medications Acetaminophen (Acetaminophen 325 Mg Tablet) 650 mg PO Q6H PRN PRN Reason: Pain Al Hydroxide/Mg Hydroxide (Magnesium Hydrox/Alum Hydrox 30 Ml Oral.Susp) 30 ml PO Q6H PRN PRN Reason: Heartburn/Nausea Apixaban (Apixaban 5 Mg Tablet) 5 mg PO BID [facility] Last Admin: 06/21/25 07:59 Dose: 5 mg Bisacodyl (Bisacodyl 10 Mg Supp.Rect) 10 mg [place] DAILY PRN PRN Reason: Constipation Calcium Carbonate (Calcium Carbonate 750 Mg Tab.Chew) 750 mg PO Q8H PRN PRN Reason: GERD Clotrimazole (Clotrimazole 1 % Cream 15 Gm Tube) 1 appl TOPICAL TID [facility]; Protocol Last Admin: 06/21/25 08:01 Dose: Not Given Glucagon (Glucagon Hcl 1 Mg Vial) 1 mg IM ONCE PRN PRN Reason: HYPOGLYCEMIA Haloperidol Lactate (Haloperidol Lactate 5 Mg/Ml Vial) 2.5 mg IM BID PRN PRN Reason: if pt refuses Seroquel, ilda Sharif Lacosamide (Lacosamide Oral Solution 100 Mg/10 Ml Solution) 100 mg PO BID [facility] Last Admin: 06/21/25 07:59 Dose: 100 mg [place] Carbonate ([place] Carbonate 300 Mg Tablet) 300 mg PO BID [facility] Last Admin: 06/21/25 07:59 Dose: 300 mg Magnesium Hydroxide (Milk Of Magnesia 30 Ml Oral.Susp) 30 ml PO DAILY PRN PRN Reason: Constipation Memantine (Memantine Hcl 10 Mg Tablet) 20 mg PO BEDTIME [facility] Last Admin: 06/20/25 20:53 Dose: 20 mg Midodrine (Midodrine Hcl 2.5 Mg Tablet) 7.5 mg PO TIDAC [facility] Last Admin: 06/21/25 16:51 Dose: 7.5 mg Naloxone HCl (Naloxone Hcl Nasal 4 Mg [place]) 4 mg NOSTRILALT Q2M PRN PRN Reason: opiate overdose Omeprazole (Omeprazole/Na Bicarb Oral Susp 20 Mg/10 Ml Ud Cup) 20 mg PO DAILY@0630 [facility] Last Admin: 06/21/25 05:35 Dose: 20 mg Polyethylene Glycol (Polyethylene Glycol 3350 17 Gm Powd.Pack) 17 gm PO DAILY PRN PRN Reason: Constipation Quetiapine Fumarate (Quetiapine Fumarate 50 Mg Tablet) 50 mg PO BID PRN PRN Reason: psychosis, agitation Last Admin: 06/05/25 11:10 Dose: 50 mg Quetiapine Fumarate (Quetiapine Fumarate 100 Mg Tablet) 100 mg PO BID [facility] Last Admin: 06/21/25 07:59 Dose: 100 mg Senna (Sennosides Oral Syrup 8.8 Mg/5 Ml) 17.6 mg PO DAILY PRN PRN Reason: Constipation Sodium Biphosphate/Sodium Phosphate (Sodium Phosphate,[place]-Dibasic 133 Ml Enema) 118 ml [place] DAILY PRN PRN Reason: Constipation Trazodone HCl (Trazodone Hcl 50 Mg Tablet) 50 mg PO BEDTIME MRX1 PRN PRN Reason: Insomnia Last Admin: 06/17/25 20:15 Dose: 50 mg Allergies Allergies Allergy/AdvReac Type Severity Reaction Status Date / Time dog dander Allergy Unknown Verified 06/04/25 06:34 mite-Dermatophagoides Allergy Unknown Verified 06/04/25 06:32 farinae, abhilash (dust mite - [place]) Assessment & Plan Assessment & Plan (1) Schizoaffective disorder, bipolar type: Status: Acute Code(s): F25.0 - Schizoaffective disorder, bipolar type (2) Eating disorder with ongoing treatment: Status: Acute Code(s): F50.9 - Eating disorder, unspecified (3) Gastrointestinal tube in situ: Status: Acute Code(s): Z93.1 - Gastrostomy status Plan Patient admitted on a conditional voluntary again seen and evaluated 10:00. Patient appears to have schizoaffective disorder a marked eating disorder question delusional based leading to a G-tube but there is no clear history presently available regarding medication trials inpatient psychiatric history. He is on minimal doses of lithium and Seroquel and unclear why that is. Would benefit from medical history regarding G-tube what the treatment plan was regarding this and need medical and psychiatric records from [facility] and would also benefit records from [place]. Patient does have a guardian and [place] order will need to coordinate care check lithium level adjust to better therapeutic dose for irritability appears to be manic symptoms unclear why patient is not on antipsychotic dose of antipsychotic medication. Monitor response to treatment question discharge back to [facility]. Question dementia/cognitive impairment diagnosis check [place] review medical records 06/05/2025 Patient more psychotically preoccupied difficulty processing information records reviewed. Patient carries multiple diagnoses including schizophrenia in have significant grandiose and paranoid delusional beliefs but unclear why he is only on very low-dose Seroquel and on clozapine previously. Has only been treated with low-dose lithium. Given patient's history of psychosis, psychotic/eating daughter disorder requiring G-tube placement unclear why patient has such minimum doses of psychiatric medication question past side effects presently no psychiatric provider to coordinate with. Patient is more irritable and agitated psychotically preoccupied tried to explain to him also that he does have a guardian and that issues such as this will need to be addressed with his guardian. Barium swallow ordered to try to clarify if there is any dysphagia elements no obvious side effects were why patient is not currently on adequate antipsychotic treatment. Question asked obstruction with clozapine but unable to clarify at this time patient unable to clarify this history. Patient does have significant difficulty with reflecting on issues and absorbing information but memory seems significantly impaired. Monitor response to patient swallowing is on medication monitor weight unclear history of noncompliance this should be clarified 06/06/2025 Try and gather further data regarding patient's treatment history had been on Clozaril in the past unclear why discontinued Medical history not clear continue lower dose Seroquel and lithium at present 06/07 Team needing back up dosing Seroquel refusal. Haldol 2.5 mg IM bid prn per Sharif parameters if pt refuses Seroquel Increase Seroquel to 75 mg bid Monitor for dysphagia 06/08 Continue tx 06/09/2025 Trying to clarify history the past year for this patient. Call placed to nurse practitioner at [facility]. Patient was quite psychotic irritable agitated 06/10/2025 Continue plan of care patient is still not able to elaborate history but no current adverse effects from current regimen noted. He is aware that he will most likely return to [facility] encourage compliance with lithium try to obtain therapeutic level 06/12/2025 Encourage compliance with lithium and Seroquel. Patient had been on clozapine and past was only on 25 mg Seroquel at [facility] unclear why he was not more robust only treated increase Seroquel as tolerated try and do mouth checks check for purging 06/20/25 Pt aware of transfer back to [facility] has been eating not purging taking seroquel 06/21 Patient says his mood is getting better... Denies any SI Patient says that he has a hard time resisting the urge to purge and that he has been doing so. He says that after he eats a meal he feels full. But he says he does not like that he does this and wants to stop purging more than Dr. Adhikari wants him to stop. He says he is working on it. Discussed lithium level which has not moved much and patient agrees to make dose long-acting and at bedtime to avoid accidentally purging medications [place] level subtherapeutic, however patient says he is feeling better so will leave at current dose but change to long-acting and at bedtime Patient educated on: diagnosis, medication risk/benefits and therapeutic strategies Informed Consent: understands Reason for continued inpatient stay Substantial Risk for: rapid decompensation Time Spent With Patient Time: Total time managing care of this patient today ____ minutes.
[2025-06-21 20:00] VITALS: BP 144/70; PULSE 88; RESP 18; TEMP 36.4; O2SAT 96
[2025-06-22] MEDS: Omeprazole/Na Bicarb Oral Susp 20 MG/10 ML UD Cup PO (06:51)
[2025-06-22 08:00] VITALS: BP 95/71; PULSE 82; RESP 16; TEMP 36.5; O2SAT 95
[2025-06-22] MEDS: Lacosamide Oral Solution 100 MG/10 ML SOLUTION PO (08:19)
[2025-06-22 11:51] VITALS: BP 119/66
--- NOTE | 2025-06-22 17:14 | P.PNPSI_ITS ---
Subjective Subjective Date of Service: 06/22/25 Reason For Visit: psychosis federica Interim History: Met with patient; discussed with team Patient very irritable today and would not discuss much with check writer salesperson other than to say I told you and you would not listen... Now you'll will see what happens.. Patient would not explain what that means despite check writer salesperson having no idea to what he was referring. Patient refusing medication and when check writer salesperson went to discuss it he said he would not take lithium; patient said he did not want to talk to this check writer salesperson any further Mental Status Exam Mental Status Exam Narrative: Pt is alert and oriented; behavior is irritable, guarded and not cooperative; patient is not in distress; dressed in casual attire, unkempt, tape on his glasses; mood is described as irritable and affect congruent; eye contact appropriate; Speech is a little loud; some psychomotor agitation present; thought process is organized and goal directed; Thought content is on angry feelings; no overt delusional ideation expressed; no expression of SI/HI. Denies AVH and there is no evidence of perceptual disturbance. Patients insight and judgment impaired. Diagnostics Vital Signs (24Hr): Vital Signs - 24 hr 06/21/25 20:00 06/22/25 08:00 06/22/25 11:51 Temperature 97.5 F 97.7 F Pulse Rate 88 82 Respiratory Rate 18 16 Blood Pressure 144/70 H 95/71 119/66 Pulse Oximetry 96 95 Oxygen Delivery Method Room Air Room Air BMI result Body Mass Index 23.0 Labs 06/21/25 07:22 06/21/25 07:22 Labs: Laboratory Results - last 48 hr 06/21/25 07:22 WBC 7.8 RBC 4.16 L Hgb 12.9 L Hct 38.6 L MCV 92.8 MCH 31.0 MCHC 33.4 RDW 17.0 H Plt Count 409 H MPV 8.2 L Immature Gran % (Auto) 0.4 Neut % (Auto) 54.2 Lymph % (Auto) 25.3 [place] % (Auto) 15.2 H Eos % (Auto) 4.1 H Baso % (Auto) 0.8 Lymph # (Auto) 2.0 [place] # (Auto) 1.2 Eos # (Auto) 0.3 Baso # (Auto) 0.1 Abs Immat Gran (auto) 0.03 Absolute Neuts (auto) 4.2 Absolute Nucleated RBC 0.000 Nucleated RBC % (auto) 0.0 Sodium 139 Potassium 4.0 Chloride 107 Carbon Dioxide 25 Anion Gap 11 L BUN 24 H Creatinine 0.67 Estim Creat Clear Calc 125.5 Estimated GFR > 60 Fasting Glucose 97 Calcium 8.9 Total Bilirubin 0.2 AST 21 ALT 19 Alkaline Phosphatase 85 Total Protein 6.8 Albumin 3.6 [place] 0.20 L Imaging Radiology Impressions: ITS Impressions Modified Barium Swallow 06/06/25 14:30 IMPRESSION: No evidence of laryngeal penetration or aspiration. Refer to the full speech therapy report to follow for further details. Electronically signed by: Gerry Tejeda MD 06/06/2025 03:25 PM EDT RP Medications Medications Current Medications Acetaminophen (Acetaminophen 325 Mg Tablet) 650 mg PO Q6H PRN PRN Reason: Pain Al Hydroxide/Mg Hydroxide (Magnesium Hydrox/Alum Hydrox 30 Ml Oral.Susp) 30 ml PO Q6H PRN PRN Reason: Heartburn/Nausea Apixaban (Apixaban 5 Mg Tablet) 5 mg PO BID [facility] Last Admin: 06/22/25 08:19 Dose: 5 mg Bisacodyl (Bisacodyl 10 Mg Supp.Rect) 10 mg NM DAILY PRN PRN Reason: Constipation Calcium Carbonate (Calcium Carbonate 750 Mg Tab.Chew) 750 mg PO Q8H PRN PRN Reason: GERD Clotrimazole (Clotrimazole 1 % Cream 15 Gm Tube) 1 appl TOPICAL TID [facility]; Protocol Last Admin: 06/22/25 15:04 Dose: Not Given Glucagon (Glucagon Hcl 1 Mg Vial) 1 mg IM ONCE PRN PRN Reason: HYPOGLYCEMIA Haloperidol Lactate (Haloperidol Lactate 5 Mg/Ml Vial) 2.5 mg IM BID PRN PRN Reason: if pt refuses Seroquel, per [place]ole Lacosamide (Lacosamide Oral Solution 100 Mg/10 Ml Solution) 100 mg PO BID [facility] Last Admin: 06/22/25 08:19 Dose: 100 mg [place] Carbonate ([place] Carbonate Er 300 Mg Tablet.Er) 600 mg PO BEDTIME [facility] Magnesium Hydroxide (Milk Of Magnesia 30 Ml Oral.Susp) 30 ml PO DAILY PRN PRN Reason: Constipation Memantine (Memantine Hcl 10 Mg Tablet) 20 mg PO BEDTIME [facility] Last Admin: 06/21/25 20:34 Dose: 20 mg Midodrine (Midodrine Hcl 2.5 Mg Tablet) 7.5 mg PO TIDAC [facility] Last Admin: 06/22/25 16:42 Dose: Not Given Naloxone HCl (Naloxone Hcl Nasal 4 Mg [place]) 4 mg NOSTRILALT Q2M PRN PRN Reason: opiate overdose Omeprazole (Omeprazole/Na Bicarb Oral Susp 20 Mg/10 Ml Ud Cup) 20 mg PO DAILY@0630 [facility] Last Admin: 06/22/25 06:51 Dose: 20 mg Polyethylene Glycol (Polyethylene Glycol 3350 17 Gm Powd.Pack) 17 gm PO DAILY PRN PRN Reason: Constipation Quetiapine Fumarate (Quetiapine Fumarate 50 Mg Tablet) 50 mg PO BID PRN PRN Reason: psychosis, agitation Last Admin: 06/05/25 11:10 Dose: 50 mg Quetiapine Fumarate (Quetiapine Fumarate 100 Mg Tablet) 100 mg PO BID [facility] Last Admin: 06/22/25 08:19 Dose: 100 mg Senna (Sennosides Oral Syrup 8.8 Mg/5 Ml) 17.6 mg PO DAILY PRN PRN Reason: Constipation Sodium Biphosphate/Sodium Phosphate (Sodium Phosphate,[place]-Dibasic 133 Ml Enema) 118 ml NM DAILY PRN PRN Reason: Constipation Trazodone HCl (Trazodone Hcl 50 Mg Tablet) 50 mg PO BEDTIME MRX1 PRN PRN Reason: Insomnia Last Admin: 06/21/25 20:34 Dose: 50 mg Allergies Allergies Allergy/AdvReac Type Severity Reaction Status Date / Time dog dander Allergy Unknown Verified 06/04/25 06:34 mite-Dermatophagoides Allergy Unknown Verified 06/04/25 06:32 abhilash schuler (dust mite - [place]) Assessment & Plan Assessment & Plan (1) Schizoaffective disorder, bipolar type: Status: Acute Code(s): F25.0 - Schizoaffective disorder, bipolar type (2) Eating disorder with ongoing treatment: Status: Acute Code(s): F50.9 - Eating disorder, unspecified (3) Gastrointestinal tube in situ: Status: Acute Code(s): Z93.1 - Gastrostomy status Plan Patient admitted on a conditional voluntary again seen and evaluated 10:00. Patient appears to have schizoaffective disorder a marked eating disorder question delusional based leading to a G-tube but there is no clear history presently available regarding medication trials inpatient psychiatric history. He is on minimal doses of lithium and Seroquel and unclear why that is. Would benefit from medical history regarding G-tube what the treatment plan was regarding this and need medical and psychiatric records from [facility] and would also benefit records from [place]. Patient does have a guardian and Sharif order will need to coordinate care check lithium level adjust to better therapeutic dose for irritability appears to be manic symptoms unclear why patient is not on antipsychotic dose of antipsychotic medication. Monitor response to treatment question discharge back to [facility]. Question dementia/cognitive impairment diagnosis check [place] review medical records 06/05/2025 Patient more psychotically preoccupied difficulty processing information records reviewed. Patient carries multiple diagnoses including schizophrenia in have significant grandiose and paranoid delusional beliefs but unclear why he is only on very low-dose Seroquel and on clozapine previously. Has only been treated with low-dose lithium. Given patient's history of psychosis, psychotic/eating daughter disorder requiring G-tube placement unclear why patient has such minimum doses of psychiatric medication question past side effects presently no psychiatric provider to coordinate with. Patient is more irritable and agitated psychotically preoccupied tried to explain to him also that he does have a guardian and that issues such as this will need to be addressed with his guardian. Barium swallow ordered to try to clarify if there is any dysphagia elements no obvious side effects were why patient is not currently on adequate antipsychotic treatment. Question asked obstruction with clozapine but unable to clarify at this time patient unable to clarify this history. Patient does have significant difficulty with reflecting on issues and absorbing information but memory seems significantly impaired. Monitor response to patient swallowing is on medication monitor weight unclear history of noncompliance this should be clarified 06/06/2025 Try and gather further data regarding patient's treatment history had been on Clozaril in the past unclear why discontinued Medical history not clear continue lower dose Seroquel and lithium at present 06/07 Team needing back up dosing Seroquel refusal. Haldol 2.5 mg IM bid prn per Sharif parameters if pt refuses Seroquel Increase Seroquel to 75 mg bid Monitor for dysphagia 06/08 Continue tx 06/09/2025 Trying to clarify history the past year for this patient. Call placed to nurse practitioner at [facility]. Patient was quite psychotic irritable agitated 06/10/2025 Continue plan of care patient is still not able to elaborate history but no current adverse effects from current regimen noted. He is aware that he will most likely return to [facility] encourage compliance with lithium try to obtain therapeutic level 06/12/2025 Encourage compliance with lithium and Seroquel. Patient had been on clozapine and past was only on 25 mg Seroquel at [facility] unclear why he was not more robust only treated increase Seroquel as tolerated try and do mouth checks check for purging 06/20/25 Pt aware of transfer back to [facility] has been eating not purging taking seroquel 06/21 Patient says his mood is getting better... Denies any SI Patient says that he has a hard time resisting the urge to purge and that he has been doing so. He says that after he eats a meal he feels full. But he says he does not like that he does this and wants to stop purging more than Dr. Adhikari wants him to stop. He says he is working on it. Discussed lithium level which has not moved much and patient agrees to make dose long-acting and at bedtime to avoid accidentally purging medications 06/22 Patient very irritable today and would not discuss much with check writer salesperson other than to say I told you and you would not listen... Now you'll will see what happens.. Patient would not explain what that means despite check writer salesperson having no idea to what he was referring. Patient refusing medication and when check writer salesperson went to discuss it he said he would not take lithium; patient said he did not want to talk to this check writer salesperson any further [place] level subtherapeutic, however patient says he is feeling better so will leave at current dose but change to long-acting and at bedtime Patient educated on: diagnosis and medication risk/benefits Informed Consent: understands, does not understand and further education needed Reason for continued inpatient stay Substantial Risk for: rapid decompensation Time Spent With Patient Time: Total time managing care of this patient today ____ minutes.
[2025-06-22 20:00] VITALS: RESP 16
[2025-06-23 08:00] VITALS: RESP 16
--- NOTE | 2025-06-23 10:04 | P.PNPSI_ITS ---
Subjective Subjective Date of Service: 06/16/25 Reason For Visit: psychosis federica Subjective Notes: Conditional Voluntary Interim History: Patient initially in the morning refusing medications accepts Seroquel. Later states remorseful seem to understand reason for other medications and stated he would be cooperative. Has had periods of paranoia and verbal aggression Medication Compliance: Intermittent Mental Status Exam Mental Status Exam Narrative: Pt is alert and oriented; behavior is irritable, guarded and not cooperative; patient is not in distress; dressed in casual attire, unkempt, tape on his glasses; mood is described as improved somewhat remorseful; no overt delusional ideation expressed; no expression of SI/HI. Denies AVH and there is no evidence of perceptual disturbance. Patients insight and judgment impaired. Diagnostics Vital Signs (24Hr): Vital Signs - 24 hr 06/22/25 11:51 06/22/25 20:00 Respiratory Rate 16 Blood Pressure 119/66 BMI result Body Mass Index 23.0 Labs 06/21/25 07:22 06/21/25 07:22 Imaging Radiology Impressions: ITS Impressions Modified Barium Swallow 06/06/25 14:30 IMPRESSION: No evidence of laryngeal penetration or aspiration. Refer to the full speech therapy report to follow for further details. Electronically signed by: Gerry Tejeda MD 06/06/2025 03:25 PM EDT Medications Medications Current Medications Acetaminophen (Acetaminophen 325 Mg Tablet) 650 mg PO Q6H PRN PRN Reason: Pain Al Hydroxide/Mg Hydroxide (Magnesium Hydrox/Alum Hydrox 30 Ml Oral.Susp) 30 ml PO Q6H PRN PRN Reason: Heartburn/Nausea Apixaban (Apixaban 5 Mg Tablet) 5 mg PO BID [facility] Last Admin: 06/22/25 20:39 Dose: Not Given Bisacodyl (Bisacodyl 10 Mg Supp.Rect) 10 mg NE DAILY PRN PRN Reason: Constipation Calcium Carbonate (Calcium Carbonate 750 Mg Tab.Chew) 750 mg PO Q8H PRN PRN Reason: GERD Clotrimazole (Clotrimazole 1 % Cream 15 Gm Tube) 1 appl TOPICAL TID [facility]; Protocol Last Admin: 06/22/25 20:39 Dose: Not Given Glucagon (Glucagon Hcl 1 Mg Vial) 1 mg IM ONCE PRN PRN Reason: HYPOGLYCEMIA Haloperidol Lactate (Haloperidol Lactate 5 Mg/Ml Vial) 5 mg IM BID PRN PRN Reason: if pt refuses Serokathylilda Lacosamide (Lacosamide Oral Solution 100 Mg/10 Ml Solution) 100 mg PO BID [facility] Last Admin: 06/22/25 20:39 Dose: Not Given [place] Carbonate ([place] Carbonate Er 300 Mg Tablet.Er) 600 mg PO BEDTIME [facility] Last Admin: 06/22/25 20:39 Dose: Not Given Magnesium Hydroxide (Milk Of Magnesia 30 Ml Oral.Susp) 30 ml PO DAILY PRN PRN Reason: Constipation Memantine (Memantine Hcl 10 Mg Tablet) 20 mg PO BEDTIME [facility] Last Admin: 06/22/25 20:39 Dose: Not Given Midodrine (Midodrine Hcl 2.5 Mg Tablet) 7.5 mg PO TIDAC [facility] Last Admin: 06/22/25 16:42 Dose: Not Given Naloxone HCl (Naloxone Hcl Nasal 4 Mg [place]) 4 mg NOSTRILALT Q2M PRN PRN Reason: opiate overdose Omeprazole (Omeprazole/Na Bicarb Oral Susp 20 Mg/10 Ml Ud Cup) 20 mg PO DAILY@0630 [facility] Last Admin: 06/23/25 06:15 Dose: Not Given Polyethylene Glycol (Polyethylene Glycol 3350 17 Gm Powd.Pack) 17 gm PO DAILY PRN PRN Reason: Constipation Quetiapine Fumarate (Quetiapine Fumarate 50 Mg Tablet) 50 mg PO BID PRN PRN Reason: psychosis, agitation Last Admin: 06/05/25 11:10 Dose: 50 mg Quetiapine Fumarate (Quetiapine Fumarate 50 Mg Tablet) 150 mg PO BID [facility] Senna (Sennosides Oral Syrup 8.8 Mg/5 Ml) 17.6 mg PO DAILY PRN PRN Reason: Constipation Sodium Biphosphate/Sodium Phosphate (Sodium Phosphate,[place]-Dibasic 133 Ml Enema) 118 ml NE DAILY PRN PRN Reason: Constipation Trazodone HCl (Trazodone Hcl 50 Mg Tablet) 50 mg PO BEDTIME MRX1 PRN PRN Reason: Insomnia Last Admin: 06/21/25 20:34 Dose: 50 mg Allergies Allergies Allergy/AdvReac Type Severity Reaction Status Date / Time dog dander Allergy Unknown Verified 06/04/25 06:34 mite-Dermatophagoides Allergy Unknown Verified 06/04/25 06:32 farinae, abhilash (dust mite - [place]) Assessment & Plan Assessment & Plan (1) Schizoaffective disorder, bipolar type: Status: Acute Code(s): F25.0 - Schizoaffective disorder, bipolar type (2) Eating disorder with ongoing treatment: Status: Acute Code(s): F50.9 - Eating disorder, unspecified (3) Gastrointestinal tube in situ: Status: Acute Code(s): Z93.1 - Gastrostomy status Plan Patient admitted on a conditional voluntary again seen and evaluated 10:00. Patient appears to have schizoaffective disorder a marked eating disorder question delusional based leading to a G-tube but there is no clear history presently available regarding medication trials inpatient psychiatric history. He is on minimal doses of lithium and Seroquel and unclear why that is. Would benefit from medical history regarding G-tube what the treatment plan was regarding this and need medical and psychiatric records from [facility] and would also benefit records from [place]. Patient does have a guardian and Sharif order will need to coordinate care check lithium level adjust to better therapeutic dose for irritability appears to be manic symptoms unclear why patient is not on antipsychotic dose of antipsychotic medication. Monitor response to treatment question discharge back to [facility]. Question dementia/cognitive impairment diagnosis check [place] review medical records 06/05/2025 Patient more psychotically preoccupied difficulty processing information records reviewed. Patient carries multiple diagnoses including schizophrenia in have significant grandiose and paranoid delusional beliefs but unclear why he is only on very low-dose Seroquel and on clozapine previously. Has only been treated with low-dose lithium. Given patient's history of psychosis, psychotic/eating daughter disorder requiring G-tube placement unclear why patient has such minimum doses of psychiatric medication question past side effects presently no psychiatric provider to coordinate with. Patient is more irritable and agitated psychotically preoccupied tried to explain to him also that he does have a guardian and that issues such as this will need to be addressed with his guardian. Barium swallow ordered to try to clarify if there is any dysphagia elements no obvious side effects were why patient is not currently on adequate antipsychotic treatment. Question asked obstruction with clozapine but unable to clarify at this time patient unable to clarify this history. Patient does have significant difficulty with reflecting on issues and absorbing information but memory seems significantly impaired. Monitor response to patient swallowing is on medication monitor weight unclear history of noncompliance this should be clarified 06/06/2025 Try and gather further data regarding patient's treatment history had been on Clozaril in the past unclear why discontinued Medical history not clear continue lower dose Seroquel and lithium at present 06/07 Team needing back up dosing Seroquel refusal. Haldol 2.5 mg IM bid prn per Sharif parameters if pt refuses Seroquel Increase Seroquel to 75 mg bid Monitor for dysphagia 06/08 Continue tx 06/09/2025 Trying to clarify history the past year for this patient. Call placed to nurse practitioner at [facility]. Patient was quite psychotic irritable agitated 06/10/2025 Continue plan of care patient is still not able to elaborate history but no current adverse effects from current regimen noted. He is aware that he will most likely return to [facility] encourage compliance with lithium try to obtain therapeutic level 06/12/2025 Encourage compliance with lithium and Seroquel. Patient had been on clozapine and past was only on [address] [facility] unclear why he was not more robust only treated increase Seroquel as tolerated try and do mouth checks check for purging 06/20/25 Pt aware of transfer back to [facility] has been eating not purging taking seroquel 06/21 Patient says his mood is getting better... Denies any SI Patient says that he has a hard time resisting the urge to purge and that he has been doing so. He says that after he eats a meal he feels full. But he says he does not like that he does this and wants to stop purging more than Dr. Adhikari wants him to stop. He says he is working on it. Discussed lithium level which has not moved much and patient agrees to make dose long-acting and at bedtime to avoid accidentally purging medications 06/22 Patient very irritable today and would not discuss much with staff writer other than to say I told you and you would not listen... Now you'll will see what happens.. Patient would not explain what that means despite staff writer having no idea to what he was referring. Patient refusing medication and when staff writer went to discuss it he said he would not take lithium; patient said he did not want to talk to this staff writer any further [place] level subtherapeutic, however patient says he is feeling better so will leave at current dose but change to long-acting and at bedtime 06/23/2025 Continue plan of care if patient accepts treatment including for his medical conditions which were explained to him will maintain current treatment plan if patient continues to be come more paranoid verbally aggressive consider filing for civil commitment and perhaps amendment of Sharif if needed. Increase Seroquel as tolerated follow blood pressure and ANC Reason for continued inpatient stay Substantial Risk for: harm to others, rapid decompensation and med/psych decompensation Time Spent With Patient Time: Total time managing care of this patient today ____ minutes.
--- NOTE | 2025-06-23 10:27 | PC.NURSE ---
Patient refusing vital signs. Took only AM Seroquel, refused other meds. Dr Dove notified in person.
[2025-06-23] MEDS: Clotrimazole 1 % Cream 15 GM TUBE 1 APPL TOPICAL (13:48)
[2025-06-23 17:23] VITALS: BP 125/73
[2025-06-23 20:00] VITALS: BP 124/72; PULSE 84; RESP 16; TEMP 36.4; O2SAT 94
[2025-06-23] MEDS: Lacosamide Oral Solution 100 MG/10 ML SOLUTION PO (21:02)
[2025-06-24] MEDS: Omeprazole/Na Bicarb Oral Susp 20 MG/10 ML UD Cup PO (06:35)
[2025-06-24 08:00] VITALS: BP 112/72; PULSE 91; RESP 16; TEMP 36.3; O2SAT 96
[2025-06-24] MEDS: Lacosamide Oral Solution 100 MG/10 ML SOLUTION PO ×2 (09:22→21:06)
[2025-06-24] MEDS: Clotrimazole 1 % Cream 15 GM TUBE 1 APPL TOPICAL (09:39)
[2025-06-24 12:20] VITALS: BP 118/67
[2025-06-24 17:06] VITALS: BP 118/71
[2025-06-24 20:00] VITALS: BP 124/89; PULSE 94; RESP 16; TEMP 36.3; O2SAT 98
--- NOTE | 2025-06-24 22:15 | HO.PSYCHPN ---
Subjective Subjective Date of Service: 06/24/25 Reason For Visit: psychosis federica Subjective Notes: Conditional Voluntary Interim History: Patient seen chart reviewed case reviewed in treatment planning. Patient with periods of paranoia and irritability but less labile has been taking medication Medication Compliance: Intermittent Mental Status Exam Mental Status Exam Narrative: Pt is alert and oriented; behavior is irritable, guarded and not cooperative; patient is not in distress; dressed in casual attire, unkempt, tape on his glasses; mood is described as improved somewhat remorseful; no overt delusional ideation expressed; no expression of SI/HI. Denies AVH and there is no evidence of perceptual disturbance. Patients insight and judgment impaired somewhat improved Diagnostics Vital Signs (24Hr): Vital Signs - 24 hr 06/24/25 08:00 06/24/25 12:20 06/24/25 17:06 Temperature 97.4 F Pulse Rate 91 Respiratory Rate 16 Blood Pressure 112/72 118/67 118/71 Pulse Oximetry 96 Oxygen Delivery Method Room Air BMI result Body Mass Index 23.0 Labs 06/21/25 07:22 06/21/25 07:22 Imaging Radiology Impressions: ITS Impressions Modified Barium Swallow 06/06/25 14:30 IMPRESSION: No evidence of laryngeal penetration or aspiration. Refer to the full speech therapy report to follow for further details. Electronically signed by: Gerry Tejeda MD 06/06/2025 03:25 PM EDT Medications Medications Current Medications Acetaminophen (Acetaminophen 325 Mg Tablet) 650 mg PO Q6H PRN PRN Reason: Pain Al Hydroxide/Mg Hydroxide (Magnesium Hydrox/Alum Hydrox 30 Ml Oral.Susp) 30 ml PO Q6H PRN PRN Reason: Heartburn/Nausea Apixaban (Apixaban 5 Mg Tablet) 5 mg PO BID [facility] Last Admin: 06/24/25 21:06 Dose: 5 mg Bisacodyl (Bisacodyl 10 Mg Supp.Rect) 10 mg [place] DAILY PRN PRN Reason: Constipation Calcium Carbonate (Calcium Carbonate 750 Mg Tab.Chew) 750 mg PO Q8H PRN PRN Reason: GERD Clotrimazole (Clotrimazole 1 % Cream 15 Gm Tube) 1 appl TOPICAL TID [facility]; Protocol Last Admin: 06/24/25 21:10 Dose: Not Given Glucagon (Glucagon Hcl 1 Mg Vial) 1 mg IM ONCE PRN PRN Reason: HYPOGLYCEMIA Haloperidol Lactate (Haloperidol Lactate 5 Mg/Ml Vial) 5 mg IM BID PRN PRN Reason: if pt refuses Serokathylilda Lacosamide (Lacosamide Oral Solution 100 Mg/10 Ml Solution) 100 mg PO BID [facility] Last Admin: 06/24/25 21:06 Dose: 100 mg [place] Carbonate ([place] Carbonate Er 300 Mg Tablet.Er) 600 mg PO BEDTIME [facility] Last Admin: 06/24/25 21:06 Dose: 600 mg Magnesium Hydroxide (Milk Of Magnesia 30 Ml Oral.Susp) 30 ml PO DAILY PRN PRN Reason: Constipation Memantine (Memantine Hcl 10 Mg Tablet) 20 mg PO BEDTIME [facility] Last Admin: 06/24/25 21:06 Dose: 20 mg Midodrine (Midodrine Hcl 2.5 Mg Tablet) 7.5 mg PO TIDAC [facility] Last Admin: 06/24/25 17:52 Dose: 7.5 mg Naloxone HCl (Naloxone Hcl Nasal 4 Mg [place]) 4 mg NOSTRILALT Q2M PRN PRN Reason: opiate overdose Omeprazole (Omeprazole/Na Bicarb Oral Susp 20 Mg/10 Ml Ud Cup) 20 mg PO DAILY@0630 [facility] Last Admin: 06/24/25 06:35 Dose: 20 mg Polyethylene Glycol (Polyethylene Glycol 3350 17 Gm Powd.Pack) 17 gm PO DAILY PRN PRN Reason: Constipation Quetiapine Fumarate (Quetiapine Fumarate 50 Mg Tablet) 50 mg PO BID PRN PRN Reason: psychosis, agitation Last Admin: 06/05/25 11:10 Dose: 50 mg Quetiapine Fumarate (Quetiapine Fumarate 50 Mg Tablet) 150 mg PO BID [facility] Last Admin: 06/24/25 21:06 Dose: 150 mg Senna (Sennosides Oral Syrup 8.8 Mg/5 Ml) 17.6 mg PO DAILY PRN PRN Reason: Constipation Sodium Biphosphate/Sodium Phosphate (Sodium Phosphate,[place]-Dibasic 133 Ml Enema) 118 ml [place] DAILY PRN PRN Reason: Constipation Trazodone HCl (Trazodone Hcl 50 Mg Tablet) 50 mg PO BEDTIME MRX1 PRN PRN Reason: Insomnia Last Admin: 06/21/25 20:34 Dose: 50 mg Allergies Allergies Allergy/AdvReac Type Severity Reaction Status Date / Time dog dander Allergy Unknown Verified 06/04/25 06:34 mite-Dermatophagoides Allergy Unknown Verified 06/04/25 06:32 farabhilash lange (dust mite - [place]) Assessment & Plan Assessment & Plan (1) Schizoaffective disorder, bipolar type: Status: Acute Code(s): F25.0 - Schizoaffective disorder, bipolar type (2) Eating disorder with ongoing treatment: Status: Acute Code(s): F50.9 - Eating disorder, unspecified (3) Gastrointestinal tube in situ: Status: Acute Code(s): Z93.1 - Gastrostomy status Plan Patient admitted on a conditional voluntary again seen and evaluated 10:00. Patient appears to have schizoaffective disorder a marked eating disorder question delusional based leading to a G-tube but there is no clear history presently available regarding medication trials inpatient psychiatric history. He is on minimal doses of lithium and Seroquel and unclear why that is. Would benefit from medical history regarding G-tube what the treatment plan was regarding this and need medical and [facility] and would also benefit records from [place]. Patient does have a guardian and Sharif order will need to coordinate care check lithium level adjust to better therapeutic dose for irritability appears to be manic symptoms unclear why patient is not on antipsychotic dose of antipsychotic medication. Monitor response to treatment question discharge back to [facility]. Question dementia/cognitive impairment diagnosis check [place] review medical records 06/05/2025 Patient more psychotically preoccupied difficulty processing information records reviewed. Patient carries multiple diagnoses including schizophrenia in have significant grandiose and paranoid delusional beliefs but unclear why he is only on very low-dose Seroquel and on clozapine previously. Has only been treated with low-dose lithium. Given patient's history of psychosis, psychotic/eating daughter disorder requiring G-tube placement unclear why patient has such minimum doses of psychiatric medication question past side effects presently no psychiatric provider to coordinate with. Patient is more irritable and agitated psychotically preoccupied tried to explain to him also that he does have a guardian and that issues such as this will need to be addressed with his guardian. Barium swallow ordered to try to clarify if there is any dysphagia elements no obvious side effects were why patient is not currently on adequate antipsychotic treatment. Question asked obstruction with clozapine but unable to clarify at this time patient unable to clarify this history. Patient does have significant difficulty with reflecting on issues and absorbing information but memory seems significantly impaired. Monitor response to patient swallowing is on medication monitor weight unclear history of noncompliance this should be clarified 06/06/2025 Try and gather further data regarding patient's treatment history had been on Clozaril in the past unclear why discontinued Medical history not clear continue lower dose Seroquel and lithium at present 06/07 Team needing back up dosing Seroquel refusal. Haldol 2.5 mg IM bid prn per Sharif parameters if pt refuses Seroquel Increase Seroquel to 75 mg bid Monitor for dysphagia 06/08 Continue tx 06/09/2025 Trying to clarify history the past year for this patient. Call placed to nurse practitioner at [facility]. Patient was quite psychotic irritable agitated 06/10/2025 Continue plan of care patient is still not able to elaborate history but no current adverse effects from current regimen noted. He is aware that he will most likely return to [facility] encourage compliance with lithium try to obtain therapeutic level 06/12/2025 Encourage compliance with lithium and Seroquel. Patient had been on clozapine and past was only on 25 mg Seroquel at [facility] unclear why he was not more robust only treated increase Seroquel as tolerated try and do mouth checks check for purging 06/20/25 Pt aware of transfer back to [facility] has been eating not purging taking seroquel 06/21 Patient says his mood is getting better... Denies any SI Patient says that he has a hard time resisting the urge to purge and that he has been doing so. He says that after he eats a meal he feels full. But he says he does not like that he does this and wants to stop purging more than Dr. Adhikari wants him to stop. He says he is working on it. Discussed lithium level which has not moved much and patient agrees to make dose long-acting and at bedtime to avoid accidentally purging medications 06/22 Patient very irritable today and would not discuss much with song writer other than to say I told you and you would not listen... Now you'll will see what happens.. Patient would not explain what that means despite song writer having no idea to what he was referring. Patient refusing medication and when song writer went to discuss it he said he would not take lithium; patient said he did not want to talk to this song writer any further [place] level subtherapeutic, however patient says he is feeling better so will leave at current dose but change to long-acting and at bedtime 06/23/2025 Continue plan of care if patient accepts treatment including for his medical conditions which were explained to him will maintain current treatment plan if patient continues to be come more paranoid verbally aggressive consider filing for civil commitment and perhaps amendment of Sharif if needed. Increase Seroquel as tolerated follow blood pressure and ANC 06/24/25 cont lithium seroquel monitor vs Patient educated on: diagnosis and medication risk/benefits Informed Consent: further education needed Reason for continued inpatient stay Substantial Risk for: inability to function, rapid decompensation and med/psych decompensation Time Spent With Patient Time: Total time managing care of this patient today _30___ minutes.
[2025-06-25] MEDS: Omeprazole/Na Bicarb Oral Susp 20 MG/10 ML UD Cup PO (05:31)
[2025-06-25 08:00] VITALS: BP 120/58; PULSE 101; RESP 16; TEMP 36.4; O2SAT 98
[2025-06-25] MEDS: Lacosamide Oral Solution 100 MG/10 ML SOLUTION PO ×2 (09:37→21:33)
[2025-06-25 11:33] VITALS: BP 120/58
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
[2025-06-25 16:41] VITALS: BP 106/53
[2025-06-25] MEDS: Clotrimazole 1 % Cream 15 GM TUBE 1 APPL TOPICAL (16:42)
--- NOTE | 2025-06-25 23:04 | P.PNPSI_ITS ---
Subjective Subjective Date of Service: 06/25/25 Reason For Visit: psychosis federica Subjective Notes: Conditional Voluntary Guardianship: Yes Interim History: pt irriable worried re contamination focused on cleaning persons denies purging has been taking medications Mental Status Exam Mental Status Exam Narrative: Pt is alert and oriented; behavior is cooperative when seen ; dressed in casual attire, unkempt, tape on his glasses; mood is described as improved somewhat remorseful; concerns re contamination no expression of SI/HI. Denies AVH and there is no evidence of perceptual disturbance. Patients insight and judgment verbally aggressive at times Diagnostics Vital Signs (24Hr): Vital Signs - 24 hr 06/25/25 08:00 06/25/25 11:33 06/25/25 16:41 Temperature 97.5 F Pulse Rate 101 H Respiratory Rate 16 Blood Pressure 120/58 L 120/58 L 106/53 L Pulse Oximetry 98 Oxygen Delivery Method Room Air BMI result Body Mass Index 23.0 Labs 06/21/25 07:22 06/21/25 07:22 Imaging Radiology Impressions: ITS Impressions Modified Barium Swallow 06/06/25 14:30 IMPRESSION: No evidence of laryngeal penetration or aspiration. Refer to the full speech therapy report to follow for further details. Electronically signed by: Gerry Tejeda MD 06/06/2025 03:25 PM EDT RP Medications Medications Current Medications Acetaminophen (Acetaminophen 325 Mg Tablet) 650 mg PO Q6H PRN PRN Reason: Pain Al Hydroxide/Mg Hydroxide (Magnesium Hydrox/Alum Hydrox 30 Ml Oral.Susp) 30 ml PO Q6H PRN PRN Reason: Heartburn/Nausea Apixaban (Apixaban 5 Mg Tablet) 5 mg PO BID [facility] Last Admin: 06/25/25 21:33 Dose: 5 mg Bisacodyl (Bisacodyl 10 Mg Supp.Rect) 10 mg [place] DAILY PRN PRN Reason: Constipation Calcium Carbonate (Calcium Carbonate 750 Mg Tab.Chew) 750 mg PO Q8H PRN PRN Reason: GERD Clotrimazole (Clotrimazole 1 % Cream 15 Gm Tube) 1 appl TOPICAL TID [facility]; Protocol Last Admin: 06/25/25 21:34 Dose: Not Given Glucagon (Glucagon Hcl 1 Mg Vial) 1 mg IM ONCE PRN PRN Reason: HYPOGLYCEMIA Haloperidol Lactate (Haloperidol Lactate 5 Mg/Ml Vial) 5 mg IM BID PRN PRN Reason: if pt refuses Serokathylilda Lacosamide (Lacosamide Oral Solution 100 Mg/10 Ml Solution) 100 mg PO BID [facility] Last Admin: 06/25/25 21:33 Dose: 100 mg [place] Carbonate ([place] Carbonate Er 300 Mg Tablet.Er) 600 mg PO BEDTIME [facility] Last Admin: 06/25/25 21:34 Dose: 600 mg Magnesium Hydroxide (Milk Of Magnesia 30 Ml Oral.Susp) 30 ml PO DAILY PRN PRN Reason: Constipation Memantine (Memantine Hcl 10 Mg Tablet) 20 mg PO BEDTIME [facility] Last Admin: 06/25/25 21:33 Dose: 20 mg Midodrine (Midodrine Hcl 2.5 Mg Tablet) 7.5 mg PO TIDAC [facility] Last Admin: 06/25/25 16:41 Dose: 7.5 mg Naloxone HCl (Naloxone Hcl Nasal 4 Mg [place]) 4 mg NOSTRILALT Q2M PRN PRN Reason: opiate overdose Omeprazole (Omeprazole/Na Bicarb Oral Susp 20 Mg/10 Ml Ud Cup) 20 mg PO DAILY@0630 [facility] Last Admin: 06/25/25 05:31 Dose: 20 mg Polyethylene Glycol (Polyethylene Glycol 3350 17 Gm Powd.Pack) 17 gm PO DAILY PRN PRN Reason: Constipation Quetiapine Fumarate (Quetiapine Fumarate 50 Mg Tablet) 50 mg PO BID PRN PRN Reason: psychosis, agitation Last Admin: 06/05/25 11:10 Dose: 50 mg Quetiapine Fumarate (Quetiapine Fumarate 50 Mg Tablet) 150 mg PO BID [facility] Last Admin: 06/25/25 21:34 Dose: 150 mg Senna (Sennosides Oral Syrup 8.8 Mg/5 Ml) 17.6 mg PO DAILY PRN PRN Reason: Constipation Sodium Biphosphate/Sodium Phosphate (Sodium Phosphate,[place]-Dibasic 133 Ml Enema) 118 ml [place] DAILY PRN PRN Reason: Constipation Trazodone HCl (Trazodone Hcl 50 Mg Tablet) 50 mg PO BEDTIME MRX1 PRN PRN Reason: Insomnia Last Admin: 06/25/25 21:33 Dose: 50 mg Allergies Allergies Allergy/AdvReac Type Severity Reaction Status Date / Time dog dander Allergy Unknown Verified 06/04/25 06:34 mite-Dermatophagoides Allergy Unknown Verified 06/04/25 06:32 abhilash schuler (dust mite - [place]) Assessment & Plan Assessment & Plan (1) Schizoaffective disorder, bipolar type: Status: Acute Code(s): F25.0 - Schizoaffective disorder, bipolar type (2) Eating disorder with ongoing treatment: Status: Acute Code(s): F50.9 - Eating disorder, unspecified (3) Gastrointestinal tube in situ: Status: Acute Code(s): Z93.1 - Gastrostomy status Plan Patient admitted on a conditional voluntary again seen and evaluated 10:00. Patient appears to have schizoaffective disorder a marked eating disorder question delusional based leading to a G-tube but there is no clear history presently available regarding medication trials inpatient psychiatric history. He is on minimal doses of lithium and Seroquel and unclear why that is. Would benefit from medical history regarding G-tube what the treatment plan was regarding this and need medical [facility] and would also benefit records from [place]. Patient does have a guardian and Sharif order will need to coordinate care check lithium level adjust to better therapeutic dose for irritability appears to be manic symptoms unclear why patient is not on antipsychotic dose of antipsychotic medication. Monitor response to treatment question discharge back to [facility]. Question dementia/cognitive impairment diagnosis check [place] review medical records 06/05/2025 Patient more psychotically preoccupied difficulty processing information records reviewed. Patient carries multiple diagnoses including schizophrenia in have significant grandiose and paranoid delusional beliefs but unclear why he is only on very low-dose Seroquel and on clozapine previously. Has only been treated with low-dose lithium. Given patient's history of psychosis, psychotic/eating daughter disorder requiring G-tube placement unclear why patient has such minimum doses of psychiatric medication question past side effects presently no psychiatric provider to coordinate with. Patient is more irritable and agitated psychotically preoccupied tried to explain to him also that he does have a guardian and that issues such as this will need to be addressed with his guardian. Barium swallow ordered to try to clarify if there is any dysphagia elements no obvious side effects were why patient is not currently on adequate antipsychotic treatment. Question asked obstruction with clozapine but unable to clarify at this time patient unable to clarify this history. Patient does have significant difficulty with reflecting on issues and absorbing information but memory seems significantly impaired. Monitor response to patient swallowing is on medication monitor weight unclear history of noncompliance this should be clarified 06/06/2025 Try and gather further data regarding patient's treatment history had been on Clozaril in the past unclear why discontinued Medical history not clear continue lower dose Seroquel and lithium at present 06/07 Team needing back up dosing Seroquel refusal. Haldol 2.5 mg IM bid prn per Sharif parameters if pt refuses Seroquel Increase Seroquel to 75 mg bid Monitor for dysphagia 06/08 Continue tx 06/09/2025 Trying to clarify history the past year for this patient. Call placed to nurse practitioner at [facility]. Patient was quite psychotic irritable agitated 06/10/2025 Continue plan of care patient is still not able to elaborate history but no current adverse effects from current regimen noted. He is aware that he will most likely return to [facility] encourage compliance with lithium try to obtain therapeutic level 06/12/2025 Encourage compliance with lithium and Seroquel. Patient had been on clozapine and past was only on 25 mg Seroquel at [facility] unclear why he was not more robust only treated increase Seroquel as tolerated try and do mouth checks check for purging 06/20/25 Pt aware of transfer back to [facility] has been eating not purging taking seroquel 06/21 Patient says his mood is getting better... Denies any SI Patient says that he has a hard time resisting the urge to purge and that he has been doing so. He says that after he eats a meal he feels full. But he says he does not like that he does this and wants to stop purging more than Dr. Adhikari wants him to stop. He says he is working on it. Discussed lithium level which has not moved much and patient agrees to make dose long-acting and at bedtime to avoid accidentally purging medications 06/22 Patient very irritable today and would not discuss much with brief writer other than to say I told you and you would not listen... Now you'll will see what happens.. Patient would not explain what that means despite brief writer having no idea to what he was referring. Patient refusing medication and when brief writer went to discuss it he said he would not take lithium; patient said he did not want to talk to this brief writer any further [place] level subtherapeutic, however patient says he is feeling better so will leave at current dose but change to long-acting and at bedtime 06/23/2025 Continue plan of care if patient accepts treatment including for his medical conditions which were explained to him will maintain current treatment plan if patient continues to be come more paranoid verbally aggressive consider filing for civil commitment and perhaps amendment of Sharif if needed. Increase Seroquel as tolerated follow blood pressure and ANC 06/24/25 cont lithium seroquel monitor 06/25/25 inc seroquel as tolerated prozac held ? in irritability Patient educated on: medication risk/benefits Reason for continued inpatient stay Substantial Risk for: harm to others, rapid decompensation and med/psych decompensation Time Spent With Patient Time: Total time managing care of this patient today ____ minutes.
[2025-06-26] MEDS: Omeprazole/Na Bicarb Oral Susp 20 MG/10 ML UD Cup PO (06:38)
[2025-06-26 08:00] VITALS: BP 122/73; PULSE 88; RESP 16; TEMP 36.2; O2SAT 95
[2025-06-26 08:21] VITALS: BMI 23.3
[2025-06-26 08:36] VITALS: BP 122/73
[2025-06-26] MEDS: Lacosamide Oral Solution 100 MG/10 ML SOLUTION PO ×2 (08:37→20:48)
[2025-06-26] MEDS: Clotrimazole 1 % Cream 15 GM TUBE 1 APPL TOPICAL (08:38)
[2025-06-26 11:49] VITALS: BP 107/67
[2025-06-26 16:42] VITALS: BP 123/76
[2025-06-26 20:00] VITALS: BP 98/57; PULSE 76; RESP 16; TEMP 36.4; O2SAT 94
--- NOTE | 2025-06-26 22:42 | P.PNPSI_ITS ---
Subjective Subjective Date of Service: 06/26/25 Reason For Visit: psychosis federica Subjective Notes: Conditional Voluntary Guardianship: Yes Interim History: pt seen in psych f/u case reviewed in tx planning pt isolative often in room denies purging remains focused on contamination at times can be irritable in the milieu Medication Compliance: Yes Attending Groups: No Review of Systems Medical Review of Systems: unchanged Mental Status Exam Mental Status Exam Narrative: Pt is alert and oriented; behavior is cooperative when seen in the [place] observed irritable reactive at times ; dressed in casual attire, unkempt, tape on his glasses; mood anxious concerns re contamination concerns what is [facility] long-term tx plan no expression of SI/HI. Denies AVH and there is no evidence of perceptual disturbance. Patients insight and judgment verbally aggressive at times past delusional sx present but less intense regarding Diagnostics Vital Signs (24Hr): Vital Signs - 24 hr 06/26/25 08:00 06/26/25 08:36 06/26/25 11:49 Temperature 97.2 F Pulse Rate 88 Respiratory Rate 16 Blood Pressure 122/73 122/73 107/67 Pulse Oximetry 95 Oxygen Delivery Method Room Air 06/26/25 16:42 Temperature Pulse Rate Respiratory Rate Blood Pressure 123/76 Pulse Oximetry Oxygen Delivery Method BMI result Body Mass Index 23.3 Labs 06/21/25 07:22 06/21/25 07:22 Imaging Radiology Impressions: ITS Impressions Modified Barium Swallow 06/06/25 14:30 IMPRESSION: No evidence of laryngeal penetration or aspiration. Refer to the full speech therapy report to follow for further details. Electronically signed by: Gerry Tejeda MD 06/06/2025 03:25 PM EDT RP Medications Medications Current Medications Acetaminophen (Acetaminophen 325 Mg Tablet) 650 mg PO Q6H PRN PRN Reason: Pain Al Hydroxide/Mg Hydroxide (Magnesium Hydrox/Alum Hydrox 30 Ml Oral.Susp) 30 ml PO Q6H PRN PRN Reason: Heartburn/Nausea Apixaban (Apixaban 5 Mg Tablet) 5 mg PO BID [facility] Last Admin: 06/26/25 20:50 Dose: 5 mg Bisacodyl (Bisacodyl 10 Mg Supp.Rect) 10 mg [place] DAILY PRN PRN Reason: Constipation Calcium Carbonate (Calcium Carbonate 750 Mg Tab.Chew) 750 mg PO Q8H PRN PRN Reason: GERD Clotrimazole (Clotrimazole 1 % Cream 15 Gm Tube) 1 appl TOPICAL TID [facility]; Protocol Last Admin: 06/26/25 15:08 Dose: Not Given Glucagon (Glucagon Hcl 1 Mg Vial) 1 mg IM ONCE PRN PRN Reason: HYPOGLYCEMIA Haloperidol Lactate (Haloperidol Lactate 5 Mg/Ml Vial) 5 mg IM BID PRN PRN Reason: if pt refuses Seroquel, per Sharif Lacosamide (Lacosamide Oral Solution 100 Mg/10 Ml Solution) 100 mg PO BID [facility] Last Admin: 06/26/25 20:48 Dose: 100 mg [place] Carbonate ([place] Carbonate Er 300 Mg Tablet.Er) 600 mg PO BEDTIME [facility] Last Admin: 06/26/25 20:48 Dose: 600 mg Magnesium Hydroxide (Milk Of Magnesia 30 Ml Oral.Susp) 30 ml PO DAILY PRN PRN Reason: Constipation Memantine (Memantine Hcl 10 Mg Tablet) 20 mg PO BEDTIME [facility] Last Admin: 06/26/25 20:48 Dose: 20 mg Midodrine (Midodrine Hcl 2.5 Mg Tablet) 7.5 mg PO TIDAC [facility] Last Admin: 06/26/25 16:42 Dose: 7.5 mg Naloxone HCl (Naloxone Hcl Nasal 4 Mg [place]) 4 mg NOSTRILALT Q2M PRN PRN Reason: opiate overdose Omeprazole (Omeprazole/Na Bicarb Oral Susp 20 Mg/10 Ml Ud Cup) 20 mg PO DAILY@0630 [facility] Last Admin: 06/26/25 06:38 Dose: 20 mg Polyethylene Glycol (Polyethylene Glycol 3350 17 Gm Powd.Pack) 17 gm PO DAILY PRN PRN Reason: Constipation Quetiapine Fumarate (Quetiapine Fumarate 50 Mg Tablet) 50 mg PO BID PRN PRN Reason: psychosis, agitation Last Admin: 06/26/25 15:07 Dose: 50 mg Quetiapine Fumarate (Quetiapine Fumarate 50 Mg Tablet) 150 mg PO BID [facility] Last Admin: 06/26/25 20:49 Dose: 150 mg Senna (Sennosides Oral Syrup 8.8 Mg/5 Ml) 17.6 mg PO DAILY PRN PRN Reason: Constipation Sodium Biphosphate/Sodium Phosphate (Sodium Phosphate,[place]-Dibasic 133 Ml Enema) 118 ml [place] DAILY PRN PRN Reason: Constipation Trazodone HCl (Trazodone Hcl 50 Mg Tablet) 50 mg PO BEDTIME MRX1 PRN PRN Reason: Insomnia Last Admin: 06/25/25 21:33 Dose: 50 mg Allergies Allergies Allergy/AdvReac Type Severity Reaction Status Date / Time dog dander Allergy Unknown Verified 06/04/25 06:34 mite-Dermatophagoides Allergy Unknown Verified 06/04/25 06:32 farinae, abhilash (dust mite - [place]) Assessment & Plan Assessment & Plan (1) Schizoaffective disorder, bipolar type: Status: Acute Code(s): F25.0 - Schizoaffective disorder, bipolar type (2) Eating disorder with ongoing treatment: Status: Acute Code(s): F50.9 - Eating disorder, unspecified (3) Gastrointestinal tube in situ: Status: Acute Code(s): Z93.1 - Gastrostomy status Plan Patient admitted on a conditional voluntary again seen and evaluated 10:00. Patient appears to have schizoaffective disorder a marked eating disorder question delusional based leading to a G-tube but there is no clear history presently available regarding medication trials inpatient psychiatric history. He is on minimal doses of lithium and Seroquel and unclear why that is. Would benefit from medical history regarding G-tube what the treatment plan was regarding this and need medical [facility] and would also benefit records from [place]. Patient does have a guardian and [place] order will need to coordinate care check lithium level adjust to better therapeutic dose for irritability appears to be manic symptoms unclear why patient is not on antipsychotic dose of antipsychotic medication. Monitor response to treatment question discharge back to [facility]. Question dementia/cognitive impairment diagnosis check [place] review medical records 06/05/2025 Patient more psychotically preoccupied difficulty processing information records reviewed. Patient carries multiple diagnoses including schizophrenia in have significant grandiose and paranoid delusional beliefs but unclear why he is only on very low-dose Seroquel and on clozapine previously. Has only been treated with low-dose lithium. Given patient's history of psychosis, psychotic/eating daughter disorder requiring G-tube placement unclear why patient has such minimum doses of psychiatric medication question past side effects presently no psychiatric provider to coordinate with. Patient is more irritable and agitated psychotically preoccupied tried to explain to him also that he does have a guardian and that issues such as this will need to be addressed with his guardian. Barium swallow ordered to try to clarify if there is any dysphagia elements no obvious side effects were why patient is not currently on adequate antipsychotic treatment. Question asked obstruction with clozapine but unable to clarify at this time patient unable to clarify this history. Patient does have significant difficulty with reflecting on issues and absorbing information but memory seems significantly impaired. Monitor response to patient swallowing is on medication monitor weight unclear history of noncompliance this should be clarified 06/06/2025 Try and gather further data regarding patient's treatment history had been on Clozaril in the past unclear why discontinued Medical history not clear continue lower dose Seroquel and lithium at present 06/07 Team needing back up dosing Seroquel refusal. Haldol 2.5 mg IM bid prn per Sharif parameters if pt refuses Seroquel Increase Seroquel to 75 mg bid Monitor for dysphagia 06/08 Continue tx 06/09/2025 Trying to clarify history the past year for this patient. Call placed to nurse practitioner at [facility] [place]. Patient was quite psychotic irritable agitated 06/10/2025 Continue plan of care patient is still not able to elaborate history but no current adverse effects from current regimen noted. He is aware that he will most likely return to [facility] encourage compliance with lithium try to obtain therapeutic level 06/12/2025 Encourage compliance with lithium and Seroquel. Patient had been on clozapine and past was only on [address] [facility] unclear why he was not more robust only treated increase Seroquel as tolerated try and do mouth checks check for purging 06/20/25 Pt aware of transfer back to [facility] has been eating not purging taking seroquel 06/21 Patient says his mood is getting better... Denies any SI Patient says that he has a hard time resisting the urge to purge and that he has been doing so. He says that after he eats a meal he feels full. But he says he does not like that he does this and wants to stop purging more than Dr. Adhikari wants him to stop. He says he is working on it. Discussed lithium level which has not moved much and patient agrees to make dose long-acting and at bedtime to avoid accidentally purging medications 06/22 Patient very irritable today and would not discuss much with technical publications writer other than to say I told you and you would not listen... Now you'll will see what happens.. Patient would not explain what that means despite technical publications writer having no idea to what he was referring. Patient refusing medication and when technical publications writer went to discuss it he said he would not take lithium; patient said he did not want to talk to this technical publications writer any further [place] level subtherapeutic, however patient says he is feeling better so will leave at current dose but change to long-acting and at bedtime 06/23/2025 Continue plan of care if patient accepts treatment including for his medical conditions which were explained to him will maintain current treatment plan if patient continues to be come more paranoid verbally aggressive consider filing for civil commitment and perhaps amendment of Sharif if needed. Increase Seroquel as tolerated follow blood pressure and ANC 06/24/25 cont lithium seroquel monitor 06/25/25 inc seroquel as tolerated prozac held ? in irritability 06/26/25 inc seroquel restart fluox for ocd type sx Informed Consent: does not understand and further education needed Reason for continued inpatient stay Substantial Risk for: inability to function, rapid decompensation and med/psych decompensation Time Spent With Patient Time: Total time managing care of this patient today _30___ minutes.
--- NOTE | 2025-06-27 06:30 | PC.NURSE ---
Pt declined G tube assessment and flush with water both at 21:00 and at 6:00. Pt stated You are obsessed with my G tube and you're not doing your job right I will let the national account director know . Pt offered scheduled omeprazole, however pt declined stating I'm not taking anything now I'm sleeping. ?
[2025-06-27 08:00] VITALS: BP 106/69; PULSE 78; RESP 16; TEMP 36.4; O2SAT 96
[2025-06-27 08:26] VITALS: BP 106/69
[2025-06-27] MEDS: Lacosamide Oral Solution 100 MG/10 ML SOLUTION PO ×2 (08:26→20:55)
[2025-06-27] MEDS: Clotrimazole 1 % Cream 15 GM TUBE 1 APPL TOPICAL (08:27)
--- NOTE | 2025-06-27 08:49 | P.PNPSI_ITS ---
Subjective Subjective Date of Service: 06/27/25 Reason For Visit: psychosis federica Subjective Notes: Conditional Voluntary Guardianship: Yes Interim History: Patient seen psychiatric follow-up. Case reviewed with staff in treatment planning chart reviewed patient seen. Patient has been obsessively focused on cleaning cleaning his body became enraged and verbally aggressive when screaming for extra toilet paper. Patient did eventually calm down he has also been preoccupied with going back to [facility] and being uncertain with long-term plan is. Patient continues to be independent eating has not required G-tube Seroquel has been progressively increase Medication Compliance: Intermittent Mental Status Exam Mental Status Exam Narrative: Patient is alert and oriented has angry facial expression talking about how unfair it was feeling that people were preventing him from grooming himself some intermittent irrational preoccupations fears of contamination and then rage in verbal assault. Patient anxious irritable content focused on not wanting to go back to [facility] concerned about his long-term discharge plan insight markedly limited judgment fair impulse control somewhat tenuous at times but not physically aggressive Diagnostics Vital Signs (24Hr): Vital Signs - 24 hr 06/26/25 11:49 06/26/25 16:42 06/26/25 20:00 Temperature 97.6 F Pulse Rate 76 Respiratory Rate 16 Blood Pressure 107/67 123/76 98/57 L Pulse Oximetry 94 Oxygen Delivery Method Room Air 06/27/25 08:26 Temperature Pulse Rate Respiratory Rate Blood Pressure 106/69 Pulse Oximetry Oxygen Delivery Method BMI result Body Mass Index 23.3 Labs 06/21/25 07:22 06/21/25 07:22 Imaging Radiology Impressions: ITS Impressions Modified Barium Swallow 06/06/25 14:30 IMPRESSION: No evidence of laryngeal penetration or aspiration. Refer to the full speech therapy report to follow for further details. Electronically signed by: Gerry Tejeda MD 06/06/2025 03:25 PM EDT RP Medications Medications Current Medications Acetaminophen (Acetaminophen 325 Mg Tablet) 650 mg PO Q6H PRN PRN Reason: Pain Al Hydroxide/Mg Hydroxide (Magnesium Hydrox/Alum Hydrox 30 Ml Oral.Susp) 30 ml PO Q6H PRN PRN Reason: Heartburn/Nausea Apixaban (Apixaban 5 Mg Tablet) 5 mg PO BID [facility] Last Admin: 06/27/25 08:27 Dose: 5 mg Bisacodyl (Bisacodyl 10 Mg Supp.Rect) 10 mg UT DAILY PRN PRN Reason: Constipation Calcium Carbonate (Calcium Carbonate 750 Mg Tab.Chew) 750 mg PO Q8H PRN PRN Reason: GERD Clotrimazole (Clotrimazole 1 % Cream 15 Gm Tube) 1 appl TOPICAL TID [facility]; Protocol Last Admin: 06/27/25 08:27 Dose: 1 appl Glucagon (Glucagon Hcl 1 Mg Vial) 1 mg IM ONCE PRN PRN Reason: HYPOGLYCEMIA Haloperidol Lactate (Haloperidol Lactate 5 Mg/Ml Vial) 5 mg IM BID PRN PRN Reason: if pt refuses Seroquel, per Sharif Lacosamide (Lacosamide Oral Solution 100 Mg/10 Ml Solution) 100 mg PO BID [facility] Last Admin: 06/27/25 08:26 Dose: 100 mg [place] Carbonate ([place] Carbonate Er 300 Mg Tablet.Er) 600 mg PO BEDTIME [facility] Last Admin: 06/26/25 20:48 Dose: 600 mg Magnesium Hydroxide (Milk Of Magnesia 30 Ml Oral.Susp) 30 ml PO DAILY PRN PRN Reason: Constipation Memantine (Memantine Hcl 10 Mg Tablet) 20 mg PO BEDTIME [facility] Last Admin: 06/26/25 20:48 Dose: 20 mg Midodrine (Midodrine Hcl 2.5 Mg Tablet) 7.5 mg PO TIDAC [facility] Last Admin: 06/27/25 08:26 Dose: 7.5 mg Naloxone HCl (Naloxone Hcl Nasal 4 Mg [place]) 4 mg NOSTRILALT Q2M PRN PRN Reason: opiate overdose Omeprazole (Omeprazole/Na Bicarb Oral Susp 20 Mg/10 Ml Ud Cup) 20 mg PO DAILY@0630 [facility] Last Admin: 06/27/25 06:42 Dose: Not Given Polyethylene Glycol (Polyethylene Glycol 3350 17 Gm Powd.Pack) 17 gm PO DAILY PRN PRN Reason: Constipation Quetiapine Fumarate (Quetiapine Fumarate 50 Mg Tablet) 50 mg PO BID PRN PRN Reason: psychosis, agitation Last Admin: 06/26/25 15:07 Dose: 50 mg Quetiapine Fumarate (Quetiapine Fumarate 200 Mg Tablet) 200 mg PO BID [facility] Senna (Sennosides Oral Syrup 8.8 Mg/5 Ml) 17.6 mg PO DAILY PRN PRN Reason: Constipation Sodium Biphosphate/Sodium Phosphate (Sodium Phosphate,[place]-Dibasic 133 Ml Enema) 118 ml UT DAILY PRN PRN Reason: Constipation Trazodone HCl (Trazodone Hcl 50 Mg Tablet) 50 mg PO BEDTIME MRX1 PRN PRN Reason: Insomnia Last Admin: 06/25/25 21:33 Dose: 50 mg Allergies Allergies Allergy/AdvReac Type Severity Reaction Status Date / Time dog dander Allergy Unknown Verified 06/04/25 06:34 mite-Dermatophagoides Allergy Unknown Verified 06/04/25 06:32 farabhilash lange (dust mite - [place]) Assessment & Plan Assessment & Plan (1) Schizoaffective disorder, bipolar type: Status: Acute Code(s): F25.0 - Schizoaffective disorder, bipolar type (2) Eating disorder with ongoing treatment: Status: Acute Code(s): F50.9 - Eating disorder, unspecified (3) Gastrointestinal tube in situ: Status: Acute Code(s): Z93.1 - Gastrostomy status Plan Patient admitted on a conditional voluntary again seen and evaluated 10:00. Patient appears to have schizoaffective disorder a marked eating disorder question delusional based leading to a G-tube but there is no clear history presently available regarding medication trials inpatient psychiatric history. He is on minimal doses of lithium and Seroquel and unclear why that is. Would benefit from medical history regarding G-tube what the treatment plan was regarding this and [facility] and would also benefit records from [place]. Patient does have a guardian and [place] order will need to coordinate care check lithium level adjust to better therapeutic dose for irritability appears to be manic symptoms unclear why patient is not on antipsychotic dose of antipsychotic medication. Monitor response to treatment question discharge back to [facility]. Question dementia/cognitive impairment diagnosis check [place] review medical records 06/05/2025 Patient more psychotically preoccupied difficulty processing information records reviewed. Patient carries multiple diagnoses including schizophrenia in have significant grandiose and paranoid delusional beliefs but unclear why he is only on very low-dose Seroquel and on clozapine previously. Has only been treated with low-dose lithium. Given patient's history of psychosis, psychotic/eating daughter disorder requiring G-tube placement unclear why patient has such minimum doses of psychiatric medication question past side effects presently no psychiatric provider to coordinate with. Patient is more irritable and agitated psychotically preoccupied tried to explain to him also that he does have a guardian and that issues such as this will need to be addressed with his guardian. Barium swallow ordered to try to clarify if there is any dysphagia elements no obvious side effects were why patient is not currently on adequate antipsychotic treatment. Question asked obstruction with clozapine but unable to clarify at this time patient unable to clarify this history. Patient does have significant difficulty with reflecting on issues and absorbing information but memory seems significantly impaired. Monitor response to patient swallowing is on medication monitor weight unclear history of noncompliance this should be clarified 06/06/2025 Try and gather further data regarding patient's treatment history had been on Clozaril in the past unclear why discontinued Medical history not clear continue lower dose Seroquel and lithium at present 06/07 Team needing back up dosing Seroquel refusal. Haldol 2.5 mg IM bid prn per Sharif parameters if pt refuses Seroquel Increase Seroquel to 75 mg bid Monitor for dysphagia 06/08 Continue tx 06/09/2025 Trying to clarify history the past year for this patient. Call placed to nurse practitioner at [facility]. Patient was quite psychotic irritable agitated 06/10/2025 Continue plan of care patient is still not able to elaborate history but no current adverse effects from current regimen noted. He is aware that he will most likely return to [facility] encourage compliance with lithium try to obtain therapeutic level 06/12/2025 Encourage compliance with lithium and Seroquel. Patient had been on clozapine and past was only on 25 mg Seroquel at [facility] unclear why he was not more robust only treated increase Seroquel as tolerated try and do mouth checks check for purging 06/20/25 Pt aware of transfer back to [facility] has been eating not purging taking seroquel 06/21 Patient says his mood is getting better... Denies any SI Patient says that he has a hard time resisting the urge to purge and that he has been doing so. He says that after he eats a meal he feels full. But he says he does not like that he does this and wants to stop purging more than Dr. Adhikari wants him to stop. He says he is working on it. Discussed lithium level which has not moved much and patient agrees to make dose long-acting and at bedtime to avoid accidentally purging medications 06/22 Patient very irritable today and would not discuss much with telegraphic typewriter operator chief other than to say I told you and you would not listen... Now you'll will see what happens.. Patient would not explain what that means despite telegraphic typewriter operator chief having no idea to what he was referring. Patient refusing medication and when telegraphic typewriter operator chief went to discuss it he said he would not take lithium; patient said he did not want to talk to this telegraphic typewriter operator chief any further [place] level subtherapeutic, however patient says he is feeling better so will leave at current dose but change to long-acting and at bedtime 06/23/2025 Continue plan of care if patient accepts treatment including for his medical conditions which were explained to him will maintain current treatment plan if patient continues to be come more paranoid verbally aggressive consider filing for civil commitment and perhaps amendment of Sharif if needed. Increase Seroquel as tolerated follow blood pressure and ANC 06/24/25 cont lithium seroquel monitor 06/25/25 inc seroquel as tolerated prozac held ? in irritability 06/26/25 inc seroquel restart fluox for ocd type sx 06/27/2025 Check lithium level in the morning patient reportedly has been taking lithium now for few days increase Seroquel as patient seems more vulnerable on going back to [facility] sometime next week denies thoughts of harm to self or others Reason for continued inpatient stay Substantial Risk for: rapid decompensation and med/psych decompensation Time Spent With Patient Time: Total time managing care of this patient today ____ minutes.
[2025-06-27 11:35] VITALS: BP 127/73
[2025-06-27 16:21] VITALS: BP 119/74
[2025-06-28 08:37] VITALS: BP 135/79; PULSE 96; RESP 18; TEMP 35.8; O2SAT 97
--- NOTE | 2025-06-28 22:59 | P.PNPSI_ITS ---
Subjective Subjective Date of Service: 06/28/25 Reason For Visit: psychosis federica Subjective Notes: Sharif Order Interim History: Patient continues to present psychotic. He was angry about medications and became obstinate with staff, was given medications as per Tunde's order due to med refusal. He was irritable, angry, labile on writers approach. He was fixated on the idea of discharge, talking about [facility], but unable to articulate clearly his goal other than arguing about discharge and the idea that no one was listening to him. Medication Compliance: Intermittent Side effects from medications: No Attending Groups: No Review of Systems Acute medical concerns: No Medical Review of Systems: unchanged Mental Status Exam Mental Status Exam Narrative: Patient Appearance: casual attire, unkempt Patient Orientation: Person, Place and Time Level of Consciousness: Alert Patient Behavior: Talkative, Suspicious and Belligerent Mood Description: fine Affect Description: Labile, angry Patient Cognition Impaired: Yes Ability to Follow Directions: Good Speech Pattern: Spontaneous Speech Memory Description: Remote Impaired Judgement and Insight: significantly impaired Diagnostics Vital Signs (24Hr): Vital Signs - 24 hr 06/28/25 08:37 Temperature 96.5 F L Pulse Rate 96 Respiratory Rate 18 Blood Pressure 135/79 Pulse Oximetry 97 Oxygen Delivery Method Room Air BMI result Body Mass Index 23.3 Labs 06/21/25 07:22 06/21/25 07:22 Imaging Radiology Impressions: ITS Impressions Modified Barium Swallow 06/06/25 14:30 IMPRESSION: No evidence of laryngeal penetration or aspiration. Refer to the full speech therapy report to follow for further details. Electronically signed by: Gerry Tejeda MD 06/06/2025 03:25 PM EDT Medications Medications Current Medications Acetaminophen (Acetaminophen 325 Mg Tablet) 650 mg PO Q6H PRN PRN Reason: Pain Al Hydroxide/Mg Hydroxide (Magnesium Hydrox/Alum Hydrox 30 Ml Oral.Susp) 30 ml PO Q6H PRN PRN Reason: Heartburn/Nausea Apixaban (Apixaban 5 Mg Tablet) 5 mg PO BID [facility] Last Admin: 06/28/25 20:39 Dose: Not Given Bisacodyl (Bisacodyl 10 Mg Supp.Rect) 10 mg ME DAILY PRN PRN Reason: Constipation Calcium Carbonate (Calcium Carbonate 750 Mg Tab.Chew) 750 mg PO Q8H PRN PRN Reason: GERD Clotrimazole (Clotrimazole 1 % Cream 15 Gm Tube) 1 appl TOPICAL TID [facility]; Protocol Last Admin: 06/28/25 20:40 Dose: Not Given Glucagon (Glucagon Hcl 1 Mg Vial) 1 mg IM ONCE PRN PRN Reason: HYPOGLYCEMIA Haloperidol Lactate (Haloperidol Lactate 5 Mg/Ml Vial) 5 mg IM BID PRN PRN Reason: if pt refuses Seroquel, per [place] Last Admin: 06/28/25 09:48 Dose: 5 mg Lacosamide (Lacosamide Oral Solution 100 Mg/10 Ml Solution) 100 mg PO BID [facility] Last Admin: 06/28/25 20:39 Dose: Not Given [place] Carbonate ([place] Carbonate Er 300 Mg Tablet.Er) 600 mg PO BEDTIME [facility] Last Admin: 06/28/25 20:40 Dose: Not Given Magnesium Hydroxide (Milk Of Magnesia 30 Ml Oral.Susp) 30 ml PO DAILY PRN PRN Reason: Constipation Memantine (Memantine Hcl 10 Mg Tablet) 20 mg PO BEDTIME [facility] Last Admin: 06/28/25 20:41 Dose: Not Given Midodrine (Midodrine Hcl 2.5 Mg Tablet) 7.5 mg PO TIDAC [facility] Last Admin: 06/28/25 16:17 Dose: Not Given Naloxone HCl (Naloxone Hcl Nasal 4 Mg [place]) 4 mg NOSTRILALT Q2M PRN PRN Reason: opiate overdose Omeprazole (Omeprazole/Na Bicarb Oral Susp 20 Mg/10 Ml Ud Cup) 20 mg PO DAILY@0630 [facility] Last Admin: 06/28/25 06:53 Dose: Not Given Polyethylene Glycol (Polyethylene Glycol 3350 17 Gm Powd.Pack) 17 gm PO DAILY PRN PRN Reason: Constipation Quetiapine Fumarate (Quetiapine Fumarate 50 Mg Tablet) 50 mg PO BID PRN PRN Reason: psychosis, agitation Last Admin: 06/27/25 14:03 Dose: 50 mg Quetiapine Fumarate (Quetiapine Fumarate 200 Mg Tablet) 200 mg PO BID [facility] Last Admin: 06/28/25 20:36 Dose: 200 mg Senna (Sennosides Oral Syrup 8.8 Mg/5 Ml) 17.6 mg PO DAILY PRN PRN Reason: Constipation Sodium Biphosphate/Sodium Phosphate (Sodium Phosphate,[place]-Dibasic 133 Ml Enema) 118 ml ME DAILY PRN PRN Reason: Constipation Trazodone HCl (Trazodone Hcl 50 Mg Tablet) 50 mg PO BEDTIME MRX1 PRN PRN Reason: Insomnia Last Admin: 06/25/25 21:33 Dose: 50 mg Allergies Allergies Allergy/AdvReac Type Severity Reaction Status Date / Time dog dander Allergy Unknown Verified 06/04/25 06:34 mite-Dermatophagoides Allergy Unknown Verified 06/04/25 06:32 farinae, abhilash (dust mite - [place]) Assessment & Plan Assessment & Plan (1) Schizoaffective disorder, bipolar type: Status: Acute Code(s): F25.0 - Schizoaffective disorder, bipolar type (2) Eating disorder with ongoing treatment: Status: Acute Code(s): F50.9 - Eating disorder, unspecified (3) Gastrointestinal tube in situ: Status: Acute Code(s): Z93.1 - Gastrostomy status Plan Patient admitted on a conditional voluntary again seen and evaluated 10:00. Patient appears to have schizoaffective disorder a marked eating disorder question delusional based leading to a G-tube but there is no clear history presently available regarding medication trials inpatient psychiatric history. He is on minimal doses of lithium and Seroquel and unclear why that is. Would benefit from medical history regarding G-tube what the treatment plan was regarding this and need medical [facility] and would also benefit records from [place]. Patient does have a guardian and [place] order will need to coordinate care check lithium level adjust to better therapeutic dose for irritability appears to be manic symptoms unclear why patient is not on antipsychotic dose of antipsychotic medication. Monitor response to treatment question discharge back to [facility]. Question dementia/cognitive impairment diagnosis check [place] review medical records 06/05/2025 Patient more psychotically preoccupied difficulty processing information records reviewed. Patient carries multiple diagnoses including schizophrenia in have significant grandiose and paranoid delusional beliefs but unclear why he is only on very low-dose Seroquel and on clozapine previously. Has only been treated with low-dose lithium. Given patient's history of psychosis, psychotic/eating daughter disorder requiring G-tube placement unclear why patient has such minimum doses of psychiatric medication question past side effects presently no psychiatric provider to coordinate with. Patient is more irritable and agitated psychotically preoccupied tried to explain to him also that he does have a guardian and that issues such as this will need to be addressed with his guardian. Barium swallow ordered to try to clarify if there is any dysphagia elements no obvious side effects were why patient is not currently on adequate antipsychotic treatment. Question asked obstruction with clozapine but unable to clarify at this time patient unable to clarify this history. Patient does have significant difficulty with reflecting on issues and absorbing information but memory seems significantly impaired. Monitor response to patient swallowing is on medication monitor weight unclear history of noncompliance this should be clarified 06/06/2025 Try and gather further data regarding patient's treatment history had been on Clozaril in the past unclear why discontinued Medical history not clear continue lower dose Seroquel and lithium at present 06/07 Team needing back up dosing Seroquel refusal. Haldol 2.5 mg IM bid prn per Sharif parameters if pt refuses Seroquel Increase Seroquel to 75 mg bid Monitor for dysphagia 06/08 Continue tx 06/09/2025 Trying to clarify history the past year for this patient. Call placed to nurse practitioner at [facility]. Patient was quite psychotic irritable agitated 06/10/2025 Continue plan of care patient is still not able to elaborate history but no current adverse effects from current regimen noted. He is aware that he will most likely return to [facility] encourage compliance with lithium try to obtain therapeutic level 06/12/2025 Encourage compliance with lithium and Seroquel. Patient had been on clozapine and past was only on 25 mg Seroquel at [facility] unclear why he was not more robust only treated increase Seroquel as tolerated try and do mouth checks check for purging 06/20/25 Pt aware of transfer back to [facility] has been eating not purging taking seroquel 06/21 Patient says his mood is getting better... Denies any SI Patient says that he has a hard time resisting the urge to purge and that he has been doing so. He says that after he eats a meal he feels full. But he says he does not like that he does this and wants to stop purging more than Dr. Adhikari wants him to stop. He says he is working on it. Discussed lithium level which has not moved much and patient agrees to make dose long-acting and at bedtime to avoid accidentally purging medications 06/22 Patient very irritable today and would not discuss much with freelance writer other than to say I told you and you would not listen... Now you'll will see what happens.. Patient would not explain what that means despite freelance writer having no idea to what he was referring. Patient refusing medication and when freelance writer went to discuss it he said he would not take lithium; patient said he did not want to talk to this freelance writer any further [place] level subtherapeutic, however patient says he is feeling better so will leave at current dose but change to long-acting and at bedtime 06/23/2025 Continue plan of care if patient accepts treatment including for his medical conditions which were explained to him will maintain current treatment plan if patient continues to be come more paranoid verbally aggressive consider filing for civil commitment and perhaps amendment of Sharif if needed. Increase Seroquel as tolerated follow blood pressure and ANC 06/24/25 cont lithium seroquel monitor 06/25/25 inc seroquel as tolerated prozac held ? in irritability 06/26/25 inc seroquel restart fluox for ocd type sx 06/27/2025 Check lithium level in the morning patient reportedly has been taking lithium now for few days increase Seroquel as patient seems more vulnerable on going back to [facility] sometime next week denies thoughts of harm to self or others 06/28: no change today Patient educated on: diagnosis and medication risk/benefits Informed Consent: further education needed Reason for continued inpatient stay Substantial Risk for: inability to function and rapid decompensation Time Spent With Patient Time: Total time managing care of this patient today __15__ minutes.
--- NOTE | 2025-06-29 11:56 | P.PNPSI_ITS ---
Subjective Subjective Date of Service: 06/29/25 Reason For Visit: psychosis federica Subjective Notes: Conditional Voluntary Guardianship: No Medical Problems Affecting Mental Status: No Interim History: Patient approached hand sign writer in the sensory room. He continues to present confused, a suspicious of the intent of others, with tendencies towards interpersonal conflict. Given volatility by patient and roommate, hand sign writer discussed with nursing staff prospect of a room switch for patient or patient's roommate.? Will continue to monitor this. Medication Compliance: No Side effects from medications: No Attending Groups: No Review of Systems Acute medical concerns: No Medical Review of Systems: unchanged Review of Systems Review of Systems Yes all other systems are reviewed and are negative Mental Status Exam Mental Status Exam Narrative: Patient Appearance: Well Groomed, adequate hygiene Patient Behavior: belligerent Ability to Follow Directions: impaired Level of Consciousness: Awake, alert Patient Orientation: grossly to encounter Memory: grossly intact to recent events Psychomotor: mild agitation Speech: loud Mood: ?not good!? Affect: irritable Thought Process: Goal Oriented Thought Content: denies SI/HI; focused on hospitalization complaints Hallucinations: Denies; does not appear preoccupied Delusions: paranoid Insight: impaired Judgment: impaired Impulsivity: low Diagnostics Vital Signs (24Hr): BMI result Body Mass Index 23.3 Labs 06/21/25 07:22 06/21/25 07:22 Imaging Radiology Impressions: ITS Impressions Modified Barium Swallow 06/06/25 14:30 IMPRESSION: No evidence of laryngeal penetration or aspiration. Refer to the full speech therapy report to follow for further details. Electronically signed by: Gerry Tejeda MD 06/06/2025 03:25 PM EDT Medications Medications Current Medications Acetaminophen (Acetaminophen 325 Mg Tablet) 650 mg PO Q6H PRN PRN Reason: Pain Al Hydroxide/Mg Hydroxide (Magnesium Hydrox/Alum Hydrox 30 Ml Oral.Susp) 30 ml PO Q6H PRN PRN Reason: Heartburn/Nausea Apixaban (Apixaban 5 Mg Tablet) 5 mg PO BID [facility] Last Admin: 06/29/25 08:50 Dose: Not Given Bisacodyl (Bisacodyl 10 Mg Supp.Rect) 10 mg [place] DAILY PRN PRN Reason: Constipation Calcium Carbonate (Calcium Carbonate 750 Mg Tab.Chew) 750 mg PO Q8H PRN PRN Reason: GERD Clotrimazole (Clotrimazole 1 % Cream 15 Gm Tube) 1 appl TOPICAL TID [facility]; Protocol Last Admin: 06/29/25 08:50 Dose: Not Given Glucagon (Glucagon Hcl 1 Mg Vial) 1 mg IM ONCE PRN PRN Reason: HYPOGLYCEMIA Haloperidol Lactate (Haloperidol Lactate 5 Mg/Ml Vial) 5 mg IM BID PRN PRN Reason: if pt refuses Seroquel, ilda Sharif Last Admin: 06/28/25 09:48 Dose: 5 mg Lacosamide (Lacosamide Oral Solution 100 Mg/10 Ml Solution) 100 mg PO BID [facility] Last Admin: 06/29/25 08:50 Dose: Not Given Enlow Carbonate (Enlow Carbonate Er 300 Mg Tablet.Er) 600 mg PO BEDTIME [facility] Last Admin: 06/28/25 20:40 Dose: Not Given Magnesium Hydroxide (Milk Of Magnesia 30 Ml Oral.Susp) 30 ml PO DAILY PRN PRN Reason: Constipation Memantine (Memantine Hcl 10 Mg Tablet) 20 mg PO BEDTIME [facility] Last Admin: 06/28/25 20:41 Dose: Not Given Midodrine (Midodrine Hcl 2.5 Mg Tablet) 7.5 mg PO TIDAC [facility] Last Admin: 06/29/25 11:40 Dose: Not Given Naloxone HCl (Naloxone Hcl Nasal 4 Mg [place]) 4 mg NOSTRILALT Q2M PRN PRN Reason: opiate overdose Omeprazole (Omeprazole/Na Bicarb Oral Susp 20 Mg/10 Ml Ud Cup) 20 mg PO DAILY@0630 [facility] Last Admin: 06/29/25 07:06 Dose: Not Given Polyethylene Glycol (Polyethylene Glycol 3350 17 Gm Powd.Pack) 17 gm PO DAILY PRN PRN Reason: Constipation Quetiapine Fumarate (Quetiapine Fumarate 50 Mg Tablet) 50 mg PO BID PRN PRN Reason: psychosis, agitation Last Admin: 06/27/25 14:03 Dose: 50 mg Quetiapine Fumarate (Quetiapine Fumarate 200 Mg Tablet) 200 mg PO BID [facility] Last Admin: 06/29/25 08:49 Dose: 200 mg Senna (Sennosides Oral Syrup 8.8 Mg/5 Ml) 17.6 mg PO DAILY PRN PRN Reason: Constipation Sodium Biphosphate/Sodium Phosphate (Sodium Phosphate,[place]-Dibasic 133 Ml Enema) 118 ml [place] DAILY PRN PRN Reason: Constipation Trazodone HCl (Trazodone Hcl 50 Mg Tablet) 50 mg PO BEDTIME MRX1 PRN PRN Reason: Insomnia Last Admin: 06/25/25 21:33 Dose: 50 mg Allergies Allergies Allergy/AdvReac Type Severity Reaction Status Date / Time dog dander Allergy Unknown Verified 06/04/25 06:34 mite-Dermatophagoides Allergy Unknown Verified 06/04/25 06:32 farinae, abhilash (dust mite - [place]) Assessment & Plan Assessment & Plan (1) Schizoaffective disorder, bipolar type: Status: Acute Code(s): F25.0 - Schizoaffective disorder, bipolar type (2) Eating disorder with ongoing treatment: Status: Acute Code(s): F50.9 - Eating disorder, unspecified (3) Gastrointestinal tube in situ: Status: Acute Code(s): Z93.1 - Gastrostomy status Plan Patient admitted on a conditional voluntary again seen and evaluated 10:00. Patient appears to have schizoaffective disorder a marked eating disorder question delusional based leading to a G-tube but there is no clear history presently available regarding medication trials inpatient psychiatric history. He is on minimal doses of lithium and Seroquel and unclear why that is. Would benefit from medical history regarding G-tube what the treatment plan was regarding this and need [facility] and would also benefit records from [place]. Patient does have a guardian and [place] order will need to coordinate care check lithium level adjust to better therapeutic dose for irritability appears to be manic symptoms unclear why patient is not on antipsychotic dose of antipsychotic medication. Monitor response to treatment question discharge back to [facility]. Question dementia/cognitive impairment diagnosis check [place] review medical records 06/05/2025 Patient more psychotically preoccupied difficulty processing information records reviewed. Patient carries multiple diagnoses including schizophrenia in have significant grandiose and paranoid delusional beliefs but unclear why he is only on very low-dose Seroquel and on clozapine previously. Has only been treated with low-dose lithium. Given patient's history of psychosis, psychotic/eating daughter disorder requiring G-tube placement unclear why patient has such minimum doses of psychiatric medication question past side effects presently no psychiatric provider to coordinate with. Patient is more irritable and agitated psychotically preoccupied tried to explain to him also that he does have a guardian and that issues such as this will need to be addressed with his guardian. Barium swallow ordered to try to clarify if there is any dysphagia elements no obvious side effects were why patient is not currently on adequate antipsychotic treatment. Question asked obstruction with clozapine but unable to clarify at this time patient unable to clarify this history. Patient does have significant difficulty with reflecting on issues and absorbing information but memory seems significantly impaired. Monitor response to patient swallowing is on medication monitor weight unclear history of noncompliance this should be clarified 06/06/2025 Try and gather further data regarding patient's treatment history had been on Clozaril in the past unclear why discontinued Medical history not clear continue lower dose Seroquel and lithium at present 06/07 Team needing back up dosing Seroquel refusal. Haldol 2.5 mg IM bid prn per Sharif parameters if pt refuses Seroquel Increase Seroquel to 75 mg bid Monitor for dysphagia 06/08 Continue tx 06/09/2025 Trying to clarify history the past year for this patient. Call placed to nurse practitioner at [facility]. Patient was quite psychotic irritable agitated 06/10/2025 Continue plan of care patient is still not able to elaborate history but no current adverse effects from current regimen noted. He is aware that he will most likely return to [facility] encourage compliance with lithium try to obtain therapeutic level 06/12/2025 Encourage compliance with lithium and Seroquel. Patient had been on clozapine and past was only on 25 mg Seroquel at [facility] unclear why he was not more robust only treated increase Seroquel as tolerated try and do mouth checks check for purging 06/20/25 Pt aware of transfer back to [facility] has been eating not purging taking seroquel 06/21 Patient says his mood is getting better... Denies any SI Patient says that he has a hard time resisting the urge to purge and that he has been doing so. He says that after he eats a meal he feels full. But he says he does not like that he does this and wants to stop purging more than Dr. Adhikari wants him to stop. He says he is working on it. Discussed lithium level which has not moved much and patient agrees to make dose long-acting and at bedtime to avoid accidentally purging medications 06/22 Patient very irritable today and would not discuss much with hand sign writer other than to say I told you and you would not listen... Now you'll will see what happens.. Patient would not explain what that means despite hand sign writer having no idea to what he was referring. Patient refusing medication and when hand sign writer went to discuss it he said he would not take lithium; patient said he did not want to talk to this hand sign writer any further [place] level subtherapeutic, however patient says he is feeling better so will leave at current dose but change to long-acting and at bedtime 06/23/2025 Continue plan of care if patient accepts treatment including for his medical conditions which were explained to him will maintain current treatment plan if patient continues to be come more paranoid verbally aggressive consider filing for civil commitment and perhaps amendment of Sharif if needed. Increase Seroquel as tolerated follow blood pressure and ANC 06/24/25 cont lithium seroquel monitor 06/25/25 inc seroquel as tolerated prozac held ? in irritability 06/26/25 inc seroquel restart fluox for ocd type sx 06/27/2025 Check lithium level in the morning patient reportedly has been taking lithium now for few days increase Seroquel as patient seems more vulnerable on going back to [facility] sometime next week denies thoughts of harm to self or others 06/28: no change today 06/29: repeat Li+ level for tomorrow Patient educated on: diagnosis Informed Consent: further education needed Reason for continued inpatient stay Substantial Risk for: inability to function and rapid decompensation Time Spent With Patient Time: Total time managing care of this patient today __15__ minutes.
[2025-06-30 08:00] VITALS: RESP 18
--- NOTE | 2025-06-30 12:30 | PC.NURSE ---
Pt with irritability and agitation at am. Refusing vital signs and am meds except for Seroguel. Pt noted to calm down shortly after taking this med. Rested in bed quietly and after lunch visible in a milieu. Watching TV with other patients at this time. Will continue to monitor. Provider DR Dove notified and aware of situation.
[2025-06-30 17:11] VITALS: BMI 23.6
[2025-06-30] MEDS: Clotrimazole 1 % Cream 15 GM TUBE 1 APPL TOPICAL (18:45)
[2025-06-30 20:00] VITALS: RESP 16
--- NOTE | 2025-06-30 22:41 | P.PNPSI_ITS ---
Subjective Subjective Date of Service: 06/30/25 Reason For Visit: psychosis federica Subjective Notes: Conditional Voluntary Guardianship: Yes Interim History: Pt seen in f/u case reviewed in tx planning pt has [facility] secondary to refusing meds intrusive and threatening behavior. Pt psychotic with limited insight .on mitodrine but reuses frequently Medication Compliance: Intermittent Review of Systems recent hx neutropenia hypotension Mental Status Exam Mental Status Exam Narrative: pt casually dressed stating he should have a dischrge to home area he will work at [employer] and get . He feels entitled to his rage and threats at staff regarding how he is treated threats to harm does feel entited to this and then becomes quite psychotic the placing judge was jealous he does not have an illness worried regarding contamination and dust becomes threatening and aggressive. marked lack insight and impulse control Diagnostics Vital Signs (24Hr): Vital Signs - 24 hr 06/30/25 08:00 06/30/25 20:00 Respiratory Rate 18 16 BMI result Body Mass Index 23.6 Labs 06/21/25 07:22 06/21/25 07:22 Imaging Radiology Impressions: ITS Impressions Modified Barium Swallow 06/06/25 14:30 IMPRESSION: No evidence of laryngeal penetration or aspiration. Refer to the full speech therapy report to follow for further details. Electronically signed by: Gerry Tejeda MD 06/06/2025 03:25 PM EDT RP Medications Medications Current Medications Acetaminophen (Acetaminophen 325 Mg Tablet) 650 mg PO Q6H PRN PRN Reason: Pain Al Hydroxide/Mg Hydroxide (Magnesium Hydrox/Alum Hydrox 30 Ml Oral.Susp) 30 ml PO Q6H PRN PRN Reason: Heartburn/Nausea Apixaban (Apixaban 5 Mg Tablet) 5 mg PO BID [facility] Last Admin: 06/30/25 20:17 Dose: Not Given Bisacodyl (Bisacodyl 10 Mg Supp.Rect) 10 mg [place] DAILY PRN PRN Reason: Constipation Calcium Carbonate (Calcium Carbonate 750 Mg Tab.Chew) 750 mg PO Q8H PRN PRN Reason: GERD Clotrimazole (Clotrimazole 1 % Cream 15 Gm Tube) 1 appl TOPICAL TID [facility]; Protocol Last Admin: 06/30/25 20:17 Dose: Not Given Glucagon (Glucagon Hcl 1 Mg Vial) 1 mg IM ONCE PRN PRN Reason: HYPOGLYCEMIA Haloperidol Lactate (Haloperidol Lactate 5 Mg/Ml Vial) 5 mg IM BID PRN PRN Reason: if pt refuses Seroquel, ilda Sharif Last Admin: 06/28/25 09:48 Dose: 5 mg Lacosamide (Lacosamide Oral Solution 100 Mg/10 Ml Solution) 100 mg PO BID [facility] Last Admin: 06/30/25 20:18 Dose: Not Given [place] Carbonate ([place] Carbonate Er 300 Mg Tablet.Er) 600 mg PO BEDTIME [facility] Last Admin: 06/30/25 20:18 Dose: Not Given Magnesium Hydroxide (Milk Of Magnesia 30 Ml Oral.Susp) 30 ml PO DAILY PRN PRN Reason: Constipation Memantine (Memantine Hcl 10 Mg Tablet) 20 mg PO BEDTIME [facility] Last Admin: 06/30/25 20:18 Dose: Not Given Midodrine (Midodrine Hcl 2.5 Mg Tablet) 7.5 mg PO TIDAC [facility] Last Admin: 06/30/25 17:25 Dose: Not Given Naloxone HCl (Naloxone Hcl Nasal 4 Mg [place]) 4 mg NOSTRILALT Q2M PRN PRN Reason: opiate overdose Omeprazole (Omeprazole/Na Bicarb Oral Susp 20 Mg/10 Ml Ud Cup) 20 mg PO DAILY@0630 [facility] Last Admin: 06/30/25 12:28 Dose: Not Given Polyethylene Glycol (Polyethylene Glycol 3350 17 Gm Powd.Pack) 17 gm PO DAILY PRN PRN Reason: Constipation Quetiapine Fumarate (Quetiapine Fumarate 50 Mg Tablet) 50 mg PO BID PRN PRN Reason: psychosis, agitation Last Admin: 06/27/25 14:03 Dose: 50 mg Quetiapine Fumarate (Quetiapine Fumarate 200 Mg Tablet) 200 mg PO BID [facility] Last Admin: 06/30/25 20:31 Dose: 200 mg Senna (Sennosides Oral Syrup 8.8 Mg/5 Ml) 17.6 mg PO DAILY PRN PRN Reason: Constipation Sodium Biphosphate/Sodium Phosphate (Sodium Phosphate,[place]-Dibasic 133 Ml Enema) 118 ml [place] DAILY PRN PRN Reason: Constipation Trazodone HCl (Trazodone Hcl 50 Mg Tablet) 50 mg PO BEDTIME MRX1 PRN PRN Reason: Insomnia Last Admin: 06/25/25 21:33 Dose: 50 mg Allergies Allergies Allergy/AdvReac Type Severity Reaction Status Date / Time dog dander Allergy Unknown Verified 06/04/25 06:34 mite-Dermatophagoides Allergy Unknown Verified 06/04/25 06:32 abhilash schuler (dust mite - [place]) Assessment & Plan Assessment & Plan (1) Schizoaffective disorder, bipolar type: Status: Acute Code(s): F25.0 - Schizoaffective disorder, bipolar type (2) Eating disorder with ongoing treatment: Status: Acute Code(s): F50.9 - Eating disorder, unspecified (3) Gastrointestinal tube in situ: Status: Acute Code(s): Z93.1 - Gastrostomy status Plan Patient admitted on a conditional voluntary again seen and evaluated 10:00. Patient appears to have schizoaffective disorder a marked eating disorder question delusional based leading to a G-tube but there is no clear history presently available regarding medication trials inpatient psychiatric history. He is on minimal doses of lithium and Seroquel and unclear why that is. Would benefit from medical history regarding G-tube what the treatment plan was regarding this and [facility] and would also benefit records from [place]. Patient does have a guardian and [place] order will need to coordinate care check lithium level adjust to better therapeutic dose for irritability appears to be manic symptoms unclear why patient is not on antipsychotic dose of antipsychotic medication. Monitor response to treatment question discharge back to [facility]. Question dementia/cognitive impairment diagnosis check [place] review medical records 06/05/2025 Patient more psychotically preoccupied difficulty processing information records reviewed. Patient carries multiple diagnoses including schizophrenia in have significant grandiose and paranoid delusional beliefs but unclear why he is only on very low-dose Seroquel and on clozapine previously. Has only been treated with low-dose lithium. Given patient's history of psychosis, psychotic/eating daughter disorder requiring G-tube placement unclear why patient has such minimum doses of psychiatric medication question past side effects presently no psychiatric provider to coordinate with. Patient is more irritable and agitated psychotically preoccupied tried to explain to him also that he does have a guardian and that issues such as this will need to be addressed with his guardian. Barium swallow ordered to try to clarify if there is any dysphagia elements no obvious side effects were why patient is not currently on adequate antipsychotic treatment. Question asked obstruction with clozapine but unable to clarify at this time patient unable to clarify this history. Patient does have significant difficulty with reflecting on issues and absorbing information but memory seems significantly impaired. Monitor response to patient swallowing is on medication monitor weight unclear history of noncompliance this should be clarified 06/06/2025 Try and gather further data regarding patient's treatment history had been on Clozaril in the past unclear why discontinued Medical history not clear continue lower dose Seroquel and lithium at present 06/07 Team needing back up dosing Seroquel refusal. Haldol 2.5 mg IM bid prn per Sharif parameters if pt refuses Seroquel Increase Seroquel to 75 mg bid Monitor for dysphagia 06/08 Continue tx 06/09/2025 Trying to clarify history the past year for this patient. Call placed to nurse practitioner at [facility]. Patient was quite psychotic irritable agitated 06/10/2025 Continue plan of care patient is still not able to elaborate history but no current adverse effects from current regimen noted. He is aware that he will most likely return to [facility] encourage compliance with lithium try to obtain therapeutic level 06/12/2025 Encourage compliance with lithium and Seroquel. Patient had been on clozapine and past was only on 25 mg Seroquel at [facility] unclear why he was not more robust only treated increase Seroquel as tolerated try and do mouth checks check for purging 06/20/25 Pt aware of transfer back to [facility] has been eating not purging taking seroquel 06/21 Patient says his mood is getting better... Denies any SI Patient says that he has a hard time resisting the urge to purge and that he has been doing so. He says that after he eats a meal he feels full. But he says he does not like that he does this and wants to stop purging more than Dr. Adhikari wants him to stop. He says he is working on it. Discussed lithium level which has not moved much and patient agrees to make dose long-acting and at bedtime to avoid accidentally purging medications 06/22 Patient very irritable today and would not discuss much with bid writer other than to say I told you and you would not listen... Now you'll will see what happens.. Patient would not explain what that means despite bid writer having no idea to what he was referring. Patient refusing medication and when bid writer went to discuss it he said he would not take lithium; patient said he did not want to talk to this bid writer any further [place] level subtherapeutic, however patient says he is feeling better so will leave at current dose but change to long-acting and at bedtime 06/23/2025 Continue plan of care if patient accepts treatment including for his medical conditions which were explained to him will maintain current treatment plan if patient continues to be come more paranoid verbally aggressive consider filing for civil commitment and perhaps amendment of Sharif if needed. Increase Seroquel as tolerated follow blood pressure and ANC 06/24/25 cont lithium seroquel monitor 06/25/25 inc seroquel as tolerated prozac held ? in irritability 06/26/25 inc seroquel restart fluox for ocd type sx 06/27/2025 Check lithium level in the morning patient reportedly has been taking lithium now for few days increase Seroquel as patient seems more vulnerable on going back to [facility] sometime next week denies thoughts of harm to self or others 06/28: no change today 06/29: repeat Li+ level for tomorrow 06/30/25 Pt refusing all meds exept lithium does not understand medical risks lith close to 0 inc seroquel as tolerated try and follow bp given he is refusing midodrine . Trying to coord with [facility] whether they can handle this level of care they did refuse pt for today. If pt stays will file for tx plan.will try for mei . Patient educated on: medication risk/benefits Informed Consent: does not understand and further education needed Reason for continued inpatient stay Substantial Risk for: harm to others, inability to function and med/psych decompensation Time Spent With Patient Time: Total time managing care of this patient today ____ minutes.
--- NOTE | 2025-07-01 14:50 | HO.PSYCHPN ---
Subjective Subjective Date of Service: 07/01/25 Reason For Visit: psychosis federica Subjective Notes: Conditional Voluntary Guardianship: Yes Interim History: Pt mostly isolative refusing his non gan medication blood Adamant [facility]. Intermittantly combative verbally . [facility] unable to take pt with threatening behavior . He continues to be quite labile Mental Status Exam Mental Status Exam Narrative: pt casually dressed stating he should have a dischrge to home area he will work at [employer] and get . He feels entitled to his rage and threats at staff ,alternating with he will keep it in ck. Quite labile asking for help because of physical sx then refusing to be examined. States he does not have a guardian any longer cannot seem to take in info , refusing meds for seizures dvt prophylaxis for unclear reasons depite warning re medical consequences. Delusional preoccupation in the background that peolple are jealous of him and his work in the [employer] with special calendar. mood irriable labile impulse control tenuous denies si hi Diagnostics Vital Signs (24Hr): Vital Signs - 24 hr 06/30/25 20:00 Respiratory Rate 16 BMI result Body Mass Index 23.6 Labs 07/02/25 12:37 06/21/25 07:22 Imaging Radiology Impressions: ITS Impressions Modified Barium Swallow 06/06/25 14:30 IMPRESSION: No evidence of laryngeal penetration or aspiration. Refer to the full speech therapy report to follow for further details. Electronically signed by: Gerry Tejeda MD 06/06/2025 03:25 PM EDT RP Medications Medications Current Medications Acetaminophen (Acetaminophen 325 Mg Tablet) 650 mg PO Q6H PRN PRN Reason: Pain Al Hydroxide/Mg Hydroxide (Magnesium Hydrox/Alum Hydrox 30 Ml Oral.Susp) 30 ml PO Q6H PRN PRN Reason: Heartburn/Nausea Apixaban (Apixaban 5 Mg Tablet) 5 mg PO BID [facility] Last Admin: 07/01/25 09:55 Dose: Not Given Bisacodyl (Bisacodyl 10 Mg Supp.Rect) 10 mg [place] DAILY PRN PRN Reason: Constipation Calcium Carbonate (Calcium Carbonate 750 Mg Tab.Chew) 750 mg PO Q8H PRN PRN Reason: GERD Clotrimazole (Clotrimazole 1 % Cream 15 Gm Tube) 1 appl TOPICAL TID [facility]; Protocol Last Admin: 07/01/25 09:55 Dose: Not Given Fluoxetine HCl (Fluoxetine Hcl Oral Solution 20 Mg/5 Ml Solution) 5 mg PO DAILY [facility] Glucagon (Glucagon Hcl 1 Mg Vial) 1 mg IM ONCE PRN PRN Reason: HYPOGLYCEMIA Haloperidol Lactate (Haloperidol Lactate 5 Mg/Ml Vial) 5 mg IM BID PRN PRN Reason: if pt refuses Seroquel, per Malik Last Admin: 06/28/25 09:48 Dose: 5 mg Lacosamide (Lacosamide Oral Solution 100 Mg/10 Ml Solution) 100 mg PO BID [facility] Last Admin: 07/01/25 09:55 Dose: Not Given [place]ays Carbonate ([place]ays Carbonate Er 300 Mg Tablet.Er) 600 mg PO BEDTIME [facility] Last Admin: 06/30/25 20:18 Dose: Not Given Magnesium Hydroxide (Milk Of Magnesia 30 Ml Oral.Susp) 30 ml PO DAILY PRN PRN Reason: Constipation Memantine (Memantine Hcl 10 Mg Tablet) 20 mg PO BEDTIME [facility] Last Admin: 06/30/25 20:18 Dose: Not Given Midodrine (Midodrine Hcl 2.5 Mg Tablet) 7.5 mg PO TIDAC [facility] Last Admin: 07/01/25 12:12 Dose: Not Given Naloxone HCl (Naloxone Hcl Nasal 4 Mg [place]) 4 mg NOSTRILALT Q2M PRN PRN Reason: opiate overdose Omeprazole (Omeprazole/Na Bicarb Oral Susp 20 Mg/10 Ml Ud Cup) 20 mg PO DAILY@0630 [facility] Last Admin: 07/01/25 06:24 Dose: Not Given Polyethylene Glycol (Polyethylene Glycol 3350 17 Gm Powd.Pack) 17 gm PO DAILY PRN PRN Reason: Constipation Quetiapine Fumarate (Quetiapine Fumarate 50 Mg Tablet) 50 mg PO BID PRN PRN Reason: psychosis, agitation Last Admin: 06/27/25 14:03 Dose: 50 mg Quetiapine Fumarate (Quetiapine Fumarate 50 Mg Tablet) 250 mg PO BID [facility] Senna (Sennosides Oral Syrup 8.8 Mg/5 Ml) 17.6 mg PO DAILY PRN PRN Reason: Constipation Sodium Biphosphate/Sodium Phosphate (Sodium Phosphate,[place]-Dibasic 133 Ml Enema) 118 ml UT DAILY PRN PRN Reason: Constipation Trazodone HCl (Trazodone Hcl 50 Mg Tablet) 50 mg PO BEDTIME MRX1 PRN PRN Reason: Insomnia Last Admin: 06/25/25 21:33 Dose: 50 mg Allergies Allergies Allergy/AdvReac Type Severity Reaction Status Date / Time dog dander Allergy Unknown Verified 06/04/25 06:34 mite-Dermatophagoides Allergy Unknown Verified 06/04/25 06:32 farinae, abhilash (dust mite - [place]) Assessment & Plan Assessment & Plan (1) Schizoaffective disorder, bipolar type: Status: Acute Code(s): F25.0 - Schizoaffective disorder, bipolar type (2) Eating disorder with ongoing treatment: Status: Acute Code(s): F50.9 - Eating disorder, unspecified (3) Gastrointestinal tube in situ: Status: Acute Code(s): Z93.1 - Gastrostomy status Plan Patient admitted on a conditional voluntary again seen and evaluated 10:00. Patient appears to have schizoaffective disorder a marked eating disorder question delusional based leading to a G-tube but there is no clear history presently available regarding medication trials inpatient psychiatric history. He is on minimal doses of lithium and Seroquel and unclear why that is. Would benefit from medical history regarding G-tube what the treatment plan was regarding this and [facility] and would also benefit records from [place]. Patient does have a guardian and [place] order will need to coordinate care check lithium level adjust to better therapeutic dose for irritability appears to be manic symptoms unclear why patient is not on antipsychotic dose of antipsychotic medication. Monitor response to treatment question discharge back to [facility]. Question dementia/cognitive impairment diagnosis check [place] review medical records 06/05/2025 Patient more psychotically preoccupied difficulty processing information records reviewed. Patient carries multiple diagnoses including schizophrenia in have significant grandiose and paranoid delusional beliefs but unclear why he is only on very low-dose Seroquel and on clozapine previously. Has only been treated with low-dose lithium. Given patient's history of psychosis, psychotic/eating daughter disorder requiring G-tube placement unclear why patient has such minimum doses of psychiatric medication question past side effects presently no psychiatric provider to coordinate with. Patient is more irritable and agitated psychotically preoccupied tried to explain to him also that he does have a guardian and that issues such as this will need to be addressed with his guardian. Barium swallow ordered to try to clarify if there is any dysphagia elements no obvious side effects were why patient is not currently on adequate antipsychotic treatment. Question asked obstruction with clozapine but unable to clarify at this time patient unable to clarify this history. Patient does have significant difficulty with reflecting on issues and absorbing information but memory seems significantly impaired. Monitor response to patient swallowing is on medication monitor weight unclear history of noncompliance this should be clarified 06/06/2025 Try and gather further data regarding patient's treatment history had been on Clozaril in the past unclear why discontinued Medical history not clear continue lower dose Seroquel and lithium at present 06/07 Team needing back up dosing Seroquel refusal. Haldol 2.5 mg IM bid prn per Gan parameters if pt refuses Seroquel Increase Seroquel to 75 mg bid Monitor for dysphagia 06/08 Continue tx 06/09/2025 Trying to clarify history the past year for this patient. Call placed to nurse practitioner at [facility]. Patient was quite psychotic irritable agitated 06/10/2025 Continue plan of care patient is still not able to elaborate history but no current adverse effects from current regimen noted. He is aware that he will most likely return to [facility] encourage compliance with lithium try to obtain therapeutic level 06/12/2025 Encourage compliance with lithium and Seroquel. Patient had been on clozapine and past was only on 25 mg Seroquel at [facility] unclear why he was not more robust only treated increase Seroquel as tolerated try and do mouth checks check for purging 06/20/25 Pt aware of transfer back to [facility] has been eating not purging taking seroquel 06/21 Patient says his mood is getting better... Denies any SI Patient says that he has a hard time resisting the urge to purge and that he has been doing so. He says that after he eats a meal he feels full. But he says he does not like that he does this and wants to stop purging more than Dr. Adhikari wants him to stop. He says he is working on it. Discussed lithium level which has not moved much and patient agrees to make dose long-acting and at bedtime to avoid accidentally purging medications 06/22 Patient very irritable today and would not discuss much with service writer other than to say I told you and you would not listen... Now you'll will see what happens.. Patient would not explain what that means despite service writer having no idea to what he was referring. Patient refusing medication and when service writer went to discuss it he said he would not take lithium; patient said he did not want to talk to this service writer any further [place] level subtherapeutic, however patient says he is feeling better so will leave at current dose but change to long-acting and at bedtime 06/23/2025 Continue plan of care if patient accepts treatment including for his medical conditions which were explained to him will maintain current treatment plan if patient continues to be come more paranoid verbally aggressive consider filing for civil commitment and perhaps amendment of Malik if needed. Increase Seroquel as tolerated follow blood pressure and ANC 06/24/25 cont lithium seroquel monitor 06/25/25 inc seroquel as tolerated prozac held ? in irritability 06/26/25 inc seroquel restart fluox for ocd type sx 06/27/2025 Check lithium level in the morning patient reportedly has been taking lithium now for few days increase Seroquel as patient seems more vulnerable on going back to [facility] sometime next week denies thoughts of harm to self or others 06/28: no change today 06/29: repeat Li+ level for tomorrow 06/30/25 Pt refusing all meds exept lithium does not understand medical risks lith close to 0 inc seroquel as tolerated try and follow bp given he is refusing midodrine . [facility] whether [facility] can handle this level of care they did refuse pt for today. If pt stays will file for tx plan.will try for mei . 07/01/25 [facility] not an option at present with psychotic lability threats aggressive behavior inc seroquel 300 bid max of malik may need to restrain for cbc and vitals if seroquel not not effective will switch to invega. Monitor for dvt sx sz encourage tx acceptance Reason for continued inpatient stay Substantial Risk for: harm to others, inability to function, rapid decompensation and med/psych decompensation Time Spent With Patient Time: Total time managing care of this patient today ____ minutes.
--- NOTE | 2025-07-01 16:01 | P.PNIM_ITS ---
Subjective Subjective Date of Service: 07/01/25 Interval History: 59-year-old male with a history of schizoaffective disorder, bipolar type, seizure, COPD, DVT on Eliquis, dementia, bulimia, GT present here from [facility] after a verbal altercation with another resident. Patient was also experiencing federica, he is admitted to [facility] for further treatment. On exam he is awake and alert, angry that he is being discharged to [facility]. Denies any shortness of breath, dizziness, lightheadedness or any other concerning symptoms. He has been refusing vitals as well as medications. Denies any chest discomfort, denies any headache. Declines any blood work, or any other interventions. Began yelling at this gag writer. Review of Systems Denies chest pain, shortness of breath or headache. Physical Exam 2 Exam: Exam: CONST: Alert and oriented. Angry affect HEENT: Normocephalic, atraumatic RESP: Lungs clear, RRR even and regular HEART:,RRR, S1, S2. No edema GI:Abdomen Soft NT, ND. + BS times four :Deferred SKIN: Warm dry and intact, no visible lesions or rashes NEURO:CN II-XII Intact bilaterally, Sensation intact. Speech clear PSYCH: Angry affect. Vital Signs: Vital Signs: Last Vital Signs Temp 96.5 F L 06/28/25 08:37 Pulse 96 06/28/25 08:37 Resp 16 06/30/25 20:00 BP 135/79 06/28/25 08:37 Pulse Ox 97 06/28/25 08:37 O2 Del Method Room Air 06/28/25 08:37 BMI result Body Mass Index 23.6 Objective Data Active Medications Acetaminophen (Acetaminophen 325 Mg Tablet) 650 mg PO Q6H PRN PRN Reason: Pain Al Hydroxide/Mg Hydroxide (Magnesium Hydrox/Alum Hydrox 30 Ml Oral.Susp) 30 ml PO Q6H PRN PRN Reason: Heartburn/Nausea Apixaban (Apixaban 5 Mg Tablet) 5 mg PO BID [facility] Last Admin: 07/01/25 09:55 Dose: Not Given Documented By: AMAN Non-Admin Reason: Patient Refused Bisacodyl (Bisacodyl 10 Mg Supp.Rect) 10 mg [place] DAILY PRN PRN Reason: Constipation Calcium Carbonate (Calcium Carbonate 750 Mg Tab.Chew) 750 mg PO Q8H PRN PRN Reason: GERD Clotrimazole (Clotrimazole 1 % Cream 15 Gm Tube) 1 appl TOPICAL TID [facility]; Protocol Last Admin: 07/01/25 15:09 Dose: Not Given Documented By: AMAN Non-Admin Reason: Patient Refused Glucagon (Glucagon Hcl 1 Mg Vial) 1 mg IM ONCE PRN PRN Reason: HYPOGLYCEMIA Haloperidol Lactate (Haloperidol Lactate 5 Mg/Ml Vial) 5 mg IM BID PRN PRN Reason: if pt refuses Seroquel, per [place] Last Admin: 06/28/25 09:48 Dose: 5 mg Documented By: OZZIE Lacosamide (Lacosamide Oral Solution 100 Mg/10 Ml Solution) 100 mg PO BID [facility] Last Admin: 07/01/25 09:55 Dose: Not Given Documented By: AMAN Non-Admin Reason: Patient Refused [place] Carbonate ([place] Carbonate Er 300 Mg Tablet.Er) 600 mg PO BEDTIME [facility] Last Admin: 06/30/25 20:18 Dose: Not Given Documented By: ESME Non-Admin Reason: Patient Refused Magnesium Hydroxide (Milk Of Magnesia 30 Ml Oral.Susp) 30 ml PO DAILY PRN PRN Reason: Constipation Memantine (Memantine Hcl 10 Mg Tablet) 20 mg PO BEDTIME [facility] Last Admin: 06/30/25 20:18 Dose: Not Given Documented By: ESME Non-Admin Reason: Patient Refused Midodrine (Midodrine Hcl 2.5 Mg Tablet) 7.5 mg PO TIDAC [facility] Last Admin: 07/01/25 12:12 Dose: Not Given Documented By: AMAN Non-Admin Reason: Patient Refused Naloxone HCl (Naloxone Hcl Nasal 4 Mg [place]) 4 mg NOSTRILALT Q2M PRN PRN Reason: opiate overdose Omeprazole (Omeprazole/Na Bicarb Oral Susp 20 Mg/10 Ml Ud Cup) 20 mg PO DAILY@0630 [facility] Last Admin: 07/01/25 06:24 Dose: Not Given Documented By: ESME Non-Admin Reason: Patient Refused Polyethylene Glycol (Polyethylene Glycol 3350 17 Gm Powd.Pack) 17 gm PO DAILY PRN PRN Reason: Constipation Quetiapine Fumarate (Quetiapine Fumarate 50 Mg Tablet) 50 mg PO BID PRN PRN Reason: psychosis, agitation Last Admin: 06/27/25 14:03 Dose: 50 mg Documented By: CARIN Quetiapine Fumarate (Quetiapine Fumarate 50 Mg Tablet) 250 mg PO BID [facility] Senna (Sennosides Oral Syrup 8.8 Mg/5 Ml) 17.6 mg PO DAILY PRN PRN Reason: Constipation Sodium Biphosphate/Sodium Phosphate (Sodium Phosphate,[place]-Dibasic 133 Ml Enema) 118 ml [place] DAILY PRN PRN Reason: Constipation Trazodone HCl (Trazodone Hcl 50 Mg Tablet) 50 mg PO BEDTIME MRX1 PRN PRN Reason: Insomnia Last Admin: 06/25/25 21:33 Dose: 50 mg Documented By: URSULA Labs 06/21/25 07:22 06/21/25 07:22 Assessment and Plan (1) Seizure disorder: Status: Acute Plan 59-year-old male with schizoaffective disorder, bipolar type, eating disorder, federica and dementia, he also has a history of seizure disorder, COPD, DVT, pulmonary nodules in the hypotension. He is seen today for reports and chest discomfort. Headaches and chest discomfort Patient reports that he does not wish to have any testing, he feels fine Upset that he is being forced to be discharged to [facility]. He refuses vital signs He has a seizure disorder as well as history of DVT, has been refusing Vimpat and Eliquis consistently. He has also been refusing midodrine, lithium, memantine, omeprazole. Told me he soes not wish to take any medications from anyone affiliated with [facility]. Schizoaffective disorder, bipolar type/Bulimia/eating disorder/Federica/Dementia Treatment per psychiatric team Has a G-tube in place due to severe malnutrition Patient is angry and does not allow assessment Seizure disorder No recent seizure activity noted Refusing Vimpat COPD Stable, not on any medications DVT on Eliquis Refusing Eliquis Diagnosed on ultrasound on 03/26/2025 [address]monary nod[address] Noted on CT scan at [facility], we will need outpatient follow up Hypotension Continues on midodrine Thank you for allowing me to participate in the care of this patient. We will follow as needed, please notify medical provider with any acute changes or concerns. Quality Stroke Does the patient have a stroke diagnosis?: No VTE Prior VTE?: Yes VTE Risk Level:: Medical - moderate - high VTE Device Contraindication: Treatment Not Indicated VTE Drug Contraindication: Patient Refused
[2025-07-01 20:00] VITALS: RESP 16
[2025-07-02 12:38] VITALS: BP 112/66; PULSE 100; RESP 18; TEMP 36.4; O2SAT 96
[2025-07-02 12:40] LABS: MANUAL DIFF FLAG NO
[2025-07-02 12:43] LABS: Hematocrit 41.2 % (42.0-52.0); Hemoglobin 13.7 g/dl (14.0-18.0); Imm Gran Abs Auto 0.02 X10*3/uL (0.00-0.03); Imm Gran Pct Auto 0.3 % (0.0-0.4); Lymphocytes Absolute Auto 2.2 X10*3/uL (1.2-4.9); Mean Corpuscular HGB Conc 33.3 g/dl (31.0-36.0); Mean Corpuscular Hemoglobin 30.9 pg (27.0-33.0); Mean Corpuscular Volume 93.0 fL (80.0-98.0); NRBC Abs Auto 0.000 X10*3/uL (0.0-0.012); NRBC Pct Auto 0.0 /100WBC (0.0-0.2); Platelet Count 368 X10*3/uL (160-400); Red Blood Count 4.43 X10*6/uL (4.60-5.80); White Blood Count 7.3 X10*3/uL (4.8-10.8)
--- NOTE | 2025-07-02 14:16 | P.PNPSI_ITS ---
Subjective Subjective Date of Service: 07/02/25 Reason For Visit: psychosis federica Subjective Notes: Section 7 and Conditional Voluntary Guardianship: Yes Interim History: Pt seen needed security before pt allowed vs wnl and allowed ck cbc Pt continues to refuse non gan meds ,no sz significant dec in aggression no threats \tolerating serouel 300 bid Medication Compliance: No Mental Status Exam Mental Status Exam Narrative: States he does not have a guardian any longer cannot seem to take in info , refusing meds for seizures dvt prophylaxis for unclear reasons depite warning re medical consequences. mood irriable labile impulse control improved denies si hi Diagnostics Vital Signs (24Hr): Vital Signs - 24 hr 07/01/25 20:00 07/02/25 12:38 Temperature 97.5 F Pulse Rate 100 Respiratory Rate 16 18 Blood Pressure 112/66 Pulse Oximetry 96 BMI result Body Mass Index 23.6 Labs 07/02/25 12:37 06/21/25 07:22 Labs: Laboratory Results - last 48 hr 07/02/25 12:37 WBC 7.3 RBC 4.43 L Hgb 13.7 L Hct 41.2 L MCV 93.0 MCH 30.9 MCHC 33.3 RDW 15.3 Plt Count 368 MPV 8.1 L Immature Gran % (Auto) 0.3 Neut % (Auto) 54.0 Lymph % (Auto) 30.6 [place] % (Auto) 11.2 H Eos % (Auto) 3.4 Baso % (Auto) 0.5 Lymph # (Auto) 2.2 [place] # (Auto) 0.8 Eos # (Auto) 0.3 Baso # (Auto) 0.0 Abs Immat Gran (auto) 0.02 Absolute Neuts (auto) 4.0 Absolute Nucleated RBC 0.000 Nucleated RBC % (auto) 0.0 Imaging Radiology Impressions: ITS Impressions Modified Barium Swallow 06/06/25 14:30 IMPRESSION: No evidence of laryngeal penetration or aspiration. Refer to the full speech therapy report to follow for further details. Electronically signed by: Gerry Tejeda MD 06/06/2025 03:25 PM EDT Medications Medications Current Medications Acetaminophen (Acetaminophen 325 Mg Tablet) 650 mg PO Q6H PRN PRN Reason: Pain Al Hydroxide/Mg Hydroxide (Magnesium Hydrox/Alum Hydrox 30 Ml Oral.Susp) 30 ml PO Q6H PRN PRN Reason: Heartburn/Nausea Apixaban (Apixaban 5 Mg Tablet) 5 mg PO BID [facility] Last Admin: 07/02/25 08:04 Dose: Not Given Bisacodyl (Bisacodyl 10 Mg Supp.Rect) 10 mg VT DAILY PRN PRN Reason: Constipation Calcium Carbonate (Calcium Carbonate 750 Mg Tab.Chew) 750 mg PO Q8H PRN PRN Reason: GERD Clotrimazole (Clotrimazole 1 % Cream 15 Gm Tube) 1 appl TOPICAL TID [facility]; Protocol Last Admin: 07/02/25 08:04 Dose: Not Given Glucagon (Glucagon Hcl 1 Mg Vial) 1 mg IM ONCE PRN PRN Reason: HYPOGLYCEMIA Haloperidol Lactate (Haloperidol Lactate 5 Mg/Ml Vial) 5 mg IM BID PRN PRN Reason: if pt refuses Seroquel, per Malik Last Admin: 06/28/25 09:48 Dose: 5 mg Lacosamide (Lacosamide Oral Solution 100 Mg/10 Ml Solution) 100 mg PO BID [facility] Last Admin: 07/02/25 08:04 Dose: Not Given [place] Carbonate ([place] Carbonate Er 300 Mg Tablet.Er) 600 mg PO BEDTIME [facility] Last Admin: 07/01/25 20:06 Dose: Not Given Magnesium Hydroxide (Milk Of Magnesia 30 Ml Oral.Susp) 30 ml PO DAILY PRN PRN Reason: Constipation Memantine (Memantine Hcl 10 Mg Tablet) 20 mg PO BEDTIME [facility] Last Admin: 07/01/25 20:06 Dose: Not Given Midodrine (Midodrine Hcl 2.5 Mg Tablet) 7.5 mg PO TIDAC [facility] Last Admin: 07/02/25 13:57 Dose: Not Given Naloxone HCl (Naloxone Hcl Nasal 4 Mg [place]) 4 mg NOSTRILALT Q2M PRN PRN Reason: opiate overdose Omeprazole (Omeprazole/Na Bicarb Oral Susp 20 Mg/10 Ml Ud Cup) 20 mg PO DAILY@0630 [facility] Last Admin: 07/02/25 05:37 Dose: Not Given Polyethylene Glycol (Polyethylene Glycol 3350 17 Gm Powd.Pack) 17 gm PO DAILY PRN PRN Reason: Constipation Quetiapine Fumarate (Quetiapine Fumarate 50 Mg Tablet) 50 mg PO BID PRN PRN Reason: psychosis, agitation Last Admin: 06/27/25 14:03 Dose: 50 mg Quetiapine Fumarate (Quetiapine Fumarate 300 Mg Tablet) 300 mg PO BID [facility] Senna (Sennosides Oral Syrup 8.8 Mg/5 Ml) 17.6 mg PO DAILY PRN PRN Reason: Constipation Sodium Biphosphate/Sodium Phosphate (Sodium Phosphate,[place]-Dibasic 133 Ml Enema) 118 ml VT DAILY PRN PRN Reason: Constipation Trazodone HCl (Trazodone Hcl 50 Mg Tablet) 50 mg PO BEDTIME MRX1 PRN PRN Reason: Insomnia Last Admin: 06/25/25 21:33 Dose: 50 mg Allergies Allergies Allergy/AdvReac Type Severity Reaction Status Date / Time dog dander Allergy Unknown Verified 06/04/25 06:34 mite-Dermatophagoides Allergy Unknown Verified 06/04/25 06:32 faranisa, abhilash (dust mite - [place]) Assessment & Plan Assessment & Plan (1) Seizure disorder: Status: Acute Code(s): G40.909 - Epilepsy, unspecified, not intractable, without status epilepticus (2) Schizoaffective disorder, bipolar type: Status: Acute Code(s): F25.0 - Schizoaffective disorder, bipolar type (3) Eating disorder with ongoing treatment: Status: Acute Code(s): F50.9 - Eating disorder, unspecified (4) Gastrointestinal tube in situ: Status: Acute Code(s): Z93.1 - Gastrostomy status Plan 59-year-old male with schizoaffective disorder, bipolar type, eating disorder, federica and dementia, he also has a history of seizure disorder, COPD, DVT, pulmonary nodules in the hypotension. He is seen today for reports and chest discomfort. Headaches and chest discomfort Patient reports that he does not wish to have any testing, he feels fine Upset that he is being forced to be discharged to [facility]. He refuses vital signs He has a seizure disorder as well as history of DVT, has been refusing Vimpat and Eliquis consistently. He has also been refusing midodrine, lithium, memantine, omeprazole. Told me he soes not wish to take any medications from anyone affiliated with [facility]. Schizoaffective disorder, bipolar type/Bulimia/eating disorder/Federica/Dementia Treatment per psychiatric team Has a G-tube in place due to severe malnutrition Patient is angry and does not allow assessment Seizure disorder No recent seizure activity noted Refusing Vimpat COPD Stable, not on any medications DVT on Eliquis Refusing Eliquis Diagnosed on ultrasound on 03/26/[address] Not[address] on CT scan at [facility], we will need outpatient follow up Hypotension Continues on midodrine Thank you for allowing me to participate in the care of this patient. We will follow as needed, please notify medical provider with any acute changes or concerns. Patient admitted on a conditional voluntary again seen and evaluated 10:00. Patient appears to have schizoaffective disorder a marked eating disorder question delusional based leading to a G-tube but there is no clear history presently available regarding medication trials inpatient psychiatric history. He is on minimal doses of lithium and Seroquel and unclear why that is. Would benefit from medical history regarding G-tube what the treatment plan was regarding this and need [facility] and would also benefit records from [place]. Patient does have a guardian and [facility] will need to coordinate care check lithium level adjust to better therapeutic dose for irritability appears to be manic symptoms unclear why patient is not on antipsychotic dose of antipsychotic medication. Monitor response to treatment question discharge back to [facility]. Question dementia/cognitive impairment diagnosis check [place] review medical records 06/05/2025 Patient more psychotically preoccupied difficulty processing information records reviewed. Patient carries multiple diagnoses including schizophrenia in have significant grandiose and paranoid delusional beliefs but unclear why he is only on very low-dose Seroquel and on clozapine previously. Has only been treated with low-dose lithium. Given patient's history of psychosis, psychotic/eating daughter disorder requiring G-tube placement unclear why patient has such minimum doses of psychiatric medication question past side effects presently no psychiatric provider to coordinate with. Patient is more irritable and agitated psychotically preoccupied tried to explain to him also that he does have a guardian and that issues such as this will need to be addressed with his guardian. Barium swallow ordered to try to clarify if there is any dysphagia elements no obvious side effects were why patient is not currently on adequate antipsychotic treatment. Question asked obstruction with clozapine but unable to clarify at this time patient unable to clarify this history. Patient does have significant difficulty with reflecting on issues and absorbing information but memory seems significantly impaired. Monitor response to patient swallowing is on medication monitor weight unclear history of noncompliance this should be clarified 06/06/2025 Try and gather further data regarding patient's treatment history had been on Clozaril in the past unclear why discontinued Medical history not clear continue lower dose Seroquel and lithium at present 06/07 Team needing back up dosing Seroquel refusal. Haldol 2.5 mg IM bid prn per Gan parameters if pt refuses Seroquel Increase Seroquel to 75 mg bid Monitor for dysphagia 06/08 Continue tx 06/09/2025 Trying to clarify history the past year for this patient. Call placed to nurse practitioner at [facility]. Patient was quite psychotic irritable agitated 06/10/2025 Continue plan of care patient is still not able to elaborate history but no current adverse effects from current regimen noted. He is aware that he will most likely return to [facility] encourage compliance with lithium try to obtain therapeutic level 06/12/2025 Encourage compliance with lithium and Seroquel. Patient had been on clozapine and past was only on 25 mg Seroquel at [facility] unclear why he was not more robust only treated increase Seroquel as tolerated try and do mouth checks check for purging 06/20/25 Pt aware of transfer back to [facility] has been eating not purging taking seroquel 06/21 Patient says his mood is getting better... Denies any SI Patient says that he has a hard time resisting the urge to purge and that he has been doing so. He says that after he eats a meal he feels full. But he says he does not like that he does this and wants to stop purging more than Dr. Adhikari wants him to stop. He says he is working on it. Discussed lithium level which has not moved much and patient agrees to make dose long-acting and at bedtime to avoid accidentally purging medications 06/22 Patient very irritable today and would not discuss much with narrative writer other than to say I told you and you would not listen... Now you'll will see what happens.. Patient would not explain what that means despite narrative writer having no idea to what he was referring. Patient refusing medication and when narrative writer went to discuss it he said he would not take lithium; patient said he did not want to talk to this narrative writer any further [place] level subtherapeutic, however patient says he is feeling better so will leave at current dose but change to long-acting and at bedtime 06/23/2025 Continue plan of care if patient accepts treatment including for his medical conditions which were explained to him will maintain current treatment plan if patient continues to be come more paranoid verbally aggressive consider filing for civil commitment and perhaps amendment of Gan if needed. Increase Seroquel as tolerated follow blood pressure and ANC 06/24/25 cont lithium seroquel monitor 06/25/25 inc seroquel as tolerated prozac held ? in irritability 06/26/25 inc seroquel restart fluox for ocd type sx 06/27/2025 Check lithium level in the morning patient reportedly has been taking lithium now for few days increase Seroquel as patient seems more vulnerable on going back to [facility] sometime next week denies thoughts of harm to self or others 06/28: no change today 06/29: repeat Li+ level for tomorrow 06/30/25 Pt refusing all meds exept lithium does not understand medical risks lith close to 0 inc seroquel as tolerated try and follow bp given he is refusing midodrine . Trying to coord [facility] whether they can handle this level of care they did refuse pt for today. If pt stays will file for tx plan.will try for mei . 07/01/25 [facility] not an option at present with psychotic lability threats aggressive behavior inc seroquel 300 bid max of malik may need to restrain for cbc and vitals if seroquel not not effective will switch to invega. Monitor for dvt sx sz encourage tx acceptance 07/02/25 Pt somewhat less aggressive past 2 days ,monitor medical safety given refusal of anti sz meds and eloquis. Seroquel 300 bid pt tolerating ,will try and recoordinate with [facility] because wbc were close to 0 on cloz . Patient educated on: medication risk/benefits Informed Consent: does not understand Reason for continued inpatient stay Substantial Risk for: inability to function, rapid decompensation and med/psych decompensation Time Spent With Patient Time: Total time managing care of this patient today ____ minutes.
[2025-07-02 19:47] VITALS: RESP 16
--- NOTE | 2025-07-02 23:01 | HO.PSYCHPN ---
Subjective Subjective Date of Service: 07/03/25 Reason For Visit: psychosis efderica Subjective Notes: Conditional Voluntary Guardianship: Yes Interim History: Patient seen psychiatric follow-up. Patient continues have a difficult time understanding that he has a guardianship and what this means and what the plan was at [facility]. Continues to refuse antiseizure meds Eliquis to prevent DVT despite medical education Patient has been taking Seroquel needed strong encouragement to monitor vital signs and check white count. Decrease in aggression on Seroquel 300 b.i.d. which is the highest dose on his [facility] order. Somewhat less agitated regarding contamination and when seen cleaning staff. Refusing lithium memantine antiseizure med and Eliquis. Has been eating and drinking adequately no reported vomiting Mental Status Exam Mental Status Exam Narrative: States he does not have a guardian any longer cannot seem to take in info , refusing meds for seizures dvt prophylaxis for unclear reasons depite warning re medical consequences. mood irriable labile impulse control improved denies si hi very focused on what his ultimate discharge will be why he had been placed at [facility] to begin with. Patient given much education regarding his history over the past year including medical admissions can not seem to explain why he is refusing some of his medication and stating when he leaves he will take medication Diagnostics Vital Signs (24Hr): Vital Signs - 24 hr 07/02/25 12:38 07/02/25 19:47 Temperature 97.5 F Pulse Rate 100 Respiratory Rate 18 16 Blood Pressure 112/66 Pulse Oximetry 96 BMI result Body Mass Index 23.6 Labs 07/02/25 12:37 06/21/25 07:22 Labs: Laboratory Results - last 48 hr 07/02/25 12:37 WBC 7.3 RBC 4.43 L Hgb 13.7 L Hct 41.2 L MCV 93.0 MCH 30.9 MCHC 33.3 RDW 15.3 Plt Count 368 MPV 8.1 L Immature Gran % (Auto) 0.3 Neut % (Auto) 54.0 Lymph % (Auto) 30.6 [place] % (Auto) 11.2 H Eos % (Auto) 3.4 Baso % (Auto) 0.5 Lymph # (Auto) 2.2 [place] # (Auto) 0.8 Eos # (Auto) 0.3 Baso # (Auto) 0.0 Abs Immat Gran (auto) 0.02 Absolute Neuts (auto) 4.0 Absolute Nucleated RBC 0.000 Nucleated RBC % (auto) 0.0 Imaging Radiology Impressions: ITS Impressions Modified Barium Swallow 06/06/25 14:30 IMPRESSION: No evidence of laryngeal penetration or aspiration. Refer to the full speech therapy report to follow for further details. Electronically signed by: Gerry Tejeda MD 06/06/2025 03:25 PM EDT RP Medications Medications Current Medications Acetaminophen (Acetaminophen 325 Mg Tablet) 650 mg PO Q6H PRN PRN Reason: Pain Al Hydroxide/Mg Hydroxide (Magnesium Hydrox/Alum Hydrox 30 Ml Oral.Susp) 30 ml PO Q6H PRN PRN Reason: Heartburn/Nausea Apixaban (Apixaban 5 Mg Tablet) 5 mg PO BID [facility] Last Admin: 07/02/25 20:03 Dose: Not Given Bisacodyl (Bisacodyl 10 Mg Supp.Rect) 10 mg AL DAILY PRN PRN Reason: Constipation Calcium Carbonate (Calcium Carbonate 750 Mg Tab.Chew) 750 mg PO Q8H PRN PRN Reason: GERD Clotrimazole (Clotrimazole 1 % Cream 15 Gm Tube) 1 appl TOPICAL TID SERENITY; Protocol Last Admin: 07/02/25 20:03 Dose: Not Given Glucagon (Glucagon Hcl 1 Mg Vial) 1 mg IM ONCE PRN PRN Reason: HYPOGLYCEMIA Haloperidol Lactate (Haloperidol Lactate 5 Mg/Ml Vial) 5 mg IM BID PRN PRN Reason: if pt refuses Seroquel, per Malik Last Admin: 06/28/25 09:48 Dose: 5 mg Lacosamide (Lacosamide Oral Solution 100 Mg/10 Ml Solution) 100 mg PO BID [facility] Last Admin: 07/02/25 20:03 Dose: Not Given [place] Carbonate ([place] Carbonate Er 300 Mg Tablet.Er) 600 mg PO BEDTIME [facility]EN[facility] Last Admin: 07/02/25 20:04 Dose: Not Given Magnesium Hydroxide (Milk Of Magnesia 30 Ml Oral.Susp) 30 ml PO DAILY PRN PRN Reason: Constipation Memantine (Memantine Hcl 10 Mg Tablet) 20 mg PO BEDTIME [facility] Last Admin: 07/02/25 20:04 Dose: Not Given Midodrine (Midodrine Hcl 2.5 Mg Tablet) 7.5 mg PO TIDAC [facility] Last Admin: 07/02/25 17:46 Dose: Not Given Naloxone HCl (Naloxone Hcl Nasal 4 Mg [place]) 4 mg NOSTRILALT Q2M PRN PRN Reason: opiate overdose Omeprazole (Omeprazole/Na Bicarb Oral Susp 20 Mg/10 Ml Ud Cup) 20 mg PO DAILY@0630 [facility] Last Admin: 07/02/25 05:37 Dose: Not Given Polyethylene Glycol (Polyethylene Glycol 3350 17 Gm Powd.Pack) 17 gm PO DAILY PRN PRN Reason: Constipation Quetiapine Fumarate (Quetiapine Fumarate 50 Mg Tablet) 50 mg PO BID PRN PRN Reason: psychosis, agitation Last Admin: 06/27/25 14:03 Dose: 50 mg Quetiapine Fumarate (Quetiapine Fumarate 300 Mg Tablet) 300 mg PO BID [facility] Last Admin: 07/02/25 20:45 Dose: 300 mg Senna (Sennosides Oral Syrup 8.8 Mg/5 Ml) 17.6 mg PO DAILY PRN PRN Reason: Constipation Sodium Biphosphate/Sodium Phosphate (Sodium Phosphate,[place]-Dibasic 133 Ml Enema) 118 ml AL DAILY PRN PRN Reason: Constipation Trazodone HCl (Trazodone Hcl 50 Mg Tablet) 50 mg PO BEDTIME MRX1 PRN PRN Reason: Insomnia Last Admin: 06/25/25 21:33 Dose: 50 mg Allergies Allergies Allergy/AdvReac Type Severity Reaction Status Date / Time dog dander Allergy Unknown Verified 06/04/25 06:34 mite-Dermatophagoides Allergy Unknown Verified 06/04/25 06:32 farinae, abhilash (dust mite - [place]) Assessment & Plan Assessment & Plan (1) Schizoaffective disorder, bipolar type: Status: Acute Code(s): F25.0 - Schizoaffective disorder, bipolar type (2) Seizure disorder: Status: Acute Code(s): G40.909 - Epilepsy, unspecified, not intractable, without status epilepticus (3) Eating disorder with ongoing treatment: Status: Acute Code(s): F50.9 - Eating disorder, unspecified (4) Gastrointestinal tube in situ: Status: Acute Code(s): Z93.1 - Gastrostomy status Plan 59-year-old male with schizoaffective disorder, bipolar type, eating disorder, federica and dementia, he also has a history of seizure disorder, COPD, DVT, pulmonary nodules in the hypotension. He is seen today for reports and chest discomfort. Headaches and chest discomfort Patient reports that he does not wish to have any testing, he feels fine Upset that he is being forced to be discharged to [facility]. He refuses vital signs He has a seizure disorder as well as history of DVT, has been refusing Vimpat and Eliquis consistently. He has also been refusing midodrine, lithium, memantine, omeprazole. Told me he soes not wish to take any medications from anyone affiliated with [facility]. Schizoaffective disorder, bipolar type/Bulimia/eating disorder/Federica/Dementia Treatment per psychiatric team Has a G-tube in place due to severe malnutrition Patient is angry and does not allow assessment Seizure disorder No recent seizure activity noted Refusing Vimpat COPD Stable, not on any medications DVT on Eliquis Refusing Eliquis Diagnosed on ultrasound on 03/26/[address] on CT scan at [facility], we will need outpatient follow up Hypotension Continues on midodrine Thank you for allowing me to participate in the care of this patient. We will follow as needed, please notify medical provider with any acute changes or concerns. Patient admitted on a conditional voluntary again seen and evaluated 10:00. Patient appears to have schizoaffective disorder a marked eating disorder question delusional based leading to a G-tube but there is no clear history presently available regarding medication trials inpatient psychiatric history. He is on minimal doses of lithium and Seroquel and unclear why that is. Would benefit from medical history regarding G-tube what the treatment plan was regarding this and need medical and psychiatric records from [facility] and would also benefit records from [place]. Patient does have a guardian and [place] order will need to coordinate care check lithium level adjust to better therapeutic dose for irritability appears to be manic symptoms unclear why patient is not on antipsychotic dose of antipsychotic medication. Monitor response to treatment question discharge back to [facility]. Question dementia/cognitive impairment diagnosis check [facility] review medical records 06/05/2025 Patient more psychotically preoccupied difficulty processing information records reviewed. Patient carries multiple diagnoses including schizophrenia in have significant grandiose and paranoid delusional beliefs but unclear why he is only on very low-dose Seroquel and on clozapine previously. Has only been treated with low-dose lithium. Given patient's history of psychosis, psychotic/eating daughter disorder requiring G-tube placement unclear why patient has such minimum doses of psychiatric medication question past side effects presently no psychiatric provider to coordinate with. Patient is more irritable and agitated psychotically preoccupied tried to explain to him also that he does have a guardian and that issues such as this will need to be addressed with his guardian. Barium swallow ordered to try to clarify if there is any dysphagia elements no obvious side effects were why patient is not currently on adequate antipsychotic treatment. Question asked obstruction with clozapine but unable to clarify at this time patient unable to clarify this history. Patient does have significant difficulty with reflecting on issues and absorbing information but memory seems significantly impaired. Monitor response to patient swallowing is on medication monitor weight unclear history of noncompliance this should be clarified 06/06/2025 Try and gather further data regarding patient's treatment history had been on Clozaril in the past unclear why discontinued Medical history not clear continue lower dose Seroquel and lithium at present 06/07 Team needing back up dosing Seroquel refusal. Haldol 2.5 mg IM bid prn per [facility] parameters if pt refuses Seroquel Increase Seroquel to 75 mg bid Monitor for dysphagia 06/08 Continue tx 06/09/2025 Trying to clarify history the past year for this patient. Call placed to nurse practitioner at [facility]. Patient was quite psychotic irritable agitated 06/10/2025 Continue plan of care patient is still not able to elaborate history but no current adverse effects from current regimen noted. He is aware that he will most likely return to [facility] encourage compliance with lithium try to obtain therapeutic level 06/12/2025 Encourage compliance with lithium and Seroquel. Patient had been on clozapine and past was only on 25 mg Seroquel at [facility] unclear why he was not more robust only treated increase Seroquel as tolerated try and do mouth checks check for purging 06/20/25 Pt aware of [facility] has been eating not purging taking seroquel 06/21 Patient says his mood is getting better... Denies any SI Patient says that he has a hard time resisting the urge to purge and that he has been doing so. He says that after he eats a meal he feels full. But he says he does not like that he does this and wants to stop purging more than Dr. Adhikari wants him to stop. He says he is working on it. Discussed lithium level which has not moved much and patient agrees to make dose long-acting and at bedtime to avoid accidentally purging medications 06/22 Patient very irritable today and would not discuss much with documentation writer other than to say I told you and you would not listen... Now you'll will see what happens.. Patient would not explain what that means despite documentation writer having no idea to what he was referring. Patient refusing medication and when documentation writer went to discuss it he said he would not take lithium; patient said he did not want to talk to this documentation writer any further [place] level subtherapeutic, however patient says he is feeling better so will leave at current dose but change to long-acting and at bedtime 06/23/2025 Continue plan of care if patient accepts treatment including for his medical conditions which were explained to him will maintain current treatment plan if patient continues to be come more paranoid verbally aggressive consider filing for civil commitment and perhaps amendment of Malik if needed. Increase Seroquel as tolerated follow blood pressure and ANC 06/24/25 cont lithium seroquel monitor 06/25/25 inc seroquel as tolerated prozac held ? in irritability 06/26/25 inc seroquel restart fluox for ocd type sx 06/27/2025 Check lithium level in the morning patient reportedly has been taking lithium now for few days increase Seroquel as patient seems more vulnerable on going back to [facility] sometime next week denies thoughts of harm to self or others 06/28: no change today 06/29: repeat Li+ level for tomorrow 06/30/25 Pt refusing all meds exept lithium does not understand medical risks lith close to 0 inc seroquel as tolerated try and follow bp given he is refusing midodrine . Trying to coord with [facility] whether they can handle this level of care they did refuse pt for today. If pt stays will file for tx plan.will try for mei . 07/01/25 [facility] not an option at present with psychotic lability threats aggressive behavior inc seroquel 300 bid max of malik may need to restrain for cbc and vitals if seroquel not not effective will switch to invega. Monitor for dvt sx sz encourage tx acceptance 07/02/25 Pt somewhat less aggressive past 2 days ,monitor medical safety given refusal of anti sz meds and eloquis. Seroquel 300 bid pt tolerating ,will try and recoordinate with [facility] care because wbc were close to 0 on cloz . 07/03/2025 Continue Seroquel 300 b.i.d. continue to encourage patient accepting his meds for medical issues although no negative consequences to this point vital signs stable no orthostasis ambulation not problematic has been in better control Issues had been reviewed with guardian have also reviewed possibility of [facility] referral working with [facility] to try and transfer back as possible based on patient's behavior. If recurrence of aggressive behavior will change to Invega [place] stain also a possibility Patient educated on: diagnosis, medication risk/benefits and medical condition Informed Consent: does not understand Reason for continued inpatient stay Substantial Risk for: harm to others, rapid decompensation and med/psych decompensation Time Spent With Patient Time: Total time managing care of this patient today ____ minutes.
[2025-07-03 08:16] VITALS: BP 122/69; PULSE 100; RESP 18; TEMP 35.8; O2SAT 96
[2025-07-03 08:32] VITALS: BMI 23.5
[2025-07-03 11:16] VITALS: BP 105/61
[2025-07-03 20:00] VITALS: BP 143/77; PULSE 86; RESP 16; TEMP 36.1; O2SAT 97
[2025-07-04 08:00] VITALS: BP 111/76; PULSE 89
--- NOTE | 2025-07-04 11:33 | HO.PSYCHPN ---
Subjective Subjective Date of Service: 07/04/25 Reason For Visit: psychosis federica Subjective Notes: Conditional Voluntary Healthcare Proxy: Yes Interim History: Patient case reviewed in treatment planning chart reviewed patient seen. Patient continues to state he feels well without taking his medical medications and he is alert eating well has been allowing vital signs no purging noted. Patient has been cooperative with Seroquel 300 b.i.d.. No significant threats or aggression Medication Compliance: Yes Diagnostics Vital Signs (24Hr): Vital Signs - 24 hr 07/03/25 20:00 07/04/25 08:00 Temperature 97 F Pulse Rate 86 89 Respiratory Rate 16 Blood Pressure 143/77 H 111/76 Pulse Oximetry 97 Oxygen Delivery Method Room Air BMI result Body Mass Index 23.5 Labs 07/02/25 12:37 06/21/25 07:22 Labs: Laboratory Results - last 48 hr 07/02/25 12:37 WBC 7.3 RBC 4.43 L Hgb 13.7 L Hct 41.2 L MCV 93.0 MCH 30.9 MCHC 33.3 RDW 15.3 Plt Count 368 MPV 8.1 L Immature Gran % (Auto) 0.3 Neut % (Auto) 54.0 Lymph % (Auto) 30.6 Sierra % (Auto) 11.2 H Eos % (Auto) 3.4 Baso % (Auto) 0.5 Lymph # (Auto) 2.2 Sierra # (Auto) 0.8 Eos # (Auto) 0.3 Baso # (Auto) 0.0 Abs Immat Gran (auto) 0.02 Absolute Neuts (auto) 4.0 Absolute Nucleated RBC 0.000 Nucleated RBC % (auto) 0.0 Imaging Radiology Impressions: ITS Impressions Modified Barium Swallow 06/06/25 14:30 IMPRESSION: No evidence of laryngeal penetration or aspiration. Refer to the full speech therapy report to follow for further details. Electronically signed by: Gerry Tejeda MD 06/06/2025 03:25 PM EDT Medications Medications Current Medications Acetaminophen (Acetaminophen 325 Mg Tablet) 650 mg PO Q6H PRN PRN Reason: Pain Al Hydroxide/Mg Hydroxide (Magnesium Hydrox/Alum Hydrox 30 Ml Oral.Susp) 30 ml PO Q6H PRN PRN Reason: Heartburn/Nausea Apixaban (Apixaban 5 Mg Tablet) 5 mg PO BID SERENITY Last Admin: 07/04/25 08:41 Dose: Not Given Bisacodyl (Bisacodyl 10 Mg Supp.Rect) 10 mg RI DAILY PRN PRN Reason: Constipation Calcium Carbonate (Calcium Carbonate 750 Mg Tab.Chew) 750 mg PO Q8H PRN PRN Reason: GERD Clotrimazole (Clotrimazole 1 % Cream 15 Gm Tube) 1 appl TOPICAL TID [facility]; Protocol Last Admin: 07/04/25 08:41 Dose: Not Given Glucagon (Glucagon Hcl 1 Mg Vial) 1 mg IM ONCE PRN PRN Reason: HYPOGLYCEMIA Haloperidol Lactate (Haloperidol Lactate 5 Mg/Ml Vial) 5 mg IM BID PRN PRN Reason: if pt refuses Seroquel, per [place] Last Admin: 06/28/25 09:48 Dose: 5 mg Lacosamide (Lacosamide Oral Solution 100 Mg/10 Ml Solution) 100 mg PO BID [facility] Last Admin: 07/04/25 08:41 Dose: Not Given Cheval Carbonate (Cheval Carbonate Er 300 Mg Tablet.Er) 600 mg PO BEDTIME [facility] Last Admin: 07/03/25 20:51 Dose: Not Given Magnesium Hydroxide (Milk Of Magnesia 30 Ml Oral.Susp) 30 ml PO DAILY PRN PRN Reason: Constipation Memantine (Memantine Hcl 10 Mg Tablet) 20 mg PO BEDTIME [facility] Last Admin: 07/03/25 20:51 Dose: Not Given Midodrine (Midodrine Hcl 2.5 Mg Tablet) 7.5 mg PO TIDAC [facility] Last Admin: 07/04/25 08:40 Dose: Not Given Naloxone HCl (Naloxone Hcl Nasal 4 Mg [place]) 4 mg NOSTRILALT Q2M PRN PRN Reason: opiate overdose Omeprazole (Omeprazole/Na Bicarb Oral Susp 20 Mg/10 Ml Ud Cup) 20 mg PO DAILY@0630 [facility] Last Admin: 07/04/25 06:04 Dose: Not Given Polyethylene Glycol (Polyethylene Glycol 3350 17 Gm Powd.Pack) 17 gm PO DAILY PRN PRN Reason: Constipation Quetiapine Fumarate (Quetiapine Fumarate 50 Mg Tablet) 50 mg PO BID PRN PRN Reason: psychosis, agitation Last Admin: 06/27/25 14:03 Dose: 50 mg Quetiapine Fumarate (Quetiapine Fumarate 300 Mg Tablet) 300 mg PO BID [facility] Last Admin: 07/04/25 08:39 Dose: 300 mg Senna (Sennosides Oral Syrup 8.8 Mg/5 Ml) 17.6 mg PO DAILY PRN PRN Reason: Constipation Sodium Biphosphate/Sodium Phosphate (Sodium Phosphate,Sierra-Dibasic 133 Ml Enema) 118 ml RI DAILY PRN PRN Reason: Constipation Trazodone HCl (Trazodone Hcl 50 Mg Tablet) 50 mg PO BEDTIME MRX1 PRN PRN Reason: Insomnia Last Admin: 06/25/25 21:33 Dose: 50 mg Allergies Allergies Allergy/AdvReac Type Severity Reaction Status Date / Time dog dander Allergy Unknown Verified 06/04/25 06:34 mite-Dermatophagoides Allergy Unknown Verified 06/04/25 06:32 farinae, abhilash (dust mite - [place]) Assessment & Plan Assessment & Plan (1) Schizoaffective disorder, bipolar type: Status: Acute Code(s): F25.0 - Schizoaffective disorder, bipolar type (2) Seizure disorder: Status: Acute Code(s): G40.909 - Epilepsy, unspecified, not intractable, without status epilepticus (3) Eating disorder with ongoing treatment: Status: Acute Code(s): F50.9 - Eating disorder, unspecified (4) Gastrointestinal tube in situ: Status: Acute Code(s): Z93.1 - Gastrostomy status Plan 59-year-old male with schizoaffective disorder, bipolar type, eating disorder, federica and dementia, he also has a history of seizure disorder, COPD, DVT, pulmonary nodules in the hypotension. He is seen today for reports and chest discomfort. Headaches and chest discomfort Patient reports that he does not wish to have any testing, he feels fine Upset that he is being forced to be discharged to [facility]. He refuses vital signs He has a seizure disorder as well as history of DVT, has been refusing Vimpat and Eliquis consistently. He has also been refusing midodrine, lithium, memantine, omeprazole. Told me he soes not wish to take any medications from anyone affiliated with [facility]. Schizoaffective disorder, bipolar type/Bulimia/eating disorder/Federica/Dementia Treatment per psychiatric team Has a G-tube in place due to severe malnutrition Patient is angry and does not allow assessment Seizure disorder No recent seizure activity noted Refusing Vimpat COPD Stable, not on any medications DVT on Eliquis Refusing Eliquis Diagnosed on ultrasound on 03/26/[address] Not[address] on CT scan at [facility], we will need outpatient follow up Hypotension Continues on midodrine Thank you for allowing me to participate in the care of this patient. We will follow as needed, please notify medical provider with any acute changes or concerns. Patient admitted on a conditional voluntary again seen and evaluated 10:00. Patient appears to have schizoaffective disorder a marked eating disorder question delusional based leading to a G-tube but there is no clear history presently available regarding medication trials inpatient psychiatric history. He is on minimal doses of lithium and Seroquel and unclear why that is. Would benefit from medical history regarding G-tube what the treatment plan was regarding this and need medical and psychiatric records from [facility] and would also benefit records from [place]. Patient does have a guardian and Gan order will need to coordinate care check lithium level adjust to better therapeutic dose for irritability appears to be manic symptoms unclear why patient is not on antipsychotic dose of antipsychotic medication. Monitor response to treatment question discharge back to [facility]. Question dementia/cognitive impairment diagnosis check [place] review medical records 06/05/2025 Patient more psychotically preoccupied difficulty processing information records reviewed. Patient carries multiple diagnoses including schizophrenia in have significant grandiose and paranoid delusional beliefs but unclear why he is only on very low-dose Seroquel and on clozapine previously. Has only been treated with low-dose lithium. Given patient's history of psychosis, psychotic/eating daughter disorder requiring G-tube placement unclear why patient has such minimum doses of psychiatric medication question past side effects presently no psychiatric provider to coordinate with. Patient is more irritable and agitated psychotically preoccupied tried to explain to him also that he does have a guardian and that issues such as this will need to be addressed with his guardian. Barium swallow ordered to try to clarify if there is any dysphagia elements no obvious side effects were why patient is not currently on adequate antipsychotic treatment. Question asked obstruction with clozapine but unable to clarify at this time patient unable to clarify this history. Patient does have significant difficulty with reflecting on issues and absorbing information but memory seems significantly impaired. Monitor response to patient swallowing is on medication monitor weight unclear history of noncompliance this should be clarified 06/06/2025 Try and gather further data regarding patient's treatment history had been on Clozaril in the past unclear why discontinued Medical history not clear continue lower dose Seroquel and lithium at present 06/07 Team needing back up dosing Seroquel refusal. Haldol 2.5 mg IM bid prn per Gan parameters if pt refuses Seroquel Increase Seroquel to 75 mg bid Monitor for dysphagia 06/08 Continue tx 06/09/2025 Trying to clarify history the past year for this patient. Call placed to nurse practitioner at [facility]. Patient was quite psychotic irritable agitated 06/10/2025 Continue plan of care patient is still not able to elaborate history but no current adverse effects from current regimen noted. He is aware that he will most likely return to [facility] encourage compliance with lithium try to obtain therapeutic level 06/12/2025 Encourage compliance with lithium and Seroquel. Patient had been on clozapine and past was only on 25 mg Seroquel at [facility] unclear why he was not more robust only treated increase Seroquel as tolerated try and do mouth checks check for purging 06/20/25 Pt aware of transfer [facility] has been eating not purging taking seroquel 06/21 Patient says his mood is getting better... Denies any SI Patient says that he has a hard time resisting the urge to purge and that he has been doing so. He says that after he eats a meal he feels full. But he says he does not like that he does this and wants to stop purging more than Dr. Adhikari wants him to stop. He says he is working on it. Discussed lithium level which has not moved much and patient agrees to make dose long-acting and at bedtime to avoid accidentally purging medications 06/22 Patient very irritable today and would not discuss much with ad writer other than to say I told you and you would not listen... Now you'll will see what happens.. Patient would not explain what that means despite ad writer having no idea to what he was referring. Patient refusing medication and when ad writer went to discuss it he said he would not take lithium; patient said he did not want to talk to this ad writer any further Cheval level subtherapeutic, however patient says he is feeling better so will leave at current dose but change to long-acting and at bedtime 06/23/2025 Continue plan of care if patient accepts treatment including for his medical conditions which were explained to him will maintain current treatment plan if patient continues to be come more paranoid verbally aggressive consider filing for civil commitment and perhaps amendment of Gan if needed. Increase Seroquel as tolerated follow blood pressure and ANC 06/24/25 cont lithium seroquel monitor 06/25/25 inc seroquel as tolerated prozac held ? in irritability 06/26/25 inc seroquel restart fluox for ocd type sx 06/27/2025 Check lithium level in the morning patient reportedly has been taking lithium now for few days increase Seroquel as patient seems more vulnerable on going back to [facility] sometime next week denies thoughts of harm to self or others 06/28: no change today 06/29: repeat Li+ level for tomorrow 06/30/25 Pt refusing all meds exept lithium does not understand medical risks lith close to 0 inc seroquel as tolerated try and follow bp given he is refusing midodrine . Trying to coord with [facility] whether they can handle this level of care they did refuse pt for today. If pt stays will file for tx plan.will try for mei . 07/01/25 [facility] not an option at present with psychotic lability threats aggressive behavior inc seroquel 300 bid max of gan may need to restrain for cbc and vitals if seroquel not not effective will switch to invega. Monitor for dvt sx sz encourage tx acceptance 07/02/25 Pt somewhat less aggressive past 2 days ,monitor medical safety given refusal of anti sz meds and eloquis. Seroquel 300 bid pt tolerating ,will try and recoordinate with [facility] because wbc were close to 0 on cloz . 07/03/2025 Continue Seroquel 300 b.i.d. continue to encourage patient accepting his meds for medical issues although no negative consequences to this point vital signs stable no orthostasis ambulation not problematic has been in better control Issues had been reviewed with guardian have also reviewed possibility of H referral working with [facility] to try and transfer back as possible based on patient's behavior. If recurrence of aggressive behavior will change to Invega [place] stain also a possibility 07/04/2025 Patient has now not been threatening or aggressive for a number of days. He is on Seroquel a 300 b.i.d. and this appears to be helpful in decreasing paranoid reactivity and preoccupation with delusional material. Patient refusing medication for seizure and embolism stating he feels fine in his refusing to take at this time he is alert ambulating well adequate vital signs tolerating Seroquel. Recommend return to [facility] encourage acceptance of medical medications. Patient educated on: diagnosis, medication risk/benefits and medical condition Informed Consent: does not understand and further education needed Reason for continued inpatient stay Substantial Risk for: inability to function, rapid decompensation and med/psych decompensation Time Spent With Patient Time: Total time managing care of this patient today ____ minutes.
--- NOTE | 2025-07-04 18:20 | PC.NURSE ---
After dinner staff brought a broom and dust kearney to the milieu for cleaning when he saw the broom he became very agitated. He pushed the nurse out of the way and took the broom and put the broom in the trash and placed at end of hallway for security to come and take. We were able to deescalate him and settle him.
[2025-07-04 20:00] VITALS: RESP 16
[2025-07-05 08:11] VITALS: BP 117/69; PULSE 87; RESP 18; TEMP 36.6; O2SAT 98
--- NOTE | 2025-07-05 10:14 | HO.PSYCHPN ---
Subjective Subjective Date of Service: 07/05/25 Reason For Visit: psychosis federica Interim History: Patient states he feels well without taking his medical medications. H eis eating well has been allowing vital signs and denies purging. None confirmed or observed. Doesn't allow inspection of tube. Patient has been cooperative with Seroquel 300 b.i.d.. No significant threats or aggression Review of Systems Review of Systems Denies chest pain, shortness of breath or headache. Yes all other systems are reviewed and are negative Constitutional: Reports no additional constitutional complaints, Denies body ache(s), Denies chills, Denies fever(s), Denies headache(s) and Denies weakness Eyes: Reports no additional eye complaints and Denies change in vision Reports system reviewed and no additional complaints, except as documented, Denies dizziness, Denies headache(s), Denies nasal congestion, Denies nasal discharge and Denies neck pain Cardiovascular: Reports no additional cardiovascular complaints, Denies chest pain, Denies leg edema and Denies dyspnea Respiratory: Reports no additional respiratory complaints, Denies cough and Denies dyspnea Gastrointestinal: Reports no additional gastrointestinal complaints, Denies abdominal pain, Denies diarrhea, Denies nausea and Denies vomiting Genitourinary: Denies urinary incontinence Musculoskeletal: Reports no additional musculoskeletal complaints, Denies back pain, Denies arthralgias, Denies joint swelling, Denies neck pain, Denies numbness and Denies tingling Skin/Breast: Reports system reviewed and no additional complaints, except as docu and Denies rash Reports system reviewed and no additional complaints, except as documented, Denies Abnormal speech present, Denies dizziness, Denies headache(s), Denies numbness, Denies tingling and Denies weakness Mental Status Exam Mental Status Exam Narrative: States he does not have a guardian any longer cannot seem to take in info , refusing meds for seizures dvt prophylaxis for unclear reasons depite warning re medical consequences. mood irriable labile impulse control improved denies si hi very focused on what his ultimate discharge will be why he had been placed at [facility] to begin with. Patient given much education regarding his history over the past year including medical admissions can not seem to explain why he is refusing some of his medication and stating when he leaves he will take medication Patient Appearance: Unkempt Patient Orientation: Person, Place and Time Level of Consciousness: Alert Patient Behavior: Talkative and Suspicious Mood Description: Angry and Apprehensive Affect Description: Labile Patient Cognition Impaired: Yes Ability to Follow Directions: Good Speech Pattern: Spontaneous Speech Memory Description: Remote Impaired Diagnostics Vital Signs (24Hr): Vital Signs - 24 hr 07/04/25 20:00 07/05/25 08:11 Temperature 97.9 F Pulse Rate 87 Respiratory Rate 16 18 Blood Pressure 117/69 Pulse Oximetry 98 Oxygen Delivery Method Room Air BMI result Body Mass Index 23.5 Labs 07/02/25 12:37 06/21/25 07:22 Imaging Radiology Impressions: ITS Impressions Modified Barium Swallow 06/06/25 14:30 IMPRESSION: No evidence of laryngeal penetration or aspiration. Refer to the full speech therapy report to follow for further details. Electronically signed by: Gerry Tejeda MD 06/06/2025 03:25 PM EDT RP Medications Medications Current Medications Acetaminophen (Acetaminophen 325 Mg Tablet) 650 mg PO Q6H PRN PRN Reason: Pain Last Admin: 07/04/25 21:00 Dose: 650 mg Al Hydroxide/Mg Hydroxide (Magnesium Hydrox/Alum Hydrox 30 Ml Oral.Susp) 30 ml PO Q6H PRN PRN Reason: Heartburn/Nausea Apixaban (Apixaban 5 Mg Tablet) 5 mg PO BID [facility] Last Admin: 07/05/25 08:13 Dose: Not Given Bisacodyl (Bisacodyl 10 Mg Supp.Rect) 10 mg UT DAILY PRN PRN Reason: Constipation Calcium Carbonate (Calcium Carbonate 750 Mg Tab.Chew) 750 mg PO Q8H PRN PRN Reason: GERD Clotrimazole (Clotrimazole 1 % Cream 15 Gm Tube) 1 appl TOPICAL TID [facility]; Protocol Last Admin: 07/05/25 08:13 Dose: Not Given Glucagon (Glucagon Hcl 1 Mg Vial) 1 mg IM ONCE PRN PRN Reason: HYPOGLYCEMIA Haloperidol Lactate (Haloperidol Lactate 5 Mg/Ml Vial) 5 mg IM BID PRN PRN Reason: if pt refuses Seroquel, per Malik Last Admin: 06/28/25 09:48 Dose: 5 mg Lacosamide (Lacosamide Oral Solution 100 Mg/10 Ml Solution) 100 mg PO BID [facility] Last Admin: 07/05/25 08:13 Dose: Not Given Lawler Carbonate (Lawler Carbonate Er 300 Mg Tablet.Er) 600 mg PO BEDTIME [facility] Last Admin: 07/04/25 21:03 Dose: Not Given Magnesium Hydroxide (Milk Of Magnesia 30 Ml Oral.Susp) 30 ml PO DAILY PRN PRN Reason: Constipation Memantine (Memantine Hcl 10 Mg Tablet) 20 mg PO BEDTIME [facility] Last Admin: 07/04/25 21:03 Dose: Not Given Midodrine (Midodrine Hcl 2.5 Mg Tablet) 7.5 mg PO TIDAC [facility] Last Admin: 07/05/25 08:12 Dose: Not Given Naloxone HCl (Naloxone Hcl Nasal 4 Mg [place]) 4 mg NOSTRILALT Q2M PRN PRN Reason: opiate overdose Omeprazole (Omeprazole/Na Bicarb Oral Susp 20 Mg/10 Ml Ud Cup) 20 mg PO DAILY@0630 [facility] Last Admin: 07/05/25 06:45 Dose: Not Given Polyethylene Glycol (Polyethylene Glycol 3350 17 Gm Powd.Pack) 17 gm PO DAILY PRN PRN Reason: Constipation Quetiapine Fumarate (Quetiapine Fumarate 50 Mg Tablet) 50 mg PO BID PRN PRN Reason: psychosis, agitation Last Admin: 06/27/25 14:03 Dose: 50 mg Quetiapine Fumarate (Quetiapine Fumarate 300 Mg Tablet) 300 mg PO BID [facility] Last Admin: 07/05/25 08:12 Dose: 300 mg Senna (Sennosides Oral Syrup 8.8 Mg/5 Ml) 17.6 mg PO DAILY PRN PRN Reason: Constipation Sodium Biphosphate/Sodium Phosphate (Sodium Phosphate,[place]-Dibasic 133 Ml Enema) 118 ml UT DAILY PRN PRN Reason: Constipation Trazodone HCl (Trazodone Hcl 50 Mg Tablet) 50 mg PO BEDTIME MRX1 PRN PRN Reason: Insomnia Last Admin: 06/25/25 21:33 Dose: 50 mg Allergies Allergies Allergy/AdvReac Type Severity Reaction Status Date / Time dog dander Allergy Unknown Verified 06/04/25 06:34 mite-Dermatophagoides Allergy Unknown Verified 06/04/25 06:32 abhilash schuler (dust mite - [place]) Assessment & Plan Assessment & Plan (1) Schizoaffective disorder, bipolar type: Status: Acute Code(s): F25.0 - Schizoaffective disorder, bipolar type (2) Seizure disorder: Status: Acute Code(s): G40.909 - Epilepsy, unspecified, not intractable, without status epilepticus (3) Eating disorder with ongoing treatment: Status: Acute Code(s): F50.9 - Eating disorder, unspecified (4) Gastrointestinal tube in situ: Status: Acute Code(s): Z93.1 - Gastrostomy status Plan 59-year-old male with schizoaffective disorder, bipolar type, eating disorder, federica and dementia, he also has a history of seizure disorder, COPD, DVT, pulmonary nodules in the hypotension. He is seen today for reports and chest discomfort. Headaches and chest discomfort Patient reports that he does not wish to have any testing, he feels fine Upset that he is being forced to be discharged to [facility]. He refuses vital signs He has a seizure disorder as well as history of DVT, has been refusing Vimpat and Eliquis consistently. He has also been refusing midodrine, lithium, memantine, omeprazole. Told me he soes not wish to take any medications from anyone affiliated with [facility]. Schizoaffective disorder, bipolar type/Bulimia/eating disorder/Federica/Dementia Treatment per psychiatric team Has a G-tube in place due to severe malnutrition Patient is angry and does not allow assessment Seizure disorder No recent seizure activity noted Refusing Vimpat COPD Stable, not on any medications DVT on Eliquis Refusing Eliquis Diagnosed on ultrasound on 03/26/[address] Not[address] on CT scan at [facility], we will need outpatient follow up Hypotension Continues on midodrine Thank you for allowing me to participate in the care of this patient. We will follow as needed, please notify medical provider with any acute changes or concerns. Patient admitted on a conditional voluntary again seen and evaluated 10:00. Patient appears to have schizoaffective disorder a marked eating disorder question delusional based leading to a G-tube but there is no clear history presently available regarding medication trials inpatient psychiatric history. He is on minimal doses of lithium and Seroquel and unclear why that is. Would benefit from medical history regarding G-tube what the treatment plan was regarding this and need medical and [facility] and would also benefit records from [facility]. Patient does have a guardian and [facility] will need to coordinate care check lithium level adjust to better therapeutic dose for irritability appears to be manic symptoms unclear why patient is not on antipsychotic dose of antipsychotic medication. Monitor response to treatment question discharge back to [facility]. Question dementia/cognitive impairment diagnosis check [place] review medical records 06/05/2025 Patient more psychotically preoccupied difficulty processing information records reviewed. Patient carries multiple diagnoses including schizophrenia in have significant grandiose and paranoid delusional beliefs but unclear why he is only on very low-dose Seroquel and on clozapine previously. Has only been treated with low-dose lithium. Given patient's history of psychosis, psychotic/eating daughter disorder requiring G-tube placement unclear why patient has such minimum doses of psychiatric medication question past side effects presently no psychiatric provider to coordinate with. Patient is more irritable and agitated psychotically preoccupied tried to explain to him also that he does have a guardian and that issues such as this will need to be addressed with his guardian. Barium swallow ordered to try to clarify if there is any dysphagia elements no obvious side effects were why patient is not currently on adequate antipsychotic treatment. Question asked obstruction with clozapine but unable to clarify at this time patient unable to clarify this history. Patient does have significant difficulty with reflecting on issues and absorbing information but memory seems significantly impaired. Monitor response to patient swallowing is on medication monitor weight unclear history of noncompliance this should be clarified 06/06/2025 Try and gather further data regarding patient's treatment history had been on Clozaril in the past unclear why discontinued Medical history not clear continue lower dose Seroquel and lithium at present 06/07 Team needing back up dosing Seroquel refusal. Haldol 2.5 mg IM bid prn per Sharif parameters if pt refuses Seroquel Increase Seroquel to 75 mg bid Monitor for dysphagia 06/08 Continue tx 06/09/2025 Trying to clarify history the past year for this patient. Call placed to nurse practitioner at [facility]. Patient was quite psychotic irritable agitated 06/10/2025 Continue plan of care patient is still not able to elaborate history but no current adverse effects from current regimen noted. He is aware that he will most likely return to [facility] encourage compliance with lithium try to obtain therapeutic level 06/12/2025 Encourage compliance with lithium and Seroquel. Patient had been on clozapine and past was only on 25 mg Seroquel at [facility] unclear why he was not more robust only treated increase Seroquel as tolerated try and do mouth checks check for purging 06/20/25 Pt aware of transfer [facility] has been eating not purging taking seroquel 06/21 Patient says his mood is getting better... Denies any SI Patient says that he has a hard time resisting the urge to purge and that he has been doing so. He says that after he eats a meal he feels full. But he says he does not like that he does this and wants to stop purging more than Dr. Adhikari wants him to stop. He says he is working on it. Discussed lithium level which has not moved much and patient agrees to make dose long-acting and at bedtime to avoid accidentally purging medications 06/22 Patient very irritable today and would not discuss much with marketing copywriter other than to say I told you and you would not listen... Now you'll will see what happens.. Patient would not explain what that means despite marketing copywriter having no idea to what he was referring. Patient refusing medication and when marketing copywriter went to discuss it he said he would not take lithium; patient said he did not want to talk to this marketing copywriter any further Lawler level subtherapeutic, however patient says he is feeling better so will leave at current dose but change to long-acting and at bedtime 06/23/2025 Continue plan of care if patient accepts treatment including for his medical conditions which were explained to him will maintain current treatment plan if patient continues to be come more paranoid verbally aggressive consider filing for civil commitment and perhaps amendment of [place] if needed. Increase Seroquel as tolerated follow blood pressure and ANC 06/24/25 cont lithium seroquel monitor 06/25/25 inc seroquel as tolerated prozac held ? in irritability 06/26/25 inc seroquel restart fluox for ocd type sx 06/27/2025 Check lithium level in the morning patient reportedly has been taking lithium now for few days increase Seroquel as patient seems more vulnerable on going back to [facility] sometime next week denies thoughts of harm to self or others 06/28: no change today 06/29: repeat Li+ level for tomorrow 06/30/25 Pt refusing all meds exept lithium does not understand medical risks lith close to 0 inc seroquel as tolerated try and follow bp given he is refusing midodrine . Trying to coord with [facility] whether they can handle this level of care they did refuse pt for today. If pt stays will file for tx plan.will try for mei . 07/01/25 [facility] not an option at present with psychotic lability threats aggressive behavior inc seroquel 300 bid max of malik may need to restrain for cbc and vitals if seroquel not not effective will switch to invega. Monitor for dvt sx sz encourage tx acceptance 07/02/25 Pt somewhat less aggressive past 2 days ,monitor medical safety given refusal of anti sz meds and eloquis. Seroquel 300 bid pt tolerating ,will try and recoordinate with [facility] care because wbc were close to 0 on cloz . 07/03/2025 Continue Seroquel 300 b.i.d. continue to encourage patient accepting his meds for medical issues although no negative consequences to this point vital signs stable no orthostasis ambulation not problematic has been in better control Issues had been reviewed with guardian have also reviewed possibility of [facility] referral working with [facility] to try and transfer back as possible based on patient's behavior. If recurrence of aggressive behavior will change to Invega [place] stain also a possibility 07/04/2025 Patient has now not been threatening or aggressive for a number of days. He is on Seroquel a 300 b.i.d. and this appears to be helpful in decreasing paranoid reactivity and preoccupation with delusional material. Patient refusing medication for seizure and embolism stating he feels fine in his refusing to take at this time he is alert ambulating well adequate vital signs tolerating Seroquel. Recommend return to [facility] encourage acceptance of medical medications. 07/05: continue current management and treatment plan. Reason for continued inpatient stay Substantial Risk for: harm to self, rapid decompensation and med/psych decompensation Time Spent With Patient Time: Total time managing care of this patient today ____ minutes.
[2025-07-05 20:00] VITALS: BP 111/65; PULSE 80; RESP 16; TEMP 36.4; O2SAT 95
[2025-07-06 08:46] VITALS: BP 110/70; PULSE 92; RESP 18; TEMP 36.6; O2SAT 96
--- NOTE | 2025-07-06 15:46 | HO.PSYCHPN ---
Subjective Subjective Date of Service: 07/06/25 Reason For Visit: psychosis federica Interim History: Continues to refuse medications other than the Seroquel. He isolates in his room most of the day. Asking when he will be placed in a intermediate. He is eating well has been allowing vital signs and denies purging. No purging confirmed or observed. Patient has been cooperative with Seroquel 300 b.i.d.. No threats or aggression. Review of Systems Review of Systems Denies chest pain, shortness of breath or headache. Yes all other systems are reviewed and are negative Constitutional: Reports no additional constitutional complaints, Denies body ache(s), Denies chills, Denies fever(s), Denies headache(s) and Denies weakness Eyes: Reports no additional eye complaints and Denies change in vision Reports system reviewed and no additional complaints, except as documented, Denies dizziness, Denies headache(s), Denies nasal congestion, Denies nasal discharge and Denies neck pain Cardiovascular: Reports no additional cardiovascular complaints, Denies chest pain, Denies leg edema and Denies dyspnea Respiratory: Reports no additional respiratory complaints, Denies cough and Denies dyspnea Gastrointestinal: Reports no additional gastrointestinal complaints, Denies abdominal pain, Denies diarrhea, Denies nausea and Denies vomiting Genitourinary: Denies urinary incontinence Musculoskeletal: Reports no additional musculoskeletal complaints, Denies back pain, Denies arthralgias, Denies joint swelling, Denies neck pain, Denies numbness and Denies tingling Skin/Breast: Reports system reviewed and no additional complaints, except as docu and Denies rash Reports system reviewed and no additional complaints, except as documented, Denies Abnormal speech present, Denies dizziness, Denies headache(s), Denies numbness, Denies tingling and Denies weakness Mental Status Exam Mental Status Exam Narrative: States he does not have a guardian any longer cannot seem to take in info , refusing meds for seizures dvt prophylaxis for unclear reasons depite warning re medical consequences. mood irriable labile impulse control improved denies si hi very focused on what his ultimate discharge will be why he had been placed at [facility] to begin with. Patient given much education regarding his history over the past year including medical admissions can not seem to explain why he is refusing some of his medication and stating when he leaves he will take medication Patient Appearance: Unkempt Patient Orientation: Person, Place and Time Level of Consciousness: Alert Patient Behavior: Talkative and Suspicious Mood Description: Angry and Apprehensive Affect Description: Labile Patient Cognition Impaired: Yes Ability to Follow Directions: Good Speech Pattern: Spontaneous Speech Memory Description: Remote Impaired Diagnostics Vital Signs (24Hr): Vital Signs - 24 hr 07/05/25 20:00 07/06/25 08:46 Temperature 97.6 F 97.9 F Pulse Rate 80 92 Respiratory Rate 16 18 Blood Pressure 111/65 110/70 Pulse Oximetry 95 96 Oxygen Delivery Method Room Air Room Air BMI result Body Mass Index 23.5 Labs 07/02/25 12:37 06/21/25 07:22 Imaging Radiology Impressions: ITS Impressions Modified Barium Swallow 06/06/25 14:30 IMPRESSION: No evidence of laryngeal penetration or aspiration. Refer to the full speech therapy report to follow for further details. Electronically signed by: Gerry Tejeda MD 06/06/2025 03:25 PM EDT RP Medications Medications Current Medications Acetaminophen (Acetaminophen 325 Mg Tablet) 650 mg PO Q6H PRN PRN Reason: Pain Last Admin: 07/04/25 21:00 Dose: 650 mg Al Hydroxide/Mg Hydroxide (Magnesium Hydrox/Alum Hydrox 30 Ml Oral.Susp) 30 ml PO Q6H PRN PRN Reason: Heartburn/Nausea Apixaban (Apixaban 5 Mg Tablet) 5 mg PO BID [facility] Last Admin: 07/06/25 08:32 Dose: Not Given Bisacodyl (Bisacodyl 10 Mg Supp.Rect) 10 mg OR DAILY PRN PRN Reason: Constipation Calcium Carbonate (Calcium Carbonate 750 Mg Tab.Chew) 750 mg PO Q8H PRN PRN Reason: GERD Clotrimazole (Clotrimazole 1 % Cream 15 Gm Tube) 1 appl TOPICAL TID [facility]; Protocol Last Admin: 07/06/25 08:32 Dose: Not Given Glucagon (Glucagon Hcl 1 Mg Vial) 1 mg IM ONCE PRN PRN Reason: HYPOGLYCEMIA Haloperidol Lactate (Haloperidol Lactate 5 Mg/Ml Vial) 5 mg IM BID PRN PRN Reason: if pt refuses Seroquel, ilda Sharif Last Admin: 06/28/25 09:48 Dose: 5 mg Lacosamide (Lacosamide Oral Solution 100 Mg/10 Ml Solution) 100 mg PO BID [facility] Last Admin: 07/06/25 08:32 Dose: Not Given Brinson Carbonate (Brinson Carbonate Er 300 Mg Tablet.Er) 600 mg PO BEDTIME [facility] Last Admin: 07/05/25 21:15 Dose: Not Given Magnesium Hydroxide (Milk Of Magnesia 30 Ml Oral.Susp) 30 ml PO DAILY PRN PRN Reason: Constipation Memantine (Memantine Hcl 10 Mg Tablet) 20 mg PO BEDTIME [facility] Last Admin: 07/05/25 21:15 Dose: Not Given Midodrine (Midodrine Hcl 2.5 Mg Tablet) 7.5 mg PO TIDAC [facility] Last Admin: 07/06/25 11:43 Dose: Not Given Naloxone HCl (Naloxone Hcl Nasal 4 Mg [place]) 4 mg NOSTRILALT Q2M PRN PRN Reason: opiate overdose Omeprazole (Omeprazole/Na Bicarb Oral Susp 20 Mg/10 Ml Ud Cup) 20 mg PO DAILY@0630 [facility] Last Admin: 07/06/25 06:13 Dose: Not Given Polyethylene Glycol (Polyethylene Glycol 3350 17 Gm Powd.Pack) 17 gm PO DAILY PRN PRN Reason: Constipation Quetiapine Fumarate (Quetiapine Fumarate 50 Mg Tablet) 50 mg PO BID PRN PRN Reason: psychosis, agitation Last Admin: 06/27/25 14:03 Dose: 50 mg Quetiapine Fumarate (Quetiapine Fumarate 300 Mg Tablet) 300 mg PO BID [facility] Last Admin: 07/06/25 08:28 Dose: 300 mg Senna (Sennosides Oral Syrup 8.8 Mg/5 Ml) 17.6 mg PO DAILY PRN PRN Reason: Constipation Sodium Biphosphate/Sodium Phosphate (Sodium Phosphate,[place]-Dibasic 133 Ml Enema) 118 ml OR DAILY PRN PRN Reason: Constipation Trazodone HCl (Trazodone Hcl 50 Mg Tablet) 50 mg PO BEDTIME MRX1 PRN PRN Reason: Insomnia Last Admin: 06/25/25 21:33 Dose: 50 mg Allergies Allergies Allergy/AdvReac Type Severity Reaction Status Date / Time dog dander Allergy Unknown Verified 06/04/25 06:34 mite-Dermatophagoides Allergy Unknown Verified 06/04/25 06:32 farinae, abhialsh (dust mite - [place]) Assessment & Plan Assessment & Plan (1) Schizoaffective disorder, bipolar type: Status: Acute Code(s): F25.0 - Schizoaffective disorder, bipolar type (2) Seizure disorder: Status: Acute Code(s): G40.909 - Epilepsy, unspecified, not intractable, without status epilepticus (3) Eating disorder with ongoing treatment: Status: Acute Code(s): F50.9 - Eating disorder, unspecified (4) Gastrointestinal tube in situ: Status: Acute Code(s): Z93.1 - Gastrostomy status Plan 59-year-old male with schizoaffective disorder, bipolar type, eating disorder, federica and dementia, he also has a history of seizure disorder, COPD, DVT, pulmonary nodules in the hypotension. He is seen today for reports and chest discomfort. Headaches and chest discomfort Patient reports that he does not wish to have any testing, he feels fine Upset that he is being forced to be discharged to [facility]. He refuses vital signs He has a seizure disorder as well as history of DVT, has been refusing Vimpat and Eliquis consistently. He has also been refusing midodrine, lithium, memantine, omeprazole. Told me he soes not wish to take any medications from anyone affiliated with [facility]. Schizoaffective disorder, bipolar type/Bulimia/eating disorder/Federica/Dementia Treatment per psychiatric team Has a G-tube in place due to severe malnutrition Patient is angry and does not allow assessment Seizure disorder No recent seizure activity noted Refusing Vimpat COPD Stable, not on any medications DVT on Eliquis Refusing Eliquis Diagnosed on ultrasound on 03/26/[address] Not[address] on CT scan at [facility], we will need outpatient follow up Hypotension Continues on midodrine Thank you for allowing me to participate in the care of this patient. We will follow as needed, please notify medical provider with any acute changes or concerns. Patient admitted on a conditional voluntary again seen and evaluated 10:00. Patient appears to have schizoaffective disorder a marked eating disorder question delusional based leading to a G-tube but there is no clear history presently available regarding medication trials inpatient psychiatric history. He is on minimal doses of lithium and Seroquel and unclear why that is. Would benefit from medical history regarding G-tube what the treatment plan was regarding this and need medical and psychiatric records from [facility] and would also benefit records from [place]. Patient does have a guardian and Sharif order will need to coordinate care check lithium level adjust to better therapeutic dose for irritability appears to be manic symptoms unclear why patient is not on antipsychotic dose of antipsychotic medication. Monitor response to treatment question discharge back to [facility]. Question dementia/cognitive impairment diagnosis check [place] review medical records 06/05/2025 Patient more psychotically preoccupied difficulty processing information records reviewed. Patient carries multiple diagnoses including schizophrenia in have significant grandiose and paranoid delusional beliefs but unclear why he is only on very low-dose Seroquel and on clozapine previously. Has only been treated with low-dose lithium. Given patient's history of psychosis, psychotic/eating daughter disorder requiring G-tube placement unclear why patient has such minimum doses of psychiatric medication question past side effects presently no psychiatric provider to coordinate with. Patient is more irritable and agitated psychotically preoccupied tried to explain to him also that he does have a guardian and that issues such as this will need to be addressed with his guardian. Barium swallow ordered to try to clarify if there is any dysphagia elements no obvious side effects were why patient is not currently on adequate antipsychotic treatment. Question asked obstruction with clozapine but unable to clarify at this time patient unable to clarify this history. Patient does have significant difficulty with reflecting on issues and absorbing information but memory seems significantly impaired. Monitor response to patient swallowing is on medication monitor weight unclear history of noncompliance this should be clarified 06/06/2025 Try and gather further data regarding patient's treatment history had been on Clozaril in the past unclear why discontinued Medical history not clear continue lower dose Seroquel and lithium at present 06/07 Team needing back up dosing Seroquel refusal. Haldol 2.5 mg IM bid prn per Sharif parameters if pt refuses Seroquel Increase Seroquel to 75 mg bid Monitor for dysphagia 06/08 Continue tx 06/09/2025 Trying to clarify history the past year for this patient. Call placed to nurse practitioner at [facility]. Patient was quite psychotic irritable agitated 06/10/2025 Continue plan of care patient is still not able to elaborate history but no current adverse effects from current regimen noted. He is aware that he will most likely return to [facility] encourage compliance with lithium try to obtain therapeutic level 06/12/2025 Encourage compliance with lithium and Seroquel. Patient had been on clozapine and past was only on 25 mg Seroquel at [facility] unclear why he was not more robust only treated increase Seroquel as tolerated try and do mouth checks check for purging 06/20/25 Pt aware of [facility] has been eating not purging taking seroquel 06/21 Patient says his mood is getting better... Denies any SI Patient says that he has a hard time resisting the urge to purge and that he has been doing so. He says that after he eats a meal he feels full. But he says he does not like that he does this and wants to stop purging more than Dr. Adhikari wants him to stop. He says he is working on it. Discussed lithium level which has not moved much and patient agrees to make dose long-acting and at bedtime to avoid accidentally purging medications 06/22 Patient very irritable today and would not discuss much with commercial real estate underwriter other than to say I told you and you would not listen... Now you'll will see what happens.. Patient would not explain what that means despite commercial real estate underwriter having no idea to what he was referring. Patient refusing medication and when commercial real estate underwriter went to discuss it he said he would not take lithium; patient said he did not want to talk to this commercial real estate underwriter any further Brinson level subtherapeutic, however patient says he is feeling better so will leave at current dose but change to long-acting and at bedtime 06/23/2025 Continue plan of care if patient accepts treatment including for his medical conditions which were explained to him will maintain current treatment plan if patient continues to be come more paranoid verbally aggressive consider filing for civil commitment and perhaps amendment of Sharif if needed. Increase Seroquel as tolerated follow blood pressure and ANC 06/24/25 cont lithium seroquel monitor 06/25/25 inc seroquel as tolerated prozac held ? in irritability 06/26/25 inc seroquel restart fluox for ocd type sx 06/27/2025 Check lithium level in the morning patient reportedly has been taking lithium now for few days increase Seroquel as patient seems more vulnerable on going back to [facility] sometime next week denies thoughts of harm to self or others 06/28: no change today 9/14: repeat Li+ level for tomorrow 06/30/25 Pt refusing all meds exept lithium does not understand medical risks lith close to 0 inc seroquel as tolerated try and follow bp given he is refusing midodrine . Trying to coord [facility] whether they can handle this level of care they did refuse pt for today. If pt stays will file for tx plan.will try for mei . 07/01/25 [facility] not an option at present with psychotic lability threats aggressive behavior inc seroquel 300 bid max of malik may need to restrain for cbc and vitals if seroquel not not effective will switch to invega. Monitor for dvt sx sz encourage tx acceptance 07/02/25 Pt somewhat less aggressive past 2 days ,monitor medical safety given refusal of anti sz meds and eloquis. Seroquel 300 bid pt tolerating ,will try and recoordinate with [facility] care because wbc were close to 0 on cloz . 07/03/2025 Continue Seroquel 300 b.i.d. continue to encourage patient accepting his meds for medical issues although no negative consequences to this point vital signs stable no orthostasis ambulation not problematic has been in better control Issues had been reviewed with guardian have also reviewed possibility of H referral working with [facility] to try and transfer back as possible based on patient's behavior. If recurrence of aggressive behavior will change to Invega [place] stain also a possibility 07/04/2025 Patient has now not been threatening or aggressive for a number of days. He is on Seroquel a 300 b.i.d. and this appears to be helpful in decreasing paranoid reactivity and preoccupation with delusional material. Patient refusing medication for seizure and embolism stating he feels fine in his refusing to take at this time he is alert ambulating well adequate vital signs tolerating Seroquel. Recommend return to [facility] encourage acceptance of medical medications. 07/05: continue current management and treatment plan. 07/06: continue current management and treatment plan. Reason for continued inpatient stay Substantial Risk for: inability to function and rapid decompensation Time Spent With Patient Time: Total time managing care of this patient today ____ minutes.
[2025-07-06 20:00] VITALS: BP 120/70; PULSE 82; RESP 16; TEMP 36.2; O2SAT 97
[2025-07-07 07:55] VITALS: BP 115/79; PULSE 90; RESP 18; TEMP 36.6; O2SAT 95
[2025-07-07] MEDS: diazePAM 10 MG/2 ML CARTRIDGE IM (09:30)
--- NOTE | 2025-07-07 12:20 | HO.BHRESTREX ---
Behavioral Restraint Exam Behavioral Health Restraint Exam Type of Restraint: Medication Reason for Restraint: Substantial Risk and Substantial Risk of Harm to Others Medical Concerns for Restraint: No medical concerns, pt w/o acute inj / no noted resp/VS abnormalities Behavioral Assessment / Plan: Concerns / further recommendations, explain below: (Patient increasingly escalated in delusional agitated manner. We will be looking at alternative antipsychotic) Comment: Please note patient seen examined and interviewed at 09:45 07/07/2025 The patient had been increasingly agitated early this morning case was reviewed with nursing staff. Patient followed civil rights representative into another patient's room took off his shirt was verbally threatening yelling and threatening to staff and peers.
--- NOTE | 2025-07-07 12:36 | PC.NURSE ---
pt verbally aggressive, with staff, pt was following the housekeeper home into other patients room and took his shirt off, started yelling and threatening her. He came down the magana and started threatening other patients and staff. IM Haldol 5mg and Valium 10mg given with good effect. patients guardian notified. Patient resting comfortable in bed.
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
[2025-07-07 19:40] VITALS: BP 119/71; PULSE 79; RESP 16; TEMP 35.7; O2SAT 96
[2025-07-08 09:16] VITALS: BP 109/70; PULSE 79; RESP 16; TEMP 36.8; O2SAT 97
--- NOTE | 2025-07-08 16:28 | HO.PSYCHPN ---
Subjective Subjective Date of Service: 07/08/25 Reason For Visit: psychosis federica Subjective Notes: Conditional Voluntary Guardianship: Yes Interim History: pt refusing seroquel and other medication and phy examination. Pt eating drinking consideration of transfer to adult unit. Remains isolative minmally interactive Medication Compliance: No Attending Groups: No Mental Status Exam Mental Status Exam Narrative: Patient seen in his room he is cooperative to the interview casually dressed. Less aggressive and labile than previously patient unable to really explain behavior regarding cleaning they concerns regarding air quality limited insight. No SI no HI no hallucinations does not explain why he is not accepting medication both psychiatrically and for medical reasons difficulty taking in information regarding risks remains focused on eventual discharge does not seem to understand his medical or psychiatric diagnoses was not combative with this news writer Diagnostics Vital Signs (24Hr): Vital Signs - 24 hr 07/07/25 19:40 07/08/25 09:16 Temperature 96.3 F L 98.2 F Pulse Rate 79 79 Respiratory Rate 16 16 Blood Pressure 119/71 109/70 Pulse Oximetry 96 97 Oxygen Delivery Method Room Air Room Air BMI result Body Mass Index 23.5 Labs 07/02/25 12:37 06/21/25 07:22 Imaging Radiology Impressions: ITS Impressions Modified Barium Swallow 06/06/25 14:30 IMPRESSION: No evidence of laryngeal penetration or aspiration. Refer to the full speech therapy report to follow for further details. Electronically signed by: Gerry Tejeda MD 06/06/2025 03:25 PM EDT RP Medications Medications Current Medications Acetaminophen (Acetaminophen 325 Mg Tablet) 650 mg PO Q6H PRN PRN Reason: Pain Last Admin: 07/04/25 21:00 Dose: 650 mg Al Hydroxide/Mg Hydroxide (Magnesium Hydrox/Alum Hydrox 30 Ml Oral.Susp) 30 ml PO Q6H PRN PRN Reason: Heartburn/Nausea Apixaban (Apixaban 5 Mg Tablet) 5 mg PO BID SERENITY Last Admin: 07/08/25 09:21 Dose: Not Given Bisacodyl (Bisacodyl 10 Mg Supp.Rect) 10 mg SD DAILY PRN PRN Reason: Constipation Calcium Carbonate (Calcium Carbonate 750 Mg Tab.Chew) 750 mg PO Q8H PRN PRN Reason: GERD Clotrimazole (Clotrimazole 1 % Cream 15 Gm Tube) 1 appl TOPICAL TID SERENITY; Protocol Last Admin: 07/08/25 15:50 Dose: Not Given Glucagon (Glucagon Hcl 1 Mg Vial) 1 mg IM ONCE PRN PRN Reason: HYPOGLYCEMIA Haloperidol Lactate (Haloperidol Lactate 5 Mg/Ml Vial) 5 mg IM BID PRN PRN Reason: if pt refuses Seroquel, ilda Sharif Last Admin: 07/08/25 09:34 Dose: 5 mg Lacosamide (Lacosamide Oral Solution 100 Mg/10 Ml Solution) 100 mg PO BID [facility] Last Admin: 07/08/25 09:21 Dose: Not Given Scio Carbonate (Scio Carbonate Er 300 Mg Tablet.Er) 600 mg PO BEDTIME [facility] Last Admin: 07/07/25 19:47 Dose: Not Given Magnesium Hydroxide (Milk Of Magnesia 30 Ml Oral.Susp) 30 ml PO DAILY PRN PRN Reason: Constipation Memantine (Memantine Hcl 10 Mg Tablet) 20 mg PO BEDTIME [facility] Last Admin: 07/07/25 19:45 Dose: Not Given Midodrine (Midodrine Hcl 2.5 Mg Tablet) 7.5 mg PO TIDAC [facility] Last Admin: 07/08/25 15:50 Dose: Not Given Naloxone HCl (Naloxone Hcl Nasal 4 Mg Liscomb) 4 mg NOSTRILALT Q2M PRN PRN Reason: opiate overdose Omeprazole (Omeprazole/Na Bicarb Oral Susp 20 Mg/10 Ml Ud Cup) 20 mg PO DAILY@0630 [facility] Last Admin: 07/08/25 06:19 Dose: Not Given Polyethylene Glycol (Polyethylene Glycol 3350 17 Gm Powd.Pack) 17 gm PO DAILY PRN PRN Reason: Constipation Quetiapine Fumarate (Quetiapine Fumarate 50 Mg Tablet) 50 mg PO BID PRN PRN Reason: psychosis, agitation Last Admin: 06/27/25 14:03 Dose: 50 mg Quetiapine Fumarate (Quetiapine Fumarate 300 Mg Tablet) 300 mg PO BID [facility] Last Admin: 07/08/25 09:34 Dose: Not Given Risperidone (Risperidone 1 Mg Tablet) 1 mg PO BEDTIME [facility] Senna (Sennosides Oral Syrup 8.8 Mg/5 Ml) 17.6 mg PO DAILY PRN PRN Reason: Constipation Sodium Biphosphate/Sodium Phosphate (Sodium Phosphate,Weber-Dibasic 133 Ml Enema) 118 ml SD DAILY PRN PRN Reason: Constipation Trazodone HCl (Trazodone Hcl 50 Mg Tablet) 50 mg PO BEDTIME MRX1 PRN PRN Reason: Insomnia Last Admin: 06/25/25 21:33 Dose: 50 mg Allergies Allergies Allergy/AdvReac Type Severity Reaction Status Date / Time dog dander Allergy Unknown Verified 06/04/25 06:34 mite-Dermatophagoides Allergy Unknown Verified 06/04/25 06:32 farinae, abhilash (dust mite - [place]) Assessment & Plan Assessment & Plan (1) Schizoaffective disorder, bipolar type: Status: Acute Code(s): F25.0 - Schizoaffective disorder, bipolar type (2) Seizure disorder: Status: Acute Code(s): G40.909 - Epilepsy, unspecified, not intractable, without status epilepticus (3) Eating disorder with ongoing treatment: Status: Acute Code(s): F50.9 - Eating disorder, unspecified (4) Gastrointestinal tube in situ: Status: Acute Code(s): Z93.1 - Gastrostomy status Plan 59-year-old male with schizoaffective disorder, bipolar type, eating disorder, federica and dementia, he also has a history of seizure disorder, COPD, DVT, pulmonary nodules in the hypotension. He is seen today for reports and chest discomfort. Headaches and chest discomfort Patient reports that he does not wish to have any testing, he feels fine Upset that he is being forced to be discharged to [facility]. He refuses vital signs He has a seizure disorder as well as history of DVT, has been refusing Vimpat and Eliquis consistently. He has also been refusing midodrine, lithium, memantine, omeprazole. Told me he soes not wish to take any medications from anyone affiliated with [facility]. Schizoaffective disorder, bipolar type/Bulimia/eating disorder/Federica/Dementia Treatment per psychiatric team Has a G-tube in place due to severe malnutrition Patient is angry and does not allow assessment Seizure disorder No recent seizure activity noted Refusing Vimpat COPD Stable, not on any medications DVT on Eliquis Refusing Eliquis Diagnosed on ultrasound on 03/26/[address] Not[address] on CT scan at [facility], we will need outpatient follow up Hypotension Continues on midodrine Thank you for allowing me to participate in the care of this patient. We will follow as needed, please notify medical provider with any acute changes or concerns. Patient admitted on a conditional voluntary again seen and evaluated 10:00. Patient appears to have schizoaffective disorder a marked eating disorder question delusional based leading to a G-tube but there is no clear history presently available regarding medication trials inpatient psychiatric history. He is on minimal doses of lithium and Seroquel and unclear why that is. Would benefit from medical history regarding G-tube what the treatment plan was regarding this and need medical and psychiatric records [facility] and would also benefit records from [facility]. Patient does have a guardian and Sharif order will need to coordinate care check lithium level adjust to better therapeutic dose for irritability appears to be manic symptoms unclear why patient is not on antipsychotic dose of antipsychotic medication. Monitor response to treatment question discharge back to [facility]. Question dementia/cognitive impairment diagnosis check [facility] review medical records 06/05/2025 Patient more psychotically preoccupied difficulty processing information records reviewed. Patient carries multiple diagnoses including schizophrenia in have significant grandiose and paranoid delusional beliefs but unclear why he is only on very low-dose Seroquel and on clozapine previously. Has only been treated with low-dose lithium. Given patient's history of psychosis, psychotic/eating daughter disorder requiring G-tube placement unclear why patient has such minimum doses of psychiatric medication question past side effects presently no psychiatric provider to coordinate with. Patient is more irritable and agitated psychotically preoccupied tried to explain to him also that he does have a guardian and that issues such as this will need to be addressed with his guardian. Barium swallow ordered to try to clarify if there is any dysphagia elements no obvious side effects were why patient is not currently on adequate antipsychotic treatment. Question asked obstruction with clozapine but unable to clarify at this time patient unable to clarify this history. Patient does have significant difficulty with reflecting on issues and absorbing information but memory seems significantly impaired. Monitor response to patient swallowing is on medication monitor weight unclear history of noncompliance this should be clarified 06/06/2025 Try and gather further data regarding patient's treatment history had been on Clozaril in the past unclear why discontinued Medical history not clear continue lower dose Seroquel and lithium at present 06/07 Team needing back up dosing Seroquel refusal. Haldol 2.5 mg IM bid prn per Sharif parameters if pt refuses Seroquel Increase Seroquel to 75 mg bid Monitor for dysphagia 06/08 Continue tx 06/09/2025 Trying to clarify history the past year for this patient. Call placed to nurse practitioner at [facility]. Patient was quite psychotic irritable agitated 06/10/2025 Continue plan of care patient is still not able to elaborate history but no current adverse effects from current regimen noted. He is aware that he will most likely return to [facility] encourage compliance with lithium try to obtain therapeutic level 06/12/2025 Encourage compliance with lithium and Seroquel. Patient had been on clozapine and past was only on 25 mg Seroquel at [facility] unclear why he was not more robust only treated increase Seroquel as tolerated try and do mouth checks check for purging 06/20/25 Pt aware of transfer back to [facility] has been eating not purging taking seroquel 06/21 Patient says his mood is getting better... Denies any SI Patient says that he has a hard time resisting the urge to purge and that he has been doing so. He says that after he eats a meal he feels full. But he says he does not like that he does this and wants to stop purging more than Dr. Adhikari wants him to stop. He says he is working on it. Discussed lithium level which has not moved much and patient agrees to make dose long-acting and at bedtime to avoid accidentally purging medications 06/22 Patient very irritable today and would not discuss much with news writer other than to say I told you and you would not listen... Now you'll will see what happens.. Patient would not explain what that means despite news writer having no idea to what he was referring. Patient refusing medication and when news writer went to discuss it he said he would not take lithium; patient said he did not want to talk to this news writer any further Scio level subtherapeutic, however patient says he is feeling better so will leave at current dose but change to long-acting and at bedtime 06/23/2025 Continue plan of care if patient accepts treatment including for his medical conditions which were explained to him will maintain current treatment plan if patient continues to be come more paranoid verbally aggressive consider filing for civil commitment and perhaps amendment of Sharif if needed. Increase Seroquel as tolerated follow blood pressure and ANC 06/24/25 cont lithium seroquel monitor 06/25/25 inc seroquel as tolerated prozac held ? in irritability 06/26/25 inc seroquel restart fluox for ocd type sx 06/27/2025 Check lithium level in the morning patient reportedly has been taking lithium now for few days increase Seroquel as patient seems more vulnerable on going back to [facility] sometime next week denies thoughts of harm to self or others 06/28: no change today 06/29: repeat Li+ level for tomorrow 06/30/25 Pt refusing all meds exept lithium does not understand medical risks lith close to 0 inc seroquel as tolerated try and follow bp given he is refusing midodrine . Trying to coord with [facility] whether they can handle this level of care they did refuse pt for today. If pt stays will file for tx plan.will try for mei . 07/01/25 [facility] not an option at present with psychotic lability threats aggressive behavior inc seroquel 300 bid max of malik may need to restrain for cbc and vitals if seroquel not not effective will switch to invega. Monitor for dvt sx sz encourage tx acceptance 07/02/25 Pt somewhat less aggressive past 2 days ,monitor medical safety given refusal of anti sz meds and eloquis. Seroquel 300 bid pt tolerating ,will try and recoordinate with [facility] care because wbc were close to 0 on cloz . 07/03/2025 Continue Seroquel 300 b.i.d. continue to encourage patient accepting his meds for medical issues although no negative consequences to this point vital signs stable no orthostasis ambulation not problematic has been in better control Issues had been reviewed with guardian have also reviewed possibility of H referral working with [facility] to try and transfer back as possible based on patient's behavior. If recurrence of aggressive behavior will change to Invega Demond stain also a possibility 07/04/2025 Patient has now not been threatening or aggressive for a number of days. He is on Seroquel a 300 b.i.d. and this appears to be helpful in decreasing paranoid reactivity and preoccupation with delusional material. Patient refusing medication for seizure and embolism stating he feels fine in his refusing to take at this time he is alert ambulating well adequate vital signs tolerating Seroquel. Recommend return to [facility] encourage acceptance of medical medications. 07/05: continue current management and treatment plan. 07/06: continue current management and treatment plan. 07/08/2025 Taper Seroquel start Risperdal follow CBC history of neutropenia Seroquel 300 b.i.d. max dose on Sharif or was not effective for psychosis or aggression most likely would eventually benefit from Invega sustain a which is on the Sharif order Consider transfer to adult unit especially if patient continues to be aggressive on geriatric unit Will need physical examination of G-tube monitor CBC Reason for continued inpatient stay Substantial Risk for: harm to others, inability to function and med/psych decompensation Time Spent With Patient Time: Total time managing care of this patient today 35____ minutes.
[2025-07-08 20:00] VITALS: BP 122/75; PULSE 89; RESP 18; TEMP 36.5; O2SAT 97
[2025-07-08] MEDS: Clotrimazole 1 % Cream 15 GM TUBE 1 APPL TOPICAL (20:13)
[2025-07-09 08:35] VITALS: BP 118/75; PULSE 87; RESP 18; TEMP 36.8; O2SAT 97
--- NOTE | 2025-07-09 09:31 | P.PNPSI_ITS ---
Subjective Subjective Date of Service: 07/09/25 Reason For Visit: psychosis federica Subjective Notes: Conditional Voluntary Interim History: Patient found in his room with a sitter. He is alert and oriented to person, place, and time. He notes that he has been eating and sleeping well. He has been taking his medications as prescribed. Per nursing, patient is much less agitated today and took his Seroquel this morning. He denies SI/HI/AH/VH. Medication Compliance: Yes Side effects from medications: No Attending Groups: Intermittent Review of Systems Acute medical concerns: No Review of Systems Review of Systems Yes all other systems are reviewed and are negative Mental Status Exam Mental Status Exam Narrative: Appearance: Casually dressed, adequate hygiene Behavior: Calm and cooperative throughout the interview. Eye contact is appropriate, and there are no signs of psychomotor agitation or retardation Speech: Normal volume and prosody Thought process: Logical and goal-directed Thought content: Future oriented no self-harming thoughts, confused at times Mood: Euthymic Affect: Constricted SI:denies HI:denies VH/AH:none Delusions: None Insight/judgment: Fair insight and judgment Memory/cog: Alert, oriented x 3. grossly intact to conversational testing Diagnostics Vital Signs (24Hr): Vital Signs - 24 hr 07/08/25 20:00 07/09/25 08:35 Temperature 97.7 F 98.2 F Pulse Rate 89 87 Respiratory Rate 18 18 Blood Pressure 122/75 118/75 Pulse Oximetry 97 97 Oxygen Delivery Method Room Air Room Air BMI result Body Mass Index 23.5 Labs 07/02/25 12:37 06/21/25 07:22 Imaging Radiology Impressions: ITS Impressions Modified Barium Swallow 06/06/25 14:30 IMPRESSION: No evidence of laryngeal penetration or aspiration. Refer to the full speech therapy report to follow for further details. Electronically signed by: Gerry Tejeda MD 06/06/2025 03:25 PM EDT RP Medications Medications Current Medications Acetaminophen (Acetaminophen 325 Mg Tablet) 650 mg PO Q6H PRN PRN Reason: Pain Last Admin: 07/04/25 21:00 Dose: 650 mg Al Hydroxide/Mg Hydroxide (Magnesium Hydrox/Alum Hydrox 30 Ml Oral.Susp) 30 ml PO Q6H PRN PRN Reason: Heartburn/Nausea Apixaban (Apixaban 5 Mg Tablet) 5 mg PO BID [facility] Last Admin: 07/09/25 08:40 Dose: Not Given Bisacodyl (Bisacodyl 10 Mg Supp.Rect) 10 mg [place] DAILY PRN PRN Reason: Constipation Calcium Carbonate (Calcium Carbonate 750 Mg Tab.Chew) 750 mg PO Q8H PRN PRN Reason: GERD Clotrimazole (Clotrimazole 1 % Cream 15 Gm Tube) 1 appl TOPICAL TID [facility]; Protocol Last Admin: 07/09/25 08:40 Dose: Not Given Glucagon (Glucagon Hcl 1 Mg Vial) 1 mg IM ONCE PRN PRN Reason: HYPOGLYCEMIA Haloperidol Lactate (Haloperidol Lactate 5 Mg/Ml Vial) 5 mg IM BID PRN PRN Reason: if pt refuses Seroquel, ilda Gan Last Admin: 07/08/25 09:34 Dose: 5 mg Lacosamide (Lacosamide Oral Solution 100 Mg/10 Ml Solution) 100 mg PO BID [facility] Last Admin: 07/09/25 08:40 Dose: Not Given [place] Carbonate ([place] Carbonate Er 300 Mg Tablet.Er) 600 mg PO BEDTIME [facility] Last Admin: 07/08/25 20:12 Dose: Not Given Magnesium Hydroxide (Milk Of Magnesia 30 Ml Oral.Susp) 30 ml PO DAILY PRN PRN Reason: Constipation Memantine (Memantine Hcl 10 Mg Tablet) 20 mg PO BEDTIME [facility] Last Admin: 07/08/25 20:12 Dose: Not Given Midodrine (Midodrine Hcl 2.5 Mg Tablet) 7.5 mg PO TIDAC [facility] Last Admin: 07/09/25 08:39 Dose: Not Given Naloxone HCl (Naloxone Hcl Nasal 4 Mg [place]) 4 mg NOSTRILALT Q2M PRN PRN Reason: opiate overdose Omeprazole (Omeprazole/Na Bicarb Oral Susp 20 Mg/10 Ml Ud Cup) 20 mg PO DAILY@0630 [facility] Last Admin: 07/09/25 06:38 Dose: Not Given Polyethylene Glycol (Polyethylene Glycol 3350 17 Gm Powd.Pack) 17 gm PO DAILY PRN PRN Reason: Constipation Quetiapine Fumarate (Quetiapine Fumarate 50 Mg Tablet) 50 mg PO BID PRN PRN Reason: psychosis, agitation Last Admin: 07/08/25 20:31 Dose: 50 mg Quetiapine Fumarate (Quetiapine Fumarate 300 Mg Tablet) 300 mg PO DAILY [facility] Last Admin: 07/09/25 08:39 Dose: 300 mg Risperidone (Risperidone 1 Mg Tablet) 1 mg PO BEDTIME [facility] Last Admin: 07/08/25 20:31 Dose: 1 mg Senna (Sennosides Oral Syrup 8.8 Mg/5 Ml) 17.6 mg PO DAILY PRN PRN Reason: Constipation Sodium Biphosphate/Sodium Phosphate (Sodium Phosphate,[place]-Dibasic 133 Ml Enema) 118 ml NV DAILY PRN PRN Reason: Constipation Trazodone HCl (Trazodone Hcl 50 Mg Tablet) 50 mg PO BEDTIME MRX1 PRN PRN Reason: Insomnia Last Admin: 06/25/25 21:33 Dose: 50 mg Allergies Allergies Allergy/AdvReac Type Severity Reaction Status Date / Time dog dander Allergy Unknown Verified 06/04/25 06:34 mite-Dermatophagoides Allergy Unknown Verified 06/04/25 06:32 farinae, abhilash (dust mite - [place]) Assessment & Plan Assessment & Plan (1) Schizoaffective disorder, bipolar type: Status: Acute Code(s): F25.0 - Schizoaffective disorder, bipolar type (2) Seizure disorder: Status: Acute Code(s): G40.909 - Epilepsy, unspecified, not intractable, without status epilepticus (3) Eating disorder with ongoing treatment: Status: Acute Code(s): F50.9 - Eating disorder, unspecified (4) Gastrointestinal tube in situ: Status: Acute Code(s): Z93.1 - Gastrostomy status Plan 59-year-old male with schizoaffective disorder, bipolar type, eating disorder, federica and dementia, he also has a history of seizure disorder, COPD, DVT, pulmonary nodules in the hypotension. He is seen today for reports and chest discomfort. Headaches and chest discomfort Patient reports that he does not wish to have any testing, he feels fine Upset that he is being forced to be discharged to [facility]. He refuses vital signs He has a seizure disorder as well as history of DVT, has been refusing Vimpat and Eliquis consistently. He has also been refusing midodrine, lithium, memantine, omeprazole. Told me he soes not wish to take any medications from anyone affiliated with [facility]. Schizoaffective disorder, bipolar type/Bulimia/eating disorder/Federica/Dementia Treatment per psychiatric team Has a G-tube in place due to severe malnutrition Patient is angry and does not allow assessment Seizure disorder No recent seizure activity noted Refusing Vimpat COPD Stable, not on any medications DVT on Eliquis Refusing Eliquis Diagnosed on ultrasound on 03/26/[address] Noted on CT scan at [facility], we will need outpatient follow up Hypotension Continues on midodrine Thank you for allowing me to participate in the care of this patient. We will follow as needed, please notify medical provider with any acute changes or concerns. Patient admitted on a conditional voluntary again seen and evaluated 10:00. Patient appears to have schizoaffective disorder a marked eating disorder question delusional based leading to a G-tube but there is no clear history presently available regarding medication trials inpatient psychiatric history. He is on minimal doses of lithium and Seroquel and unclear why that is. Would benefit from medical history regarding G-tube what the treatment plan was regarding this and need medical and [facility] and would also benefit records from [facility]. Patient does have a guardian and [place] order will need to coordinate care check lithium level adjust to better therapeutic dose for irritability appears to be manic symptoms unclear why patient is not on antipsychotic dose of antipsychotic medication. Monitor response to treatment question discharge back to [facility]. Question dementia/cognitive impairment diagnosis check [place] review medical records 06/05/2025 Patient more psychotically preoccupied difficulty processing information records reviewed. Patient carries multiple diagnoses including schizophrenia in have significant grandiose and paranoid delusional beliefs but unclear why he is only on very low-dose Seroquel and on clozapine previously. Has only been treated with low-dose lithium. Given patient's history of psychosis, psychotic/eating daughter disorder requiring G-tube placement unclear why patient has such minimum doses of psychiatric medication question past side effects presently no psychiatric provider to coordinate with. Patient is more irritable and agitated psychotically preoccupied tried to explain to him also that he does have a guardian and that issues such as this will need to be addressed with his guardian. Barium swallow ordered to try to clarify if there is any dysphagia elements no obvious side effects were why patient is not currently on adequate antipsychotic treatment. Question asked obstruction with clozapine but unable to clarify at this time patient unable to clarify this history. Patient does have significant difficulty with reflecting on issues and absorbing information but memory seems significantly impaired. Monitor response to patient swallowing is on medication monitor weight unclear history of noncompliance this should be clarified 06/06/2025 Try and gather further data regarding patient's treatment history had been on Clozaril in the past unclear why discontinued Medical history not clear continue lower dose Seroquel and lithium at present 06/07 Team needing back up dosing Seroquel refusal. Haldol 2.5 mg IM bid prn per Gan parameters if pt refuses Seroquel Increase Seroquel to 75 mg bid Monitor for dysphagia 06/08 Continue tx 06/09/2025 Trying to clarify history the past year for this patient. Call placed to nurse practitioner at [facility]. Patient was quite psychotic irritable agitated 06/10/2025 Continue plan of care patient is still not able to elaborate history but no current adverse effects from current regimen noted. He is aware that he will most likely return to [facility] encourage compliance with lithium try to obtain therapeutic level 06/12/2025 Encourage compliance with lithium and Seroquel. Patient had been on clozapine and past was only on 25 mg Seroquel at [facility] unclear why he was not more robust only treated increase Seroquel as tolerated try and do mouth checks check for purging 06/20/25 Pt aware of transfer back to [facility] has been eating not purging taking seroquel 06/21 Patient says his mood is getting better... Denies any SI Patient says that he has a hard time resisting the urge to purge and that he has been doing so. He says that after he eats a meal he feels full. But he says he does not like that he does this and wants to stop purging more than Dr. Adhikari wants him to stop. He says he is working on it. Discussed lithium level which has not moved much and patient agrees to make dose long-acting and at bedtime to avoid accidentally purging medications 06/22 Patient very irritable today and would not discuss much with typewriter assembler other than to say I told you and you would not listen... Now you'll will see what happens.. Patient would not explain what that means despite typewriter assembler having no idea to what he was referring. Patient refusing medication and when typewriter assembler went to discuss it he said he would not take lithium; patient said he did not want to talk to this typewriter assembler any further [place] level subtherapeutic, however patient says he is feeling better so will leave at current dose but change to long-acting and at bedtime 06/23/2025 Continue plan of care if patient accepts treatment including for his medical conditions which were explained to him will maintain current treatment plan if patient continues to be come more paranoid verbally aggressive consider filing for civil commitment and perhaps amendment of Gan if needed. Increase Seroquel as tolerated follow blood pressure and ANC 06/24/25 cont lithium seroquel monitor 06/25/25 inc seroquel as tolerated prozac held ? in irritability 06/26/25 inc seroquel restart fluox for ocd type sx 06/27/2025 Check lithium level in the morning patient reportedly has been taking lithium now for few days increase Seroquel as patient seems more vulnerable on going back to [facility] sometime next week denies thoughts of harm to self or others 06/28: no change today 06/29: repeat Li+ level for tomorrow 06/30/25 Pt refusing all meds exept lithium does not understand medical risks lith close to 0 inc seroquel as tolerated try and follow bp given he is refusing midodrine . Trying to coord with [facility] whether they can handle this level of care they did refuse pt for today. If pt stays will file for tx plan.will try for mei . 07/01/25 [facility] not an option at present with psychotic lability threats aggressive behavior inc seroquel 300 bid max of gan may need to restrain for cbc and vitals if seroquel not not effective will switch to invega. Monitor for dvt sx sz encourage tx acceptance 07/02/25 Pt somewhat less aggressive past 2 days ,monitor medical safety given refusal of anti sz meds and eloquis. Seroquel 300 bid pt tolerating ,will try and recoordinate with [facility] because wbc were close to 0 on cloz . 07/03/2025 Continue Seroquel 300 b.i.d. continue to encourage patient accepting his meds for medical issues although no negative consequences to this point vital signs stable no orthostasis ambulation not problematic has been in better control Issues had been reviewed with guardian have also reviewed possibility of [facility] referral working with [facility] to try and transfer back as possible based on patient's behavior. If recurrence of aggressive behavior will change to Invega [place] stain also a possibility 07/04/2025 Patient has now not been threatening or aggressive for a number of days. He is on Seroquel a 300 b.i.d. and this appears to be helpful in decreasing paranoid reactivity and preoccupation with delusional material. Patient refusing medication for seizure and embolism stating he feels fine in his refusing to take at this time he is alert ambulating well adequate vital signs tolerating Seroquel. Recommend return to [facility] encourage acceptance of medical medications. 07/05: continue current management and treatment plan. 07/06: continue current management and treatment plan. 07/08/202507/09: Continue current treatment regimen. Taper Seroquel start Risperdal follow CBC history of neutropenia Seroquel 300 b.i.d. max dose on Gan or was not effective for psychosis or aggression most likely would eventually benefit from Invega sustain a which is on the Gan order Consider transfer to adult unit especially if patient continues to be aggressive on geriatric unit Will need physical examination of G-tube monitor CBC Patient educated on: therapeutic strategies Reason for continued inpatient stay Substantial Risk for: rapid decompensation Time Spent With Patient Time: Total time managing care of this patient today ____ minutes.
--- NOTE | 2025-07-09 09:37 | MHC.CLN ---
NUTRITION PATIENT EATING 100% AT MEALS. ENSURE TID DISCONTINUED DUE TO GOOD/EXCELLENT PO INTAKE.
--- NOTE | 2025-07-09 15:10 | HO.PM.IMPN ---
Subjective Subjective Date of Service: 07/09/25 Interval History: Asked to see patient due to G-tube. No evidence of infection, the G-tube was placed due to severe weight loss with eating disorder. Patient has now gained back the week, and wants G-tube removed. G-tube was placed in May 04 due to poor p.o. intake severe malnutrition and electrolyte derangements. From [facility] notes if his oral intake is adequate in the SNF can discontinue were removed G-tube within a few months. Patient has been eating food. Review of Systems Denies any shortness of breath, chest pain, dizziness, lightheadedness, abdominal pain or discomfort, nausea vomiting or diarrhea Physical Exam Exam: Exam: CONST: Alert and oriented, in NAD. Well nourished HEENT: Normocephalic, atraumatic, MMM, Eyes clear, Neck supple RESP: Lungs clear, RRR even and regular HEART:,RRR, S1, S2. No edema GI:Abdomen Soft NT, ND. + BS times four. G-tube secured in place, no redness, no warmth or swelling noted. No drainage. No evidence of infection :Deferred SKIN: Warm dry and intact, no visible lesions or rashes NEURO:CN II-XII Intact bilaterally, Sensation intact. Speech clear PSYCH: Normal affect Vital Signs: Vital Signs: Last Vital Signs Temp 98.2 F 07/09/25 08:35 Pulse 87 07/09/25 08:35 Resp 18 07/09/25 08:35 BP 118/75 07/09/25 08:35 Pulse Ox 97 07/09/25 08:35 O2 Del Method Room Air 07/09/25 08:35 BMI result Body Mass Index 23.5 Objective Data Active Medications Acetaminophen (Acetaminophen 325 Mg Tablet) 650 mg PO Q6H PRN PRN Reason: Pain Last Admin: 07/04/25 21:00 Dose: 650 mg Documented By: ESME Al Hydroxide/Mg Hydroxide (Magnesium Hydrox/Alum Hydrox 30 Ml Oral.Susp) 30 ml PO Q6H PRN PRN Reason: Heartburn/Nausea Apixaban (Apixaban 5 Mg Tablet) 5 mg PO BID [facility] Last Admin: 07/09/25 08:40 Dose: Not Given Documented By: OZZIE Non-Admin Reason: Patient Refused Bisacodyl (Bisacodyl 10 Mg Supp.Rect) 10 mg DC DAILY PRN PRN Reason: Constipation Calcium Carbonate (Calcium Carbonate 750 Mg Tab.Chew) 750 mg PO Q8H PRN PRN Reason: GERD Clotrimazole (Clotrimazole 1 % Cream 15 Gm Tube) 1 appl TOPICAL TID [facility]; Protocol Last Admin: 07/09/25 15:00 Dose: Not Given Documented By: OZZIE Non-Admin Reason: Patient Refused Glucagon (Glucagon Hcl 1 Mg Vial) 1 mg IM ONCE PRN PRN Reason: HYPOGLYCEMIA Haloperidol Lactate (Haloperidol Lactate 5 Mg/Ml Vial) 5 mg IM BID PRN PRN Reason: if pt refuses Seroquel, per [place] Last Admin: 07/08/25 09:34 Dose: 5 mg Documented By: MONSERRAT Lacosamide (Lacosamide Oral Solution 100 Mg/10 Ml Solution) 100 mg PO BID [facility] Last Admin: 07/09/25 08:40 Dose: Not Given Documented By: OZZIE Non-Admin Reason: Patient Refused [place] Carbonate ([place] Carbonate Er 300 Mg Tablet.Er) 600 mg PO BEDTIME [facility] Last Admin: 07/08/25 20:12 Dose: Not Given Documented By: ARMANDO Non-Admin Reason: Patient declined Magnesium Hydroxide (Milk Of Magnesia 30 Ml Oral.Susp) 30 ml PO DAILY PRN PRN Reason: Constipation Memantine (Memantine Hcl 10 Mg Tablet) 20 mg PO BEDTIME [facility] Last Admin: 07/08/25 20:12 Dose: Not Given Documented By: ARMANDO Non-Admin Reason: patient declines Midodrine (Midodrine Hcl 2.5 Mg Tablet) 7.5 mg PO TIDAC [facility] Last Admin: 07/09/25 12:01 Dose: Not Given Documented By: OZZIE Non-Admin Reason: Patient Refused Naloxone HCl (Naloxone Hcl Nasal 4 Mg [place]) 4 mg NOSTRILALT Q2M PRN PRN Reason: opiate overdose Omeprazole (Omeprazole/Na Bicarb Oral Susp 20 Mg/10 Ml Ud Cup) 20 mg PO DAILY@0630 [facility] Last Admin: 07/09/25 06:38 Dose: Not Given Documented By: ANGELLA Non-Admin Reason: Patient Refused Polyethylene Glycol (Polyethylene Glycol 3350 17 Gm Powd.Pack) 17 gm PO DAILY PRN PRN Reason: Constipation Quetiapine Fumarate (Quetiapine Fumarate 50 Mg Tablet) 50 mg PO BID PRN PRN Reason: psychosis, agitation Last Admin: 07/08/25 20:31 Dose: 50 mg Documented By: ARMANDO Comments: pt agitated and requesting seroquel Quetiapine Fumarate (Quetiapine Fumarate 300 Mg Tablet) 300 mg PO DAILY [facility] Last Admin: 07/09/25 08:39 Dose: 300 mg Documented By: OZZIE Risperidone (Risperidone 1 Mg Tablet) 1 mg PO BEDTIME [facility] Last Admin: 07/08/25 20:31 Dose: 1 mg Documented By: ARMANDO Senna (Sennosides Oral Syrup 8.8 Mg/5 Ml) 17.6 mg PO DAILY PRN PRN Reason: Constipation Sodium Biphosphate/Sodium Phosphate (Sodium Phosphate,[place]-Dibasic 133 Ml Enema) 118 ml DC DAILY PRN PRN Reason: Constipation Trazodone HCl (Trazodone Hcl 50 Mg Tablet) 50 mg PO BEDTIME MRX1 PRN PRN Reason: Insomnia Last Admin: 06/25/25 21:33 Dose: 50 mg Documented By: URSULA Labs 07/02/25 12:37 06/21/25 07:22 Assessment and Plan (1) Seizure disorder: Status: Acute Plan 59-year-old male with schizoaffective disorder, bipolar type, eating disorder, federica and dementia, he also has a history of seizure disorder, COPD, DVT, pulmonary nodules in the hypotension. He is seen today for reports and chest discomfort. Schizoaffective disorder, bipolar type/Bulimia/eating disorder/Federica/Dementia Treatment per psychiatric team Has a G-tube in place due to severe malnutrition. Inserted April 2025, p.o. intake improved G-tube In-situ Placed in April 2025 due to malnutrition Per [facility] notes may be removed in few months if patient oral intake improves Follow up outpatient to have G-tube removed Seizure disorder No recent seizure activity noted Continues to refuse Vimpat COPD Stable, not on any medications DVT on Eliquis Continues to refuse Eliquis Diagnosed on ultrasound on 03/26/2025 Pulmonary nodule Noted on CT scan at [facility], we will need outpatient follow up Hypotension Continues to refuse midodrine BP is stable Thank you for allowing me to participate in the care of this patient. We will follow as needed, please notify medical provider with any acute changes or concerns. Quality Stroke Does the patient have a stroke diagnosis?: No VTE Prior VTE?: Yes VTE Risk Level:: Medical - moderate - high VTE Device Contraindication: Treatment Not Indicated VTE Drug Contraindication: Patient Refused
--- NOTE | 2025-07-09 15:14 | PC.NURSE ---
Patient is not allowing staff to look at or flush his G-Tube. Lizzette Renteria DNP updated and will order a dieticians consult. Patient's plan related to questionable G-Tube removal or continued placement needs to be reviewed, plan is unclear at this time.
[2025-07-09 20:00] VITALS: BP 110/75; PULSE 83; RESP 17; TEMP 36.7; O2SAT 96
[2025-07-10 08:00] VITALS: BP 126/74; PULSE 93; RESP 16; TEMP 36.5; O2SAT 95
[2025-07-10 08:21] VITALS: BP 126/74
[2025-07-10] MEDS: Clotrimazole 1 % Cream 15 GM TUBE 1 APPL TOPICAL (09:59)
[2025-07-10 10:26] VITALS: BMI 23.7
--- NOTE | 2025-07-10 15:05 | P.PNPSI_ITS ---
Subjective Subjective Date of Service: 07/11/25 Reason For Visit: psychosis federica Subjective Notes: Conditional Voluntary Interim History: Pt has been calmer more cooperative generally. Has bbe more social with other patients. Cont to refuse medicarion Mental Status Exam Mental Status Exam Narrative: Appearance: Casually dressed, adequate hygiene Behavior: Calm and cooperative throughout the interview. Eye contact is appropriate, and there are no signs of psychomotor agitation or retardation Speech: Normal volume and prosody Thought process: Logical and goal-directed Thought content: Future oriented still refusing med tx unclear reasons Mood: Euthymic Affect: Constricted SI:denies HI:denies VH/AH:none Delusions: None Insight/judgment: Fair insight and judgment Memory/cog: Alert, oriented x 3. grossly intact to conversational testing Diagnostics Vital Signs (24Hr): Vital Signs - 24 hr 07/09/25 20:00 07/10/25 08:00 07/10/25 08:21 Temperature 98.0 F 97.7 F Pulse Rate 83 93 Respiratory Rate 17 16 Blood Pressure 110/75 126/74 126/74 Pulse Oximetry 96 95 Oxygen Delivery Method Room Air Room Air BMI result Body Mass Index 23.7 Labs 07/02/25 12:37 06/21/25 07:22 Imaging Radiology Impressions: ITS Impressions Modified Barium Swallow 06/06/25 14:30 IMPRESSION: No evidence of laryngeal penetration or aspiration. Refer to the full speech therapy report to follow for further details. Electronically signed by: Gerry Tejeda MD 06/06/2025 03:25 PM EDT RP Medications Medications Current Medications Acetaminophen (Acetaminophen 325 Mg Tablet) 650 mg PO Q6H PRN PRN Reason: Pain Last Admin: 07/04/25 21:00 Dose: 650 mg Al Hydroxide/Mg Hydroxide (Magnesium Hydrox/Alum Hydrox 30 Ml Oral.Susp) 30 ml PO Q6H PRN PRN Reason: Heartburn/Nausea Apixaban (Apixaban 5 Mg Tablet) 5 mg PO BID SERENITY Last Admin: 07/10/25 08:20 Dose: Not Given Bisacodyl (Bisacodyl 10 Mg Supp.Rect) 10 mg DC DAILY PRN PRN Reason: Constipation Calcium Carbonate (Calcium Carbonate 750 Mg Tab.Chew) 750 mg PO Q8H PRN PRN Reason: GERD Clotrimazole (Clotrimazole 1 % Cream 15 Gm Tube) 1 appl TOPICAL TID [facility]; Protocol Last Admin: 07/10/25 09:59 Dose: 1 appl Glucagon (Glucagon Hcl 1 Mg Vial) 1 mg IM ONCE PRN PRN Reason: HYPOGLYCEMIA Haloperidol Lactate (Haloperidol Lactate 5 Mg/Ml Vial) 5 mg IM BID PRN PRN Reason: if pt refuses Seroquel, ilda Gan Last Admin: 07/08/25 09:34 Dose: 5 mg Lacosamide (Lacosamide Oral Solution 100 Mg/10 Ml Solution) 100 mg PO BID [facility] Last Admin: 07/10/25 08:21 Dose: Not Given Santa Claus Carbonate ([place] Carbonate Er 300 Mg Tablet.Er) 600 mg PO BEDTIME [facility] Last Admin: 07/09/25 23:15 Dose: Not Given Magnesium Hydroxide (Milk Of Magnesia 30 Ml Oral.Susp) 30 ml PO DAILY PRN PRN Reason: Constipation Memantine (Memantine Hcl 10 Mg Tablet) 20 mg PO BEDTIME [facility] Last Admin: 07/09/25 23:15 Dose: Not Given Midodrine (Midodrine Hcl 2.5 Mg Tablet) 7.5 mg PO TIDAC [facility] Last Admin: 07/10/25 12:11 Dose: Not Given Naloxone HCl (Naloxone Hcl Nasal 4 Mg [employer]) 4 mg NOSTRILALT Q2M PRN PRN Reason: opiate overdose Omeprazole (Omeprazole/Na Bicarb Oral Susp 20 Mg/10 Ml Ud Cup) 20 mg PO DAILY@0630 [facility] Last Admin: 07/10/25 05:57 Dose: Not Given Paliperidone (Paliperidone Er 6 Mg Tab.Er.24) 6 mg PO BEDTIME [facility] Polyethylene Glycol (Polyethylene Glycol 3350 17 Gm Powd.Pack) 17 gm PO DAILY PRN PRN Reason: Constipation Quetiapine Fumarate (Quetiapine Fumarate 50 Mg Tablet) 50 mg PO BID PRN PRN Reason: psychosis, agitation Last Admin: 07/09/25 20:29 Dose: 50 mg Quetiapine Fumarate (Quetiapine Fumarate 300 Mg Tablet) 300 mg PO DAILY [facility] Last Admin: 07/10/25 08:19 Dose: 300 mg Senna (Sennosides Oral Syrup 8.8 Mg/5 Ml) 17.6 mg PO DAILY PRN PRN Reason: Constipation Sodium Biphosphate/Sodium Phosphate (Sodium Phosphate,Hughes-Dibasic 133 Ml Enema) 118 ml DC DAILY PRN PRN Reason: Constipation Trazodone HCl (Trazodone Hcl 50 Mg Tablet) 50 mg PO BEDTIME MRX1 PRN PRN Reason: Insomnia Last Admin: 06/25/25 21:33 Dose: 50 mg Allergies Allergies Allergy/AdvReac Type Severity Reaction Status Date / Time dog dander Allergy Unknown Verified 06/04/25 06:34 mite-Dermatophagoides Allergy Unknown Verified 06/04/25 06:32 farinae, abhilash (dust mite - [place]) Assessment & Plan Assessment & Plan (1) Schizoaffective disorder, bipolar type: Status: Acute Code(s): F25.0 - Schizoaffective disorder, bipolar type (2) Seizure disorder: Status: Acute Code(s): G40.909 - Epilepsy, unspecified, not intractable, without status epilepticus (3) Eating disorder with ongoing treatment: Status: Acute Code(s): F50.9 - Eating disorder, unspecified (4) Gastrointestinal tube in situ: Status: Acute Code(s): Z93.1 - Gastrostomy status Plan 59-year-old male with schizoaffective disorder, bipolar type, eating disorder, federica and dementia, he also has a history of seizure disorder, COPD, DVT, pulmonary nodules in the hypotension. He is seen today for reports and chest discomfort. Headaches and chest discomfort Patient reports that he does not wish to have any testing, he feels fine Upset that he is being forced to be discharged to [facility]. He refuses vital signs He has a seizure disorder as well as history of DVT, has been refusing Vimpat and Eliquis consistently. He has also been refusing midodrine, lithium, memantine, omeprazole. Told me he soes not wish to take any medications from anyone affiliated with [facility]. Schizoaffective disorder, bipolar type/Bulimia/eating disorder/Federica/Dementia Treatment per psychiatric team Has a G-tube in place due to severe malnutrition Patient is angry and does not allow assessment Seizure disorder No recent seizure activity noted Refusing Vimpat COPD Stable, not on any medications DVT on Eliquis Refusing Eliquis Diagnosed on ultrasound on 03/26/[address] on CT scan at [facility], we will need outpatient follow up Hypotension Continues on midodrine Thank you for allowing me to participate in the care of this patient. We will follow as needed, please notify medical provider with any acute changes or concerns. Patient admitted on a conditional voluntary again seen and evaluated 10:00. Patient appears to have schizoaffective disorder a marked eating disorder question delusional based leading to a G-tube but there is no clear history presently available regarding medication trials inpatient psychiatric history. He is on minimal doses of lithium and Seroquel and unclear why that is. Would benefit from medical history regarding G-tube what the treatment plan was regarding this and need medical and psychiatric records [facility] and would also benefit records from [place]. Patient does have a guardian and [facility] will need to coordinate care check lithium level adjust to better therapeutic dose for irritability appears to be manic symptoms unclear why patient is not on antipsychotic dose of antipsychotic medication. Monitor response to treatment question discharge back to [facility]. Question dementia/cognitive impairment diagnosis check [facility] review medical records 06/05/2025 Patient more psychotically preoccupied difficulty processing information records reviewed. Patient carries multiple diagnoses including schizophrenia in have significant grandiose and paranoid delusional beliefs but unclear why he is only on very low-dose Seroquel and on clozapine previously. Has only been treated with low-dose lithium. Given patient's history of psychosis, psychotic/eating daughter disorder requiring G-tube placement unclear why patient has such minimum doses of psychiatric medication question past side effects presently no psychiatric provider to coordinate with. Patient is more irritable and agitated psychotically preoccupied tried to explain to him also that he does have a guardian and that issues such as this will need to be addressed with his guardian. Barium swallow ordered to try to clarify if there is any dysphagia elements no obvious side effects were why patient is not currently on adequate antipsychotic treatment. Question asked obstruction with clozapine but unable to clarify at this time patient unable to clarify this history. Patient does have significant difficulty with reflecting on issues and absorbing information but memory seems significantly impaired. Monitor response to patient swallowing is on medication monitor weight unclear history of noncompliance this should be clarified 06/06/2025 Try and gather further data regarding patient's treatment history had been on Clozaril in the past unclear why discontinued Medical history not clear continue lower dose Seroquel and lithium at present 06/07 Team needing back up dosing Seroquel refusal. Haldol 2.5 mg IM bid prn per Gan parameters if pt refuses Seroquel Increase Seroquel to 75 mg bid Monitor for dysphagia 06/08 Continue tx 06/09/2025 Trying to clarify history the past year for this patient. Call placed to nurse practitioner at [facility] [place]. Patient was quite psychotic irritable agitated 06/10/2025 Continue plan of care patient is still not able to elaborate history but no current adverse effects from current regimen noted. He is aware that he will most likely return to [facility] encourage compliance with lithium try to obtain therapeutic level 06/12/2025 Encourage compliance with lithium and Seroquel. Patient had been on clozapine and past was only on 25 mg Seroquel at [facility] unclear why he was not more robust only treated increase Seroquel as tolerated try and do mouth checks check for purging 06/20/25 Pt aware of transfer back to [facility] has been eating not purging taking seroquel 06/21 Patient says his mood is getting better... Denies any SI Patient says that he has a hard time resisting the urge to purge and that he has been doing so. He says that after he eats a meal he feels full. But he says he does not like that he does this and wants to stop purging more than Dr. Adhikari wants him to stop. He says he is working on it. Discussed lithium level which has not moved much and patient agrees to make dose long-acting and at bedtime to avoid accidentally purging medications 06/22 Patient very irritable today and would not discuss much with sheet writer other than to say I told you and you would not listen... Now you'll will see what happens.. Patient would not explain what that means despite sheet writer having no idea to what he was referring. Patient refusing medication and when sheet writer went to discuss it he said he would not take lithium; patient said he did not want to talk to this sheet writer any further Santa Claus level subtherapeutic, however patient says he is feeling better so will leave at current dose but change to long-acting and at bedtime 06/23/2025 Continue plan of care if patient accepts treatment including for his medical conditions which were explained to him will maintain current treatment plan if patient continues to be come more paranoid verbally aggressive consider filing for civil commitment and perhaps amendment of Gan if needed. Increase Seroquel as tolerated follow blood pressure and ANC 06/24/25 cont lithium seroquel monitor 06/25/25 inc seroquel as tolerated prozac held ? in irritability 06/26/25 inc seroquel restart fluox for ocd type sx 06/27/2025 Check lithium level in the morning patient reportedly has been taking lithium now for few days increase Seroquel as patient seems more vulnerable on going back to [facility] sometime next week denies thoughts of harm to self or others 06/28: no change today 06/29: repeat Li+ level for tomorrow 06/30/25 Pt refusing all meds exept lithium does not understand medical risks lith close to 0 inc seroquel as tolerated try and follow bp given he is refusing midodrine . Trying to coord with [facility] whether they can handle this level of care they did refuse pt for today. If pt stays will file for tx plan.will try for mei . 07/01/25 [facility] not an option at present with psychotic lability threats aggressive behavior inc seroquel 300 bid max of gan may need to restrain for cbc and vitals if seroquel not not effective will switch to invega. Monitor for dvt sx sz encourage tx acceptance 07/02/25 Pt somewhat less aggressive past 2 days ,monitor medical safety given refusal of anti sz meds and eloquis. Seroquel 300 bid pt tolerating ,will try and recoordinate with [facility] care because wbc were close to 0 on cloz . 07/03/2025 Continue Seroquel 300 b.i.d. continue to encourage patient accepting his meds for medical issues although no negative consequences to this point vital signs stable no orthostasis ambulation not problematic has been in better control Issues had been reviewed with guardian have also reviewed possibility of [facility] referral working with [facility] to try and transfer back as possible based on patient's behavior. If recurrence of aggressive behavior will change to Invega [place] stain also a possibility 07/04/2025 Patient has now not been threatening or aggressive for a number of days. He is on Seroquel a 300 b.i.d. and this appears to be helpful in decreasing paranoid reactivity and preoccupation with delusional material. Patient refusing medication for seizure and embolism stating he feels fine in his refusing to take at this time he is alert ambulating well adequate vital signs tolerating Seroquel. Recommend return to [facility] encourage acceptance of medical medications. 07/05: continue current management and treatment plan. 07/06: continue current management and treatment plan. 07/08/202507/09: Continue current treatment regimen. Taper Seroquel start Risperdal follow CBC history of neutropenia Seroquel 300 b.i.d. max dose on Gan or was not effective for psychosis or aggression most likely would eventually benefit from Invega sustain a which is on the Gan order Consider transfer to adult unit especially if patient continues to be aggressive on geriatric unit Will need physical examination of G-tube monitor CBC 07/10/25 start invega stop risperadol encourage med compliance Patient educated on: medical condition Informed Consent: does not understand Reason for continued inpatient stay Substantial Risk for: harm to others and med/psych decompensation Time Spent With Patient Time: Total time managing care of this patient today ____ minutes.
--- NOTE | 2025-07-10 19:25 | PC.NURSE ---
Pt allowed me to assess and provide treatment to the G-tube site at am and then at 6PM.
[2025-07-10 20:00] VITALS: BP 114/76; PULSE 85; RESP 16; TEMP 36.1; O2SAT 92
[2025-07-10] MEDS: Lacosamide Oral Solution 100 MG/10 ML SOLUTION PO (21:48)
[2025-07-11 08:00] VITALS: BP 111/67; PULSE 86; TEMP 35.7; O2SAT 96
[2025-07-11] MEDS: Lacosamide Oral Solution 100 MG/10 ML SOLUTION PO ×2 (08:02→23:09)
[2025-07-11] MEDS: Omeprazole/Na Bicarb Oral Susp 20 MG/10 ML UD Cup PO (08:02)
[2025-07-11 11:40] VITALS: BP 119/69
[2025-07-11 20:00] VITALS: O2SAT 95
[2025-07-12 08:00] VITALS: BP 108/72; PULSE 91; RESP 16; TEMP 36.6; O2SAT 97
[2025-07-12] MEDS: Lacosamide Oral Solution 100 MG/10 ML SOLUTION PO ×2 (08:28→21:13)
[2025-07-12] MEDS: Omeprazole/Na Bicarb Oral Susp 20 MG/10 ML UD Cup PO (08:28)
[2025-07-12 11:58] VITALS: BP 167/76
--- NOTE | 2025-07-12 15:16 | P.PNPSI_ITS ---
Subjective Subjective Date of Service: 07/12/25 Reason For Visit: psychosis federica Interim History: asking if he has been accepted at any facilities. no other questions or concerns. per staff, doing well, cooperative. Mental Status Exam Mental Status Exam Narrative: Appearance: Casually dressed, adequate hygiene Behavior: Calm and cooperative throughout the interview. Eye contact is appropriate, and there are no signs of psychomotor agitation or retardation Speech: Normal volume and prosody Thought process: Logical and goal-directed Thought content: Future oriented no self-harming thoughts, confused at times Mood: Euthymic Affect: Constricted SI:denies HI:denies VH/AH:none Delusions: None Insight/judgment: Fair insight and judgment Memory/cog: Alert, oriented x 3. grossly intact to conversational testing Diagnostics Vital Signs (24Hr): Vital Signs - 24 hr 07/11/25 20:00 07/12/25 08:00 07/12/25 11:58 Temperature 97.9 F Pulse Rate 91 Respiratory Rate 16 Blood Pressure 108/72 167/76 H Pulse Oximetry 95 97 Oxygen Delivery Method Room Air BMI result Body Mass Index 23.7 Labs 07/02/25 12:37 06/21/25 07:22 Imaging Radiology Impressions: ITS Impressions Modified Barium Swallow 06/06/25 14:30 IMPRESSION: No evidence of laryngeal penetration or aspiration. Refer to the full speech therapy report to follow for further details. Electronically signed by: Gerry Tejeda MD 06/06/2025 03:25 PM EDT RP Medications Medications Current Medications Acetaminophen (Acetaminophen 325 Mg Tablet) 650 mg PO Q6H PRN PRN Reason: Pain Last Admin: 07/04/25 21:00 Dose: 650 mg Al Hydroxide/Mg Hydroxide (Magnesium Hydrox/Alum Hydrox 30 Ml Oral.Susp) 30 ml PO Q6H PRN PRN Reason: Heartburn/Nausea Apixaban (Apixaban 5 Mg Tablet) 5 mg PO BID SERENITY Last Admin: 07/12/25 08:28 Dose: 5 mg Bisacodyl (Bisacodyl 10 Mg Supp.Rect) 10 mg MS DAILY PRN PRN Reason: Constipation Calcium Carbonate (Calcium Carbonate 750 Mg Tab.Chew) 750 mg PO Q8H PRN PRN Reason: GERD Last Admin: 07/12/25 12:56 Dose: 750 mg Clotrimazole (Clotrimazole 1 % Cream 15 Gm Tube) 1 appl TOPICAL TID [facility]; Protocol Last Admin: 07/12/25 15:00 Dose: Not Given Glucagon (Glucagon Hcl 1 Mg Vial) 1 mg IM ONCE PRN PRN Reason: HYPOGLYCEMIA Haloperidol Lactate (Haloperidol Lactate 5 Mg/Ml Vial) 5 mg IM BID PRN PRN Reason: if pt refuses Seroquel, ilda Gan Last Admin: 07/08/25 09:34 Dose: 5 mg Lacosamide (Lacosamide Oral Solution 100 Mg/10 Ml Solution) 100 mg PO BID [facility] Last Admin: 07/12/25 08:28 Dose: 100 mg [place] Carbonate ([place] Carbonate Er 300 Mg Tablet.Er) 600 mg PO BEDTIME [facility] Last Admin: 07/11/25 19:59 Dose: 600 mg Magnesium Hydroxide (Milk Of Magnesia 30 Ml Oral.Susp) 30 ml PO DAILY PRN PRN Reason: Constipation Memantine (Memantine Hcl 10 Mg Tablet) 20 mg PO BEDTIME [facility] Last Admin: 07/11/25 19:59 Dose: 20 mg Midodrine (Midodrine Hcl 2.5 Mg Tablet) 7.5 mg PO TIDAC [facility] Last Admin: 07/12/25 11:58 Dose: 7.5 mg Naloxone HCl (Naloxone Hcl Nasal 4 Mg [place]) 4 mg NOSTRILALT Q2M PRN PRN Reason: opiate overdose Omeprazole (Omeprazole/Na Bicarb Oral Susp 20 Mg/10 Ml Ud Cup) 20 mg PO DAILY@0630 [facility] Last Admin: 07/12/25 08:28 Dose: 20 mg Paliperidone (Paliperidone Er 6 Mg Tab.Er.24) 6 mg PO BEDTIME [facility] Last Admin: 07/11/25 19:59 Dose: 6 mg Polyethylene Glycol (Polyethylene Glycol 3350 17 Gm Powd.Pack) 17 gm PO DAILY PRN PRN Reason: Constipation Quetiapine Fumarate (Quetiapine Fumarate 50 Mg Tablet) 50 mg PO BID PRN PRN Reason: psychosis, agitation Last Admin: 07/09/25 20:29 Dose: 50 mg Quetiapine Fumarate (Quetiapine Fumarate 300 Mg Tablet) 300 mg PO DAILY [facility] Last Admin: 07/12/25 08:28 Dose: 300 mg Senna (Sennosides Oral Syrup 8.8 Mg/5 Ml) 17.6 mg PO DAILY PRN PRN Reason: Constipation Sodium Biphosphate/Sodium Phosphate (Sodium Phosphate,[place]-Dibasic 133 Ml Enema) 118 ml MS DAILY PRN PRN Reason: Constipation Trazodone HCl (Trazodone Hcl 50 Mg Tablet) 50 mg PO BEDTIME MRX1 PRN PRN Reason: Insomnia Last Admin: 06/25/25 21:33 Dose: 50 mg Allergies Allergies Allergy/AdvReac Type Severity Reaction Status Date / Time dog dander Allergy Unknown Verified 06/04/25 06:34 mite-Dermatophagoides Allergy Unknown Verified 06/04/25 06:32 farinae, abhilash (dust mite - [place]) Assessment & Plan Assessment & Plan (1) Schizoaffective disorder, bipolar type: Status: Acute Code(s): F25.0 - Schizoaffective disorder, bipolar type (2) Seizure disorder: Status: Acute Code(s): G40.909 - Epilepsy, unspecified, not intractable, without status epilepticus (3) Eating disorder with ongoing treatment: Status: Acute Code(s): F50.9 - Eating disorder, unspecified (4) Gastrointestinal tube in situ: Status: Acute Code(s): Z93.1 - Gastrostomy status Plan 59-year-old male with schizoaffective disorder, bipolar type, eating disorder, federica and dementia, he also has a history of seizure disorder, COPD, DVT, pulmonary nodules in the hypotension. He is seen today for reports and chest discomfort. Headaches and chest discomfort Patient reports that he does not wish to have any testing, he feels fine Upset that he is being forced to be discharged to [facility]. He refuses vital signs He has a seizure disorder as well as history of DVT, has been refusing Vimpat and Eliquis consistently. He has also been refusing midodrine, lithium, memantine, omeprazole. Told me he soes not wish to take any medications from anyone affiliated with [facility]. Schizoaffective disorder, bipolar type/Bulimia/eating disorder/Federica/Dementia Treatment per psychiatric team Has a G-tube in place due to severe malnutrition Patient is angry and does not allow assessment Seizure disorder No recent seizure activity noted Refusing Vimpat COPD Stable, not on any medications DVT on Eliquis Refusing Eliquis Diagnosed on ultrasound on 03/26/[address] Not[address] on CT scan at [facility], we will need outpatient follow up Hypotension Continues on midodrine Thank you for allowing me to participate in the care of this patient. We will follow as needed, please notify medical provider with any acute changes or concerns. Patient admitted on a conditional voluntary again seen and evaluated 10:00. Patient appears to have schizoaffective disorder a marked eating disorder question delusional based leading to a G-tube but there is no clear history presently available regarding medication trials inpatient psychiatric history. He is on minimal doses of lithium and Seroquel and unclear why that is. Would benefit from medical history regarding G-tube what the treatment plan was regarding this and need medical and [facility] and would also benefit records from [facility]. Patient does have a guardian and [facility] will need to coordinate care check lithium level adjust to better therapeutic dose for irritability appears to be manic symptoms unclear why patient is not on antipsychotic dose of antipsychotic medication. Monitor response to treatment question discharge back to [facility]. Question dementia/cognitive impairment diagnosis check [facility] review medical records 06/05/2025 Patient more psychotically preoccupied difficulty processing information records reviewed. Patient carries multiple diagnoses including schizophrenia in have significant grandiose and paranoid delusional beliefs but unclear why he is only on very low-dose Seroquel and on clozapine previously. Has only been treated with low-dose lithium. Given patient's history of psychosis, psychotic/eating daughter disorder requiring G-tube placement unclear why patient has such minimum doses of psychiatric medication question past side effects presently no psychiatric provider to coordinate with. Patient is more irritable and agitated psychotically preoccupied tried to explain to him also that he does have a guardian and that issues such as this will need to be addressed with his guardian. Barium swallow ordered to try to clarify if there is any dysphagia elements no obvious side effects were why patient is not currently on adequate antipsychotic treatment. Question asked obstruction with clozapine but unable to clarify at this time patient unable to clarify this history. Patient does have significant difficulty with reflecting on issues and absorbing information but memory seems significantly impaired. Monitor response to patient swallowing is on medication monitor weight unclear history of noncompliance this should be clarified 06/06/2025 Try and gather further data regarding patient's treatment history had been on Clozaril in the past unclear why discontinued Medical history not clear continue lower dose Seroquel and lithium at present 06/07 Team needing back up dosing Seroquel refusal. Haldol 2.5 mg IM bid prn per Gan parameters if pt refuses Seroquel Increase Seroquel to 75 mg bid Monitor for dysphagia 06/08 Continue tx 06/09/2025 Trying to clarify history the past year for this patient. Call placed to nurse practitioner at [facility]. Patient was quite psychotic irritable agitated 06/10/2025 Continue plan of care patient is still not able to elaborate history but no current adverse effects from current regimen noted. He is aware that he will most likely return to [facility] encourage compliance with lithium try to obtain therapeutic level 06/12/2025 Encourage compliance with lithium and Seroquel. Patient had been on clozapine and past was only on 25 mg Seroquel at [facility] unclear why he was not more robust only treated increase Seroquel as tolerated try and do mouth checks check for purging 06/20/25 Pt aware of transfer back to [facility] has been eating not purging taking seroquel 06/21 Patient says his mood is getting better... Denies any SI Patient says that he has a hard time resisting the urge to purge and that he has been doing so. He says that after he eats a meal he feels full. But he says he does not like that he does this and wants to stop purging more than Dr. Adhikari wants him to stop. He says he is working on it. Discussed lithium level which has not moved much and patient agrees to make dose long-acting and at bedtime to avoid accidentally purging medications 06/22 Patient very irritable today and would not discuss much with ad copy writer other than to say I told you and you would not listen... Now you'll will see what happens.. Patient would not explain what that means despite ad copy writer having no idea to what he was referring. Patient refusing medication and when ad copy writer went to discuss it he said he would not take lithium; patient said he did not want to talk to this ad copy writer any further [place] level subtherapeutic, however patient says he is feeling better so will leave at current dose but change to long-acting and at bedtime 06/23/2025 Continue plan of care if patient accepts treatment including for his medical conditions which were explained to him will maintain current treatment plan if patient continues to be come more paranoid verbally aggressive consider filing for civil commitment and perhaps amendment of Gan if needed. Increase Seroquel as tolerated follow blood pressure and ANC 06/24/25 cont lithium seroquel monitor 06/25/25 inc seroquel as tolerated prozac held ? in irritability 06/26/25 inc seroquel restart fluox for ocd type sx 06/27/2025 Check lithium level in the morning patient reportedly has been taking lithium now for few days increase Seroquel as patient seems more vulnerable on going back to [facility] sometime next week denies thoughts of harm to self or others 06/28: no change today 06/29: repeat Li+ level for tomorrow 06/30/25 Pt refusing all meds exept lithium does not understand medical risks lith close to 0 inc seroquel as tolerated try and follow bp given he is refusing midodrine . Trying to coord with [facility] whether they can handle this level of care they did refuse pt for today. If pt stays will file for tx plan.will try for mei . 07/01/25 [facility] not an option at present with psychotic lability threats aggressive behavior inc seroquel 300 bid max of gan may need to restrain for cbc and vitals if seroquel not not effective will switch to invega. Monitor for dvt sx sz encourage tx acceptance 07/02/25 Pt somewhat less aggressive past 2 days ,monitor medical safety given refusal of anti sz meds and eloquis. Seroquel 300 bid pt tolerating ,will try and recoordinate with [facility] because wbc were close to 0 on cloz . 07/03/2025 Continue Seroquel 300 b.i.d. continue to encourage patient accepting his meds for medical issues although no negative consequences to this point vital signs stable no orthostasis ambulation not problematic has been in better control Issues had been reviewed with guardian have also reviewed possibility of H referral working with [facility] to try and transfer back as possible based on patient's behavior. If recurrence of aggressive behavior will change to Invega [place] stain also a possibility 07/04/2025 Patient has now not been threatening or aggressive for a number of days. He is on Seroquel a 300 b.i.d. and this appears to be helpful in decreasing paranoid reactivity and preoccupation with delusional material. Patient refusing medication for seizure and embolism stating he feels fine in his refusing to take at this time he is alert ambulating well adequate vital signs tolerating Seroquel. Recommend return to [facility] encourage acceptance of medical medications. 07/05: continue current management and treatment plan. 07/06: continue current management and treatment plan. 07/08/202507/09: Continue current treatment regimen. 07/12: stable. continue current mgmt. Taper Seroquel start Risperdal follow CBC history of neutropenia Seroquel 300 b.i.d. max dose on Gan or was not effective for psychosis or aggression most likely would eventually benefit from Invega sustain a which is on the Gan order Consider transfer to adult unit especially if patient continues to be aggressive on geriatric unit Will need physical examination of G-tube monitor CBC Reason for continued inpatient stay Substantial Risk for: rapid decompensation Time Spent With Patient Time: Total time managing care of this patient today ____ minutes.
[2025-07-12 16:30] VITALS: BP 116/80
[2025-07-12 20:00] VITALS: BP 120/84; PULSE 87; RESP 16; TEMP 36.4; O2SAT 97
[2025-07-12] MEDS: Clotrimazole 1 % Cream 15 GM TUBE 1 APPL TOPICAL (21:13)
[2025-07-13 07:56] VITALS: BP 128/77; PULSE 94; RESP 16; TEMP 36.7; O2SAT 95
[2025-07-13] MEDS: Lacosamide Oral Solution 100 MG/10 ML SOLUTION PO ×2 (08:43→20:53)
[2025-07-13] MEDS: Omeprazole/Na Bicarb Oral Susp 20 MG/10 ML UD Cup PO (08:43)
[2025-07-13 12:01] VITALS: BP 118/70
--- NOTE | 2025-07-13 14:28 | HO.PSYCHPN ---
Subjective Subjective Date of Service: 07/13/25 Reason For Visit: psychosis federica Interim History: calm, hyper-intense, cooperative. asking about G-tube removal and moving rooms due to bird chirping noise. per staff, doing well. no issues. Mental Status Exam Mental Status Exam Narrative: Appearance: Casually dressed, adequate hygiene Behavior: Calm and cooperative throughout the interview. Eye contact is appropriate, and there are no signs of psychomotor agitation or retardation Speech: Normal volume and prosody Thought process: Logical and goal-directed Thought content: Future oriented no self-harming thoughts Mood: Euthymic Affect: Constricted, hyper-intense SI: none expressed HI: none expressed VH/AH: none expressed Delusions: None expressed Insight/judgment: Fair insight and judgment Memory/cog: Alert, oriented x 3. grossly intact to conversational testing Diagnostics Vital Signs (24Hr): Vital Signs - 24 hr 07/12/25 16:30 07/12/25 20:00 07/13/25 07:56 Temperature 97.6 F 98.1 F Pulse Rate 87 94 Respiratory Rate 16 16 Blood Pressure 116/80 120/84 128/77 Pulse Oximetry 97 95 Oxygen Delivery Method Room Air Room Air 07/13/25 12:01 Temperature Pulse Rate Respiratory Rate Blood Pressure 118/70 Pulse Oximetry Oxygen Delivery Method BMI result Body Mass Index 23.7 Labs 07/02/25 12:37 06/21/25 07:22 Imaging Radiology Impressions: ITS Impressions Modified Barium Swallow 06/06/25 14:30 IMPRESSION: No evidence of laryngeal penetration or aspiration. Refer to the full speech therapy report to follow for further details. Electronically signed by: Gerry Tejeda MD 06/06/2025 03:25 PM EDT Medications Medications Current Medications Acetaminophen (Acetaminophen 325 Mg Tablet) 650 mg PO Q6H PRN PRN Reason: Pain Last Admin: 07/04/25 21:00 Dose: 650 mg Al Hydroxide/Mg Hydroxide (Magnesium Hydrox/Alum Hydrox 30 Ml Oral.Susp) 30 ml PO Q6H PRN PRN Reason: Heartburn/Nausea Apixaban (Apixaban 5 Mg Tablet) 5 mg PO BID SERENITY Last Admin: 07/13/25 08:43 Dose: 5 mg Bisacodyl (Bisacodyl 10 Mg Supp.Rect) 10 mg GA DAILY PRN PRN Reason: Constipation Calcium Carbonate (Calcium Carbonate 750 Mg Tab.Chew) 750 mg PO Q8H PRN PRN Reason: GERD Last Admin: 07/12/25 21:55 Dose: 750 mg Clotrimazole (Clotrimazole 1 % Cream 15 Gm Tube) 1 appl TOPICAL TID [facility]; Protocol Last Admin: 07/13/25 08:43 Dose: Not Given Glucagon (Glucagon Hcl 1 Mg Vial) 1 mg IM ONCE PRN PRN Reason: HYPOGLYCEMIA Haloperidol Lactate (Haloperidol Lactate 5 Mg/Ml Vial) 5 mg IM BID PRN PRN Reason: if pt refuses Seroquel, per [place] Last Admin: 07/08/25 09:34 Dose: 5 mg Lacosamide (Lacosamide Oral Solution 100 Mg/10 Ml Solution) 100 mg PO BID [facility] Last Admin: 07/13/25 08:43 Dose: 100 mg [place] Carbonate ([place] Carbonate Er 300 Mg Tablet.Er) 600 mg PO BEDTIME [facility] Last Admin: 07/12/25 21:15 Dose: 600 mg Magnesium Hydroxide (Milk Of Magnesia 30 Ml Oral.Susp) 30 ml PO DAILY PRN PRN Reason: Constipation Memantine (Memantine Hcl 10 Mg Tablet) 20 mg PO BEDTIME [facility] Last Admin: 07/12/25 21:14 Dose: 20 mg Midodrine (Midodrine Hcl 2.5 Mg Tablet) 7.5 mg PO TIDAC [facility] Last Admin: 07/13/25 12:02 Dose: 7.5 mg Naloxone HCl (Naloxone Hcl Nasal 4 Mg [place]) 4 mg NOSTRILALT Q2M PRN PRN Reason: opiate overdose Omeprazole (Omeprazole/Na Bicarb Oral Susp 20 Mg/10 Ml Ud Cup) 20 mg PO DAILY@0630 [facility] Last Admin: 07/13/25 08:43 Dose: 20 mg Paliperidone (Paliperidone Er 6 Mg Tab.Er.24) 6 mg PO BEDTIME [facility] Last Admin: 07/12/25 21:14 Dose: 6 mg Polyethylene Glycol (Polyethylene Glycol 3350 17 Gm Powd.Pack) 17 gm PO DAILY PRN PRN Reason: Constipation Quetiapine Fumarate (Quetiapine Fumarate 50 Mg Tablet) 50 mg PO BID PRN PRN Reason: psychosis, agitation Last Admin: 07/09/25 20:29 Dose: 50 mg Quetiapine Fumarate (Quetiapine Fumarate 300 Mg Tablet) 300 mg PO DAILY [facility] Last Admin: 07/13/25 08:43 Dose: 300 mg Senna (Sennosides Oral Syrup 8.8 Mg/5 Ml) 17.6 mg PO DAILY PRN PRN Reason: Constipation Sodium Biphosphate/Sodium Phosphate (Sodium Phosphate,[place]-Dibasic 133 Ml Enema) 118 ml GA DAILY PRN PRN Reason: Constipation Trazodone HCl (Trazodone Hcl 50 Mg Tablet) 50 mg PO BEDTIME MRX1 PRN PRN Reason: Insomnia Last Admin: 06/25/25 21:33 Dose: 50 mg Allergies Allergies Allergy/AdvReac Type Severity Reaction Status Date / Time dog dander Allergy Unknown Verified 06/04/25 06:34 mite-Dermatophagoides Allergy Unknown Verified 06/04/25 06:32 farabhilash lange (dust mite - [place]) Assessment & Plan Assessment & Plan (1) Schizoaffective disorder, bipolar type: Status: Acute Code(s): F25.0 - Schizoaffective disorder, bipolar type (2) Seizure disorder: Status: Acute Code(s): G40.909 - Epilepsy, unspecified, not intractable, without status epilepticus (3) Eating disorder with ongoing treatment: Status: Acute Code(s): F50.9 - Eating disorder, unspecified (4) Gastrointestinal tube in situ: Status: Acute Code(s): Z93.1 - Gastrostomy status Plan 59-year-old male with schizoaffective disorder, bipolar type, eating disorder, federica and dementia, he also has a history of seizure disorder, COPD, DVT, pulmonary nodules in the hypotension. He is seen today for reports and chest discomfort. Headaches and chest discomfort Patient reports that he does not wish to have any testing, he feels fine Upset that he is being forced to be discharged to [facility]. He refuses vital signs He has a seizure disorder as well as history of DVT, has been refusing Vimpat and Eliquis consistently. He has also been refusing midodrine, lithium, memantine, omeprazole. Told me he soes not wish to take any medications from anyone affiliated with [facility]. Schizoaffective disorder, bipolar type/Bulimia/eating disorder/Federica/Dementia Treatment per psychiatric team Has a G-tube in place due to severe malnutrition Patient is angry and does not allow assessment Seizure disorder No recent seizure activity noted Refusing Vimpat COPD Stable, not on any medications DVT on Eliquis Refusing Eliquis Diagnosed on ultrasound on 03/26/[address] Not[address] on CT scan at [facility], we will need outpatient follow up Hypotension Continues on midodrine Thank you for allowing me to participate in the care of this patient. We will follow as needed, please notify medical provider with any acute changes or concerns. Patient admitted on a conditional voluntary again seen and evaluated 10:00. Patient appears to have schizoaffective disorder a marked eating disorder question delusional based leading to a G-tube but there is no clear history presently available regarding medication trials inpatient psychiatric history. He is on minimal doses of lithium and Seroquel and unclear why that is. Would benefit from medical history regarding G-tube what the treatment plan was regarding this and need medical and [facility] records [facility] and would also benefit records from [place]. Patient does have a guardian and [facility] will need to coordinate care check lithium level adjust to better therapeutic dose for irritability appears to be manic symptoms unclear why patient is not on antipsychotic dose of antipsychotic medication. Monitor response to treatment question discharge back to [facility]. Question dementia/cognitive impairment diagnosis check [place] review medical records 06/05/2025 Patient more psychotically preoccupied difficulty processing information records reviewed. Patient carries multiple diagnoses including schizophrenia in have significant grandiose and paranoid delusional beliefs but unclear why he is only on very low-dose Seroquel and on clozapine previously. Has only been treated with low-dose lithium. Given patient's history of psychosis, psychotic/eating daughter disorder requiring G-tube placement unclear why patient has such minimum doses of psychiatric medication question past side effects presently no psychiatric provider to coordinate with. Patient is more irritable and agitated psychotically preoccupied tried to explain to him also that he does have a guardian and that issues such as this will need to be addressed with his guardian. Barium swallow ordered to try to clarify if there is any dysphagia elements no obvious side effects were why patient is not currently on adequate antipsychotic treatment. Question asked obstruction with clozapine but unable to clarify at this time patient unable to clarify this history. Patient does have significant difficulty with reflecting on issues and absorbing information but memory seems significantly impaired. Monitor response to patient swallowing is on medication monitor weight unclear history of noncompliance this should be clarified 06/06/2025 Try and gather further data regarding patient's treatment history had been on Clozaril in the past unclear why discontinued Medical history not clear continue lower dose Seroquel and lithium at present 06/07 Team needing back up dosing Seroquel refusal. Haldol 2.5 mg IM bid prn per Gan parameters if pt refuses Seroquel Increase Seroquel to 75 mg bid Monitor for dysphagia 06/08 Continue tx 06/09/2025 Trying to clarify history the past year for this patient. Call placed to nurse practitioner at [facility]. Patient was quite psychotic irritable agitated 06/10/2025 Continue plan of care patient is still not able to elaborate history but no current adverse effects from current regimen noted. He is aware that he will most likely return to [facility] encourage compliance with lithium try to obtain therapeutic level 06/12/2025 Encourage compliance with lithium and Seroquel. Patient had been on clozapine and past was only on 25 mg Seroquel at [facility] unclear why he was not more robust only treated increase Seroquel as tolerated try and do mouth checks check for purging 06/20/25 Pt aware of transfer back to [facility] has been eating not purging taking seroquel 06/21 Patient says his mood is getting better... Denies any SI Patient says that he has a hard time resisting the urge to purge and that he has been doing so. He says that after he eats a meal he feels full. But he says he does not like that he does this and wants to stop purging more than Dr. Adhikari wants him to stop. He says he is working on it. Discussed lithium level which has not moved much and patient agrees to make dose long-acting and at bedtime to avoid accidentally purging medications 06/22 Patient very irritable today and would not discuss much with life underwriter other than to say I told you and you would not listen... Now you'll will see what happens.. Patient would not explain what that means despite life underwriter having no idea to what he was referring. Patient refusing medication and when life underwriter went to discuss it he said he would not take lithium; patient said he did not want to talk to this life underwriter any further [place] level subtherapeutic, however patient says he is feeling better so will leave at current dose but change to long-acting and at bedtime 06/23/2025 Continue plan of care if patient accepts treatment including for his medical conditions which were explained to him will maintain current treatment plan if patient continues to be come more paranoid verbally aggressive consider filing for civil commitment and perhaps amendment of Gan if needed. Increase Seroquel as tolerated follow blood pressure and ANC 06/24/25 cont lithium seroquel monitor 06/25/25 inc seroquel as tolerated prozac held ? in irritability 06/26/25 inc seroquel restart fluox for ocd type sx 06/27/2025 Check lithium level in the morning patient reportedly has been taking lithium now for few days increase Seroquel as patient seems more vulnerable on going back to [facility] sometime next week denies thoughts of harm to self or others 06/28: no change today 06/29: repeat Li+ level for tomorrow 06/30/25 Pt refusing all meds exept lithium does not understand medical risks lith close to 0 inc seroquel as tolerated try and follow bp given he is refusing midodrine . Trying to coord with [facility] whether they can handle this level of care they did refuse pt for today. If pt stays will file for tx plan.will try for mei . 07/01/25 [facility] not an option at present with psychotic lability threats aggressive behavior inc seroquel 300 bid max of gan may need to restrain for cbc and vitals if seroquel not not effective will switch to invega. Monitor for dvt sx sz encourage tx acceptance 07/02/25 Pt somewhat less aggressive past 2 days ,monitor medical safety given refusal of anti sz meds and eloquis. Seroquel 300 bid pt tolerating ,will try and recoordinate with [facility] care because wbc were close to 0 on cloz . 07/03/2025 Continue Seroquel 300 b.i.d. continue to encourage patient accepting his meds for medical issues although no negative consequences to this point vital signs stable no orthostasis ambulation not problematic has been in better control Issues had been reviewed with guardian have also reviewed possibility of [facility] referral working with [facility] to try and transfer back as possible based on patient's behavior. If recurrence of aggressive behavior will change to Invega Demond stain also a possibility 07/04/2025 Patient has now not been threatening or aggressive for a number of days. He is on Seroquel a 300 b.i.d. and this appears to be helpful in decreasing paranoid reactivity and preoccupation with delusional material. Patient refusing medication for seizure and embolism stating he feels fine in his refusing to take at this time he is alert ambulating well adequate vital signs tolerating Seroquel. Recommend return to [facility] encourage acceptance of medical medications. 07/05: continue current management and treatment plan. 07/06: continue current management and treatment plan. 07/08/202507/09: Continue current treatment regimen. Taper Seroquel start Risperdal follow CBC history of neutropenia Seroquel 300 b.i.d. max dose on Gan or was not effective for psychosis or aggression most likely would eventually benefit from Invega sustain a which is on the Gan order Consider transfer to adult unit especially if patient continues to be aggressive on geriatric unit Will need physical examination of G-tube monitor CBC 07/10/25 start invega stop risperadol encourage med compliance 07/13: in behavioral control, doing well. continue current mgmt. Reason for continued inpatient stay Substantial Risk for: inability to function and rapid decompensation Time Spent With Patient Time: Total time managing care of this patient today ____ minutes.
[2025-07-13 16:29] VITALS: BP 133/81
[2025-07-13 19:58] VITALS: BP 119/73; PULSE 84; RESP 18; TEMP 36.6; O2SAT 96
[2025-07-14 08:15] VITALS: BP 115/77; PULSE 88; RESP 16; TEMP 36.3; O2SAT 97
[2025-07-14] MEDS: Omeprazole/Na Bicarb Oral Susp 20 MG/10 ML UD Cup PO (08:17)
[2025-07-14] MEDS: Lacosamide Oral Solution 100 MG/10 ML SOLUTION PO (08:19)
[2025-07-14] MEDS: Clotrimazole 1 % Cream 15 GM TUBE 1 APPL TOPICAL ×2 (09:19→15:22)
[2025-07-14 11:43] VITALS: BP 124/76; PULSE 94
--- NOTE | 2025-07-14 17:12 | P.PNPSI_ITS ---
Subjective Subjective Date of Service: 07/14/25 Reason For Visit: psychosis federica Subjective Notes: Conditional Voluntary Healthcare Proxy: No Guardianship: Yes Interim History: Patient being Gan medication but no other medication. Some period of irritability today seeing a broom otherwise has been much calmer less agitated. Becomes anxious and concerned Medication Compliance: No Mental Status Exam Mental Status Exam Narrative: Appearance: Casually dressed, adequate hygiene Behavior: Calm and cooperative throughout the interview. Eye contact is appropriate, and there are no signs of psychomotor agitation or retardation Speech: Normal volume and prosody Thought process: Focused on [facility] not on a discharge plan and being upset without clear planning Thought content: Future oriented no self-harming thoughts Mood: Euthymic Affect: Constricted, hyper-intense SI: none expressed HI: none expressed VH/AH: none expressed Delusions: None expressed Insight/judgment: Fair insight and judgment Memory/cog: Alert, oriented x 3. grossly intact to conversational testing Diagnostics Vital Signs (24Hr): Vital Signs - 24 hr 07/13/25 19:58 07/14/25 08:15 07/14/25 11:43 Temperature 97.9 F 97.3 F Pulse Rate 84 88 94 Respiratory Rate 18 16 Blood Pressure 119/73 115/77 124/76 Pulse Oximetry 96 97 Oxygen Delivery Method Room Air Room Air BMI result Body Mass Index 23.7 Labs 07/02/25 12:37 06/21/25 07:22 Imaging Radiology Impressions: ITS Impressions Modified Barium Swallow 06/06/25 14:30 IMPRESSION: No evidence of laryngeal penetration or aspiration. Refer to the full speech therapy report to follow for further details. Electronically signed by: Gerry Tejeda MD 06/06/2025 03:25 PM EDT Medications Medications Current Medications Acetaminophen (Acetaminophen 325 Mg Tablet) 650 mg PO Q6H PRN PRN Reason: Pain Last Admin: 07/04/25 21:00 Dose: 650 mg Al Hydroxide/Mg Hydroxide (Magnesium Hydrox/Alum Hydrox 30 Ml Oral.Susp) 30 ml PO Q6H PRN PRN Reason: Heartburn/Nausea Apixaban (Apixaban 5 Mg Tablet) 5 mg PO BID [facility] Last Admin: 07/14/25 08:18 Dose: 5 mg Bisacodyl (Bisacodyl 10 Mg Supp.Rect) 10 mg ME DAILY PRN PRN Reason: Constipation Calcium Carbonate (Calcium Carbonate 750 Mg Tab.Chew) 750 mg PO Q8H PRN PRN Reason: GERD Last Admin: 07/13/25 21:17 Dose: 750 mg Clotrimazole (Clotrimazole 1 % Cream 15 Gm Tube) 1 appl TOPICAL TID [facility]; Protocol Last Admin: 07/14/25 15:22 Dose: 1 appl Glucagon (Glucagon Hcl 1 Mg Vial) 1 mg IM ONCE PRN PRN Reason: HYPOGLYCEMIA Haloperidol Lactate (Haloperidol Lactate 5 Mg/Ml Vial) 5 mg IM BID PRN PRN Reason: if pt refuses Seroquel, per [place] Last Admin: 07/08/25 09:34 Dose: 5 mg Lacosamide (Lacosamide Oral Solution 100 Mg/10 Ml Solution) 100 mg PO BID [facility] Last Admin: 07/14/25 08:19 Dose: 100 mg [place] Carbonate ([place] Carbonate Er 300 Mg Tablet.Er) 600 mg PO BEDTIME [facility] Last Admin: 07/13/25 20:54 Dose: 600 mg Magnesium Hydroxide (Milk Of Magnesia 30 Ml Oral.Susp) 30 ml PO DAILY PRN PRN Reason: Constipation Memantine (Memantine Hcl 10 Mg Tablet) 20 mg PO BEDTIME [facility] Last Admin: 07/13/25 21:17 Dose: 20 mg Midodrine (Midodrine Hcl 2.5 Mg Tablet) 7.5 mg PO TIDAC [facility] Last Admin: 07/14/25 16:30 Dose: Not Given Naloxone HCl (Naloxone Hcl Nasal 4 Mg [place]) 4 mg NOSTRILALT Q2M PRN PRN Reason: opiate overdose Omeprazole (Omeprazole/Na Bicarb Oral Susp 20 Mg/10 Ml Ud Cup) 20 mg PO DAILY@0630 [facility] Last Admin: 07/14/25 08:17 Dose: 20 mg Paliperidone (Paliperidone Er 6 Mg Tab.Er.24) 6 mg PO BEDTIME [facility] Last Admin: 07/13/25 20:54 Dose: 6 mg Polyethylene Glycol (Polyethylene Glycol 3350 17 Gm Powd.Pack) 17 gm PO DAILY PRN PRN Reason: Constipation Quetiapine Fumarate (Quetiapine Fumarate 50 Mg Tablet) 50 mg PO BID PRN PRN Reason: psychosis, agitation Last Admin: 07/09/25 20:29 Dose: 50 mg Quetiapine Fumarate (Quetiapine Fumarate 300 Mg Tablet) 300 mg PO DAILY [facility] Last Admin: 07/14/25 08:18 Dose: 300 mg Senna (Sennosides Oral Syrup 8.8 Mg/5 Ml) 17.6 mg PO DAILY PRN PRN Reason: Constipation Sodium Biphosphate/Sodium Phosphate (Sodium Phosphate,[place]-Dibasic 133 Ml Enema) 118 ml ME DAILY PRN PRN Reason: Constipation Trazodone HCl (Trazodone Hcl 50 Mg Tablet) 50 mg PO BEDTIME MRX1 PRN PRN Reason: Insomnia Last Admin: 06/25/25 21:33 Dose: 50 mg Allergies Allergies Allergy/AdvReac Type Severity Reaction Status Date / Time dog dander Allergy Unknown Verified 06/04/25 06:34 mite-Dermatophagoides Allergy Unknown Verified 06/04/25 06:32 farinae, abhilash (dust mite - [place]) Assessment & Plan Assessment & Plan (1) Schizoaffective disorder, bipolar type: Status: Acute Code(s): F25.0 - Schizoaffective disorder, bipolar type (2) Seizure disorder: Status: Acute Code(s): G40.909 - Epilepsy, unspecified, not intractable, without status epilepticus (3) Eating disorder with ongoing treatment: Status: Acute Code(s): F50.9 - Eating disorder, unspecified (4) Gastrointestinal tube in situ: Status: Acute Code(s): Z93.1 - Gastrostomy status Plan 59-year-old male with schizoaffective disorder, bipolar type, eating disorder, federica and dementia, he also has a history of seizure disorder, COPD, DVT, pulmonary nodules in the hypotension. He is seen today for reports and chest discomfort. Headaches and chest discomfort Patient reports that he does not wish to have any testing, he feels fine Upset that he is being forced to be discharged to [facility]. He refuses vital signs He has a seizure disorder as well as history of DVT, has been refusing Vimpat and Eliquis consistently. He has also been refusing midodrine, lithium, memantine, omeprazole. Told me he soes not wish to take any medications from anyone affiliated with [facility]. Schizoaffective disorder, bipolar type/Bulimia/eating disorder/Federica/Dementia Treatment per psychiatric team Has a G-tube in place due to severe malnutrition Patient is angry and does not allow assessment Seizure disorder No recent seizure activity noted Refusing Vimpat COPD Stable, not on any medications DVT on Eliquis Refusing Eliquis Diagnosed on ultrasound on 03/26/[address] Not[address] on CT scan at [facility], we will need outpatient follow up Hypotension Continues on midodrine Thank you for allowing me to participate in the care of this patient. We will follow as needed, please notify medical provider with any acute changes or concerns. Patient admitted on a conditional voluntary again seen and evaluated 10:00. Patient appears to have schizoaffective disorder a marked eating disorder question delusional based leading to a G-tube but there is no clear history presently available regarding medication trials inpatient psychiatric history. He is on minimal doses of lithium and Seroquel and unclear why that is. Would benefit from medical history regarding G-tube what the treatment plan was regarding this and need medical [facility] and would also benefit records from [place]. [facility] check lithium level adjust to better therapeutic dose for irritability appears to be manic symptoms unclear why patient is not on antipsychotic dose of antipsychotic medication. Monitor response to treatment question discharge back to [facility]. Question dementia/cognitive impairment diagnosis check [place] review medical records 06/05/2025 Patient more psychotically preoccupied difficulty processing information records reviewed. Patient carries multiple diagnoses including schizophrenia in have significant grandiose and paranoid delusional beliefs but unclear why he is only on very low-dose Seroquel and on clozapine previously. Has only been treated with low-dose lithium. Given patient's history of psychosis, psychotic/eating daughter disorder requiring G-tube placement unclear why patient has such minimum doses of psychiatric medication question past side effects presently no psychiatric provider to coordinate with. Patient is more irritable and agitated psychotically preoccupied tried to explain to him also that he does have a guardian and that issues such as this will need to be addressed with his guardian. Barium swallow ordered to try to clarify if there is any dysphagia elements no obvious side effects were why patient is not currently on adequate antipsychotic treatment. Question asked obstruction with clozapine but unable to clarify at this time patient unable to clarify this history. Patient does have significant difficulty with reflecting on issues and absorbing information but memory seems significantly impaired. Monitor response to patient swallowing is on medication monitor weight unclear history of noncompliance this should be clarified 06/06/2025 Try and gather further data regarding patient's treatment history had been on Clozaril in the past unclear why discontinued Medical history not clear continue lower dose Seroquel and lithium at present 06/07 Team needing back up dosing Seroquel refusal. Haldol 2.5 mg IM bid prn per Gan parameters if pt refuses Seroquel Increase Seroquel to 75 mg bid Monitor for dysphagia 06/08 Continue tx 06/09/2025 Trying to clarify history the past year for this patient. Call placed to nurse practitioner at [facility]. Patient was quite psychotic irritable agitated 06/10/2025 Continue plan of care patient is still not able to elaborate history but no current adverse effects from current regimen noted. He is aware that he will most likely return to [facility] encourage compliance with lithium try to obtain therapeutic level 06/12/2025 Encourage compliance with lithium and Seroquel. Patient had been on clozapine and past was only on 25 mg Seroquel at [facility] unclear why he was not more robust only treated increase Seroquel as tolerated try and do mouth checks check for purging 06/20/25 Pt aware of transfer back to [facility] has been eating not purging taking seroquel 06/21 Patient says his mood is getting better... Denies any SI Patient says that he has a hard time resisting the urge to purge and that he has been doing so. He says that after he eats a meal he feels full. But he says he does not like that he does this and wants to stop purging more than Dr. Adhikari wants him to stop. He says he is working on it. Discussed lithium level which has not moved much and patient agrees to make dose long-acting and at bedtime to avoid accidentally purging medications 06/22 Patient very irritable today and would not discuss much with insurance writer other than to say I told you and you would not listen... Now you'll will see what happens.. Patient would not explain what that means despite insurance writer having no idea to what he was referring. Patient refusing medication and when insurance writer went to discuss it he said he would not take lithium; patient said he did not want to talk to this insurance writer any further [place] level subtherapeutic, however patient says he is feeling better so will leave at current dose but change to long-acting and at bedtime 06/23/2025 Continue plan of care if patient accepts treatment including for his medical conditions which were explained to him will maintain current treatment plan if patient continues to be come more paranoid verbally aggressive consider filing for civil commitment and perhaps amendment of Gan if needed. Increase Seroquel as tolerated follow blood pressure and ANC 06/24/25 cont lithium seroquel monitor 06/25/25 inc seroquel as tolerated prozac held ? in irritability 06/26/25 inc seroquel restart fluox for ocd type sx 06/27/2025 Check lithium level in the morning patient reportedly has been taking lithium now for few days increase Seroquel as patient seems more vulnerable on going back to [facility] sometime next week denies thoughts of harm to self or others 06/28: no change today 06/29: repeat Li+ level for tomorrow 06/30/25 Pt refusing all meds exept lithium does not understand medical risks lith close to 0 inc seroquel as tolerated try and follow bp given he is refusing midodrine . Trying to coord with [facility] whether they can handle this level of care they did refuse pt for today. If pt stays will file for tx plan.will try for mei . 07/01/25 [facility] not an option at present with psychotic lability threats aggressive behavior inc seroquel 300 bid max of gan may need to restrain for cbc and vitals if seroquel not not effective will switch to invega. Monitor for dvt sx sz encourage tx acceptance 07/02/25 Pt somewhat less aggressive past 2 days ,monitor medical safety given refusal of anti sz meds and eloquis. Seroquel 300 bid pt tolerating ,will try and recoordinate with [facility] because wbc were close to 0 on cloz . 07/03/2025 Continue Seroquel 300 b.i.d. continue to encourage patient accepting his meds for medical issues although no negative consequences to this point vital signs stable no orthostasis ambulation not problematic has been in better control Issues had been reviewed with guardian have also reviewed possibility of H referral working with [facility] to try and transfer back as possible based on patient's behavior. If recurrence of aggressive behavior will change to Invega [place] stain also a possibility 07/04/2025 Patient has now not been threatening or aggressive for a number of days. He is on Seroquel a 300 b.i.d. and this appears to be helpful in decreasing paranoid reactivity and preoccupation with delusional material. Patient refusing medication for seizure and embolism stating he feels fine in his refusing to take at this time he is alert ambulating well adequate vital signs tolerating Seroquel. Recommend return to [facility] encourage acceptance of medical medications. 07/05: continue current management and treatment plan. 07/06: continue current management and treatment plan. 07/08/202507/09: Continue current treatment regimen. Taper Seroquel start Risperdal follow CBC history of neutropenia Seroquel 300 b.i.d. max dose on Gan or was not effective for psychosis or aggression most likely would eventually benefit from Invega sustain a which is on the Gan order Consider transfer to adult unit especially if patient continues to be aggressive on geriatric unit Will need physical examination of G-tube monitor CBC 07/10/25 start invega stop risperadol encourage med compliance 07/13: in behavioral control, doing well. continue current mgmt. 07/14/2025 Continue Invega max dose limited to 6 mg check CBC given history of sepsis and leukopenia Consider convert to long-acting injectable as possible Reason for continued inpatient stay Substantial Risk for: inability to function, rapid decompensation and med/psych decompensation Time Spent With Patient Time: Total time managing care of this patient today ____ minutes.
[2025-07-15] MEDS: Clotrimazole 1 % Cream 15 GM TUBE 1 APPL TOPICAL (16:24)
[2025-07-15 20:00] VITALS: RESP 18
--- NOTE | 2025-07-15 22:58 | HO.PSYCHPN ---
Subjective Subjective Date of Service: 07/15/25 Reason For Visit: psychosis federica Diagnostics Vital Signs (24Hr): BMI result Body Mass Index 23.7 Labs 07/16/25 07:24 07/16/25 11:01 Imaging Radiology Impressions: ITS Impressions Modified Barium Swallow 06/06/25 14:30 IMPRESSION: No evidence of laryngeal penetration or aspiration. Refer to the full speech therapy report to follow for further details. Electronically signed by: Gerry Tejeda MD 06/06/2025 03:25 PM EDT RP Chest X-Ray 07/15/25 13:39 IMPRESSION: Concerning chronic interstitial lung disease without overt acute airspace disease. Electronically signed by: Vik Mccauley MD 07/15/2025 02:08 PM EDT RP Medications Medications Current Medications Acetaminophen (Acetaminophen 325 Mg Tablet) 650 mg PO Q6H PRN PRN Reason: Pain Last Admin: 07/04/25 21:00 Dose: 650 mg Al Hydroxide/Mg Hydroxide (Magnesium Hydrox/Alum Hydrox 30 Ml Oral.Susp) 30 ml PO Q6H PRN PRN Reason: Heartburn/Nausea Apixaban (Apixaban 5 Mg Tablet) 5 mg PO BID [facility] Last Admin: 07/15/25 08:23 Dose: Not Given Bisacodyl (Bisacodyl 10 Mg Supp.Rect) [address] DAILY PRN PRN Reason: Constipation Calcium Carbonate (Calcium Carbonate 750 Mg Tab.Chew) 750 mg PO Q8H PRN PRN Reason: GERD Last Admin: 07/15/25 14:27 Dose: 750 mg Clotrimazole (Clotrimazole 1 % Cream 15 Gm Tube) 1 appl TOPICAL TID SERENITY; Protocol Last Admin: 07/15/25 16:24 Dose: 1 appl Glucagon (Glucagon Hcl 1 Mg Vial) 1 mg IM ONCE PRN PRN Reason: HYPOGLYCEMIA Haloperidol Lactate (Haloperidol Lactate 5 Mg/Ml Vial) 5 mg IM BID PRN PRN Reason: if pt refuses Seroquel, per [place] Last Admin: 07/08/25 09:34 Dose: 5 mg Lacosamide (Lacosamide Oral Solution 100 Mg/10 Ml Solution) 100 mg PO BID [facility] Last Admin: 07/15/25 08:24 Dose: Not Given Ludden Carbonate (Ludden Carbonate Er 300 Mg Tablet.Er) 600 mg PO BEDTIME [facility] Last Admin: 07/14/25 20:02 Dose: 600 mg Magnesium Hydroxide (Milk Of Magnesia 30 Ml Oral.Susp) 30 ml PO DAILY PRN PRN Reason: Constipation Memantine (Memantine Hcl 10 Mg Tablet) 20 mg PO BEDTIME [facility] Last Admin: 07/14/25 21:26 Dose: Not Given Midodrine (Midodrine Hcl 2.5 Mg Tablet) 7.5 mg PO TIDAC [facility] Last Admin: 07/15/25 16:17 Dose: 7.5 mg Naloxone HCl (Naloxone Hcl Nasal 4 Mg [place]) 4 mg NOSTRILALT Q2M PRN PRN Reason: opiate overdose Omeprazole (Omeprazole/Na Bicarb Oral Susp 20 Mg/10 Ml Ud Cup) 20 mg PO DAILY@1500 SERENITY Paliperidone (Paliperidone Er 6 Mg Tab.Er.24) 6 mg PO BEDTIME [facility] Last Admin: 07/14/25 20:02 Dose: 6 mg Polyethylene Glycol (Polyethylene Glycol 3350 17 Gm Powd.Pack) 17 gm PO DAILY PRN PRN Reason: Constipation Quetiapine Fumarate (Quetiapine Fumarate 50 Mg Tablet) 50 mg PO BID PRN PRN Reason: psychosis, agitation Last Admin: 07/14/25 20:02 Dose: 50 mg Quetiapine Fumarate (Quetiapine Fumarate 300 Mg Tablet) 300 mg PO DAILY [facility] Last Admin: 07/15/25 08:30 Dose: 300 mg Senna (Sennosides Oral Syrup 8.8 Mg/5 Ml) 17.6 mg PO DAILY PRN PRN Reason: Constipation Sodium Biphosphate/Sodium Phosphate (Sodium Phosphate,Toombs-Dibasic 133 Ml Enema) [address] DAILY PRN PRN Reason: Constipation Trazodone HCl (Trazodone Hcl 50 Mg Tablet) 50 mg PO BEDTIME MRX1 PRN PRN Reason: Insomnia Last Admin: 06/25/25 21:33 Dose: 50 mg Allergies Allergies Allergy/AdvReac Type Severity Reaction Status Date / Time dog dander Allergy Unknown Verified 06/04/25 06:34 mite-Dermatophagoides Allergy Unknown Verified 06/04/25 06:32 farinae, abhilash (dust mite - [place]) Assessment & Plan Assessment & Plan (1) Schizoaffective disorder, bipolar type: Status: Acute Code(s): F25.0 - Schizoaffective disorder, bipolar type (2) Seizure disorder: Status: Acute Code(s): G40.909 - Epilepsy, unspecified, not intractable, without status epilepticus (3) Eating disorder with ongoing treatment: Status: Acute Code(s): F50.9 - Eating disorder, unspecified (4) Gastrointestinal tube in situ: Status: Acute Code(s): Z93.1 - Gastrostomy status Plan 59-year-old male with schizoaffective disorder, bipolar type, eating disorder, federica and dementia, he also has a history of seizure disorder, COPD, DVT, pulmonary nodules in the hypotension. He is seen today for reports and chest discomfort. Headaches and chest discomfort Patient reports that he does not wish to have any testing, he feels fine Upset that he is being forced to be discharged to [facility]. He refuses vital signs He has a seizure disorder as well as history of DVT, has been refusing Vimpat and Eliquis consistently. He has also been refusing midodrine, lithium, memantine, omeprazole. Told me he soes not wish to take any medications from anyone affiliated with [facility]. Schizoaffective disorder, bipolar type/Bulimia/eating disorder/Federica/Dementia Treatment per psychiatric team Has a G-tube in place due to severe malnutrition Patient is angry and does not allow assessment Seizure disorder No recent seizure activity noted Refusing Vimpat COPD Stable, not on any medications DVT on Eliquis Refusing Eliquis Diagnosed on ultrasound on 03/26/[address] Not[address] on CT scan at [facility], we will need outpatient follow up Hypotension Continues on midodrine Thank you for allowing me to participate in the care of this patient. We will follow as needed, please notify medical provider with any acute changes or concerns. Patient admitted on a conditional voluntary again seen and evaluated 10:00. Patient appears to have schizoaffective disorder a marked eating disorder question delusional based leading to a G-tube but there is no clear history presently available regarding medication trials inpatient psychiatric history. He is on minimal doses of lithium and Seroquel and unclear why that is. Would benefit from medical history regarding G-tube what the treatment plan was regarding this and need medical and psychiatric records from [facility] and would also benefit records from [place]. Patient does have a guardian and Gan order will need to coordinate care check lithium level adjust to better therapeutic dose for irritability appears to be manic symptoms unclear why patient is not on antipsychotic dose of antipsychotic medication. Monitor response to treatment question discharge back to [facility]. Question dementia/cognitive impairment diagnosis check [place] review medical records 06/05/2025 Patient more psychotically preoccupied difficulty processing information records reviewed. Patient carries multiple diagnoses including schizophrenia in have significant grandiose and paranoid delusional beliefs but unclear why he is only on very low-dose Seroquel and on clozapine previously. Has only been treated with low-dose lithium. Given patient's history of psychosis, psychotic/eating daughter disorder requiring G-tube placement unclear why patient has such minimum doses of psychiatric medication question past side effects presently no psychiatric provider to coordinate with. Patient is more irritable and agitated psychotically preoccupied tried to explain to him also that he does have a guardian and that issues such as this will need to be addressed with his guardian. Barium swallow ordered to try to clarify if there is any dysphagia elements no obvious side effects were why patient is not currently on adequate antipsychotic treatment. Question asked obstruction with clozapine but unable to clarify at this time patient unable to clarify this history. Patient does have significant difficulty with reflecting on issues and absorbing information but memory seems significantly impaired. Monitor response to patient swallowing is on medication monitor weight unclear history of noncompliance this should be clarified 06/06/2025 Try and gather further data regarding patient's treatment history had been on Clozaril in the past unclear why discontinued Medical history not clear continue lower dose Seroquel and lithium at present 06/07 Team needing back up dosing Seroquel refusal. Haldol 2.5 mg IM bid prn per Gan parameters if pt refuses Seroquel Increase Seroquel to 75 mg bid Monitor for dysphagia 06/08 Continue tx 06/09/2025 Trying to clarify history the past year for this patient. Call placed to nurse practitioner at [facility]. Patient was quite psychotic irritable agitated 06/10/2025 Continue plan of care patient is still not able to elaborate history but no current adverse effects from current regimen noted. He is aware that he will most likely return to [facility] encourage compliance with lithium try to obtain therapeutic level 06/12/2025 Encourage compliance with lithium and Seroquel. Patient had been on clozapine and past was only on 25 mg Seroquel at [facility] unclear why he was not more robust only treated increase Seroquel as tolerated try and do mouth checks check for purging 06/20/25 Pt aware of [facility] has been eating not purging taking seroquel 06/21 Patient says his mood is getting better... Denies any SI Patient says that he has a hard time resisting the urge to purge and that he has been doing so. He says that after he eats a meal he feels full. But he says he does not like that he does this and wants to stop purging more than Dr. Adhikari wants him to stop. He says he is working on it. Discussed lithium level which has not moved much and patient agrees to make dose long-acting and at bedtime to avoid accidentally purging medications 06/22 Patient very irritable today and would not discuss much with securities underwriter other than to say I told you and you would not listen... Now you'll will see what happens.. Patient would not explain what that means despite securities underwriter having no idea to what he was referring. Patient refusing medication and when securities underwriter went to discuss it he said he would not take lithium; patient said he did not want to talk to this securities underwriter any further Ludden level subtherapeutic, however patient says he is feeling better so will leave at current dose but change to long-acting and at bedtime 06/23/2025 Continue plan of care if patient accepts treatment including for his medical conditions which were explained to him will maintain current treatment plan if patient continues to be come more paranoid verbally aggressive consider filing for civil commitment and perhaps amendment of Gan if needed. Increase Seroquel as tolerated follow blood pressure and ANC 06/24/25 cont lithium seroquel monitor 06/25/25 inc seroquel as tolerated prozac held ? in irritability 06/26/25 inc seroquel restart fluox for ocd type sx 06/27/2025 Check lithium level in the morning patient reportedly has been taking lithium now for few days increase Seroquel as patient seems more vulnerable on going back to [facility] sometime next week denies thoughts of harm to self or others 06/28: no change today 06/29: repeat Li+ level for tomorrow 06/30/25 Pt refusing all meds exept lithium does not understand medical risks lith close to 0 inc seroquel as tolerated try and follow bp given he is refusing midodrine . Trying to coord with [facility] whether they can handle this level of care they did refuse pt for today. If pt stays will file for tx plan.will try for mei . 07/01/25 [facility] not an option at present with psychotic lability threats aggressive behavior inc seroquel 300 bid max of gan may need to restrain for cbc and vitals if seroquel not not effective will switch to invega. Monitor for dvt sx sz encourage tx acceptance 07/02/25 Pt somewhat less aggressive past 2 days ,monitor medical safety given refusal of anti sz meds and eloquis. Seroquel 300 bid pt tolerating ,will try and recoordinate with [facility] because wbc were close to 0 on cloz . 07/03/2025 Continue Seroquel 300 b.i.d. continue to encourage patient accepting his meds for medical issues although no negative consequences to this point vital signs stable no orthostasis ambulation not problematic has been in better control Issues had been reviewed with guardian have also reviewed possibility of H referral working with [facility] to try and transfer back as possible based on patient's behavior. If recurrence of aggressive behavior will change to Invega [place] stain also a possibility 07/04/2025 Patient has now not been threatening or aggressive for a number of days. He is on Seroquel a 300 b.i.d. and this appears to be helpful in decreasing paranoid reactivity and preoccupation with delusional material. Patient refusing medication for seizure and embolism stating he feels fine in his refusing to take at this time he is alert ambulating well adequate vital signs tolerating Seroquel. Recommend return to [facility] encourage acceptance of medical medications. 07/05: continue current management and treatment plan. 07/06: continue current management and treatment plan. 07/08/202507/09: Continue current treatment regimen. Taper Seroquel start Risperdal follow CBC history of neutropenia Seroquel 300 b.i.d. max dose on Gan or was not effective for psychosis or aggression most likely would eventually benefit from Invega sustain a which is on the Gan order Consider transfer to adult unit especially if patient continues to be aggressive on geriatric unit Will need physical examination of G-tube monitor CBC 07/10/25 start invega stop risperadol encourage med compliance 07/13: in behavioral control, doing well. continue current mgmt. 07/14/2025 Continue Invega max dose limited to 6 mg check CBC given history of sepsis and leukopenia Consider convert to long-acting injectable as possible 07/15/2025 some increased irritability more arousable Reason for continued inpatient stay Substantial Risk for: harm to others and rapid decompensation Time Spent With Patient Time: Total time managing care of this patient today ____ minutes.
--- NOTE | 2025-07-16 | PC.NURSE ---
Pt declined VS and scheduled HS medications, Etienne Sands CASE MANAGEMENT RN notified.
[2025-07-16 07:55] VITALS: BP 115/79; PULSE 77; RESP 18; TEMP 36.3; O2SAT 98
[2025-07-16 08:03] LABS: MANUAL DIFF FLAG NO
[2025-07-16 08:20] LABS: Hematocrit 41.7 % (42.0-52.0); Hemoglobin 13.7 g/dl (14.0-18.0); Imm Gran Abs Auto 0.01 X10*3/uL (0.00-0.03); Imm Gran Pct Auto 0.1 % (0.0-0.4); Lymphocytes Absolute Auto 1.9 X10*3/uL (1.2-4.9); Mean Corpuscular HGB Conc 32.9 g/dl (31.0-36.0); Mean Corpuscular Hemoglobin 30.6 pg (27.0-33.0); Mean Corpuscular Volume 93.3 fL (80.0-98.0); NRBC Abs Auto 0.000 X10*3/uL (0.0-0.012); NRBC Pct Auto 0.0 /100WBC (0.0-0.2); Platelet Count 350 X10*3/uL (160-400); Red Blood Count 4.47 X10*6/uL (4.60-5.80); White Blood Count 6.8 X10*3/uL (4.8-10.8)
[2025-07-16] MEDS: Clotrimazole 1 % Cream 15 GM TUBE 1 APPL TOPICAL (08:38)
[2025-07-16 11:13] VITALS: BP 101/74
[2025-07-16 11:18] LABS: Creatinine Clr Calc Pharmacy 111.4; Estimated Glomerular Filt Rate > 60
--- NOTE | 2025-07-16 17:27 | HO.PSYCHPN ---
Subjective Subjective Reason For Visit: psychosis federica Diagnostics Vital Signs (24Hr): Vital Signs - 24 hr 07/15/25 20:00 07/16/25 07:55 07/16/25 11:13 Temperature 97.3 F Pulse Rate 77 Respiratory Rate 18 18 Blood Pressure 115/79 101/74 Pulse Oximetry 98 Oxygen Delivery Method Room Air BMI result Body Mass Index 23.7 Labs 07/16/25 07:24 07/16/25 11:01 Labs: Laboratory Results - last 48 hr 07/16/25 07/16/25 07:24 11:01 WBC 6.8 RBC 4.47 L Hgb 13.7 L Hct 41.7 L MCV 93.3 MCH 30.6 MCHC 32.9 RDW 13.8 Plt Count 350 MPV 8.4 L Immature Gran % (Auto) 0.1 Neut % (Auto) 50.9 Lymph % (Auto) 27.3 Davison % (Auto) 15.0 H Eos % (Auto) 5.7 H Baso % (Auto) 1.0 Lymph # (Auto) 1.9 Davison # (Auto) 1.0 Eos # (Auto) 0.4 Baso # (Auto) 0.1 Abs Immat Gran (auto) 0.01 Absolute Neuts (auto) 3.5 Absolute Nucleated RBC 0.000 Nucleated RBC % (auto) 0.0 Creatinine 0.76 Estim Creat Clear Calc 111.4 Estimated GFR > 60 Imaging Radiology Impressions: ITS Impressions Modified Barium Swallow 06/06/25 14:30 IMPRESSION: No evidence of laryngeal penetration or aspiration. Refer to the full speech therapy report to follow for further details. Electronically signed by: Gerry Tejeda MD 06/06/2025 03:25 PM EDT RP Chest X-Ray 07/15/25 13:39 IMPRESSION: Concerning chronic interstitial lung disease without overt acute airspace disease. Electronically signed by: Vik Mccauley MD 07/15/2025 02:08 PM EDT Medications Medications Current Medications Acetaminophen (Acetaminophen 325 Mg Tablet) 650 mg PO Q6H PRN PRN Reason: Pain Last Admin: 07/04/25 21:00 Dose: 650 mg Al Hydroxide/Mg Hydroxide (Magnesium Hydrox/Alum Hydrox 30 Ml Oral.Susp) 30 ml PO Q6H PRN PRN Reason: Heartburn/Nausea Apixaban (Apixaban 5 Mg Tablet) 5 mg PO BID [facility] Last Admin: 07/16/25 08:32 Dose: Not Given Bisacodyl (Bisacodyl 10 Mg Supp.Rect) 10 mg NE DAILY PRN PRN Reason: Constipation Calcium Carbonate (Calcium Carbonate 750 Mg Tab.Chew) 750 mg PO Q8H PRN PRN Reason: GERD Last Admin: 07/16/25 08:58 Dose: 750 mg Clotrimazole (Clotrimazole 1 % Cream 15 Gm Tube) 1 appl TOPICAL TID [facility]; Protocol Last Admin: 07/16/25 14:39 Dose: Not Given Glucagon (Glucagon Hcl 1 Mg Vial) 1 mg IM ONCE PRN PRN Reason: HYPOGLYCEMIA Haloperidol Lactate (Haloperidol Lactate 5 Mg/Ml Vial) 5 mg IM BID PRN PRN Reason: if pt refuses Seroquel, per Malik Last Admin: 07/08/25 09:34 Dose: 5 mg Lacosamide (Lacosamide Oral Solution 100 Mg/10 Ml Solution) 100 mg PO BID [facility] Last Admin: 07/16/25 08:33 Dose: Not Given [place] Carbonate ([place] Carbonate Er 300 Mg Tablet.Er) 600 mg PO BEDTIME [facility] Last Admin: 07/15/25 23:27 Dose: Not Given Magnesium Hydroxide (Milk Of Magnesia 30 Ml Oral.Susp) 30 ml PO DAILY PRN PRN Reason: Constipation Memantine (Memantine Hcl 10 Mg Tablet) 20 mg PO BEDTIME [facility] Last Admin: 07/15/25 23:27 Dose: Not Given Naloxone HCl (Naloxone Hcl Nasal 4 Mg [place]) 4 mg NOSTRILALT Q2M PRN PRN Reason: opiate overdose Omeprazole (Omeprazole/Na Bicarb Oral Susp 20 Mg/10 Ml Ud Cup) 20 mg PO DAILY@1930 [facility] Last Admin: 07/16/25 14:51 Dose: Not Given Paliperidone (Paliperidone Er 6 Mg Tab.Er.24) 6 mg PO BEDTIME [facility] Last Admin: 07/15/25 23:28 Dose: Not Given Polyethylene Glycol (Polyethylene Glycol 3350 17 Gm Powd.Pack) 17 gm PO DAILY PRN PRN Reason: Constipation Quetiapine Fumarate (Quetiapine Fumarate 50 Mg Tablet) 50 mg PO BID PRN PRN Reason: psychosis, agitation Last Admin: 07/14/25 20:02 Dose: 50 mg Quetiapine Fumarate (Quetiapine Fumarate 300 Mg Tablet) 300 mg PO DAILY [facility] Last Admin: 07/16/25 08:30 Dose: 300 mg Senna (Sennosides Oral Syrup 8.8 Mg/5 Ml) 17.6 mg PO DAILY PRN PRN Reason: Constipation Sodium Biphosphate/Sodium Phosphate (Sodium Phosphate,Davison-Dibasic 133 Ml Enema) 118 ml NE DAILY PRN PRN Reason: Constipation Trazodone HCl (Trazodone Hcl 50 Mg Tablet) 50 mg PO BEDTIME MRX1 PRN PRN Reason: Insomnia Last Admin: 06/25/25 21:33 Dose: 50 mg Allergies Allergies Allergy/AdvReac Type Severity Reaction Status Date / Time dog dander Allergy Unknown Verified 06/04/25 06:34 mite-Dermatophagoides Allergy Unknown Verified 06/04/25 06:32 farinae, abhilash (dust mite - [place]) Assessment & Plan Assessment & Plan (1) Schizoaffective disorder, bipolar type: Status: Acute Code(s): F25.0 - Schizoaffective disorder, bipolar type (2) Seizure disorder: Status: Acute Code(s): G40.909 - Epilepsy, unspecified, not intractable, without status epilepticus (3) Eating disorder with ongoing treatment: Status: Acute Code(s): F50.9 - Eating disorder, unspecified (4) Gastrointestinal tube in situ: Status: Acute Code(s): Z93.1 - Gastrostomy status Plan 59-year-old male with schizoaffective disorder, bipolar type, eating disorder, federica and dementia, he also has a history of seizure disorder, COPD, DVT, pulmonary nodules in the hypotension. He is seen today for reports and chest discomfort. Headaches and chest discomfort Patient reports that he does not wish to have any testing, he feels fine Upset that he is being forced to be discharged to [facility]. He refuses vital signs He has a seizure disorder as well as history of DVT, has been refusing Vimpat and Eliquis consistently. He has also been refusing midodrine, lithium, memantine, omeprazole. Told me he soes not wish to take any medications from anyone affiliated with [facility]. Schizoaffective disorder, bipolar type/Bulimia/eating disorder/Federica/Dementia Treatment per psychiatric team Has a G-tube in place due to severe malnutrition Patient is angry and does not allow assessment Seizure disorder No recent seizure activity noted Refusing Vimpat COPD Stable, not on any medications DVT on Eliquis Refusing Eliquis Diagnosed on ultrasound on 03/26/[address] nod[address] Noted on CT scan at [facility], we will need outpatient follow up Hypotension Continues on midodrine Thank you for allowing me to participate in the care of this patient. We will follow as needed, please notify medical provider with any acute changes or concerns. Patient admitted on a conditional voluntary again seen and evaluated 10:00. Patient appears to have schizoaffective disorder a marked eating disorder question delusional based leading to a G-tube but there is no clear history presently available regarding medication trials inpatient psychiatric history. He is on minimal doses of lithium and Seroquel and unclear why that is. Would benefit from medical history regarding G-tube what the treatment plan was regarding this and need medical and [facility] and would also benefit records from [place]. Patient does have a guardian and Sharif order will need to coordinate care check lithium level adjust to better therapeutic dose for irritability appears to be manic symptoms unclear why patient is not on antipsychotic dose of antipsychotic medication. Monitor response to treatment question discharge back to [facility]. Question dementia/cognitive impairment diagnosis check [place] review medical records 06/05/2025 Patient more psychotically preoccupied difficulty processing information records reviewed. Patient carries multiple diagnoses including schizophrenia in have significant grandiose and paranoid delusional beliefs but unclear why he is only on very low-dose Seroquel and on clozapine previously. Has only been treated with low-dose lithium. Given patient's history of psychosis, psychotic/eating daughter disorder requiring G-tube placement unclear why patient has such minimum doses of psychiatric medication question past side effects presently no psychiatric provider to coordinate with. Patient is more irritable and agitated psychotically preoccupied tried to explain to him also that he does have a guardian and that issues such as this will need to be addressed with his guardian. Barium swallow ordered to try to clarify if there is any dysphagia elements no obvious side effects were why patient is not currently on adequate antipsychotic treatment. Question asked obstruction with clozapine but unable to clarify at this time patient unable to clarify this history. Patient does have significant difficulty with reflecting on issues and absorbing information but memory seems significantly impaired. Monitor response to patient swallowing is on medication monitor weight unclear history of noncompliance this should be clarified 06/06/2025 Try and gather further data regarding patient's treatment history had been on Clozaril in the past unclear why discontinued Medical history not clear continue lower dose Seroquel and lithium at present 06/07 Team needing back up dosing Seroquel refusal. Haldol 2.5 mg IM bid prn per Sharif parameters if pt refuses Seroquel Increase Seroquel to 75 mg bid Monitor for dysphagia 06/08 Continue tx 06/09/2025 Trying to clarify history the past year for this patient. Call placed to nurse practitioner at [facility]. Patient was quite psychotic irritable agitated 06/10/2025 Continue plan of care patient is still not able to elaborate history but no current adverse effects from current regimen noted. He is aware that he will most likely return to [facility] encourage compliance with lithium try to obtain therapeutic level 06/12/2025 Encourage compliance with lithium and Seroquel. Patient had been on clozapine and past was only on 25 mg Seroquel at [facility] unclear why he was not more robust only treated increase Seroquel as tolerated try and do mouth checks check for purging 06/20/25 Pt aware of transfer back to [facility] has been eating not purging taking seroquel 06/21 Patient says his mood is getting better... Denies any SI Patient says that he has a hard time resisting the urge to purge and that he has been doing so. He says that after he eats a meal he feels full. But he says he does not like that he does this and wants to stop purging more than Dr. Adhikari wants him to stop. He says he is working on it. Discussed lithium level which has not moved much and patient agrees to make dose long-acting and at bedtime to avoid accidentally purging medications 06/22 Patient very irritable today and would not discuss much with movie writer other than to say I told you and you would not listen... Now you'll will see what happens.. Patient would not explain what that means despite movie writer having no idea to what he was referring. Patient refusing medication and when movie writer went to discuss it he said he would not take lithium; patient said he did not want to talk to this movie writer any further [place] level subtherapeutic, however patient says he is feeling better so will leave at current dose but change to long-acting and at bedtime 06/23/2025 Continue plan of care if patient accepts treatment including for his medical conditions which were explained to him will maintain current treatment plan if patient continues to be come more paranoid verbally aggressive consider filing for civil commitment and perhaps amendment of Sharif if needed. Increase Seroquel as tolerated follow blood pressure and ANC 06/24/25 cont lithium seroquel monitor 06/25/25 inc seroquel as tolerated prozac held ? in irritability 06/26/25 inc seroquel restart fluox for ocd type sx 06/27/2025 Check lithium level in the morning patient reportedly has been taking lithium now for few days increase Seroquel as patient seems more vulnerable on going back to [facility] sometime next week denies thoughts of harm to self or others 06/28: no change today 06/29: repeat Li+ level for tomorrow 06/30/25 Pt refusing all meds exept lithium does not understand medical risks lith close to 0 inc seroquel as tolerated try and follow bp given he is refusing midodrine . Trying to coord with [facility] whether they can handle this level of care they did refuse pt for today. If pt stays will file for tx plan.will try for mei . 07/01/25 [facility] not an option at present with psychotic lability threats aggressive behavior inc seroquel 300 bid max of malik may need to restrain for cbc and vitals if seroquel not not effective will switch to invega. Monitor for dvt sx sz encourage tx acceptance 07/02/25 Pt somewhat less aggressive past 2 days ,monitor medical safety given refusal of anti sz meds and eloquis. Seroquel 300 bid pt tolerating ,will try and recoordinate with [facility] care because wbc were close to 0 on cloz . 07/03/2025 Continue Seroquel 300 b.i.d. continue to encourage patient accepting his meds for medical issues although no negative consequences to this point vital signs stable no orthostasis ambulation not problematic has been in better control Issues had been reviewed with guardian have also reviewed possibility of [facility] referral working with [facility] to try and transfer back as possible based on patient's behavior. If recurrence of aggressive behavior will change to Invega [place] stain also a possibility 07/04/2025 Patient has now not been threatening or aggressive for a number of days. He is on Seroquel a 300 b.i.d. and this appears to be helpful in decreasing paranoid reactivity and preoccupation with delusional material. Patient refusing medication for seizure and embolism stating he feels fine in his refusing to take at this time he is alert ambulating well adequate vital signs tolerating Seroquel. Recommend return to [facility] encourage acceptance of medical medications. 07/05: continue current management and treatment plan. 07/06: continue current management and treatment plan. 07/08/202507/09: Continue current treatment regimen. Taper Seroquel start Risperdal follow CBC history of neutropenia Seroquel 300 b.i.d. max dose on Sharif or was not effective for psychosis or aggression most likely would eventually benefit from Invega sustain a which is on the Sharif order Consider transfer to adult unit especially if patient continues to be aggressive on geriatric unit Will need physical examination of G-tube monitor CBC 07/10/25 start invega stop risperadol encourage med compliance 07/13: in behavioral control, doing well. continue current mgmt. 07/14/2025 Continue Invega max dose limited to 6 mg check CBC given history of sepsis and leukopenia Consider convert to long-acting injectable as possible Time Spent With Patient Time: Total time managing care of this patient today ____ minutes.
--- NOTE | 2025-07-16 17:40 | P.PNPSI_ITS ---
Subjective Subjective Date of Service: 07/16/25 Reason For Visit: psychosis federica Subjective Notes: Conditional Voluntary Interim History: Patient had refused Invega last night now Haldol ordered with refusal of Invega per Gan order. Encourage more acceptance of medical medications Mental Status Exam Mental Status Exam Narrative: Appearance: Casually dressed, adequate hygiene Behavior: Calm and cooperative throughout the interview. Eye contact is appropriate, and there are no signs of psychomotor agitation or retardation Speech: Normal volume and prosody Thought process: [facility]ed [facility] not on a discharge plan and being upset without clear planning Thought content: Some interest now in his medical condition took in some information from [facility] discharge summary Mood: Apprehensive Affect: Constricted, hyper-intense SI: none expressed HI: none expressed VH/AH: none expressed Delusions: None expressed Insight/judgment: Fair insight and judgment Memory/cog: Alert, oriented x 3. grossly intact to conversational testing Diagnostics Vital Signs (24Hr): Vital Signs - 24 hr 07/15/25 20:00 07/16/25 07:55 07/16/25 11:13 Temperature 97.3 F Pulse Rate 77 Respiratory Rate 18 18 Blood Pressure 115/79 101/74 Pulse Oximetry 98 Oxygen Delivery Method Room Air BMI result Body Mass Index 23.7 Labs 07/16/25 07:24 07/16/25 11:01 Labs: Laboratory Results - last 48 hr 07/16/25 07/16/25 07:24 11:01 WBC 6.8 RBC 4.47 L Hgb 13.7 L Hct 41.7 L MCV 93.3 MCH 30.6 MCHC 32.9 RDW 13.8 Plt Count 350 MPV 8.4 L Immature Gran % (Auto) 0.1 Neut % (Auto) 50.9 Lymph % (Auto) 27.3 Ray % (Auto) 15.0 H Eos % (Auto) 5.7 H Baso % (Auto) 1.0 Lymph # (Auto) 1.9 Ray # (Auto) 1.0 Eos # (Auto) 0.4 Baso # (Auto) 0.1 Abs Immat Gran (auto) 0.01 Absolute Neuts (auto) 3.5 Absolute Nucleated RBC 0.000 Nucleated RBC % (auto) 0.0 Creatinine 0.76 Estim Creat Clear Calc 111.4 Estimated GFR > 60 Imaging Radiology Impressions: ITS Impressions Modified Barium Swallow 06/06/25 14:30 IMPRESSION: No evidence of laryngeal penetration or aspiration. Refer to the full speech therapy report to follow for further details. Electronically signed by: Gerry Tejeda MD 06/06/2025 03:25 PM EDT RP Chest X-Ray 07/15/25 13:39 IMPRESSION: Concerning chronic interstitial lung disease without overt acute airspace disease. Electronically signed by: Vik Mccauley MD 07/15/2025 02:08 PM EDT RP Medications Medications Current Medications Acetaminophen (Acetaminophen 325 Mg Tablet) 650 mg PO Q6H PRN PRN Reason: Pain Last Admin: 07/04/25 21:00 Dose: 650 mg Al Hydroxide/Mg Hydroxide (Magnesium Hydrox/Alum Hydrox 30 Ml Oral.Susp) 30 ml PO Q6H PRN PRN Reason: Heartburn/Nausea Apixaban (Apixaban 5 Mg Tablet) 5 mg PO BID [facility] Last Admin: 07/16/25 08:32 Dose: Not Given Bisacodyl (Bisacodyl 10 Mg Supp.Rect) 10 mg NE DAILY PRN PRN Reason: Constipation Calcium Carbonate (Calcium Carbonate 750 Mg Tab.Chew) 750 mg PO Q8H PRN PRN Reason: GERD Last Admin: 07/16/25 08:58 Dose: 750 mg Clotrimazole (Clotrimazole 1 % Cream 15 Gm Tube) 1 appl TOPICAL TID [facility]; Protocol Last Admin: 07/16/25 14:39 Dose: Not Given Glucagon (Glucagon Hcl 1 Mg Vial) 1 mg IM ONCE PRN PRN Reason: HYPOGLYCEMIA Haloperidol Lactate (Haloperidol Lactate 5 Mg/Ml Vial) 5 mg IM BID PRN PRN Reason: if pt refuses Seroquel, per [place] Last Admin: 07/08/25 09:34 Dose: 5 mg Lacosamide (Lacosamide Oral Solution 100 Mg/10 Ml Solution) 100 mg PO BID [facility] Last Admin: 07/16/25 08:33 Dose: Not Given [place] Carbonate ([place] Carbonate Er 300 Mg Tablet.Er) 600 mg PO BEDTIME [facility] Last Admin: 07/15/25 23:27 Dose: Not Given Magnesium Hydroxide (Milk Of Magnesia 30 Ml Oral.Susp) 30 ml PO DAILY PRN PRN Reason: Constipation Memantine (Memantine Hcl 10 Mg Tablet) 20 mg PO BEDTIME [facility] Last Admin: 07/15/25 23:27 Dose: Not Given Naloxone HCl (Naloxone Hcl Nasal 4 Mg [place]) 4 mg NOSTRILALT Q2M PRN PRN Reason: opiate overdose Omeprazole (Omeprazole/Na Bicarb Oral Susp 20 Mg/10 Ml Ud Cup) 20 mg PO DAILY@1930 [facility] Last Admin: 07/16/25 14:51 Dose: Not Given Paliperidone (Paliperidone Er 6 Mg Tab.Er.24) 6 mg PO BEDTIME [facility] Last Admin: 07/15/25 23:28 Dose: Not Given Polyethylene Glycol (Polyethylene Glycol 3350 17 Gm Powd.Pack) 17 gm PO DAILY PRN PRN Reason: Constipation Quetiapine Fumarate (Quetiapine Fumarate 50 Mg Tablet) 50 mg PO BID PRN PRN Reason: psychosis, agitation Last Admin: 07/14/25 20:02 Dose: 50 mg Quetiapine Fumarate (Quetiapine Fumarate 300 Mg Tablet) 300 mg PO DAILY [facility] Last Admin: 07/16/25 08:30 Dose: 300 mg Senna (Sennosides Oral Syrup 8.8 Mg/5 Ml) 17.6 mg PO DAILY PRN PRN Reason: Constipation Sodium Biphosphate/Sodium Phosphate (Sodium Phosphate,Ray-Dibasic 133 Ml Enema) 118 ml NE DAILY PRN PRN Reason: Constipation Trazodone HCl (Trazodone Hcl 50 Mg Tablet) 50 mg PO BEDTIME MRX1 PRN PRN Reason: Insomnia Last Admin: 06/25/25 21:33 Dose: 50 mg Allergies Allergies Allergy/AdvReac Type Severity Reaction Status Date / Time dog dander Allergy Unknown Verified 06/04/25 06:34 mite-Dermatophagoides Allergy Unknown Verified 06/04/25 06:32 farinae, abhilash (dust mite - [place]) Assessment & Plan Assessment & Plan (1) Schizoaffective disorder, bipolar type: Status: Acute Code(s): F25.0 - Schizoaffective disorder, bipolar type (2) Seizure disorder: Status: Acute Code(s): G40.909 - Epilepsy, unspecified, not intractable, without status epilepticus (3) Eating disorder with ongoing treatment: Status: Acute Code(s): F50.9 - Eating disorder, unspecified (4) Gastrointestinal tube in situ: Status: Acute Code(s): Z93.1 - Gastrostomy status Plan 59-year-old male with schizoaffective disorder, bipolar type, eating disorder, federica and dementia, he also has a history of seizure disorder, COPD, DVT, pulmonary nodules in the hypotension. He is seen today for reports and chest discomfort. Headaches and chest discomfort Patient reports that he does not wish to have any testing, he feels fine Upset that he is being forced to be discharged to [facility]. He refuses vital signs He has a seizure disorder as well as history of DVT, has been refusing Vimpat and Eliquis consistently. He has also been refusing midodrine, lithium, memantine, omeprazole. Told me he soes not wish to take any medications from anyone affiliated with [facility]. Schizoaffective disorder, bipolar type/Bulimia/eating disorder/Federica/Dementia Treatment per psychiatric team Has a G-tube in place due to severe malnutrition Patient is angry and does not allow assessment Seizure disorder No recent seizure activity noted Refusing Vimpat COPD Stable, not on any medications DVT on Eliquis Refusing Eliquis Diagnosed on ultrasound on 03/26/[address] Not[address] on CT scan at [facility], we will need outpatient follow up Hypotension Continues on midodrine Thank you for allowing me to participate in the care of this patient. We will follow as needed, please notify medical provider with any acute changes or concerns. Patient admitted on a conditional voluntary again seen and evaluated 10:00. Patient appears to have schizoaffective disorder a marked eating disorder question delusional based leading to a G-tube but there is no clear history presently available regarding medication trials inpatient psychiatric history. He is on minimal doses of lithium and Seroquel and unclear why that is. Would benefit from medical history regarding G-tube what the treatment plan was regarding this and need [facility] and would also benefit records from [facility]. Patient does have a guardian and [facility] will need to coordinate care check lithium level adjust to better therapeutic dose for irritability appears to be manic symptoms unclear why patient is not on antipsychotic dose of antipsychotic medication. Monitor response to treatment question discharge back to [facility]. Question dementia/cognitive impairment diagnosis check [place] review medical records 06/05/2025 Patient more psychotically preoccupied difficulty processing information records reviewed. Patient carries multiple diagnoses including schizophrenia in have significant grandiose and paranoid delusional beliefs but unclear why he is only on very low-dose Seroquel and on clozapine previously. Has only been treated with low-dose lithium. Given patient's history of psychosis, psychotic/eating daughter disorder requiring G-tube placement unclear why patient has such minimum doses of psychiatric medication question past side effects presently no psychiatric provider to coordinate with. Patient is more irritable and agitated psychotically preoccupied tried to explain to him also that he does have a guardian and that issues such as this will need to be addressed with his guardian. Barium swallow ordered to try to clarify if there is any dysphagia elements no obvious side effects were why patient is not currently on adequate antipsychotic treatment. Question asked obstruction with clozapine but unable to clarify at this time patient unable to clarify this history. Patient does have significant difficulty with reflecting on issues and absorbing information but memory seems significantly impaired. Monitor response to patient swallowing is on medication monitor weight unclear history of noncompliance this should be clarified 06/06/2025 Try and gather further data regarding patient's treatment history had been on Clozaril in the past unclear why discontinued Medical history not clear continue lower dose Seroquel and lithium at present 06/07 Team needing back up dosing Seroquel refusal. Haldol 2.5 mg IM bid prn per Gan parameters if pt refuses Seroquel Increase Seroquel to 75 mg bid Monitor for dysphagia 06/08 Continue tx 06/09/2025 Trying to clarify history the past year for this patient. Call placed to nurse practitioner at [facility]. Patient was quite psychotic irritable agitated 06/10/2025 Continue plan of care patient is still not able to elaborate history but no current adverse effects from current regimen noted. He is aware that he will most likely return to [facility] encourage compliance with lithium try to obtain therapeutic level 06/12/2025 Encourage compliance with lithium and Seroquel. Patient had been on clozapine and past was only on 25 mg Seroquel at [facility] unclear why he was not more robust only treated increase Seroquel as tolerated try and do mouth checks check for purging 06/20/25 Pt aware of transfer back to [facility] has been eating not purging taking seroquel 06/21 Patient says his mood is getting better... Denies any SI Patient says that he has a hard time resisting the urge to purge and that he has been doing so. He says that after he eats a meal he feels full. But he says he does not like that he does this and wants to stop purging more than Dr. Adhikari wants him to stop. He says he is working on it. Discussed lithium level which has not moved much and patient agrees to make dose long-acting and at bedtime to avoid accidentally purging medications 06/22 Patient very irritable today and would not discuss much with auto service writer other than to say I told you and you would not listen... Now you'll will see what happens.. Patient would not explain what that means despite auto service writer having no idea to what he was referring. Patient refusing medication and when auto service writer went to discuss it he said he would not take lithium; patient said he did not want to talk to this auto service writer any further [place] level subtherapeutic, however patient says he is feeling better so will leave at current dose but change to long-acting and at bedtime 06/23/2025 Continue plan of care if patient accepts treatment including for his medical conditions which were explained to him will maintain current treatment plan if patient continues to be come more paranoid verbally aggressive consider filing for civil commitment and perhaps amendment of [place] if needed. Increase Seroquel as tolerated follow blood pressure and ANC 06/24/25 cont lithium seroquel monitor 06/25/25 inc seroquel as tolerated prozac held ? in irritability 06/26/25 inc seroquel restart fluox for ocd type sx 06/27/2025 Check lithium level in the morning patient reportedly has been taking lithium now for few days increase Seroquel as patient seems more vulnerable on going back to [facility] sometime next week denies thoughts of harm to self or others 06/28: no change today 06/29: repeat Li+ level for tomorrow 06/30/25 Pt refusing all meds exept lithium does not understand medical risks lith close to 0 inc seroquel as tolerated try and follow bp given he is refusing midodrine . Trying to coord with [facility] whether they can handle this level of care they did refuse pt for today. If pt stays will file for tx plan.will try for [facility] . 07/01/25 [facility] not an option at present with psychotic lability threats aggressive behavior inc seroquel 300 bid max of gan may need to restrain for cbc and vitals if seroquel not not effective will switch to invega. Monitor for dvt sx sz encourage tx acceptance 07/02/25 Pt somewhat less aggressive past 2 days ,monitor medical safety given refusal of anti sz meds and eloquis. Seroquel 300 bid pt tolerating ,will try and recoordinate with [facility] because wbc were close to 0 on cloz . 07/03/2025 Continue Seroquel 300 b.i.d. continue to encourage patient accepting his meds for medical issues although no negative consequences to this point vital signs stable no orthostasis ambulation not problematic has been in better control Issues had been reviewed with guardian have also reviewed possibility of H referral working with [facility] to try and transfer back as possible based on patient's behavior. If recurrence of aggressive behavior will change to Invega [place] stain also a possibility 07/04/2025 Patient has now not been threatening or aggressive for a number of days. He is on Seroquel a 300 b.i.d. and this appears to be helpful in decreasing paranoid reactivity and preoccupation with delusional material. Patient refusing medication for seizure and embolism stating he feels fine in his refusing to take at this time he is alert ambulating well adequate vital signs tolerating Seroquel. Recommend return to [facility] encourage acceptance of medical medications. 07/05: continue current management and treatment plan. 07/06: continue current management and treatment plan. 07/08/202507/09: Continue current treatment regimen. Taper Seroquel start Risperdal follow CBC history of neutropenia Seroquel 300 b.i.d. max dose on Gan or was not effective for psychosis or aggression most likely would eventually benefit from Invega sustain a which is on the Gan order Consider transfer to adult unit especially if patient continues to be aggressive on geriatric unit Will need physical examination of G-tube monitor CBC 07/10/25 start invega stop risperadol encourage med compliance 07/13: in behavioral control, doing well. continue current mgmt. 07/14/2025 Continue Invega max dose limited to 6 mg check CBC given history of sepsis and leukopenia Consider convert to long-acting injectable as possible 07/15/2025 Invega 6 mg started encourage compliance with antiseizure med 07/16 Patient more able to take in information regarding his medical condition seems more open and accepting. Quite significant lack of any insight into his psychiatric condition Check CBC Patient educated on: medication risk/benefits and medical condition Informed Consent: does not understand and further education needed Reason for continued inpatient stay Substantial Risk for: harm to others, inability to function and rapid decompensation Time Spent With Patient Time: Total time managing care of this patient today ____ minutes.
[2025-07-16] MEDS: Lacosamide Oral Solution 100 MG/10 ML SOLUTION PO (20:02)
[2025-07-16] MEDS: Omeprazole/Na Bicarb Oral Susp 20 MG/10 ML UD Cup PO (20:04)
[2025-07-17 08:00] VITALS: BP 114/74; PULSE 96; RESP 18; TEMP 36.6; O2SAT 96
[2025-07-17 10:10] VITALS: BMI 23.1
--- NOTE | 2025-07-17 14:48 | HO.PSYCHPN ---
Subjective Subjective Date of Service: 07/17/25 Reason For Visit: psychosis federica Subjective Notes: Conditional Voluntary Interim History: Patient found sitting on his bed in his room. Patient notes that he feels alright. He notes that he has not been going to groups. Per nursing, he refused all of his meds, except for Seroquel this morning. He denies anxiety or depression. He denies SI/HI/AVH. Medication Compliance: Yes Side effects from medications: No Attending Groups: No Review of Systems Acute medical concerns: No Review of Systems Review of Systems Yes all other systems are reviewed and are negative Mental Status Exam Mental Status Exam Narrative: Appearance: Casually dressed, adequate hygiene Behavior: Calm and cooperative throughout the interview. Eye contact is appropriate, and there are no signs of psychomotor agitation or retardation Speech: Normal volume and prosody Thought process: Logical and goal-directed Thought content: Future oriented no self-harming thoughts, confused at times Mood: Alright Affect: Constricted SI:denies HI:denies VH/AH:none Delusions: None Insight/judgment: Impaired insight and judgment Memory/cog: Alert, oriented to person, place, and time. grossly intact to conversational testing Diagnostics Vital Signs (24Hr): Vital Signs - 24 hr 07/17/25 08:00 Temperature 98 F Pulse Rate 96 Respiratory Rate 18 Blood Pressure 114/74 Pulse Oximetry 96 Oxygen Delivery Method Room Air BMI result Body Mass Index 23.1 Labs 07/16/25 07:24 07/16/25 11:01 Labs: Laboratory Results - last 48 hr 07/16/25 07/16/25 07:24 11:01 WBC 6.8 RBC 4.47 L Hgb 13.7 L Hct 41.7 L MCV 93.3 MCH 30.6 MCHC 32.9 RDW 13.8 Plt Count 350 MPV 8.4 L Immature Gran % (Auto) 0.1 Neut % (Auto) 50.9 Lymph % (Auto) 27.3 Charles % (Auto) 15.0 H Eos % (Auto) 5.7 H Baso % (Auto) 1.0 Lymph # (Auto) 1.9 Charles # (Auto) 1.0 Eos # (Auto) 0.4 Baso # (Auto) 0.1 Abs Immat Gran (auto) 0.01 Absolute Neuts (auto) 3.5 Absolute Nucleated RBC 0.000 Nucleated RBC % (auto) 0.0 Creatinine 0.76 Estim Creat Clear Calc 111.4 Estimated GFR > 60 Imaging Radiology Impressions: ITS Impressions Modified Barium Swallow 06/06/25 14:30 IMPRESSION: No evidence of laryngeal penetration or aspiration. Refer to the full speech therapy report to follow for further details. Electronically signed by: Gerry Tejeda MD 06/06/2025 03:25 PM EDT RP Chest X-Ray 07/15/25 13:39 IMPRESSION: Concerning chronic interstitial lung disease without overt acute airspace disease. Electronically signed by: Vik Mccauley MD 07/15/2025 02:08 PM EDT RP Medications Medications Current Medications Acetaminophen (Acetaminophen 325 Mg Tablet) 650 mg PO Q6H PRN PRN Reason: Pain Last Admin: 07/04/25 21:00 Dose: 650 mg Al Hydroxide/Mg Hydroxide (Magnesium Hydrox/Alum Hydrox 30 Ml Oral.Susp) 30 ml PO Q6H PRN PRN Reason: Heartburn/Nausea Apixaban (Apixaban 5 Mg Tablet) 5 mg PO BID [facility] Last Admin: 07/17/25 12:49 Dose: Not Given Bisacodyl (Bisacodyl 10 Mg Supp.Rect) 10 mg VT DAILY PRN PRN Reason: Constipation Calcium Carbonate (Calcium Carbonate 750 Mg Tab.Chew) 750 mg PO Q8H PRN PRN Reason: GERD Last Admin: 07/16/25 08:58 Dose: 750 mg Clotrimazole (Clotrimazole 1 % Cream 15 Gm Tube) 1 appl TOPICAL TID [facility]; Protocol Last Admin: 07/17/25 12:50 Dose: Not Given Glucagon (Glucagon Hcl 1 Mg Vial) 1 mg IM ONCE PRN PRN Reason: HYPOGLYCEMIA Haloperidol Lactate (Haloperidol Lactate 5 Mg/Ml Vial) 5 mg IM BID PRN PRN Reason: if pt refuses Seroquel, per [place] Last Admin: 07/08/25 09:34 Dose: 5 mg Lacosamide (Lacosamide Oral Solution 100 Mg/10 Ml Solution) 100 mg PO BID [facility] Last Admin: 07/17/25 12:50 Dose: Not Given [place] Carbonate ([place] Carbonate Er 300 Mg Tablet.Er) 600 mg PO BEDTIME [facility] Last Admin: 07/16/25 20:08 Dose: Not Given Magnesium Hydroxide (Milk Of Magnesia 30 Ml Oral.Susp) 30 ml PO DAILY PRN PRN Reason: Constipation Memantine (Memantine Hcl 10 Mg Tablet) 20 mg PO BEDTIME [facility] Last Admin: 07/16/25 20:07 Dose: Not Given Naloxone HCl (Naloxone Hcl Nasal 4 Mg [place]) 4 mg NOSTRILALT Q2M PRN PRN Reason: opiate overdose Omeprazole (Omeprazole/Na Bicarb Oral Susp 20 Mg/10 Ml Ud Cup) 20 mg PO DAILY@1930 [facility] Last Admin: 07/16/25 20:04 Dose: 20 mg Paliperidone (Paliperidone Er 6 Mg Tab.Er.24) 6 mg PO BEDTIME [facility] Last Admin: 07/16/25 20:05 Dose: 6 mg Polyethylene Glycol (Polyethylene Glycol 3350 17 Gm Powd.Pack) 17 gm PO DAILY PRN PRN Reason: Constipation Quetiapine Fumarate (Quetiapine Fumarate 50 Mg Tablet) 50 mg PO BID PRN PRN Reason: psychosis, agitation Last Admin: 07/14/25 20:02 Dose: 50 mg Quetiapine Fumarate (Quetiapine Fumarate 300 Mg Tablet) 300 mg PO DAILY [facility] Last Admin: 07/17/25 09:25 Dose: 300 mg Senna (Sennosides Oral Syrup 8.8 Mg/5 Ml) 17.6 mg PO DAILY PRN PRN Reason: Constipation Sodium Biphosphate/Sodium Phosphate (Sodium Phosphate,Charles-Dibasic 133 Ml Enema) 118 ml VT DAILY PRN PRN Reason: Constipation Trazodone HCl (Trazodone Hcl 50 Mg Tablet) 50 mg PO BEDTIME MRX1 PRN PRN Reason: Insomnia Last Admin: 06/25/25 21:33 Dose: 50 mg Allergies Allergies Allergy/AdvReac Type Severity Reaction Status Date / Time dog dander Allergy Unknown Verified 06/04/25 06:34 mite-Dermatophagoides Allergy Unknown Verified 06/04/25 06:32 abhilash schuler (dust mite - [place]) Assessment & Plan Assessment & Plan (1) Schizoaffective disorder, bipolar type: Status: Acute Code(s): F25.0 - Schizoaffective disorder, bipolar type (2) Seizure disorder: Status: Acute Code(s): G40.909 - Epilepsy, unspecified, not intractable, without status epilepticus (3) Eating disorder with ongoing treatment: Status: Acute Code(s): F50.9 - Eating disorder, unspecified (4) Gastrointestinal tube in situ: Status: Acute Code(s): Z93.1 - Gastrostomy status Plan Plan 59-year-old male with schizoaffective disorder, bipolar type, eating disorder, federica and dementia, he also has a history of seizure disorder, COPD, DVT, pulmonary nodules in the hypotension. He is seen today for reports and chest discomfort. Headaches and chest discomfort Patient reports that he does not wish to have any testing, he feels fine Upset that he is being forced to be discharged to [facility]. He refuses vital signs He has a seizure disorder as well as history of DVT, has been refusing Vimpat and Eliquis consistently. He has also been refusing midodrine, lithium, memantine, omeprazole. Told me he soes not wish to take any medications from anyone affiliated with [facility]. Schizoaffective disorder, bipolar type/Bulimia/eating disorder/Federica/Dementia Treatment per psychiatric team Has a G-tube in place due to severe malnutrition Patient is angry and does not allow assessment Seizure disorder No recent seizure activity noted Refusing Vimpat COPD Stable, not on any medications DVT on Eliquis Refusing Eliquis Diagnosed on ultrasound on 03/26/[address] on CT scan at [facility], we will need outpatient follow up Hypotension Continues on midodrine Thank you for allowing me to participate in the care of this patient. We will follow as needed, please notify medical provider with any acute changes or concerns. Patient admitted on a conditional voluntary again seen and evaluated 10:00. Patient appears to have schizoaffective disorder a marked eating disorder question delusional based leading to a G-tube but there is no clear history presently available regarding medication trials inpatient psychiatric history. He is on minimal doses of lithium and Seroquel and unclear why that is. Would benefit from medical history regarding G-tube what the treatment plan was regarding this and need medical and psychiatric records from [facility] and would also benefit records from [place]. Patient does have a guardian and Gan order will need to coordinate care check lithium level adjust to better therapeutic dose for irritability appears to be manic symptoms unclear why patient is not on antipsychotic dose of antipsychotic medication. Monitor response to treatment question discharge back to [facility]. Question dementia/cognitive impairment diagnosis check [facility] review medical records 06/05/2025 Patient more psychotically preoccupied difficulty processing information records reviewed. Patient carries multiple diagnoses including schizophrenia in have significant grandiose and paranoid delusional beliefs but unclear why he is only on very low-dose Seroquel and on clozapine previously. Has only been treated with low-dose lithium. Given patient's history of psychosis, psychotic/eating daughter disorder requiring G-tube placement unclear why patient has such minimum doses of psychiatric medication question past side effects presently no psychiatric provider to coordinate with. Patient is more irritable and agitated psychotically preoccupied tried to explain to him also that he does have a guardian and that issues such as this will need to be addressed with his guardian. Barium swallow ordered to try to clarify if there is any dysphagia elements no obvious side effects were why patient is not currently on adequate antipsychotic treatment. Question asked obstruction with clozapine but unable to clarify at this time patient unable to clarify this history. Patient does have significant difficulty with reflecting on issues and absorbing information but memory seems significantly impaired. Monitor response to patient swallowing is on medication monitor weight unclear history of noncompliance this should be clarified 06/06/2025 Try and gather further data regarding patient's treatment history had been on Clozaril in the past unclear why discontinued Medical history not clear continue lower dose Seroquel and lithium at present 06/07 Team needing back up dosing Seroquel refusal. Haldol 2.5 mg IM bid prn per Gan parameters if pt refuses Seroquel Increase Seroquel to 75 mg bid Monitor for dysphagia 06/08 Continue tx 06/09/2025 Trying to clarify history the past year for this patient. Call placed to nurse practitioner at [facility]. Patient was quite psychotic irritable agitated 06/10/2025 Continue plan of care patient is still not able to elaborate history but no current adverse effects from current regimen noted. He is aware that he will most likely return to [facility] encourage compliance with lithium try to obtain therapeutic level 06/12/2025 Encourage compliance with lithium and Seroquel. Patient had been on clozapine and past was only on 25 mg Seroquel at [facility] unclear why he was not more robust only treated increase Seroquel as tolerated try and do mouth checks check for purging 06/20/25 Pt aware of transfer [facility] has been eating not purging taking seroquel 06/21 Patient says his mood is getting better... Denies any SI Patient says that he has a hard time resisting the urge to purge and that he has been doing so. He says that after he eats a meal he feels full. But he says he does not like that he does this and wants to stop purging more than Dr. Adhikari wants him to stop. He says he is working on it. Discussed lithium level which has not moved much and patient agrees to make dose long-acting and at bedtime to avoid accidentally purging medications 06/22 Patient very irritable today and would not discuss much with mortgage underwriter other than to say I told you and you would not listen... Now you'll will see what happens.. Patient would not explain what that means despite mortgage underwriter having no idea to what he was referring. Patient refusing medication and when mortgage underwriter went to discuss it he said he would not take lithium; patient said he did not want to talk to this mortgage underwriter any further [place] level subtherapeutic, however patient says he is feeling better so will leave at current dose but change to long-acting and at bedtime 06/23/2025 Continue plan of care if patient accepts treatment including for his medical conditions which were explained to him will maintain current treatment plan if patient continues to be come more paranoid verbally aggressive consider filing for civil commitment and perhaps amendment of Gan if needed. Increase Seroquel as tolerated follow blood pressure and ANC 06/24/25 cont lithium seroquel monitor 06/25/25 inc seroquel as tolerated prozac held ? in irritability 06/26/25 inc seroquel restart fluox for ocd type sx 06/27/2025 Check lithium level in the morning patient reportedly has been taking lithium now for few days increase Seroquel as patient seems more vulnerable on going back to [facility] sometime next week denies thoughts of harm to self or others 06/28: no change today 06/29: repeat Li+ level for tomorrow 06/30/25 Pt refusing all meds exept lithium does not understand medical risks lith close to 0 inc seroquel as tolerated try and follow bp given he is refusing midodrine . Trying to coord with [facility] whether they can handle this level of care they did refuse pt for today. If pt stays will file for tx plan.will try for mei . 07/01/25 [facility] not an option at present with psychotic lability threats aggressive behavior inc seroquel 300 bid max of gan may need to restrain for cbc and vitals if seroquel not not effective will switch to invega. Monitor for dvt sx sz encourage tx acceptance 07/02/25 Pt somewhat less aggressive past 2 days ,monitor medical safety given refusal of anti sz meds and eloquis. Seroquel 300 bid pt tolerating ,will try and recoordinate with [facility] care because wbc were close to 0 on cloz . 07/03/2025 Continue Seroquel 300 b.i.d. continue to encourage patient accepting his meds for medical issues although no negative consequences to this point vital signs stable no orthostasis ambulation not problematic has been in better control Issues had been reviewed with guardian have also reviewed possibility of [facility] referral working with [facility] to try and transfer back as possible based on patient's behavior. If recurrence of aggressive behavior will change to Invega [place] stain also a possibility 07/04/2025 Patient has now not been threatening or aggressive for a number of days. He is on Seroquel a 300 b.i.d. and this appears to be helpful in decreasing paranoid reactivity and preoccupation with delusional material. Patient refusing medication for seizure and embolism stating he feels fine in his refusing to take at this time he is alert ambulating well adequate vital signs tolerating Seroquel. Recommend return to [facility] encourage acceptance of medical medications. 07/05: continue current management and treatment plan. 07/06: continue current management and treatment plan. 07/08/202507/09: Continue current treatment regimen. Taper Seroquel start Risperdal follow CBC history of neutropenia Seroquel 300 b.i.d. max dose on Gan or was not effective for psychosis or aggression most likely would eventually benefit from Invega sustain a which is on the Gan order Consider transfer to adult unit especially if patient continues to be aggressive on geriatric unit Will need physical examination of G-tube monitor CBC 07/10/25 start invega stop risperadol encourage med compliance 07/13: in behavioral control, doing well. continue current mgmt. 07/14/2025 Continue Invega max dose limited to 6 mg check CBC given history of sepsis and leukopenia Consider convert to long-acting injectable as possible 07/15/2025 Invega 6 mg started encourage compliance with antiseizure med 07/16 Patient more able to take in information regarding his medical condition seems more open and accepting. Quite significant lack of any insight into his psychiatric condition Check CBC 07/17 Patient is alert oriented x3, pleasant and cooperative. No acute symptoms at this time. Continue current treatment regimen. Encouraged med compliance and groups. Patient educated on: therapeutic strategies Reason for continued inpatient stay Substantial Risk for: rapid decompensation Time Spent With Patient Time: Total time managing care of this patient today ____ minutes.
[2025-07-17] MEDS: Omeprazole/Na Bicarb Oral Susp 20 MG/10 ML UD Cup PO (18:29)
[2025-07-17 19:54] VITALS: BP 120/58; PULSE 75; RESP 19; TEMP 36.2; O2SAT 96
[2025-07-18 08:00] VITALS: BP 118/76; PULSE 85; RESP 16; TEMP 36.7; O2SAT 96
--- NOTE | 2025-07-18 17:22 | HO.PSYCHPN ---
Subjective Subjective Date of Service: 07/18/25 Reason For Visit: psychosis federica Subjective Notes: Conditional Voluntary Healthcare Proxy: No Guardianship: Yes Interim History: Patient continues to refuse most of his medical medications. He is taking Seroquel 300 in the morning Invega in the evening and if refusal Haldol 5 mg. Had been trying to convert to long-acting injectable. Patient mostly isolated refusing lithium midodrine has been discontinued refusing antiseizure med in Eliquis despite repeated education Medication Compliance: Yes Mental Status Exam Mental Status Exam Narrative: Appearance: Casually dressed, adequate hygiene Behavior: Calm and cooperative throughout the interview. Eye contact is appropriate, and there are no signs of psychomotor agitation or retardation Speech: Normal volume and prosody Thought process: Logical and goal-directed Thought content: Future oriented no self-harming thoughts, confused at times Mood: fine Affect: Constricted, frustrated around disposition planning SI:denies HI:denies VH/AH:none Delusions: None Insight/judgment: Impaired insight and judgment Memory/cog: Alert, oriented to person, place, and time. grossly intact to conversational testing Patient Behavior: Cooperative Diagnostics Vital Signs (24Hr): Vital Signs - 24 hr 07/17/25 19:54 07/18/25 08:00 Temperature 97.2 F 98.0 F Pulse Rate 75 85 Respiratory Rate 19 16 Blood Pressure 120/58 L 118/76 Pulse Oximetry 96 96 Oxygen Delivery Method Room Air Room Air BMI result Body Mass Index 23.1 Labs 07/16/25 07:24 07/16/25 11:01 Imaging Radiology Impressions: ITS Impressions Modified Barium Swallow 06/06/25 14:30 IMPRESSION: No evidence of laryngeal penetration or aspiration. Refer to the full speech therapy report to follow for further details. Electronically signed by: Gerry Tejeda MD 06/06/2025 03:25 PM EDT RP Chest X-Ray 07/15/25 13:39 IMPRESSION: Concerning chronic interstitial lung disease without overt acute airspace disease. Electronically signed by: Vik Mccauley MD 07/15/2025 02:08 PM EDT RP Medications Medications Current Medications Acetaminophen (Acetaminophen 325 Mg Tablet) 650 mg PO Q6H PRN PRN Reason: Pain Last Admin: 07/04/25 21:00 Dose: 650 mg Al Hydroxide/Mg Hydroxide (Magnesium Hydrox/Alum Hydrox 30 Ml Oral.Susp) 30 ml PO Q6H PRN PRN Reason: Heartburn/Nausea Apixaban (Apixaban 5 Mg Tablet) 5 mg PO BID [facility] Last Admin: 07/18/25 08:19 Dose: Not Given Bisacodyl (Bisacodyl 10 Mg Supp.Rect) 10 mg AL DAILY PRN PRN Reason: Constipation Calcium Carbonate (Calcium Carbonate 750 Mg Tab.Chew) 750 mg PO Q8H PRN PRN Reason: GERD Last Admin: 07/17/25 18:31 Dose: 750 mg Clotrimazole (Clotrimazole 1 % Cream 15 Gm Tube) 1 appl TOPICAL TID [facility]; Protocol Last Admin: 07/18/25 15:28 Dose: Not Given Glucagon (Glucagon Hcl 1 Mg Vial) 1 mg IM ONCE PRN PRN Reason: HYPOGLYCEMIA Haloperidol Lactate (Haloperidol Lactate 5 Mg/Ml Vial) 5 mg IM BID PRN PRN Reason: if pt refuses Seroquel, ilda Sharif Last Admin: 07/08/25 09:34 Dose: 5 mg Lacosamide (Lacosamide Oral Solution 100 Mg/10 Ml Solution) 100 mg PO BID [facility] Last Admin: 07/18/25 08:18 Dose: Not Given Beirne Carbonate (Beirne Carbonate Er 300 Mg Tablet.Er) 600 mg PO BEDTIME [facility] Last Admin: 07/17/25 20:30 Dose: Not Given Magnesium Hydroxide (Milk Of Magnesia 30 Ml Oral.Susp) 30 ml PO DAILY PRN PRN Reason: Constipation Memantine (Memantine Hcl 10 Mg Tablet) 20 mg PO BEDTIME [facility] Last Admin: 07/17/25 20:30 Dose: Not Given Naloxone HCl (Naloxone Hcl Nasal 4 Mg [place]) 4 mg NOSTRILALT Q2M PRN PRN Reason: opiate overdose Omeprazole (Omeprazole/Na Bicarb Oral Susp 20 Mg/10 Ml Ud Cup) 20 mg PO DAILY@193 [facility] Last Admin: 07/17/25 18:29 Dose: 20 mg Paliperidone (Paliperidone Er 6 Mg Tab.Er.24) 6 mg PO DAILY@1900 [facility] Last Admin: 07/17/25 18:29 Dose: 6 mg Polyethylene Glycol (Polyethylene Glycol 3350 17 Gm Powd.Pack) 17 gm PO DAILY PRN PRN Reason: Constipation Quetiapine Fumarate (Quetiapine Fumarate 50 Mg Tablet) 50 mg PO BID PRN PRN Reason: psychosis, agitation Last Admin: 07/14/25 20:02 Dose: 50 mg Quetiapine Fumarate (Quetiapine Fumarate 300 Mg Tablet) 300 mg PO DAILY [facility] Last Admin: 07/18/25 08:17 Dose: 300 mg Senna (Sennosides Oral Syrup 8.8 Mg/5 Ml) 17.6 mg PO DAILY PRN PRN Reason: Constipation Sodium Biphosphate/Sodium Phosphate (Sodium Phosphate,Isabella-Dibasic 133 Ml Enema) 118 ml AL DAILY PRN PRN Reason: Constipation Trazodone HCl (Trazodone Hcl 50 Mg Tablet) 50 mg PO BEDTIME MRX1 PRN PRN Reason: Insomnia Last Admin: 06/25/25 21:33 Dose: 50 mg Allergies Allergies Allergy/AdvReac Type Severity Reaction Status Date / Time dog dander Allergy Unknown Verified 06/04/25 06:34 mite-Dermatophagoides Allergy Unknown Verified 06/04/25 06:32 farinae, abhilash (dust mite - [place]) Assessment & Plan Assessment & Plan (1) Schizoaffective disorder, bipolar type: Status: Acute Code(s): F25.0 - Schizoaffective disorder, bipolar type (2) Seizure disorder: Status: Acute Code(s): G40.909 - Epilepsy, unspecified, not intractable, without status epilepticus (3) Eating disorder with ongoing treatment: Status: Acute Code(s): F50.9 - Eating disorder, unspecified (4) Gastrointestinal tube in situ: Status: Acute Code(s): Z93.1 - Gastrostomy status Plan Plan 59-year-old male with schizoaffective disorder, bipolar type, eating disorder, federica and dementia, he also has a history of seizure disorder, COPD, DVT, pulmonary nodules in the hypotension. He is seen today for reports and chest discomfort. Headaches and chest discomfort Patient reports that he does not wish to have any testing, he feels fine Upset that he is being forced to be discharged to [facility]. He refuses vital signs He has a seizure disorder as well as history of DVT, has been refusing Vimpat and Eliquis consistently. He has also been refusing midodrine, lithium, memantine, omeprazole. Told me he soes not wish to take any medications from anyone affiliated with [facility] [place]. Schizoaffective disorder, bipolar type/Bulimia/eating disorder/Federica/Dementia Treatment per psychiatric team Has a G-tube in place due to severe malnutrition Patient is angry and does not allow assessment Seizure disorder No recent seizure activity noted Refusing Vimpat COPD Stable, not on any medications DVT on Eliquis Refusing Eliquis Diagnosed on ultrasound on 03/26/[address] Not[address] on CT scan at [facility], we will need outpatient follow up Hypotension Continues on midodrine Thank you for allowing me to participate in the care of this patient. We will follow as needed, please notify medical provider with any acute changes or concerns. Patient admitted on a conditional voluntary again seen and evaluated 10:00. Patient appears to have schizoaffective disorder a marked eating disorder question delusional based leading to a G-tube but there is no clear history presently available regarding medication trials inpatient psychiatric history. He is on minimal doses of lithium and Seroquel and unclear why that is. Would benefit from medical history regarding G-tube what the treatment plan was regarding this and need medical and psychiatric records [facility] and would also benefit records from [facility]. Patient does have a guardian and [place] order will need to coordinate care check lithium level adjust to better therapeutic dose for irritability appears to be manic symptoms unclear why patient is not on antipsychotic dose of antipsychotic medication. Monitor response to treatment question discharge back to [facility]. Question dementia/cognitive impairment diagnosis check Hand review medical records 06/05/2025 Patient more psychotically preoccupied difficulty processing information records reviewed. Patient carries multiple diagnoses including schizophrenia in have significant grandiose and paranoid delusional beliefs but unclear why he is only on very low-dose Seroquel and on clozapine previously. Has only been treated with low-dose lithium. Given patient's history of psychosis, psychotic/eating daughter disorder requiring G-tube placement unclear why patient has such minimum doses of psychiatric medication question past side effects presently no psychiatric provider to coordinate with. Patient is more irritable and agitated psychotically preoccupied tried to explain to him also that he does have a guardian and that issues such as this will need to be addressed with his guardian. Barium swallow ordered to try to clarify if there is any dysphagia elements no obvious side effects were why patient is not currently on adequate antipsychotic treatment. Question asked obstruction with clozapine but unable to clarify at this time patient unable to clarify this history. Patient does have significant difficulty with reflecting on issues and absorbing information but memory seems significantly impaired. Monitor response to patient swallowing is on medication monitor weight unclear history of noncompliance this should be clarified 06/06/2025 Try and gather further data regarding patient's treatment history had been on Clozaril in the past unclear why discontinued Medical history not clear continue lower dose Seroquel and lithium at present 06/07 Team needing back up dosing Seroquel refusal. Haldol 2.5 mg IM bid prn per Sharif parameters if pt refuses Seroquel Increase Seroquel to 75 mg bid Monitor for dysphagia 06/08 Continue tx 06/09/2025 Trying to clarify history the past year for this patient. Call placed to nurse practitioner at [facility]. Patient was quite psychotic irritable agitated 06/10/2025 Continue plan of care patient is still not able to elaborate history but no current adverse effects from current regimen noted. He is aware that he will most likely return to [facility] encourage compliance with lithium try to obtain therapeutic level 06/12/2025 Encourage compliance with lithium and Seroquel. Patient had been on clozapine and past was only on 25 mg Seroquel at [facility] unclear why he was not more robust only treated increase Seroquel as tolerated try and do mouth checks check for purging 06/20/25 Pt aware of transfer back to [facility] has been eating not purging taking seroquel 06/21 Patient says his mood is getting better... Denies any SI Patient says that he has a hard time resisting the urge to purge and that he has been doing so. He says that after he eats a meal he feels full. But he says he does not like that he does this and wants to stop purging more than Dr. Adhikari wants him to stop. He says he is working on it. Discussed lithium level which has not moved much and patient agrees to make dose long-acting and at bedtime to avoid accidentally purging medications 06/22 Patient very irritable today and would not discuss much with insurance underwriter other than to say I told you and you would not listen... Now you'll will see what happens.. Patient would not explain what that means despite insurance underwriter having no idea to what he was referring. Patient refusing medication and when insurance underwriter went to discuss it he said he would not take lithium; patient said he did not want to talk to this insurance underwriter any further Beirne level subtherapeutic, however patient says he is feeling better so will leave at current dose but change to long-acting and at bedtime 06/23/2025 Continue plan of care if patient accepts treatment including for his medical conditions which were explained to him will maintain current treatment plan if patient continues to be come more paranoid verbally aggressive consider filing for civil commitment and perhaps amendment of Sharif if needed. Increase Seroquel as tolerated follow blood pressure and ANC 06/24/25 cont lithium seroquel monitor 06/25/25 inc seroquel as tolerated prozac held ? in irritability 06/26/25 inc seroquel restart fluox for ocd type sx 06/27/2025 Check lithium level in the morning patient reportedly has been taking lithium now for few days increase Seroquel as patient seems more vulnerable on going back to [facility] sometime next week denies thoughts of harm to self or others 06/28: no change today 06/29: repeat Li+ level for tomorrow 06/30/25 Pt refusing all meds exept lithium does not understand medical risks lith close to 0 inc seroquel as tolerated try and follow bp given he is refusing midodrine . Trying to coord with [facility] whether they can handle this level of care they did refuse pt for today. If pt stays will file for tx plan.will try for mei . 07/01/25 [facility] not an option at present with psychotic lability threats aggressive behavior inc seroquel 300 bid max of malik may need to restrain for cbc and vitals if seroquel not not effective will switch to invega. Monitor for dvt sx sz encourage tx acceptance 07/02/25 Pt somewhat less aggressive past 2 days ,monitor medical safety given refusal of anti sz meds and eloquis. Seroquel 300 bid pt tolerating ,will try and recoordinate with [facility] care because wbc were close to 0 on cloz . 07/03/2025 Continue Seroquel 300 b.i.d. continue to encourage patient accepting his meds for medical issues although no negative consequences to this point vital signs stable no orthostasis ambulation not problematic has been in better control Issues had been reviewed with guardian have also reviewed possibility of [facility] referral working with [facility] to try and transfer back as possible based on patient's behavior. If recurrence of aggressive behavior will change to Invega [place] stain also a possibility 07/04/2025 Patient has now not been threatening or aggressive for a number of days. He is on Seroquel a 300 b.i.d. and this appears to be helpful in decreasing paranoid reactivity and preoccupation with delusional material. Patient refusing medication for seizure and embolism stating he feels fine in his refusing to take at this time he is alert ambulating well adequate vital signs tolerating Seroquel. Recommend return to [facility] encourage acceptance of medical medications. 07/05: continue current management and treatment plan. 07/06: continue current management and treatment plan. 07/08/202507/09: Continue current treatment regimen. Taper Seroquel start Risperdal follow CBC history of neutropenia Seroquel 300 b.i.d. max dose on Sharif or was not effective for psychosis or aggression most likely would eventually benefit from Invega sustain a which is on the Sharif order Consider transfer to adult unit especially if patient continues to be aggressive on geriatric unit Will need physical examination of G-tube monitor CBC 07/10/25 start invega stop risperadol encourage med compliance 07/13: in behavioral control, doing well. continue current mgmt. 07/14/2025 Continue Invega max dose limited to 6 mg check CBC given history of sepsis and leukopenia Consider convert to long-acting injectable as possible 07/15/2025 Invega 6 mg started encourage compliance with antiseizure med 07/16 Patient more able to take in information regarding his medical condition seems more open and accepting. Quite significant lack of any insight into his psychiatric condition Check CBC 07/17 Patient is alert oriented x3, pleasant and cooperative. No acute symptoms at this time. Continue current treatment regimen. Encouraged med compliance and groups. 07/18/2025 Patient seen psychiatric follow-up. Focused on meeting with [facility] next week. White blood count 6.8 no evidence of bone marrow suppression like patient had on Clozaril should be able to tolerate long-acting injectable Reason for continued inpatient stay Substantial Risk for: harm to others, inability to function and rapid decompensation Time Spent With Patient Time: Total time managing care of this patient today ____ minutes.
[2025-07-18] MEDS: Omeprazole/Na Bicarb Oral Susp 20 MG/10 ML UD Cup PO (19:51)
[2025-07-18 20:38] VITALS: BP 111/66; PULSE 81; RESP 16; TEMP 36.8; O2SAT 96
--- NOTE | 2025-07-19 07:23 | P.PNPSI_ITS ---
Subjective Subjective Date of Service: 07/19/25 Reason For Visit: psychosis federica Subjective Notes: Conditional Voluntary Guardianship: Yes Interim History: met with patient. Discussed with Nursing. Taking Seroquel and Invega, but declining most other medications / treatment. Reports feeling frustrated as he does not want to go to [facility] as part of discharge planning. Outside of this denies feeling depressed. Denies SI. Denies psychosis. Reports sleep is okay. Tried to encourage medication adherence outside of Seroquel and Invega Medication Compliance: Intermittent Side effects from medications: No Attending Groups: No Review of Systems Acute medical concerns: No Review of Systems Review of Systems unremarkable Mental Status Exam Mental Status Exam Narrative: Appearance: Casually dressed, adequate hygiene Behavior: Calm and cooperative throughout the interview. Eye contact is appropriate, and there are no signs of psychomotor agitation or retardation Speech: Normal volume and prosody Thought process: Logical and goal-directed Thought content: Future oriented no self-harming thoughts, confused at times Mood: fine Affect: Constricted, frustrated around disposition planning SI:denies HI:denies VH/AH:none Delusions: None Insight/judgment: Impaired insight and judgment Memory/cog: Alert, oriented to person, place, and time. grossly intact to conversational testing Diagnostics Vital Signs (24Hr): Vital Signs - 24 hr 07/18/25 08:00 07/18/25 20:38 Temperature 98.0 F 98.2 F Pulse Rate 85 81 Respiratory Rate 16 16 Blood Pressure 118/76 111/66 Pulse Oximetry 96 96 Oxygen Delivery Method Room Air Room Air BMI result Body Mass Index 23.1 Labs 07/16/25 07:24 07/16/25 11:01 Imaging Radiology Impressions: ITS Impressions Modified Barium Swallow 06/06/25 14:30 IMPRESSION: No evidence of laryngeal penetration or aspiration. Refer to the full speech therapy report to follow for further details. Electronically signed by: Gerry Tejeda MD 06/06/2025 03:25 PM EDT RP Chest X-Ray 07/15/25 13:39 IMPRESSION: Concerning chronic interstitial lung disease without overt acute airspace disease. Electronically signed by: Vik Mccauley MD 07/15/2025 02:08 PM EDT RP Medications Medications Current Medications Acetaminophen (Acetaminophen 325 Mg Tablet) 650 mg PO Q6H PRN PRN Reason: Pain Last Admin: 07/04/25 21:00 Dose: 650 mg Al Hydroxide/Mg Hydroxide (Magnesium Hydrox/Alum Hydrox 30 Ml Oral.Susp) 30 ml PO Q6H PRN PRN Reason: Heartburn/Nausea Apixaban (Apixaban 5 Mg Tablet) 5 mg PO BID [facility] Last Admin: 07/18/25 20:39 Dose: Not Given Bisacodyl (Bisacodyl 10 Mg Supp.Rect) 10 mg AL DAILY PRN PRN Reason: Constipation Calcium Carbonate (Calcium Carbonate 750 Mg Tab.Chew) 750 mg PO Q8H PRN PRN Reason: GERD Last Admin: 07/18/25 19:54 Dose: 750 mg Clotrimazole (Clotrimazole 1 % Cream 15 Gm Tube) 1 appl TOPICAL TID [facility]; Protocol Last Admin: 07/18/25 20:39 Dose: Not Given Glucagon (Glucagon Hcl 1 Mg Vial) 1 mg IM ONCE PRN PRN Reason: HYPOGLYCEMIA Haloperidol Lactate (Haloperidol Lactate 5 Mg/Ml Vial) 5 mg IM BID PRN PRN Reason: if pt refuses Seroquel, per [place] Last Admin: 07/08/25 09:34 Dose: 5 mg Lacosamide (Lacosamide Oral Solution 100 Mg/10 Ml Solution) 100 mg PO BID [facility] Last Admin: 07/18/25 20:39 Dose: Not Given [place] Carbonate ([place] Carbonate Er 300 Mg Tablet.Er) 600 mg PO BEDTIME [facility] Last Admin: 07/18/25 20:39 Dose: Not Given Magnesium Hydroxide (Milk Of Magnesia 30 Ml Oral.Susp) 30 ml PO DAILY PRN PRN Reason: Constipation Memantine (Memantine Hcl 10 Mg Tablet) 20 mg PO BEDTIME [facility] Last Admin: 07/18/25 20:39 Dose: Not Given Naloxone HCl (Naloxone Hcl Nasal 4 Mg [place]) 4 mg NOSTRILALT Q2M PRN PRN Reason: opiate overdose Omeprazole (Omeprazole/Na Bicarb Oral Susp 20 Mg/10 Ml Ud Cup) 20 mg PO DAILY@1930 [facility] Last Admin: 07/18/25 19:51 Dose: 20 mg Paliperidone (Paliperidone Er 6 Mg Tab.Er.24) 6 mg PO DAILY@1900 [facility] Last Admin: 07/18/25 19:50 Dose: 6 mg Polyethylene Glycol (Polyethylene Glycol 3350 17 Gm Powd.Pack) 17 gm PO DAILY PRN PRN Reason: Constipation Quetiapine Fumarate (Quetiapine Fumarate 50 Mg Tablet) 50 mg PO BID PRN PRN Reason: psychosis, agitation Last Admin: 07/14/25 20:02 Dose: 50 mg Quetiapine Fumarate (Quetiapine Fumarate 300 Mg Tablet) 300 mg PO DAILY [facility] Last Admin: 07/18/25 08:17 Dose: 300 mg Senna (Sennosides Oral Syrup 8.8 Mg/5 Ml) 17.6 mg PO DAILY PRN PRN Reason: Constipation Sodium Biphosphate/Sodium Phosphate (Sodium Phosphate,Ward-Dibasic 133 Ml Enema) 118 ml AL DAILY PRN PRN Reason: Constipation Trazodone HCl (Trazodone Hcl 50 Mg Tablet) 50 mg PO BEDTIME MRX1 PRN PRN Reason: Insomnia Last Admin: 06/25/25 21:33 Dose: 50 mg Allergies Allergies Allergy/AdvReac Type Severity Reaction Status Date / Time dog dander Allergy Unknown Verified 06/04/25 06:34 mite-Dermatophagoides Allergy Unknown Verified 06/04/25 06:32 farinae, abhilash (dust mite - [place]) Assessment & Plan Assessment & Plan (1) Schizoaffective disorder, bipolar type: Status: Acute Code(s): F25.0 - Schizoaffective disorder, bipolar type (2) Seizure disorder: Status: Acute Code(s): G40.909 - Epilepsy, unspecified, not intractable, without status epilepticus (3) Eating disorder with ongoing treatment: Status: Acute Code(s): F50.9 - Eating disorder, unspecified (4) Gastrointestinal tube in situ: Status: Acute Code(s): Z93.1 - Gastrostomy status Plan Plan 59-year-old male with schizoaffective disorder, bipolar type, eating disorder, federica and dementia, he also has a history of seizure disorder, COPD, DVT, pulmonary nodules in the hypotension. He is seen today for reports and chest discomfort. Headaches and chest discomfort Patient reports that he does not wish to have any testing, he feels fine Upset that he is being forced to be discharged to [facility]. He refuses vital signs He has a seizure disorder as well as history of DVT, has been refusing Vimpat and Eliquis consistently. He has also been refusing midodrine, lithium, memantine, omeprazole. Told me he soes not wish to take any medications from anyone affiliated with [facility]. Schizoaffective disorder, bipolar type/Bulimia/eating disorder/Federica/Dementia Treatment per psychiatric team Has a G-tube in place due to severe malnutrition Patient is angry and does not allow assessment Seizure disorder No recent seizure activity noted Refusing Vimpat COPD Stable, not on any medications DVT on Eliquis Refusing Eliquis Diagnosed on ultrasound on 03/26/[address] Not[address] on CT scan at [facility], we will need outpatient follow up Hypotension Continues on midodrine Thank you for allowing me to participate in the care of this patient. We will follow as needed, please notify medical provider with any acute changes or concerns. Patient admitted on a conditional voluntary again seen and evaluated 10:00. Patient appears to have schizoaffective disorder a marked eating disorder question delusional based leading to a G-tube but there is no clear history presently available regarding medication trials inpatient psychiatric history. He is on minimal doses of lithium and Seroquel and unclear why that is. Would benefit from medical history regarding G-tube what the treatment plan was regarding this and need medical and psychiatric records [facility] and would also benefit records from [place]. Patient does have a guardian and Gan order will need to coordinate care check lithium level adjust to better therapeutic dose for irritability appears to be manic symptoms unclear why patient is not on antipsychotic dose of antipsychotic medication. Monitor response to treatment question discharge back to [facility]. Question dementia/cognitive impairment diagnosis check Early review medical records 06/05/2025 Patient more psychotically preoccupied difficulty processing information records reviewed. Patient carries multiple diagnoses including schizophrenia in have significant grandiose and paranoid delusional beliefs but unclear why he is only on very low-dose Seroquel and on clozapine previously. Has only been treated with low-dose lithium. Given patient's history of psychosis, psychotic/eating daughter disorder requiring G-tube placement unclear why patient has such minimum doses of psychiatric medication question past side effects presently no psychiatric provider to coordinate with. Patient is more irritable and agitated psychotically preoccupied tried to explain to him also that he does have a guardian and that issues such as this will need to be addressed with his guardian. Barium swallow ordered to try to clarify if there is any dysphagia elements no obvious side effects were why patient is not currently on adequate antipsychotic treatment. Question asked obstruction with clozapine but unable to clarify at this time patient unable to clarify this history. Patient does have significant difficulty with reflecting on issues and absorbing information but memory seems significantly impaired. Monitor response to patient swallowing is on medication monitor weight unclear history of noncompliance this should be clarified 06/06/2025 Try and gather further data regarding patient's treatment history had been on Clozaril in the past unclear why discontinued Medical history not clear continue lower dose Seroquel and lithium at present 06/07 Team needing back up dosing Seroquel refusal. Haldol 2.5 mg IM bid prn per Gan parameters if pt refuses Seroquel Increase Seroquel to 75 mg bid Monitor for dysphagia 06/08 Continue tx 06/09/2025 Trying to clarify history the past year for this patient. Call placed to nurse practitioner at [facility]. Patient was quite psychotic irritable agitated 06/10/2025 Continue plan of care patient is still not able to elaborate history but no current adverse effects from current regimen noted. He is aware that he will most likely return to [facility] encourage compliance with lithium try to obtain therapeutic level 06/12/2025 Encourage compliance with lithium and Seroquel. Patient had been on clozapine and past was only on 25 mg Seroquel at [facility] unclear why he was not more robust only treated increase Seroquel as tolerated try and do mouth checks check for purging 06/20/25 Pt aware of transfer back to [facility] has been eating not purging taking seroquel 06/21 Patient says his mood is getting better... Denies any SI Patient says that he has a hard time resisting the urge to purge and that he has been doing so. He says that after he eats a meal he feels full. But he says he does not like that he does this and wants to stop purging more than Dr. Adhikari wants him to stop. He says he is working on it. Discussed lithium level which has not moved much and patient agrees to make dose long-acting and at bedtime to avoid accidentally purging medications 06/22 Patient very irritable today and would not discuss much with financial writer other than to say I told you and you would not listen... Now you'll will see what happens.. Patient would not explain what that means despite financial writer having no idea to what he was referring. Patient refusing medication and when financial writer went to discuss it he said he would not take lithium; patient said he did not want to talk to this financial writer any further [place] level subtherapeutic, however patient says he is feeling better so will leave at current dose but change to long-acting and at bedtime 06/23/2025 Continue plan of care if patient accepts treatment including for his medical conditions which were explained to him will maintain current treatment plan if patient continues to be come more paranoid verbally aggressive consider filing for civil commitment and perhaps amendment of Gan if needed. Increase Seroquel as tolerated follow blood pressure and ANC 06/24/25 cont lithium seroquel monitor 06/25/25 inc seroquel as tolerated prozac held ? in irritability 06/26/25 inc seroquel restart fluox for ocd type sx 06/27/2025 Check lithium level in the morning patient reportedly has been taking lithium now for few days increase Seroquel as patient seems more vulnerable on going back to [facility] sometime next week denies thoughts of harm to self or others 06/28: no change today 06/29: repeat Li+ level for tomorrow 06/30/25 Pt refusing all meds exept lithium does not understand medical risks lith close to 0 inc seroquel as tolerated try and follow bp given he is refusing midodrine . Trying to coord with [facility] whether they can handle this level of care they did refuse pt for today. If pt stays will file for tx plan.will try for mei . 07/01/25 [facility] not an option at present with psychotic lability threats aggressive behavior inc seroquel 300 bid max of gan may need to restrain for cbc and vitals if seroquel not not effective will switch to invega. Monitor for dvt sx sz encourage tx acceptance 07/02/25 Pt somewhat less aggressive past 2 days ,monitor medical safety given refusal of anti sz meds and eloquis. Seroquel 300 bid pt tolerating ,will try and recoordinate with [facility] care because wbc were close to 0 on cloz . 07/03/2025 Continue Seroquel 300 b.i.d. continue to encourage patient accepting his meds for medical issues although no negative consequences to this point vital signs stable no orthostasis ambulation not problematic has been in better control Issues had been reviewed with guardian have also reviewed possibility of [facility] referral working with [facility] to try and transfer back as possible based on patient's behavior. If recurrence of aggressive behavior will change to Invega [place] stain also a possibility 07/04/2025 Patient has now not been threatening or aggressive for a number of days. He is on Seroquel a 300 b.i.d. and this appears to be helpful in decreasing paranoid reactivity and preoccupation with delusional material. Patient refusing medication for seizure and embolism stating he feels fine in his refusing to take at this time he is alert ambulating well adequate vital signs tolerating Seroquel. Recommend return to [facility] encourage acceptance of medical medications. 07/05: continue current management and treatment plan. 07/06: continue current management and treatment plan. 07/08/202507/09: Continue current treatment regimen. Taper Seroquel start Risperdal follow CBC history of neutropenia Seroquel 300 b.i.d. max dose on Gan or was not effective for psychosis or aggression most likely would eventually benefit from Invega sustain a which is on the Gan order Consider transfer to adult unit especially if patient continues to be aggressive on geriatric unit Will need physical examination of G-tube monitor CBC 07/10/25 start invega stop risperadol encourage med compliance 07/13: in behavioral control, doing well. continue current mgmt. 07/14/2025 Continue Invega max dose limited to 6 mg check CBC given history of sepsis and leukopenia Consider convert to long-acting injectable as possible 07/15/2025 Invega 6 mg started encourage compliance with antiseizure med 07/16 Patient more able to take in information regarding his medical condition seems more open and accepting. Quite significant lack of any insight into his psychiatric condition Check CBC 07/17 Patient is alert oriented x3, pleasant and cooperative. No acute symptoms at this time. Continue current treatment regimen. Encouraged med compliance and groups. 07/19/2024: No changes Reason for continued inpatient stay Substantial Risk for: inability to function and rapid decompensation Time Spent With Patient Time: Total time managing care of this patient today ____ minutes.
[2025-07-19] MEDS: Clotrimazole 1 % Cream 15 GM TUBE 1 APPL TOPICAL (15:09)
--- NOTE | 2025-07-19 18:12 | PC.NURSE ---
Danielito was cooperative and pleasant most of the day and then close to change of shift he was requested his room to be changed due to a whistling noise in his room that has been there since he has been in this room. He was offered to sleep in the [facility] room but then want t/w to authorize a room change I told him that wasn't in my ability to do. I told him we could figure something out tomorrow but he was telling t/w who should move. I told him someone was leaving Monday and maybe then he could move and he was fine with that, then he came back to the desk to discuss and was redirected.
[2025-07-19 19:49] VITALS: BP 126/74; PULSE 88; RESP 16; TEMP 35.9; O2SAT 95
[2025-07-19] MEDS: Omeprazole/Na Bicarb Oral Susp 20 MG/10 ML UD Cup PO (20:55)
[2025-07-20 08:00] VITALS: BP 116/74; PULSE 81; RESP 16; TEMP 36.7; O2SAT 94
--- NOTE | 2025-07-20 11:09 | HO.PSYCHPN ---
Subjective Subjective Date of Service: 07/20/25 Reason For Visit: psychosis federica Interim History: Patient continues to refuse most of his medical medications- is very clear with leader writer he is doing this in an effort to sabotage his discharge to [facility]. Rubber Covering Machine Operator also raised the possibility that treatment team may simply discontinue these orders, since he is not taking them anyway and openly endorses the risks associated with that such as refusing blood thinner etc.. He is taking Seroquel 300 in the morning Invega . Otherwise remains frustrated and unhappy with his roommate. Hoping he can get a single room at some point. Denies depression SI or psychosis. Medication Compliance: Intermittent Side effects from medications: No Attending Groups: No Review of Systems Acute medical concerns: No Review of Systems Review of Systems unremarkable Constitutional: Reports no additional constitutional complaints, Denies body ache(s), Denies chills, Denies fever(s), Denies headache(s) and Denies weakness Eyes: Reports no additional eye complaints and Denies change in vision Reports system reviewed and no additional complaints, except as documented, Denies dizziness, Denies headache(s), Denies nasal congestion, Denies nasal discharge and Denies neck pain Cardiovascular: Reports no additional cardiovascular complaints, Denies chest pain, Denies leg edema and Denies dyspnea Respiratory: Reports no additional respiratory complaints, Denies cough and Denies dyspnea Gastrointestinal: Reports no additional gastrointestinal complaints, Denies abdominal pain, Denies diarrhea, Denies nausea and Denies vomiting Genitourinary: Denies urinary incontinence Musculoskeletal: Reports no additional musculoskeletal complaints, Denies back pain, Denies arthralgias, Denies joint swelling, Denies neck pain, Denies numbness and Denies tingling Skin/Breast: Reports system reviewed and no additional complaints, except as docu and Denies rash Reports system reviewed and no additional complaints, except as documented, Denies Abnormal speech present, Denies dizziness, Denies headache(s), Denies numbness, Denies tingling and Denies weakness Mental Status Exam Mental Status Exam Narrative: Appearance: Casually dressed, adequate hygiene Behavior: Calm and cooperative throughout the interview. Eye contact is appropriate, and there are no signs of psychomotor agitation or retardation Speech: Normal volume and prosody Thought process: Logical and goal-directed Thought content: Future oriented no self-harming thoughts, confused at times Mood: not good Affect: Constricted, frustrated around disposition planning SI:denies HI:denies VH/AH:none Delusions: None Insight/judgment: Impaired insight and judgment Memory/cog: Alert, oriented to person, place, and time. grossly intact to conversational testing Diagnostics Vital Signs (24Hr): Vital Signs - 24 hr 07/19/25 19:49 Temperature 96.6 F L Pulse Rate 88 Respiratory Rate 16 Blood Pressure 126/74 Pulse Oximetry 95 Oxygen Delivery Method Room Air BMI result Body Mass Index 23.1 Labs 07/16/25 07:24 07/16/25 11:01 Imaging Radiology Impressions: ITS Impressions Modified Barium Swallow 06/06/25 14:30 IMPRESSION: No evidence of laryngeal penetration or aspiration. Refer to the full speech therapy report to follow for further details. Electronically signed by: Gerry Tejeda MD 06/06/2025 03:25 PM EDT RP Chest X-Ray 07/15/25 13:39 IMPRESSION: Concerning chronic interstitial lung disease without overt acute airspace disease. Electronically signed by: Vik Mccauley MD 07/15/2025 02:08 PM EDT RP Medications Medications Current Medications Acetaminophen (Acetaminophen 325 Mg Tablet) 650 mg PO Q6H PRN PRN Reason: Pain Last Admin: 07/04/25 21:00 Dose: 650 mg Al Hydroxide/Mg Hydroxide (Magnesium Hydrox/Alum Hydrox 30 Ml Oral.Susp) 30 ml PO Q6H PRN PRN Reason: Heartburn/Nausea Apixaban (Apixaban 5 Mg Tablet) 5 mg PO BID [facility] Last Admin: 07/20/25 10:19 Dose: Not Given Bisacodyl (Bisacodyl 10 Mg Supp.Rect) 10 mg [place] DAILY PRN PRN Reason: Constipation Calcium Carbonate (Calcium Carbonate 750 Mg Tab.Chew) 750 mg PO Q8H PRN PRN Reason: GERD Last Admin: 07/19/25 19:52 Dose: 750 mg Clotrimazole (Clotrimazole 1 % Cream 15 Gm Tube) 1 appl TOPICAL TID [facility]; Protocol Last Admin: 07/20/25 10:20 Dose: Not Given Glucagon (Glucagon Hcl 1 Mg Vial) 1 mg IM ONCE PRN PRN Reason: HYPOGLYCEMIA Haloperidol Lactate (Haloperidol Lactate 5 Mg/Ml Vial) 5 mg IM BID PRN PRN Reason: if pt refuses Seroilda sanchez Last Admin: 07/08/25 09:34 Dose: 5 mg Lacosamide (Lacosamide Oral Solution 100 Mg/10 Ml Solution) 100 mg PO BID [facility] Last Admin: 07/20/25 10:20 Dose: Not Given [place] Carbonate ([place] Carbonate Er 300 Mg Tablet.Er) 600 mg PO BEDTIME [facility] Last Admin: 07/19/25 19:54 Dose: Not Given Magnesium Hydroxide (Milk Of Magnesia 30 Ml Oral.Susp) 30 ml PO DAILY PRN PRN Reason: Constipation Memantine (Memantine Hcl 10 Mg Tablet) 20 mg PO BEDTIME [facility] Last Admin: 07/19/25 19:54 Dose: Not Given Naloxone HCl (Naloxone Hcl Nasal 4 Mg [place]) 4 mg NOSTRILALT Q2M PRN PRN Reason: opiate overdose Omeprazole (Omeprazole/Na Bicarb Oral Susp 20 Mg/10 Ml Ud Cup) 20 mg PO DAILY@1930 [facility] Last Admin: 07/19/25 20:55 Dose: 20 mg Paliperidone (Paliperidone Er 6 Mg Tab.Er.24) 6 mg PO DAILY@1900 [facility] Last Admin: 07/19/25 19:04 Dose: 6 mg Polyethylene Glycol (Polyethylene Glycol 3350 17 Gm Powd.Pack) 17 gm PO DAILY PRN PRN Reason: Constipation Quetiapine Fumarate (Quetiapine Fumarate 50 Mg Tablet) 50 mg PO BID PRN PRN Reason: psychosis, agitation Last Admin: 07/14/25 20:02 Dose: 50 mg Quetiapine Fumarate (Quetiapine Fumarate 300 Mg Tablet) 300 mg PO DAILY [facility] Last Admin: 07/20/25 09:10 Dose: 300 mg Senna (Sennosides Oral Syrup 8.8 Mg/5 Ml) 17.6 mg PO DAILY PRN PRN Reason: Constipation Sodium Biphosphate/Sodium Phosphate (Sodium Phosphate,[place]-Dibasic 133 Ml Enema) 118 ml [place] DAILY PRN PRN Reason: Constipation Trazodone HCl (Trazodone Hcl 50 Mg Tablet) 50 mg PO BEDTIME MRX1 PRN PRN Reason: Insomnia Last Admin: 06/25/25 21:33 Dose: 50 mg Allergies Allergies Allergy/AdvReac Type Severity Reaction Status Date / Time dog dander Allergy Unknown Verified 06/04/25 06:34 mite-Dermatophagoides Allergy Unknown Verified 06/04/25 06:32 farinae, abhilash (dust mite - [place]) Assessment & Plan Assessment & Plan (1) Schizoaffective disorder, bipolar type: Status: Acute Code(s): F25.0 - Schizoaffective disorder, bipolar type (2) Seizure disorder: Status: Acute Code(s): G40.909 - Epilepsy, unspecified, not intractable, without status epilepticus (3) Eating disorder with ongoing treatment: Status: Acute Code(s): F50.9 - Eating disorder, unspecified (4) Gastrointestinal tube in situ: Status: Acute Code(s): Z93.1 - Gastrostomy status Plan Plan 59-year-old male with schizoaffective disorder, bipolar type, eating disorder, federica and dementia, he also has a history of seizure disorder, COPD, DVT, pulmonary nodules in the hypotension. He is seen today for reports and chest discomfort. Headaches and chest discomfort Patient reports that he does not wish to have any testing, he feels fine Upset that he is being forced to be discharged to [facility]. He refuses vital signs He has a seizure disorder as well as history of DVT, has been refusing Vimpat and Eliquis consistently. He has also been refusing midodrine, lithium, memantine, omeprazole. Told me he soes not wish to take any medications from anyone affiliated with [facility]. Schizoaffective disorder, bipolar type/Bulimia/eating disorder/Federica/Dementia Treatment per psychiatric team Has a G-tube in place due to severe malnutrition Patient is angry and does not allow assessment Seizure disorder No recent seizure activity noted Refusing Vimpat COPD Stable, not on any medications DVT on Eliquis Refusing Eliquis Diagnosed on ultrasound on 03/26/[address] Not[address] on CT scan at [facility], we will need outpatient follow up Hypotension Continues on midodrine Thank you for allowing me to participate in the care of this patient. We will follow as needed, please notify medical provider with any acute changes or concerns. Patient admitted on a conditional voluntary again seen and evaluated 10:00. Patient appears to have schizoaffective disorder a marked eating disorder question delusional based leading to a G-tube but there is no clear history presently available regarding medication trials inpatient psychiatric history. He is on minimal doses of lithium and Seroquel and unclear why that is. Would benefit from medical history regarding G-tube what the treatment plan was regarding this and need medical and psychiatric records from [facility] and would also benefit records from [place]. Patient does have a guardian and Malik order will need to coordinate care check lithium level adjust to better therapeutic dose for irritability appears to be manic symptoms unclear why patient is not on antipsychotic dose of antipsychotic medication. Monitor response to treatment question discharge back to [facility]. Question dementia/cognitive impairment diagnosis check [place] review medical records 06/05/2025 Patient more psychotically preoccupied difficulty processing information records reviewed. Patient carries multiple diagnoses including schizophrenia in have significant grandiose and paranoid delusional beliefs but unclear why he is only on very low-dose Seroquel and on clozapine previously. Has only been treated with low-dose lithium. Given patient's history of psychosis, psychotic/eating daughter disorder requiring G-tube placement unclear why patient has such minimum doses of psychiatric medication question past side effects presently no psychiatric provider to coordinate with. Patient is more irritable and agitated psychotically preoccupied tried to explain to him also that he does have a guardian and that issues such as this will need to be addressed with his guardian. Barium swallow ordered to try to clarify if there is any dysphagia elements no obvious side effects were why patient is not currently on adequate antipsychotic treatment. Question asked obstruction with clozapine but unable to clarify at this time patient unable to clarify this history. Patient does have significant difficulty with reflecting on issues and absorbing information but memory seems significantly impaired. Monitor response to patient swallowing is on medication monitor weight unclear history of noncompliance this should be clarified 06/06/2025 Try and gather further data regarding patient's treatment history had been on Clozaril in the past unclear why discontinued Medical history not clear continue lower dose Seroquel and lithium at present 06/07 Team needing back up dosing Seroquel refusal. Haldol 2.5 mg IM bid prn per Sharif parameters if pt refuses Seroquel Increase Seroquel to 75 mg bid Monitor for dysphagia 06/08 Continue tx 06/09/2025 Trying to clarify history the past year for this patient. Call placed to nurse practitioner at [facility]. Patient was quite psychotic irritable agitated 06/10/2025 Continue plan of care patient is still not able to elaborate history but no current adverse effects from current regimen noted. He is aware that he will most likely return to [facility] encourage compliance with lithium try to obtain therapeutic level 06/12/2025 Encourage compliance with lithium and Seroquel. Patient had been on clozapine and past was only on 25 mg Seroquel at [facility] unclear why he was not more robust only treated increase Seroquel as tolerated try and do mouth checks check for purging 06/20/25 Pt aware of transfer back to [facility] has been eating not purging taking seroquel 06/21 Patient says his mood is getting better... Denies any SI Patient says that he has a hard time resisting the urge to purge and that he has been doing so. He says that after he eats a meal he feels full. But he says he does not like that he does this and wants to stop purging more than Dr. Adhikari wants him to stop. He says he is working on it. Discussed lithium level which has not moved much and patient agrees to make dose long-acting and at bedtime to avoid accidentally purging medications 06/22 Patient very irritable today and would not discuss much with leader writer other than to say I told you and you would not listen... Now you'll will see what happens.. Patient would not explain what that means despite leader writer having no idea to what he was referring. Patient refusing medication and when leader writer went to discuss it he said he would not take lithium; patient said he did not want to talk to this leader writer any further [place] level subtherapeutic, however patient says he is feeling better so will leave at current dose but change to long-acting and at bedtime 06/23/2025 Continue plan of care if patient accepts treatment including for his medical conditions which were explained to him will maintain current treatment plan if patient continues to be come more paranoid verbally aggressive consider filing for civil commitment and perhaps amendment of Sharif if needed. Increase Seroquel as tolerated follow blood pressure and ANC 06/24/25 cont lithium seroquel monitor 06/25/25 inc seroquel as tolerated prozac held ? in irritability 06/26/25 inc seroquel restart fluox for ocd type sx 06/27/2025 Check lithium level in the morning patient reportedly has been taking lithium now for few days increase Seroquel as patient seems more vulnerable on going back to [facility] sometime next week denies thoughts of harm to self or others 06/28: no change today 06/29: repeat Li+ level for tomorrow 06/30/25 Pt refusing all meds exept lithium does not understand medical risks lith close to 0 inc seroquel as tolerated try and follow bp given he is refusing midodrine . Trying to coord with [facility] whether they can handle this level of care they did refuse pt for today. If pt stays will file for tx plan.will try for mei . 07/01/25 [facility] not an option at present with psychotic lability threats aggressive behavior inc seroquel 300 bid max of malik may need to restrain for cbc and vitals if seroquel not not effective will switch to invega. Monitor for dvt sx sz encourage tx acceptance 07/02/25 Pt somewhat less aggressive past 2 days ,monitor medical safety given refusal of anti sz meds and eloquis. Seroquel 300 bid pt tolerating ,will try and recoordinate with [facility] because wbc were close to 0 on cloz . 07/03/2025 Continue Seroquel 300 b.i.d. continue to encourage patient accepting his meds for medical issues although no negative consequences to this point vital signs stable no orthostasis ambulation not problematic has been in better control Issues had been reviewed with guardian have also reviewed possibility of H referral working with [facility] to try and transfer back as possible based on patient's behavior. If recurrence of aggressive behavior will change to Invega [place] stain also a possibility 07/04/2025 Patient has now not been threatening or aggressive for a number of days. He is on Seroquel a 300 b.i.d. and this appears to be helpful in decreasing paranoid reactivity and preoccupation with delusional material. Patient refusing medication for seizure and embolism stating he feels fine in his refusing to take at this time he is alert ambulating well adequate vital signs tolerating Seroquel. Recommend return to [facility] encourage acceptance of medical medications. 07/05: continue current management and treatment plan. 07/06: continue current management and treatment plan. 07/08/202507/09: Continue current treatment regimen. Taper Seroquel start Risperdal follow CBC history of neutropenia Seroquel 300 b.i.d. max dose on Sharif or was not effective for psychosis or aggression most likely would eventually benefit from Invega sustain a which is on the Sharif order Consider transfer to adult unit especially if patient continues to be aggressive on geriatric unit Will need physical examination of G-tube monitor CBC 07/10/25 start invega stop risperadol encourage med compliance 07/13: in behavioral control, doing well. continue current mgmt. 07/14/2025 Continue Invega max dose limited to 6 mg check CBC given history of sepsis and leukopenia Consider convert to long-acting injectable as possible 07/15/2025 Invega 6 mg started encourage compliance with antiseizure med 07/16 Patient more able to take in information regarding his medical condition seems more open and accepting. Quite significant lack of any insight into his psychiatric condition Check CBC 07/17 Patient is alert oriented x3, pleasant and cooperative. No acute symptoms at this time. Continue current treatment regimen. Encouraged med compliance and groups. 07/19/2024: No changes 07/20/25: Patient continues to refuse most of his medical medications- is very clear with leader writer he is doing this in an effort to sabotage his discharge to [facility]. Rubber Covering Machine Operator also raised the possibility that treatment team may simply discontinue these orders, since he is not taking them anyway and openly endorses the risks associated with that such as refusing blood thinner etc.. Reason for continued inpatient stay Substantial Risk for: rapid decompensation and other (awaiting ASSISTED/SNF) Time Spent With Patient Time: Total time managing care of this patient today ____ minutes.
[2025-07-20] MEDS: Omeprazole/Na Bicarb Oral Susp 20 MG/10 ML UD Cup PO (18:34)
[2025-07-20 20:00] VITALS: BP 131/62; PULSE 93; RESP 16; TEMP 36.6; O2SAT 96
[2025-07-20] MEDS: Clotrimazole 1 % Cream 15 GM TUBE 1 APPL TOPICAL (21:12)
--- NOTE | 2025-07-21 08:40 | HO.PSYCHPN ---
Subjective Subjective Date of Service: 07/21/25 Reason For Visit: psychosis federica Subjective Notes: Conditional Voluntary Guardianship: Yes Interim History: Patient seems calmer using better judgment has restarted taking his medical medications. Has been out of his room more Mental Status Exam Mental Status Exam Narrative: Appearance: Casually dressed, adequate hygiene Behavior: Calm and cooperative throughout the interview. Eye contact is appropriate, and there are no signs of psychomotor agitation or retardation Speech: Normal volume and prosody Thought process: Logical and goal-directed Thought content: Future oriented no self-harming thoughts, confused at times Mood: not good Affect: Constricted, frustrated around disposition planning SI:denies HI:denies VH/AH:none Delusions: None Insight/judgment: Impaired insight and judgment Memory/cog: Alert, oriented to person, place, and time. grossly intact to conversational testing Diagnostics Vital Signs (24Hr): Vital Signs - 24 hr 07/20/25 20:00 Temperature 97.9 F Pulse Rate 93 Respiratory Rate 16 Blood Pressure 131/62 Pulse Oximetry 96 Oxygen Delivery Method Room Air BMI result Body Mass Index 23.1 Labs 07/16/25 07:24 07/16/25 11:01 Imaging Radiology Impressions: ITS Impressions Modified Barium Swallow 06/06/25 14:30 IMPRESSION: No evidence of laryngeal penetration or aspiration. Refer to the full speech therapy report to follow for further details. Electronically signed by: Gerry Tejeda MD 06/06/2025 03:25 PM EDT Chest X-Ray 07/15/25 13:39 IMPRESSION: Concerning chronic interstitial lung disease without overt acute airspace disease. Electronically signed by: Vik Mccauley MD 07/15/2025 02:08 PM EDT Medications Medications Current Medications Acetaminophen (Acetaminophen 325 Mg Tablet) 650 mg PO Q6H PRN PRN Reason: Pain Last Admin: 07/04/25 21:00 Dose: 650 mg Al Hydroxide/Mg Hydroxide (Magnesium Hydrox/Alum Hydrox 30 Ml Oral.Susp) 30 ml PO Q6H PRN PRN Reason: Heartburn/Nausea Apixaban (Apixaban 5 Mg Tablet) 5 mg PO BID SERENITY Last Admin: 07/20/25 20:31 Dose: Not Given Bisacodyl (Bisacodyl 10 Mg Supp.Rect) 10 mg NC DAILY PRN PRN Reason: Constipation Calcium Carbonate (Calcium Carbonate 750 Mg Tab.Chew) 750 mg PO Q8H PRN PRN Reason: GERD Last Admin: 07/20/25 21:13 Dose: 750 mg Clotrimazole (Clotrimazole 1 % Cream 15 Gm Tube) 1 appl TOPICAL TID [facility]; Protocol Last Admin: 07/20/25 21:12 Dose: 1 appl Glucagon (Glucagon Hcl 1 Mg Vial) 1 mg IM ONCE PRN PRN Reason: HYPOGLYCEMIA Haloperidol Lactate (Haloperidol Lactate 5 Mg/Ml Vial) 5 mg IM BID PRN PRN Reason: if pt refuses Seroquel, per Sharif Last Admin: 07/08/25 09:34 Dose: 5 mg Lacosamide (Lacosamide Oral Solution 100 Mg/10 Ml Solution) 100 mg PO BID [facility] Last Admin: 07/20/25 20:32 Dose: Not Given [employer] Carbonate ([employer] Carbonate Er 300 Mg Tablet.Er) 600 mg PO BEDTIME [facility] Last Admin: 07/20/25 20:32 Dose: Not Given Magnesium Hydroxide (Milk Of Magnesia 30 Ml Oral.Susp) 30 ml PO DAILY PRN PRN Reason: Constipation Memantine (Memantine Hcl 10 Mg Tablet) 20 mg PO BEDTIME [facility] Last Admin: 07/20/25 20:32 Dose: Not Given Naloxone HCl (Naloxone Hcl Nasal 4 Mg [place]) 4 mg NOSTRILALT Q2M PRN PRN Reason: opiate overdose Omeprazole (Omeprazole/Na Bicarb Oral Susp 20 Mg/10 Ml Ud Cup) 20 mg PO DAILY@1930 [facility] Last Admin: 07/20/25 18:34 Dose: 20 mg Paliperidone (Paliperidone Er 6 Mg Tab.Er.24) 6 mg PO DAILY@1900 [facility] Last Admin: 07/20/25 18:30 Dose: 6 mg Polyethylene Glycol (Polyethylene Glycol 3350 17 Gm Powd.Pack) 17 gm PO DAILY PRN PRN Reason: Constipation Quetiapine Fumarate (Quetiapine Fumarate 50 Mg Tablet) 50 mg PO BID PRN PRN Reason: psychosis, agitation Last Admin: 07/14/25 20:02 Dose: 50 mg Quetiapine Fumarate (Quetiapine Fumarate 300 Mg Tablet) 300 mg PO DAILY [facility] Last Admin: 07/20/25 09:10 Dose: 300 mg Senna (Sennosides Oral Syrup 8.8 Mg/5 Ml) 17.6 mg PO DAILY PRN PRN Reason: Constipation Sodium Biphosphate/Sodium Phosphate (Sodium Phosphate,[place]-Dibasic 133 Ml Enema) 118 ml NC DAILY PRN PRN Reason: Constipation Trazodone HCl (Trazodone Hcl 50 Mg Tablet) 50 mg PO BEDTIME MRX1 PRN PRN Reason: Insomnia Last Admin: 06/25/25 21:33 Dose: 50 mg Allergies Allergies Allergy/AdvReac Type Severity Reaction Status Date / Time dog dander Allergy Unknown Verified 06/04/25 06:34 mite-Dermatophagoides Allergy Unknown Verified 06/04/25 06:32 farinae, abhilash (dust mite - [place]) Assessment & Plan Assessment & Plan (1) Schizoaffective disorder, bipolar type: Status: Acute Code(s): F25.0 - Schizoaffective disorder, bipolar type (2) Seizure disorder: Status: Acute Code(s): G40.909 - Epilepsy, unspecified, not intractable, without status epilepticus (3) Eating disorder with ongoing treatment: Status: Acute Code(s): F50.9 - Eating disorder, unspecified (4) Gastrointestinal tube in situ: Status: Acute Code(s): Z93.1 - Gastrostomy status Plan Plan 59-year-old male with schizoaffective disorder, bipolar type, eating disorder, federica and dementia, he also has a history of seizure disorder, COPD, DVT, pulmonary nodules in the hypotension. He is seen today for reports and chest discomfort. Headaches and chest discomfort Patient reports that he does not wish to have any testing, he feels fine Upset that he is being forced to be discharged to [facility]. He refuses vital signs He has a seizure disorder as well as history of DVT, has been refusing Vimpat and Eliquis consistently. He has also been refusing midodrine, lithium, memantine, omeprazole. Told me he soes not wish to take any medications from anyone affiliated with [facility]. Schizoaffective disorder, bipolar type/Bulimia/eating disorder/Federica/Dementia Treatment per psychiatric team Has a G-tube in place due to severe malnutrition Patient is angry and does not allow assessment Seizure disorder No recent seizure activity noted Refusing Vimpat COPD Stable, not on any medications DVT on Eliquis Refusing Eliquis Diagnosed on ultrasound on 03/26/[address] Not[address] on CT scan at [facility], we will need outpatient follow up Hypotension Continues on midodrine Thank you for allowing me to participate in the care of this patient. We will follow as needed, please notify medical provider with any acute changes or concerns. Patient admitted on a conditional voluntary again seen and evaluated 10:00. Patient appears to have schizoaffective disorder a marked eating disorder question delusional based leading to a G-tube but there is no clear history presently available regarding medication trials inpatient psychiatric history. He is on minimal doses of lithium and Seroquel and unclear why that is. Would benefit from medical history regarding G-tube what the treatment plan was regarding this and need [facility] and would also benefit records from [place]. Patient does have a guardian and Sharif order will need to coordinate care check lithium level adjust to better therapeutic dose for irritability appears to be manic symptoms unclear why patient is not on antipsychotic dose of antipsychotic medication. Monitor response to treatment question discharge back to [facility]. Question dementia/cognitive impairment diagnosis check [place] review medical records 06/05/2025 Patient more psychotically preoccupied difficulty processing information records reviewed. Patient carries multiple diagnoses including schizophrenia in have significant grandiose and paranoid delusional beliefs but unclear why he is only on very low-dose Seroquel and on clozapine previously. Has only been treated with low-dose lithium. Given patient's history of psychosis, psychotic/eating daughter disorder requiring G-tube placement unclear why patient has such minimum doses of psychiatric medication question past side effects presently no psychiatric provider to coordinate with. Patient is more irritable and agitated psychotically preoccupied tried to explain to him also that he does have a guardian and that issues such as this will need to be addressed with his guardian. Barium swallow ordered to try to clarify if there is any dysphagia elements no obvious side effects were why patient is not currently on adequate antipsychotic treatment. Question asked obstruction with clozapine but unable to clarify at this time patient unable to clarify this history. Patient does have significant difficulty with reflecting on issues and absorbing information but memory seems significantly impaired. Monitor response to patient swallowing is on medication monitor weight unclear history of noncompliance this should be clarified 06/06/2025 Try and gather further data regarding patient's treatment history had been on Clozaril in the past unclear why discontinued Medical history not clear continue lower dose Seroquel and lithium at present 06/07 Team needing back up dosing Seroquel refusal. Haldol 2.5 mg IM bid prn per Sharif parameters if pt refuses Seroquel Increase Seroquel to 75 mg bid Monitor for dysphagia 06/08 Continue tx 06/09/2025 Trying to clarify history the past year for this patient. Call placed to nurse practitioner at [facility]. Patient was quite psychotic irritable agitated 06/10/2025 Continue plan of care patient is still not able to elaborate history but no current adverse effects from current regimen noted. He is aware that he will most likely return to [facility] encourage compliance with lithium try to obtain therapeutic level 06/12/2025 Encourage compliance with lithium and Seroquel. Patient had been on clozapine and past was only on 25 mg Seroquel at [facility] unclear why he was not more robust only treated increase Seroquel as tolerated try and do mouth checks check for purging 06/20/25 Pt aware of transfer back to [facility] has been eating not purging taking seroquel 06/21 Patient says his mood is getting better... Denies any SI Patient says that he has a hard time resisting the urge to purge and that he has been doing so. He says that after he eats a meal he feels full. But he says he does not like that he does this and wants to stop purging more than Dr. Adhikari wants him to stop. He says he is working on it. Discussed lithium level which has not moved much and patient agrees to make dose long-acting and at bedtime to avoid accidentally purging medications 06/22 Patient very irritable today and would not discuss much with tag writer other than to say I told you and you would not listen... Now you'll will see what happens.. Patient would not explain what that means despite tag writer having no idea to what he was referring. Patient refusing medication and when tag writer went to discuss it he said he would not take lithium; patient said he did not want to talk to this tag writer any further [employer] level subtherapeutic, however patient says he is feeling better so will leave at current dose but change to long-acting and at bedtime 06/23/2025 Continue plan of care if patient accepts treatment including for his medical conditions which were explained to him will maintain current treatment plan if patient continues to be come more paranoid verbally aggressive consider filing for civil commitment and perhaps amendment of Malik if needed. Increase Seroquel as tolerated follow blood pressure and ANC 06/24/25 cont lithium seroquel monitor 06/25/25 inc seroquel as tolerated prozac held ? in irritability 06/26/25 inc seroquel restart fluox for ocd type sx 06/27/2025 Check lithium level in the morning patient reportedly has been taking lithium now for few days increase Seroquel as patient seems more vulnerable on going back to [facility] sometime next week denies thoughts of harm to self or others 06/28: no change today 06/29: repeat Li+ level for tomorrow 06/30/25 Pt refusing all meds exept lithium does not understand medical risks lith close to 0 inc seroquel as tolerated try and follow bp given he is refusing midodrine . Trying to coord with [facility] whether they can handle this level of care they did refuse pt for today. If pt stays will file for tx plan.will try for mei . 07/01/25 [facility] not an option at present with psychotic lability threats aggressive behavior inc seroquel 300 bid max of malik may need to restrain for cbc and vitals if seroquel not not effective will switch to invega. Monitor for dvt sx sz encourage tx acceptance 07/02/25 Pt somewhat less aggressive past 2 days ,monitor medical safety given refusal of anti sz meds and eloquis. Seroquel 300 bid pt tolerating ,will try and recoordinate with [facility] care because wbc were close to 0 on cloz . 07/03/2025 Continue Seroquel 300 b.i.d. continue to encourage patient accepting his meds for medical issues although no negative consequences to this point vital signs stable no orthostasis ambulation not problematic has been in better control Issues had been reviewed with guardian have also reviewed possibility of H referral working with [facility] to try and transfer back as possible based on patient's behavior. If recurrence of aggressive behavior will change to Invega [place] stain also a possibility 07/04/2025 Patient has now not been threatening or aggressive for a number of days. He is on Seroquel a 300 b.i.d. and this appears to be helpful in decreasing paranoid reactivity and preoccupation with delusional material. Patient refusing medication for seizure and embolism stating he feels fine in his refusing to take at this time he is alert ambulating well adequate vital signs tolerating Seroquel. Recommend return to [facility] encourage acceptance of medical medications. 07/05: continue current management and treatment plan. 07/06: continue current management and treatment plan. 07/08/202507/09: Continue current treatment regimen. Taper Seroquel start Risperdal follow CBC history of neutropenia Seroquel 300 b.i.d. max dose on Sharif or was not effective for psychosis or aggression most likely would eventually benefit from Invega sustain a which is on the Sharif order Consider transfer to adult unit especially if patient continues to be aggressive on geriatric unit Will need physical examination of G-tube monitor CBC 07/10/25 start invega stop risperadol encourage med compliance 07/13: in behavioral control, doing well. continue current mgmt. 07/14/2025 Continue Invega max dose limited to 6 mg check CBC given history of sepsis and leukopenia Consider convert to long-acting injectable as possible 07/15/2025 Invega 6 mg started encourage compliance with antiseizure med 07/16 Patient more able to take in information regarding his medical condition seems more open and accepting. Quite significant lack of any insight into his psychiatric condition Check CBC 07/17 Patient is alert oriented x3, pleasant and cooperative. No acute symptoms at this time. Continue current treatment regimen. Encouraged med compliance and groups. 07/19/2024: No changes 07/20/25: Patient continues to refuse most of his medical medications- is very clear with tag writer he is doing this in an effort to sabotage his discharge to [facility]. Installation And Service Technician also raised the possibility that treatment team may simply discontinue these orders, since he is not taking them anyway and openly endorses the risks associated with that such as refusing blood thinner etc.. 07/21/2025 Patient has restarted taking his medical medications I had offered to start trying to prune some of the medications back but he was reflective regarding taking medication for blood clots to prevent bullet cuts and medication prevent seizures. Patient seems to be tolerating Invega 6 mg Seroquel 300 mg less agitated less reactive more cooperative Discharge planning to [facility] Reason for continued inpatient stay Substantial Risk for: harm to others and rapid decompensation Time Spent With Patient Time: Total time managing care of this patient today ____ minutes.
[2025-07-21] MEDS: Lacosamide Oral Solution 100 MG/10 ML SOLUTION PO (09:51)
[2025-07-21 09:52] VITALS: BP 117/74; PULSE 97; RESP 16; TEMP 36.2; O2SAT 94
[2025-07-21] MEDS: Omeprazole/Na Bicarb Oral Susp 20 MG/10 ML UD Cup PO (18:28)
[2025-07-21 20:00] VITALS: BP 110/60; PULSE 75; RESP 16; TEMP 36.4; O2SAT 95
[2025-07-22 09:18] VITALS: BP 111/70; PULSE 91; RESP 18; TEMP 36.3; O2SAT 96
[2025-07-22] MEDS: Lacosamide Oral Solution 100 MG/10 ML SOLUTION PO ×2 (09:20→20:01)
[2025-07-22] MEDS: Clotrimazole 1 % Cream 15 GM TUBE 1 APPL TOPICAL (09:32)
[2025-07-22] MEDS: Omeprazole/Na Bicarb Oral Susp 20 MG/10 ML UD Cup PO (18:31)
[2025-07-22 20:00] VITALS: BP 105/69; PULSE 69; RESP 16; TEMP 36.3; O2SAT 96
[2025-07-23 08:00] VITALS: BP 109/79; PULSE 84; RESP 14; TEMP 36.4; O2SAT 95
[2025-07-23] MEDS: Lacosamide Oral Solution 100 MG/10 ML SOLUTION PO ×2 (09:24→20:16)
[2025-07-23] MEDS: Omeprazole/Na Bicarb Oral Susp 20 MG/10 ML UD Cup PO (18:57)
[2025-07-23 20:00] VITALS: BP 106/80; PULSE 78; RESP 18; TEMP 36.5; O2SAT 98
--- NOTE | 2025-07-23 21:14 | P.PNPSI_ITS ---
Subjective Subjective Date of Service: 07/22/25 Reason For Visit: psychosis federica Subjective Notes: Conditional Voluntary Guardianship: Yes Interim History: Patient seen psychiatric follow-up. Patient has generally been more cooperative engaged. Mental Status Exam Mental Status Exam Narrative: Appearance: Casually dressed, adequate hygiene Behavior: Calm and cooperative throughout the interview. Eye contact is appropriate, and there are no signs of psychomotor agitation or retardation Speech: Normal volume and prosody Thought process: Logical and goal-directed Thought content: Future oriented no self-harming thoughts, confused at times Mood: not good Affect: Constricted, frustrated around disposition planning SI:denies HI:denies VH/AH:none Delusions: None Insight/judgment: Improving insight into how his behavior will effect how he is treated Memory/cog: Alert, oriented to person, place, and time. grossly intact to conversational testing Diagnostics Vital Signs (24Hr): Vital Signs - 24 hr 07/23/25 08:00 07/23/25 20:00 Temperature 97.5 F 97.7 F Pulse Rate 84 78 Respiratory Rate 14 18 Blood Pressure 109/79 106/80 Pulse Oximetry 95 98 Oxygen Delivery Method Room Air Room Air BMI result Body Mass Index 23.1 Labs 07/16/25 07:24 07/16/25 11:01 Imaging Radiology Impressions: ITS Impressions Modified Barium Swallow 06/06/25 14:30 IMPRESSION: No evidence of laryngeal penetration or aspiration. Refer to the full speech therapy report to follow for further details. Electronically signed by: Gerry Tejeda MD 06/06/2025 03:25 PM EDT Chest X-Ray 07/15/25 13:39 IMPRESSION: Concerning chronic interstitial lung disease without overt acute airspace disease. Electronically signed by: Vik Mccauley MD 07/15/2025 02:08 PM EDT Medications Medications Current Medications Acetaminophen (Acetaminophen 325 Mg Tablet) 650 mg PO Q6H PRN PRN Reason: Pain Last Admin: 07/04/25 21:00 Dose: 650 mg Al Hydroxide/Mg Hydroxide (Magnesium Hydrox/Alum Hydrox 30 Ml Oral.Susp) 30 ml PO Q6H PRN PRN Reason: Heartburn/Nausea Apixaban (Apixaban 5 Mg Tablet) 5 mg PO BID SERENITY Last Admin: 07/23/25 20:17 Dose: 5 mg Bisacodyl (Bisacodyl 10 Mg Supp.Rect) 10 mg NH DAILY PRN PRN Reason: Constipation Calcium Carbonate (Calcium Carbonate 750 Mg Tab.Chew) 750 mg PO Q8H PRN PRN Reason: GERD Last Admin: 07/23/25 18:57 Dose: 750 mg Clotrimazole (Clotrimazole 1 % Cream 15 Gm Tube) 1 appl TOPICAL TID [facility]; Protocol Last Admin: 07/23/25 20:17 Dose: Not Given Glucagon (Glucagon Hcl 1 Mg Vial) 1 mg IM ONCE PRN PRN Reason: HYPOGLYCEMIA Haloperidol Lactate (Haloperidol Lactate 5 Mg/Ml Vial) 5 mg IM BID PRN PRN Reason: if pt refuses invega/ seroquel Last Admin: 07/08/25 09:34 Dose: 5 mg Lacosamide (Lacosamide Oral Solution 100 Mg/10 Ml Solution) 100 mg PO BID [facility] Last Admin: 07/23/25 20:16 Dose: 100 mg Shively Carbonate (Shively Carbonate Er 300 Mg Tablet.Er) 600 mg PO BEDTIME [facility] Last Admin: 07/23/25 20:16 Dose: 600 mg Magnesium Hydroxide (Milk Of Magnesia 30 Ml Oral.Susp) 30 ml PO DAILY PRN PRN Reason: Constipation Naloxone HCl (Naloxone Hcl Nasal 4 Mg Ullin) 4 mg NOSTRILALT Q2M PRN PRN Reason: opiate overdose Omeprazole (Omeprazole/Na Bicarb Oral Susp 20 Mg/10 Ml Ud Cup) 20 mg PO DAILY@1930 [facility] Last Admin: 07/23/25 18:57 Dose: 20 mg Paliperidone (Paliperidone Er 6 Mg Tab.Er.24) 6 mg PO DAILY@1900 [facility] Last Admin: 07/23/25 18:57 Dose: 6 mg Polyethylene Glycol (Polyethylene Glycol 3350 17 Gm Powd.Pack) 17 gm PO DAILY PRN PRN Reason: Constipation Quetiapine Fumarate (Quetiapine Fumarate 50 Mg Tablet) 50 mg PO BID PRN PRN Reason: psychosis, agitation Last Admin: 07/23/25 20:17 Dose: 50 mg Quetiapine Fumarate (Quetiapine Fumarate 300 Mg Tablet) 300 mg PO DAILY [facility] Last Admin: 07/23/25 09:24 Dose: 300 mg Senna (Sennosides Oral Syrup 8.8 Mg/5 Ml) 17.6 mg PO DAILY PRN PRN Reason: Constipation Sodium Biphosphate/Sodium Phosphate (Sodium Phosphate,[place]-Dibasic 133 Ml Enema) 118 ml NH DAILY PRN PRN Reason: Constipation Trazodone HCl (Trazodone Hcl 50 Mg Tablet) 50 mg PO BEDTIME MRX1 PRN PRN Reason: Insomnia Last Admin: 07/23/25 20:17 Dose: 50 mg Allergies Allergies Allergy/AdvReac Type Severity Reaction Status Date / Time dog dander Allergy Unknown Verified 06/04/25 06:34 mite-Dermatophagoides Allergy Unknown Verified 06/04/25 06:32 farinae, abhilash (dust mite - [place]) Assessment & Plan Assessment & Plan (1) Schizoaffective disorder, bipolar type: Status: Acute Code(s): F25.0 - Schizoaffective disorder, bipolar type (2) Seizure disorder: Status: Acute Code(s): G40.909 - Epilepsy, unspecified, not intractable, without status epilepticus (3) Eating disorder with ongoing treatment: Status: Acute Code(s): F50.9 - Eating disorder, unspecified (4) Gastrointestinal tube in situ: Status: Acute Code(s): Z93.1 - Gastrostomy status Plan Plan 59-year-old male with schizoaffective disorder, bipolar type, eating disorder, federica and dementia, he also has a history of seizure disorder, COPD, DVT, pulmonary nodules in the hypotension. He is seen today for reports and chest discomfort. Headaches and chest discomfort Patient reports that he does not wish to have any testing, he feels fine Upset that he is being forced to be discharged to [facility]. He refuses vital signs He has a seizure disorder as well as history of DVT, has been refusing Vimpat and Eliquis consistently. He has also been refusing midodrine, lithium, memantine, omeprazole. Told me he soes not wish to take any medications from anyone affiliated with [facility]. Schizoaffective disorder, bipolar type/Bulimia/eating disorder/Federica/Dementia Treatment per psychiatric team Has a G-tube in place due to severe malnutrition Patient is angry and does not allow assessment Seizure disorder No recent seizure activity noted Refusing Vimpat COPD Stable, not on any medications DVT on Eliquis Refusing Eliquis Diagnosed on ultrasound on 03/26/[address] Not[address] on CT scan at [facility], we will need outpatient follow up Hypotension Continues on midodrine Thank you for allowing me to participate in the care of this patient. We will follow as needed, please notify medical provider with any acute changes or concerns. Patient admitted on a conditional voluntary again seen and evaluated 10:00. Patient appears to have schizoaffective disorder a marked eating disorder question delusional based leading to a G-tube but there is no clear history presently available regarding medication trials inpatient psychiatric history. He is on minimal doses of lithium and Seroquel and unclear why that is. Would benefit from medical history regarding G-tube what the treatment plan was regarding this and need medical and psychiatric records [facility] and would also benefit records from [facility]. Patient does have a guardian and [facility] will need to coordinate care check lithium level adjust to better therapeutic dose for irritability appears to be manic symptoms unclear why patient is not on antipsychotic dose of antipsychotic medication. Monitor response to treatment question discharge back to [facility]. Question dementia/cognitive impairment diagnosis check [place] review medical records 06/05/2025 Patient more psychotically preoccupied difficulty processing information records reviewed. Patient carries multiple diagnoses including schizophrenia in have significant grandiose and paranoid delusional beliefs but unclear why he is only on very low-dose Seroquel and on clozapine previously. Has only been treated with low-dose lithium. Given patient's history of psychosis, psychotic/eating daughter disorder requiring G-tube placement unclear why patient has such minimum doses of psychiatric medication question past side effects presently no psychiatric provider to coordinate with. Patient is more irritable and agitated psychotically preoccupied tried to explain to him also that he does have a guardian and that issues such as this will need to be addressed with his guardian. Barium swallow ordered to try to clarify if there is any dysphagia elements no obvious side effects were why patient is not currently on adequate antipsychotic treatment. Question asked obstruction with clozapine but unable to clarify at this time patient unable to clarify this history. Patient does have significant difficulty with reflecting on issues and absorbing information but memory seems significantly impaired. Monitor response to patient swallowing is on medication monitor weight unclear history of noncompliance this should be clarified 06/06/2025 Try and gather further data regarding patient's treatment history had been on Clozaril in the past unclear why discontinued Medical history not clear continue lower dose Seroquel and lithium at present 06/07 Team needing back up dosing Seroquel refusal. Haldol 2.5 mg IM bid prn per Sharif parameters if pt refuses Seroquel Increase Seroquel to 75 mg bid Monitor for dysphagia 06/08 Continue tx 06/09/2025 Trying to clarify history the past year for this patient. Call placed to nurse practitioner at [facility]. Patient was quite psychotic irritable agitated 06/10/2025 Continue plan of care patient is still not able to elaborate history but no current adverse effects from current regimen noted. He is aware that he will most likely return to [facility] encourage compliance with lithium try to obtain therapeutic level 06/12/2025 Encourage compliance with lithium and Seroquel. Patient had been on clozapine and past was only on 25 mg Seroquel at [facility] [place] unclear why he was not more robust only treated increase Seroquel as tolerated try and do mouth checks check for purging 06/20/25 Pt aware of transfer back to [facility] has been eating not purging taking seroquel 06/21 Patient says his mood is getting better... Denies any SI Patient says that he has a hard time resisting the urge to purge and that he has been doing so. He says that after he eats a meal he feels full. But he says he does not like that he does this and wants to stop purging more than Dr. Adhikari wants him to stop. He says he is working on it. Discussed lithium level which has not moved much and patient agrees to make dose long-acting and at bedtime to avoid accidentally purging medications 06/22 Patient very irritable today and would not discuss much with television script writer other than to say I told you and you would not listen... Now you'll will see what happens.. Patient would not explain what that means despite television script writer having no idea to what he was referring. Patient refusing medication and when television script writer went to discuss it he said he would not take lithium; patient said he did not want to talk to this television script writer any further Shively level subtherapeutic, however patient says he is feeling better so will leave at current dose but change to long-acting and at bedtime 06/23/2025 Continue plan of care if patient accepts treatment including for his medical conditions which were explained to him will maintain current treatment plan if patient continues to be come more paranoid verbally aggressive consider filing for civil commitment and perhaps amendment of Malik if needed. Increase Seroquel as tolerated follow blood pressure and ANC 06/24/25 cont lithium seroquel monitor 06/25/25 inc seroquel as tolerated prozac held ? in irritability 06/26/25 inc seroquel restart fluox for ocd type sx 06/27/2025 Check lithium level in the morning patient reportedly has been taking lithium now for few days increase Seroquel as patient seems more vulnerable on going back to [facility] sometime next week denies thoughts of harm to self or others 06/28: no change today 06/29: repeat Li+ level for tomorrow 06/30/25 Pt refusing all meds exept lithium does not understand medical risks lith close to 0 inc seroquel as tolerated try and follow bp given he is refusing midodrine . Trying to coord with [facility] whether they can handle this level of care they did refuse pt for today. If pt stays will file for tx plan.will try for mei . 07/01/25 [facility] not an option at present with psychotic lability threats aggressive behavior inc seroquel 300 bid max of malik may need to restrain for cbc and vitals if seroquel not not effective will switch to invega. Monitor for dvt sx sz encourage tx acceptance 07/02/25 Pt somewhat less aggressive past 2 days ,monitor medical safety given refusal of anti sz meds and eloquis. Seroquel 300 bid pt tolerating ,will try and recoordinate with [facility] care because wbc were close to 0 on cloz . 07/03/2025 Continue Seroquel 300 b.i.d. continue to encourage patient accepting his meds for medical issues although no negative consequences to this point vital signs stable no orthostasis ambulation not problematic has been in better control Issues had been reviewed with guardian have also reviewed possibility of H referral working with [facility] to try and transfer back as possible based on patient's behavior. If recurrence of aggressive behavior will change to Invega [place] stain also a possibility 07/04/2025 Patient has now not been threatening or aggressive for a number of days. He is on Seroquel a 300 b.i.d. and this appears to be helpful in decreasing paranoid reactivity and preoccupation with delusional material. Patient refusing medication for seizure and embolism stating he feels fine in his refusing to take at this time he is alert ambulating well adequate vital signs tolerating Seroquel. Recommend return to [facility] encourage acceptance of medical medications. 07/05: continue current management and treatment plan. 07/06: continue current management and treatment plan. 07/08/202507/09: Continue current treatment regimen. Taper Seroquel start Risperdal follow CBC history of neutropenia Seroquel 300 b.i.d. max dose on Sharif or was not effective for psychosis or aggression most likely would eventually benefit from Invega sustain a which is on the Sharif order Consider transfer to adult unit especially if patient continues to be aggressive on geriatric unit Will need physical examination of G-tube monitor CBC 07/10/25 start invega stop risperadol encourage med compliance 07/13: in behavioral control, doing well. continue current mgmt. 07/14/2025 Continue Invega max dose limited to 6 mg check CBC given history of sepsis and leukopenia Consider convert to long-acting injectable as possible 07/15/2025 Invega 6 mg started encourage compliance with antiseizure med 07/16 Patient more able to take in information regarding his medical condition seems more open and accepting. Quite significant lack of any insight into his psychiatric condition Check CBC 07/17 Patient is alert oriented x3, pleasant and cooperative. No acute symptoms at this time. Continue current treatment regimen. Encouraged med compliance and groups. 07/19/2024: No changes 07/20/25: Patient continues to refuse most of his medical medications- is very clear with television script writer he is doing this in an effort to sabotage his discharge to [facility]. [employer] also raised the possibility that treatment team may simply discontinue these orders, since he is not taking them anyway and openly endorses the risks associated with that such as refusing blood thinner etc.. 07/21/2025 Patient has restarted taking his medical medications I had offered to start trying to prune some of the medications back but he was reflective regarding taking medication for blood clots to prevent bullet cuts and medication prevent seizures. Patient seems to be tolerating Invega 6 mg Seroquel 300 mg less agitated less reactive more cooperative Discharge planning to [facility] 07/22/2025 Continue plan of care patient appears to be stabilizing much improved behavior Reason for continued inpatient stay Substantial Risk for: inability to function and rapid decompensation Time Spent With Patient Time: Total time managing care of this patient today ____ minutes.
--- NOTE | 2025-07-23 21:35 | P.PNPSI_ITS ---
Subjective Subjective Date of Service: 07/23/25 Reason For Visit: psychosis federica Subjective Notes: Conditional Voluntary Interim History: Patient again more insightful stable and reflective. Able to meet with [facility] discussed being more cooperative and agreeable to going back. Medication Compliance: Yes Mental Status Exam Mental Status Exam Narrative: Appearance: Casually dressed, adequate hygiene Behavior: Calm and cooperative throughout the interview. Eye contact is appropriate, and there are no signs of psychomotor agitation or retardation Speech: Normal volume and prosody Thought process: Logical and goal-directed Thought content: Future oriented hopeful Mood: Good Affect: Appropriate to mood SI:denies HI:denies VH/AH:none Delusions: None Insight/judgment: Improving insight into how his behavior will effect how he is treated Memory/cog: Alert, oriented to person, place, and time. grossly intact to conversational testing Diagnostics Vital Signs (24Hr): Vital Signs - 24 hr 07/23/25 08:00 07/23/25 20:00 Temperature 97.5 F 97.7 F Pulse Rate 84 78 Respiratory Rate 14 18 Blood Pressure 109/79 106/80 Pulse Oximetry 95 98 Oxygen Delivery Method Room Air Room Air BMI result Body Mass Index 23.1 Labs 07/16/25 07:24 07/16/25 11:01 Imaging Radiology Impressions: ITS Impressions Modified Barium Swallow 06/06/25 14:30 IMPRESSION: No evidence of laryngeal penetration or aspiration. Refer to the full speech therapy report to follow for further details. Electronically signed by: Gerry Tejeda MD 06/06/2025 03:25 PM EDT Chest X-Ray 07/15/25 13:39 IMPRESSION: Concerning chronic interstitial lung disease without overt acute airspace disease. Electronically signed by: Vik Mccauley MD 07/15/2025 02:08 PM EDT RP Medications Medications Current Medications Acetaminophen (Acetaminophen 325 Mg Tablet) 650 mg PO Q6H PRN PRN Reason: Pain Last Admin: 07/04/25 21:00 Dose: 650 mg Al Hydroxide/Mg Hydroxide (Magnesium Hydrox/Alum Hydrox 30 Ml Oral.Susp) 30 ml PO Q6H PRN PRN Reason: Heartburn/Nausea Apixaban (Apixaban 5 Mg Tablet) 5 mg PO BID [facility]ENITY Last Admin: 07/23/25 20:17 Dose: 5 mg Bisacodyl (Bisacodyl 10 Mg Supp.Rect) 10 mg DE DAILY PRN PRN Reason: Constipation Calcium Carbonate (Calcium Carbonate 750 Mg Tab.Chew) 750 mg PO Q8H PRN PRN Reason: GERD Last Admin: 07/23/25 18:57 Dose: 750 mg Clotrimazole (Clotrimazole 1 % Cream 15 Gm Tube) 1 appl TOPICAL TID [facility]; Protocol Last Admin: 07/23/25 20:17 Dose: Not Given Glucagon (Glucagon Hcl 1 Mg Vial) 1 mg IM ONCE PRN PRN Reason: HYPOGLYCEMIA Haloperidol Lactate (Haloperidol Lactate 5 Mg/Ml Vial) 5 mg IM BID PRN PRN Reason: if pt refuses invega/ seroquel Last Admin: 07/08/25 09:34 Dose: 5 mg Lacosamide (Lacosamide Oral Solution 100 Mg/10 Ml Solution) 100 mg PO BID [facility] Last Admin: 07/23/25 20:16 Dose: 100 mg [place] Carbonate ([place] Carbonate Er 300 Mg Tablet.Er) 600 mg PO BEDTIME [facility] Last Admin: 07/23/25 20:16 Dose: 600 mg Magnesium Hydroxide (Milk Of Magnesia 30 Ml Oral.Susp) 30 ml PO DAILY PRN PRN Reason: Constipation Naloxone HCl (Naloxone Hcl Nasal 4 Mg [place]) 4 mg NOSTRILALT Q2M PRN PRN Reason: opiate overdose Omeprazole (Omeprazole/Na Bicarb Oral Susp 20 Mg/10 Ml Ud Cup) 20 mg PO DAILY@1930 [facility] Last Admin: 07/23/25 18:57 Dose: 20 mg Paliperidone (Paliperidone Er 6 Mg Tab.Er.24) 6 mg PO DAILY@1900 [facility] Last Admin: 07/23/25 18:57 Dose: 6 mg Polyethylene Glycol (Polyethylene Glycol 3350 17 Gm Powd.Pack) 17 gm PO DAILY PRN PRN Reason: Constipation Quetiapine Fumarate (Quetiapine Fumarate 50 Mg Tablet) 50 mg PO BID PRN PRN Reason: psychosis, agitation Last Admin: 07/23/25 20:17 Dose: 50 mg Quetiapine Fumarate (Quetiapine Fumarate 300 Mg Tablet) 300 mg PO DAILY [facility] Last Admin: 07/23/25 09:24 Dose: 300 mg Senna (Sennosides Oral Syrup 8.8 Mg/5 Ml) 17.6 mg PO DAILY PRN PRN Reason: Constipation Sodium Biphosphate/Sodium Phosphate (Sodium Phosphate,[place]-Dibasic 133 Ml Enema) 118 ml DE DAILY PRN PRN Reason: Constipation Trazodone HCl (Trazodone Hcl 50 Mg Tablet) 50 mg PO BEDTIME MRX1 PRN PRN Reason: Insomnia Last Admin: 07/23/25 20:17 Dose: 50 mg Allergies Allergies Allergy/AdvReac Type Severity Reaction Status Date / Time dog dander Allergy Unknown Verified 06/04/25 06:34 mite-Dermatophagoides Allergy Unknown Verified 06/04/25 06:32 farinae, abhilash (dust mite - [place]) Assessment & Plan Assessment & Plan (1) Schizoaffective disorder, bipolar type: Status: Acute Code(s): F25.0 - Schizoaffective disorder, bipolar type (2) Seizure disorder: Status: Acute Code(s): G40.909 - Epilepsy, unspecified, not intractable, without status epilepticus (3) Eating disorder with ongoing treatment: Status: Acute Code(s): F50.9 - Eating disorder, unspecified (4) Gastrointestinal tube in situ: Status: Acute Code(s): Z93.1 - Gastrostomy status Plan Plan 59-year-old male with schizoaffective disorder, bipolar type, eating disorder, federica and dementia, he also has a history of seizure disorder, COPD, DVT, pulmonary nodules in the hypotension. He is seen today for reports and chest discomfort. Headaches and chest discomfort Patient reports that he does not wish to have any testing, he feels fine Upset that he is being forced to be discharged to [facility]. He refuses vital signs He has a seizure disorder as well as history of DVT, has been refusing Vimpat and Eliquis consistently. He has also been refusing midodrine, lithium, memantine, omeprazole. Told me he soes not wish to take any medications from anyone affiliated with [facility]. Schizoaffective disorder, bipolar type/Bulimia/eating disorder/Federica/Dementia Treatment per psychiatric team Has a G-tube in place due to severe malnutrition Patient is angry and does not allow assessment Seizure disorder No recent seizure activity noted Refusing Vimpat COPD Stable, not on any medications DVT on Eliquis Refusing Eliquis Diagnosed on ultrasound on 03/26/[address] Noted on CT scan at [facility], we will need outpatient follow up Hypotension Continues on midodrine Thank you for allowing me to participate in the care of this patient. We will follow as needed, please notify medical provider with any acute changes or concerns. Patient admitted on a conditional voluntary again seen and evaluated 10:00. Patient appears to have schizoaffective disorder a marked eating disorder question delusional based leading to a G-tube but there is no clear history presently available regarding medication trials inpatient psychiatric history. He is on minimal doses of lithium and Seroquel and unclear why that is. Would benefit from medical history regarding G-tube what the treatment plan was regarding this and need [facility] and would also benefit records from [place]. Patient does have a guardian and [facility] will need to coordinate care check lithium level adjust to better therapeutic dose for irritability appears to be manic symptoms unclear why patient is not on antipsychotic dose of antipsychotic medication. Monitor response to treatment question discharge back to [facility]. Question dementia/cognitive impairment diagnosis check [place] review medical records 06/05/2025 Patient more psychotically preoccupied difficulty processing information records reviewed. Patient carries multiple diagnoses including schizophrenia in have significant grandiose and paranoid delusional beliefs but unclear why he is only on very low-dose Seroquel and on clozapine previously. Has only been treated with low-dose lithium. Given patient's history of psychosis, psychotic/eating daughter disorder requiring G-tube placement unclear why patient has such minimum doses of psychiatric medication question past side effects presently no psychiatric provider to coordinate with. Patient is more irritable and agitated psychotically preoccupied tried to explain to him also that he does have a guardian and that issues such as this will need to be addressed with his guardian. Barium swallow ordered to try to clarify if there is any dysphagia elements no obvious side effects were why patient is not currently on adequate antipsychotic treatment. Question asked obstruction with clozapine but unable to clarify at this time patient unable to clarify this history. Patient does have significant difficulty with reflecting on issues and absorbing information but memory seems significantly impaired. Monitor response to patient swallowing is on medication monitor weight unclear history of noncompliance this should be clarified 06/06/2025 Try and gather further data regarding patient's treatment history had been on Clozaril in the past unclear why discontinued Medical history not clear continue lower dose Seroquel and lithium at present 06/07 Team needing back up dosing Seroquel refusal. Haldol 2.5 mg IM bid prn per [facility] parameters if pt refuses Seroquel Increase Seroquel to 75 mg bid Monitor for dysphagia 06/08 Continue tx 06/09/2025 Trying to clarify history the past year for this patient. Call placed to nurse practitioner at [facility]. Patient was quite psychotic irritable agitated 06/10/2025 Continue plan of care patient is still not able to elaborate history but no current adverse effects from current regimen noted. He is aware that he will most likely return to [facility] encourage compliance with lithium try to obtain therapeutic level 06/12/2025 Encourage compliance with lithium and Seroquel. Patient had been on clozapine and past was only on 25 mg Seroquel at [facility] unclear why he was not more robust only treated increase Seroquel as tolerated try and do mouth checks check for purging 06/20/25 Pt aware of transfer back to [facility] has been eating not purging taking seroquel 06/21 Patient says his mood is getting better... Denies any SI Patient says that he has a hard time resisting the urge to purge and that he has been doing so. He says that after he eats a meal he feels full. But he says he does not like that he does this and wants to stop purging more than Dr. Adhikari wants him to stop. He says he is working on it. Discussed lithium level which has not moved much and patient agrees to make dose long-acting and at bedtime to avoid accidentally purging medications 06/22 Patient very irritable today and would not discuss much with tech writer other than to say I told you and you would not listen... Now you'll will see what happens.. Patient would not explain what that means despite tech writer having no idea to what he was referring. Patient refusing medication and when tech writer went to discuss it he said he would not take lithium; patient said he did not want to talk to this tech writer any further [place] level subtherapeutic, however patient says he is feeling better so will leave at current dose but change to long-acting and at bedtime 06/23/2025 Continue plan of care if patient accepts treatment including for his medical conditions which were explained to him will maintain current treatment plan if patient continues to be come more paranoid verbally aggressive consider filing for civil commitment and perhaps amendment of Malik if needed. Increase Seroquel as tolerated follow blood pressure and ANC 06/24/25 cont lithium seroquel monitor 06/25/25 inc seroquel as tolerated prozac held ? in irritability 06/26/25 inc seroquel restart fluox for ocd type sx 06/27/2025 Check lithium level in the morning patient reportedly has been taking lithium now for few days increase Seroquel as patient seems more vulnerable on going back to [facility] sometime next week denies thoughts of harm to self or others 06/28: no change today 06/29: repeat Li+ level for tomorrow 06/30/25 Pt refusing all meds exept lithium does not understand medical risks lith close to 0 inc seroquel as tolerated try and follow bp given he is refusing midodrine . Trying to coord with [facility] whether they can handle this level of care they did refuse pt for today. If pt stays will file for tx plan.will try for mei . 07/01/25 [facility] not an option at present with psychotic lability threats aggressive behavior inc seroquel 300 bid max of malik may need to restrain for cbc and vitals if seroquel not not effective will switch to invega. Monitor for dvt sx sz encourage tx acceptance 07/02/25 Pt somewhat less aggressive past 2 days ,monitor medical safety given refusal of anti sz meds and eloquis. Seroquel 300 bid pt tolerating ,will try and recoordinate with [facility] because wbc were close to 0 on cloz . 07/03/2025 Continue Seroquel 300 b.i.d. continue to encourage patient accepting his meds for medical issues although no negative consequences to this point vital signs stable no orthostasis ambulation not problematic has been in better control Issues had been reviewed with guardian have also reviewed possibility of [facility] working with [facility] to try and transfer back as possible based on patient's behavior. If recurrence of aggressive behavior will change to Invega [place] stain also a possibility 07/04/2025 Patient has now not been threatening or aggressive for a number of days. He is on Seroquel a 300 b.i.d. and this appears to be helpful in decreasing paranoid reactivity and preoccupation with delusional material. Patient refusing medication for seizure and embolism stating he feels fine in his refusing to take at this time he is alert ambulating well adequate vital signs tolerating Seroquel. Recommend return to [facility] encourage acceptance of medical medications. 07/05: continue current management and treatment plan. 07/06: continue current management and treatment plan. 07/08/202507/09: Continue current treatment regimen. Taper Seroquel start Risperdal follow CBC history of neutropenia Seroquel 300 b.i.d. max dose on [facility] or was not effective for psychosis or aggression most likely would eventually benefit from Invega sustain a which is on the [facility] order Consider transfer to adult unit especially if patient continues to be aggressive on geriatric unit Will need physical examination of G-tube monitor CBC 07/10/25 start invega stop risperadol encourage med compliance 07/13: in behavioral control, doing well. continue current mgmt. 07/14/2025 Continue Invega max dose limited to 6 mg check CBC given history of sepsis and leukopenia Consider convert to long-acting injectable as possible 07/15/2025 Invega 6 mg started encourage compliance with antiseizure med 07/16 Patient more able to take in information regarding his medical condition seems more open and accepting. Quite significant lack of any insight into his psychiatric condition Check CBC 07/17 Patient is alert oriented x3, pleasant and cooperative. No acute symptoms at this time. Continue current treatment regimen. Encouraged med compliance and groups. 07/19/2024: No changes 07/20/25: Patient continues to refuse most of his medical medications- is very clear with tech writer he is doing this in an effort to sabotage his discharge to [facility]. Slag Mixer also raised the possibility that treatment team may simply discontinue these orders, since he is not taking them anyway and openly endorses the risks associated with that such as refusing blood thinner etc.. 07/21/2025 Patient has restarted taking his medical medications I had offered to start trying to prune some of the medications back but he was reflective regarding taking medication for blood clots to prevent bullet cuts and medication prevent seizures. Patient seems to be tolerating Invega 6 mg Seroquel 300 mg less agitated less reactive more cooperative Discharge planning to [facility] 07/22/2025 Continue plan of care patient appears to be stabilizing much improved behavior 07/23/2025 Patient accepted back at [facility] discharge tomorrow has been cooperative with care and medication Reason for continued inpatient stay Substantial Risk for: inability to function and rapid decompensation Time Spent With Patient Time: Total time managing care of this patient today ____ minutes.
[2025-07-24 08:00] VITALS: BP 113/76; PULSE 99; RESP 15; TEMP 36.8; O2SAT 95
[2025-07-24] MEDS: Lacosamide Oral Solution 100 MG/10 ML SOLUTION PO (09:06)
--- NOTE | 2025-07-24 11:16 | PM.PSYDC ---
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 anyway and openly endorses the risks associated with that such as refusing blood thinner etc.. 07/21/2025 Patient has restarted taking his medical medications I had offered to start trying to prune some of the medications back but he was reflective regarding taking medication for blood clots to prevent bullet cuts and medication prevent seizures. Patient seems to be tolerating Invega 6 mg Seroquel 300 mg less agitated less reactive more cooperative Discharge planning to [facility] 07/22/2025 Continue plan of care patient appears to be stabilizing much improved behavior 07/23/2025 Patient accepted back at [facility] discharge tomorrow has been cooperative with care and medication PATIENT ADMISSION WAS preoccupied with being able to eat intake medication his own and did not feel he needed to use the G-tube. He was converted to oral feedings and was able to maintain his weight and gain a healthy amount of weight during the hospitalization. Initially they were binge purging episodes this eventually discontinued. The patient initially came in on Seroquel 25 b.i.d. psychotic preoccupations with contamination breathing problems related to dust and could be quite agitated with personnel that had brooms or l were cleaning rooms. Eventually on combination Seroquel 300 mg and Invega 6 mg patient was markedly less psychotically preoccupied. Was able to take in information regarding his medical condition in a way that it could not before. Explained to him his [facility] hospitalization what he had been treated for. Was hoping to eventually get the G-tube taken out. Initially the patient had been preoccupied with calendar and somehow he had produced the past and had special animals at known house near [facility] the people were jealous of in and had paranoid concerns regarding this. Also had initially been preoccupied with the fact that people were jealous of him and that he police officers had been preoccupied with him that is why he had been tormented. As the patient's antipsychotic dose was increased was no longer preoccupied with this and seemed more reality focused was able to stay out of his room more and was more social. Patient last proximal week of his hospitalization he was taking his medications including his non Sharif medication. He did seem better on 300 mg Seroquel with Invega than he did on 600 mg alone. And could be eventually to convert to Invega sustena. Patient was seizure-free during hospitalization prozac was d/c unclear if contributed to agitation Status at Discharge Cognitive/behavioral status at discharge: Calm and cooperative future oriented stating he was hoping to be able to work with [facility] Functional status at discharge: independent ambulation Overall status at discharge: patient is progressing back to baseline Time Spent with Patient Time attestation: Total time managing care of this patient today _45___ minutes. Time spent: Greater than 30 minutes Discharge Plan Discharge Anticipated Discharge Date/Time: 07/24/25 13:00 Patient Disposition: Xfer Inpatient Rehab Fac Discharge Diagnosis: SCHIZOAFFECTIVE DISORDER EATING DISORDER BY HX OCD S/P GTUBE PLACEMENT HX CLOZARIL NEURTRPENIA AND SEPSIS Referrals: [facility] [Other] - 1 Week [facility] [Primary Care Provider, Internal Medicine] - 1 Week Discharge Medications: New trazodone 50 mg Tablet 50 mg PO BEDTIME MRX1 PRN (Reason: Insomnia) Qty: 1 0RF paliperidone [Invega] 6 mg Tablet Extended Release 24hr 6 mg PO DAILY@1900 30 Days Qty: 30 0RF Continued naloxone 0.4 mg/mL Solution 0.4 mg SUBCUT Q2M PRN (Reason: opiate overdose) Rx Instructions: NTExceed 10 mg total dose/episode sennosides [senna] 8.8 mg/5 mL Syrup 10 ml feeding tube DAILY PRN (Reason: Constipation) naloxone 4 mg/actuation [place],Non-Aerosol 4 mg INTRANASAL Q2M PRN (Reason: opiate overdose) Rx Instructions: spray 1 dose into ONE nostril; alternate nostrils w each dose until help arrives Gvoke HypoPen 1-Pack 1 mg/0.2 mL Auto-Injector 1 mg SUBCUT NEEDED PRN (Reason: Hypoglycemia) Rx Instructions: Inject 0.2ml SC Q15 minutes PRN for low BS if unable to take by mouth, administer Gvoke. Notify MD, recheck FSB in 15 minutes (within 30 mins of initial FSG) and retreat if less than 100mg/dl, repeat FSG Q15MIN until FSG is >100 mg/dl. acetaminophen 650 mg Tablet 650 mg PO Q6H PRN (Reason: Pain) Rx Instructions: give via G-Tube Q6H PRN for pain bisacodyl 10 mg Suppository 10 mg MI DAILY PRN (Reason: Constipation) Rx Instructions: give if MOM ineffective Fleet Enema 19-7 gram/118 mL Enema 118 ml MI DAILY PRN (Reason: Constipation) polyethylene glycol 3350 [Miralax] 17 gram/dose Powder 17 g feeding tube DAILY PRN (Reason: Constipation) Rx Instructions: mix in 4 oz of water clotrimazole 1 % Cream 1 appl TOPICAL TID glycerin Drops 2 drp OPHTHALMIC (EYE) Q4H PRN (Reason: dryness) Rx Instructions: both eyes memantine 10 mg Tablet 20 mg PO BEDTIME Changed lithium carbonate 150 mg Capsule 600 mg PO BEDTIME 30 Days Qty: 120 0RF magnesium hydroxide [Milk of Magnesia] 400 mg/5 mL Suspension 30 ml PO DAILY PRN (Reason: Constipation) 30 Days Qty: 0 0RF calcium carbonate 500 mg calcium (1,250 mg) Tablet,Chewable 1,000 mg PO Q8H PRN (Reason: GERD) Qty: 30 0RF quetiapine 50 mg Tablet 300 mg PO DAILY 30 Days Qty: 180 0RF pantoprazole [address] For Susp In Packet 40 mg PO DAILY 30 Days Qty: 0 0RF Rx Instructions: give 1 packet via g-tube one time daily for esophagitis lacosamide [Vimpat] 10 mg/mL Solution 100 mg PO BID 30 Days Qty: 600 0RF Eliquis 5 mg Tablet 5 mg PO BID 30 Days Qty: 60 0RF Discontinued fluoxetine 10 mg Capsule 10 mg PO DAILY Jevity 1.5 Alexis 0.06 gram-1.5 kcal/mL Liquid 1 ea feeding tube BID Rx Instructions: 8 ounces via gtube BID midodrine 2.5 mg Tablet 7.5 mg feeding tube TID Rx Instructions: do not give last dose of day after 6PM or within 4 hrs of bedtime Discharge Orders: Discharge Order (Routine); Ordered 07/24/25 Ordered By: Ed Adhikari Diet: Advance to usual diet Activity on Discharge: As tolerated Stand Alone Forms: Patient Portal Discharge page, Community Support Print Language: Kyrgyz Care Plan Goals: STABLE MOOD LESS PREOCCUPATION CONTAMINATION REALITY BASED FOCUS TAKE MEDICATION PRESCRIBED COOPERATE WITH MEDICAL CARE Health Concerns: HX SEPSIS NEUTROPENIA ON CLOZAPINE PSYCHOSIS EATING DISORDER HX SEIZURES g tube interstitial markings on cxr ck lithium level in 1 week Plan of Treatment: TAKE MEDICATION PRESCRIBED WORKING WITH [facility] TEAM FOR REHAB GIVE HALDOL IM PER MALIK IF REFUSES INVEGA/ SEROQUEL PLEASE MONITOR WBC AND LITHIUM LEVEL Assessment: PT CALM PLEASANT FUTURE ORIENTED NOT AGITATED LESS PSYCHOTIC PREOOCUPATION NO SEIZIRE WBC OK
--- NOTE | 2025-07-24 14:27 | HO.PSYCHPN ---
Subjective Subjective Date of Service: 07/24/25 Reason For Visit: psychosis federica Subjective Notes: Conditional Voluntary Healthcare Proxy: No Guardianship: Yes Interim History: Patient seen psychiatric follow-up patient's mood improved. He is aware of potential discharge for tomorrow. Less psychotically preoccupied not combative has been accepting of medication Mental Status Exam Mental Status Exam Narrative: Appearance: Casually dressed, adequate hygiene Behavior: Calm and cooperative throughout the interview. Eye contact is appropriate, and there are no signs of psychomotor agitation or retardation Speech: Normal volume and prosody Thought process: Logical and goal-directed Thought content: Future oriented hopeful Mood: Good Affect: Appropriate to mood SI:denies HI:denies VH/AH:none Delusions: None expressed Insight/judgment: Improving insight into how his behavior will effect how he is treated Memory/cog: Alert, oriented to person, place, and time. grossly intact to conversational testing Diagnostics Vital Signs (24Hr): Vital Signs - 24 hr 07/23/25 20:00 07/24/25 08:00 Temperature 97.7 F 98.2 F Pulse Rate 78 99 Respiratory Rate 18 15 Blood Pressure 106/80 113/76 Pulse Oximetry 98 95 Oxygen Delivery Method Room Air Room Air BMI result Body Mass Index 23.1 Labs 07/16/25 07:24 07/16/25 11:01 Imaging Radiology Impressions: ITS Impressions Modified Barium Swallow 06/06/25 14:30 IMPRESSION: No evidence of laryngeal penetration or aspiration. Refer to the full speech therapy report to follow for further details. Electronically signed by: Gerry Tejeda MD 06/06/2025 03:25 PM EDT RP Chest X-Ray 07/15/25 13:39 IMPRESSION: Concerning chronic interstitial lung disease without overt acute airspace disease. Electronically signed by: Vik Mccauley MD 07/15/2025 02:08 PM EDT RP Medications Allergies Allergies Allergy/AdvReac Type Severity Reaction Status Date / Time dog dander Allergy Unknown Verified 06/04/25 06:34 mite-Dermatophagoides Allergy Unknown Verified 06/04/25 06:32 farinae, abhilash (dust mite - [place]) Assessment & Plan Assessment & Plan (1) Schizoaffective disorder, bipolar type: Status: Acute Code(s): F25.0 - Schizoaffective disorder, bipolar type (2) Seizure disorder: Status: Acute Code(s): G40.909 - Epilepsy, unspecified, not intractable, without status epilepticus (3) Eating disorder with ongoing treatment: Status: Acute Code(s): F50.9 - Eating disorder, unspecified (4) Gastrointestinal tube in situ: Status: Acute Code(s): Z93.1 - Gastrostomy status (5) OCD (obsessive compulsive disorder): Status: Acute Code(s): F42.9 - Obsessive-compulsive disorder, unspecified (6) Interstitial pulmonary disease, unspecified: Status: Acute Code(s): J84.9 - Interstitial pulmonary disease, unspecified Plan Plan 59-year-old male with schizoaffective disorder, bipolar type, eating disorder, federica and dementia, he also has a history of seizure disorder, COPD, DVT, pulmonary nodules in the hypotension. He is seen today for reports and chest discomfort. Headaches and chest discomfort Patient reports that he does not wish to have any testing, he feels fine Upset that he is being forced to be discharged to [facility]. He refuses vital signs He has a seizure disorder as well as history of DVT, has been refusing Vimpat and Eliquis consistently. He has also been refusing midodrine, lithium, memantine, omeprazole. Told me he soes not wish to take any medications from anyone affiliated with [facility]. Schizoaffective disorder, bipolar type/Bulimia/eating disorder/Federica/Dementia Treatment per psychiatric team Has a G-tube in place due to severe malnutrition Patient is angry and does not allow assessment Seizure disorder No recent seizure activity noted Refusing Vimpat COPD Stable, not on any medications DVT on Eliquis Refusing Eliquis Diagnosed on ultrasound on 03/26/[address] Noted on CT scan at [facility], we will need outpatient follow up Hypotension Continues on midodrine Thank you for allowing me to participate in the care of this patient. We will follow as needed, please notify medical provider with any acute changes or concerns. Patient admitted on a conditional voluntary again seen and evaluated 10:00. Patient appears to have schizoaffective disorder a marked eating disorder question delusional based leading to a G-tube but there is no clear history presently available regarding medication trials inpatient psychiatric history. He is on minimal doses of lithium and Seroquel and unclear why that is. Would benefit from medical history regarding G-tube what the treatment plan was regarding this and need medical and psychiatric records from [facility] and would also benefit records from [facility]. Patient does have a guardian and [place] order will need to coordinate care check lithium level adjust to better therapeutic dose for irritability appears to be manic symptoms unclear why patient is not on antipsychotic dose of antipsychotic medication. Monitor response to treatment question discharge back to [facility]. Question dementia/cognitive impairment diagnosis check [place] review medical records 06/05/2025 Patient more psychotically preoccupied difficulty processing information records reviewed. Patient carries multiple diagnoses including schizophrenia in have significant grandiose and paranoid delusional beliefs but unclear why he is only on very low-dose Seroquel and on clozapine previously. Has only been treated with low-dose lithium. Given patient's history of psychosis, psychotic/eating daughter disorder requiring G-tube placement unclear why patient has such minimum doses of psychiatric medication question past side effects presently no psychiatric provider to coordinate with. Patient is more irritable and agitated psychotically preoccupied tried to explain to him also that he does have a guardian and that issues such as this will need to be addressed with his guardian. Barium swallow ordered to try to clarify if there is any dysphagia elements no obvious side effects were why patient is not currently on adequate antipsychotic treatment. Question asked obstruction with clozapine but unable to clarify at this time patient unable to clarify this history. Patient does have significant difficulty with reflecting on issues and absorbing information but memory seems significantly impaired. Monitor response to patient swallowing is on medication monitor weight unclear history of noncompliance this should be clarified 06/06/2025 Try and gather further data regarding patient's treatment history had been on Clozaril in the past unclear why discontinued Medical history not clear continue lower dose Seroquel and lithium at present 06/07 Team needing back up dosing Seroquel refusal. Haldol 2.5 mg IM bid prn per Gan parameters if pt refuses Seroquel Increase Seroquel to 75 mg bid Monitor for dysphagia 06/08 Continue tx 06/09/2025 Trying to clarify history the past year for this patient. Call placed to nurse practitioner at [facility] [place]. Patient was quite psychotic irritable agitated 06/10/2025 Continue plan of care patient is still not able to elaborate history but no current adverse effects from current regimen noted. He is aware that he will most likely return to [facility] encourage compliance with lithium try to obtain therapeutic level 06/12/2025 Encourage compliance with lithium and Seroquel. Patient had been on clozapine and past was only on [facility] unclear why he was not more robust only treated increase Seroquel as tolerated try and do mouth checks check for purging 06/20/25 Pt aware of transfer back to [facility] has been eating not purging taking seroquel 06/21 Patient says his mood is getting better... Denies any SI Patient says that he has a hard time resisting the urge to purge and that he has been doing so. He says that after he eats a meal he feels full. But he says he does not like that he does this and wants to stop purging more than Dr. Adhikari wants him to stop. He says he is working on it. Discussed lithium level which has not moved much and patient agrees to make dose long-acting and at bedtime to avoid accidentally purging medications 06/22 Patient very irritable today and would not discuss much with sheet writer other than to say I told you and you would not listen... Now you'll will see what happens.. Patient would not explain what that means despite sheet writer having no idea to what he was referring. Patient refusing medication and when sheet writer went to discuss it he said he would not take lithium; patient said he did not want to talk to this sheet writer any further [place] level subtherapeutic, however patient says he is feeling better so will leave at current dose but change to long-acting and at bedtime 06/23/2025 Continue plan of care if patient accepts treatment including for his medical conditions which were explained to him will maintain current treatment plan if patient continues to be come more paranoid verbally aggressive consider filing for civil commitment and perhaps amendment of Gan if needed. Increase Seroquel as tolerated follow blood pressure and ANC 06/24/25 cont lithium seroquel monitor 06/25/25 inc seroquel as tolerated prozac held ? in irritability 06/26/25 inc seroquel restart fluox for ocd type sx 06/27/2025 Check lithium level in the morning patient reportedly has been taking lithium now for few days increase Seroquel as patient seems more vulnerable on going back to [facility] sometime next week denies thoughts of harm to self or others 06/28: no change today 06/29: repeat Li+ level for tomorrow 06/30/25 Pt refusing all meds exept lithium does not understand medical risks lith close to 0 inc seroquel as tolerated try and follow bp given he is refusing midodrine . Trying to coord with [facility] whether they can handle this level of care they did refuse pt for today. If pt stays will file for tx plan.will try for mei . 07/01/25 [facility] not an option at present with psychotic lability threats aggressive behavior inc seroquel 300 bid max of gan may need to restrain for cbc and vitals if seroquel not not effective will switch to invega. Monitor for dvt sx sz encourage tx acceptance 07/02/25 Pt somewhat less aggressive past 2 days ,monitor medical safety given refusal of anti sz meds and eloquis. Seroquel 300 bid pt tolerating ,will try and recoordinate with [facility] care because wbc were close to 0 on cloz . 07/03/2025 Continue Seroquel 300 b.i.d. continue to encourage patient accepting his meds for medical issues although no negative consequences to this point vital signs stable no orthostasis ambulation not problematic has been in better control Issues had been reviewed with guardian have also reviewed possibility of H referral working with [facility] to try and transfer back as possible based on patient's behavior. If recurrence of aggressive behavior will change to Invega [place] stain also a possibility 07/04/2025 Patient has now not been threatening or aggressive for a number of days. He is on Seroquel a 300 b.i.d. and this appears to be helpful in decreasing paranoid reactivity and preoccupation with delusional material. Patient refusing medication for seizure and embolism stating he feels fine in his refusing to take at this time he is alert ambulating well adequate vital signs tolerating Seroquel. Recommend return to [facility] encourage acceptance of medical medications. 07/05: continue current management and treatment plan. 07/06: continue current management and treatment plan. 07/08/202507/09: Continue current treatment regimen. Taper Seroquel start Risperdal follow CBC history of neutropenia Seroquel 300 b.i.d. max dose on Gan or was not effective for psychosis or aggression most likely would eventually benefit from Invega sustain a which is on the Gan order Consider transfer to adult unit especially if patient continues to be aggressive on geriatric unit Will need physical examination of G-tube monitor CBC 07/10/25 start invega stop risperadol encourage med compliance 07/13: in behavioral control, doing well. continue current mgmt. 07/14/2025 Continue Invega max dose limited to 6 mg check CBC given history of sepsis and leukopenia Consider convert to long-acting injectable as possible 07/15/2025 Invega 6 mg started encourage compliance with antiseizure med 07/16 Patient more able to take in information regarding his medical condition seems more open and accepting. Quite significant lack of any insight into his psychiatric condition Check CBC 07/17 Patient is alert oriented x3, pleasant and cooperative. No acute symptoms at this time. Continue current treatment regimen. Encouraged med compliance and groups. 07/19/2024: No changes 07/20/25: Patient continues to refuse most of his medical medications- is very clear with sheet writer he is doing this in an effort to sabotage his discharge to [facility]. Shot Tube Machine Tender also raised the possibility that treatment team may simply discontinue these orders, since he is not taking them anyway and openly endorses the risks associated with that such as refusing blood thinner etc.. 07/21/2025 Patient has restarted taking his medical medications I had offered to start trying to prune some of the medications back but he was reflective regarding taking medication for blood clots to prevent bullet cuts and medication prevent seizures. Patient seems to be tolerating Invega 6 mg Seroquel 300 mg less agitated less reactive more cooperative Discharge planning to [facility] 07/22/2025 Continue plan of care patient appears to be stabilizing much improved behavior 07/23/2025 Patient accepted back at [facility] discharge tomorrow has been cooperative with care and medication 07/24/2025 Patient is significantly improved has been accepting of taking his medical medications more reflective regarding taking medicine for seizure disorder and to prevent blood clots no adverse effects noted on Invega/Seroquel Reason for continued inpatient stay Substantial Risk for: inability to function and rapid decompensation Time Spent With Patient Time: Total time managing care of this patient today ____ minutes.
== END 2025-07-24 13:30 | DRG 750 ==
LOC: HO.ED 19:33 → HO.PGERI 06-03 13:53
PROVIDERS: Clinical Nurse Specialist Psychiatric/Mental Health, Adult; Nurse Practitioner Family; Admitting Provider Psychiatry & Neurology Psychiatry; Emergency Provider Emergency Medicine; PCP Emergency Medicine; Visit Provider Psychiatry & Neurology Psychiatry
DX: F25.0 Schizoaffective disorder, bipolar type (principal); I95.9 Hypotension, unspecified; F03.90 Unspecified dementia, unspecified severity, without behavioral disturbance, psychotic disturbance, mood disturbance, and anxiety; F50.9 Eating disorder, unspecified; Z93.1 Gastrostomy status; G40.909 Epilepsy, unspecified, not intractable, without status epilepticus; J44.9 Chronic obstructive pulmonary disease, unspecified; R91.1 Solitary pulmonary nodule; Z86.718 Personal history of other venous thrombosis and embolism; Z87.891 Personal history of nicotine dependence; Z79.01 Long term (current) use of anticoagulants; Z79.899 Other long term (current) drug therapy
CPT/HCPCS: 36415; 71045; 74230; 80048; 80053; 80061; 80076; 80178; 80307; 81001; 82565; 82607; 82746; 83036; 84439; 84443; 85025; 92611; 93005; 99285; J1630; J3360; S9485

== ENCOUNTER → 2025-06-01 16:12 | Outpatient (BNV) | payer OTHER, SELFPAY | PROVIDERS: Emergency Provider Emergency Medicine; PCP Emergency Medicine; Visit Provider Clinical Nurse Specialist Psychiatric/Mental Health, Adult | DX: F25.0 Schizoaffective disorder, bipolar type (principal); F03.90 Unspecified dementia, unspecified severity, without behavioral disturbance, psychotic disturbance, mood disturbance, and anxiety | CPT/HCPCS: 99231; 99232 ==

== ENCOUNTER → 2025-06-02 09:56 | Outpatient (BNV) | payer MEDICAID, SELFPAY | PROVIDERS: Emergency Provider Emergency Medicine; PCP Emergency Medicine; Visit Provider Internal Medicine Cardiovascular Disease | DX: Z13.6 Encounter for screening for cardiovascular disorders (principal) | CPT/HCPCS: 93010 ==

== ENCOUNTER 2025-06-03 13:05 | Outpatient (BNV) | payer MEDICAID, SELFPAY | END 2025-07-15 13:39 | PROVIDERS: Admitting Provider Psychiatry & Neurology Psychiatry; Emergency Provider Emergency Medicine; PCP Emergency Medicine; Visit Provider Radiology Diagnostic Radiology | DX: R05.3 Chronic cough (principal) | CPT/HCPCS: 71045 ==

== ENCOUNTER 2025-06-03 13:05 | Outpatient (BNV) | payer MEDICAID, SELFPAY | END 2025-06-06 14:30 | PROVIDERS: Admitting Provider Psychiatry & Neurology Psychiatry; Emergency Provider Emergency Medicine; PCP Emergency Medicine; Visit Provider Radiology Diagnostic Radiology | DX: R13.10 Dysphagia, unspecified (principal) | CPT/HCPCS: 74230 ==

== ENCOUNTER → 2025-06-03 13:05 | Outpatient (BNV) | payer MEDICAID, SELFPAY | PROVIDERS: Admitting Provider Psychiatry & Neurology Psychiatry; Emergency Provider Emergency Medicine; PCP Emergency Medicine; Visit Provider Nurse Practitioner Family | DX: G40.909 Epilepsy, unspecified, not intractable, without status epilepticus (principal) | CPT/HCPCS: 99499 ==

== ENCOUNTER → 2025-06-03 13:05 | Outpatient (BNV) | payer OTHER, SELFPAY | PROVIDERS: Admitting Provider Psychiatry & Neurology Psychiatry; Emergency Provider Emergency Medicine; PCP Emergency Medicine; Visit Provider Psychiatry & Neurology Psychiatry | DX: F25.0 Schizoaffective disorder, bipolar type (principal); F50.9 Eating disorder, unspecified; Z93.1 Gastrostomy status | CPT/HCPCS: 90792; 99232; 99499 ==